=== PATIENT | female | born 1960 | race Caucasian/White ===

== ENCOUNTER 2019-09-27 15:48 | Inpatient (IN) | payer OTHER ==
[~2019-09-27] VITALS: Ht 167.6 cm; Wt 118.0 kg
[~2019-09-27 15:48] MED LIST: ALDACTAZIDE 251 EACH PO; DEMADEX20 MG PO; DEPAKOTE ER500 MG PO; KLOR-CON M2020 MEQ PO; NAPROSYN500 MG PO
--- OUTSIDE RECORDS SUMMARY | 2019-09-27 15:50 | XMS ---
PreManage Notification: REBECCA FERNÁNDEZ [place] Assessor Events No recent Security Events currently on file CRITERIA MET - [facility] [place] [facility] CARE PROVIDERS Russ De Jesus DO [facility] Current PHONE: Unknown DELON LAM Community Health Worker 07/09/2017-Current PHONE: [phone] Justin Erickson or Taker Away 07/11/2017-Current PHONE: [phone] RUSS DE JESUS Primary Care Current PHONE: Unknown [facility] Adult [facility] Health Provider [facility] PHONE: [phone] Guidelines Source: [employer] [place] Guidelines Date: 04/27/2018 Other Information: Currently placed at [facility] Adult [facility], contact Rain Tacho [phone].\T\nbsp; All prescription medications are being processed through [employer] [phone]. These are guidelines and the provider should exercise clinical judgment when providing care. Care History Medical/Surgical 08/28/2016 [facility] Care Coordination: Patient requires education on appropriate ED usage.\T\nbsp; Emphasize the importance of using outpatient medical services for the treatment of chronic conditions. Please contact Community Health WorkerDelon at [phone] if patient is seen in ED These are guidelines and the provider should exercise clinical judgment when providing care. E.D. VISIT COUNT (12 MO.) [address] [address] ROMAINE Barajas TOTAL 5 NOTE: Visits indicate total known visits. ED/UCC VISIT TRACKING (12 MO.) 09/27/2019 15:49 ROMAINE Lopez [place] TYPE: Emergency COMPLAINT: - FACIAL SWELLING, SORE THROAT 04/24/2019 08:24 [facility]: Emergency DIAGNOSES: - LOWER LEG SWELLING - Localized edema 01/04/2019 13:57 [facility] [place] TYPE: Emergency DIAGNOSES: - URI - Noninfective gastroenteritis and colitis, unspecified 12/13/2018 17:05 [facility]: Emergency DIAGNOSES: - Dizziness - Fall - Leg Pain - Altered Mental Status - Weakness - Dorsalgia, unspecified 12/13/2018 11:16 [facility] TYPE: Emergency DIAGNOSES: - WEAKNESS BILATERAL LEG PAIN - Oth symptoms and signs involving the musculoskeletal system - Anesthesia of skin - Unspecified nystagmus - Dizziness and giddiness INPATIENT VISIT TRACKING (12 MO.) 10/26/2018 12:01 [facility] DIAGNOSES: - Body mass index (BMI) 40.0-44.9, adult - Morbid (severe) obesity due to excess calories - Unspecified abnormalities of gait and mobility - Spinal stenosis, lumbar region with neurogenic claudication [email or web address]
--- NOTE | 2019-09-27 19:10 | NUR ---
59YR OLD WOMAN ADMITTED FROM ER VIA STRETCHER TO ROOM 120, PT IS ALERT, ORIENTED X4, C/O DIGGS ACROSS TOP OF HER HEAD, SPEECH IS CLEAR, ABLE TO SLIDE FROM STRETCHER ONTO BED WITH MIN ASSIST. ORIENTED TO ROOM AND CALL LIGHT. TINA-RN FROM ER ASKED IF I COULD GIVE ASPIRIN THAT WAS ORDERED TO BE GIVEN IN ER. ASPIRIN 325MG GIVEN. NO DIFFICULTY WITH SWALLOW.
--- NOTE | 2019-09-27 19:42 | NUR ---
PT TO ROOM FROM ED. REPORT RECEIVED FROM DAY SHIFT RN. PT LYING IN BED, ALERT AND ORIENTED. SIPS OR WATER GIVEN, NO SWALLOWING OR ASPIRATION ISSUES NOTED. PT STATES SHE ATE A CHEESEBURGER IN THE ED, LEFT SIDE OF HER TONGUE IS NUMB SO SHE WAS CHEWING ON THE RIGHT SIDE. SHE DENIES DIFFICULTY EATING OR DRINKING. ORIENTED TO CALL LIGHT AND TO CALL FOR ASSITANCE WITH AMBULATION. DENIES OTHER NEEDS AT THIS TIME.
--- NOTE | 2019-09-27 20:00 | EKG ---
[facility] [address] [place], [place] [address] Signed Normal sinus rhythm Inferior infarct , age undetermined Abnormal ECG No previous ECGs available Confirmed by DAVI RANDOLPH MD ([id number]) on 09/27/2019 8:00:00 PM Electronically Signed By: DAVI RANDOLPH MD 09/27/19 2000 PATIENT NAME: REBECCA FERNÁNDEZ Electrocardiogram DATE OF : 60 PHYSICIAN: DAVI RANDOLPH MD REPORT #: [id number] REPORT IS CONFIDENTIAL AND NOT TO BE RELEASED WITHOUT AUTHORIZATION
--- NOTE | 2019-09-27 20:30 | NUR ---
BEDSIDE SWALLOW EVALUATION COMPLETE. PT FRANCIE WELL WITH NO SIGNS OF SWALLOWING DIFFICULTY. MD AWARE, SOFT AND BITE SIZE TEXTURE 60 GR CARB DIET ORDERED FOR BREAKFAST. PT DOES CONTINUE TO C/O NUMBNESS AND TINGLING ON THE LEFT SIDE OF HER TONGUE. NEURO CHECK COMPLETE. SLIGHT LEFT SIDE FACIAL DROOP AND EDEMA NOTED. PRESSING MACHINE TENDER STRENGTH EQUAL BILAT. PT DENIES PAIN IN LEFT SIDE, STATES THE LAST TWO FINGERS ON HER LEFT HAND ARE NUMB AND TINGLING.
--- NOTE | 2019-09-27 23:56 | NUR ---
PT CALLED, NEEDED TO USE BATHROOM. INDEPENDENTLY GOT SELF OUT OF BED, SBA WITH FWW TO BATHROOM. USED CALL LIGHT TO RETURN TO BED, ABLE TO GET SELF INTO BED. STATES ALL LEGS, AND ARMS ARE "WORKING" LIKE THEY USUALLY DO. DID NOT NOTICE DRAGGING OF LEG(S), ABLE TO USE BOTH ARMS EQUALLY AND PULL PANTS DOWN. SPEECH IS CLEAR, ANSWERS QUESTIONS APPROPRIATELY. WILL RECOMMEND TO DAYSHIFT TO HAVE PT SHOWER, SHE HAS BODY ORDER.
--- NOTE | 2019-09-28 01:57 | NUR ---
CALL LIGHT ANSWERED. PT C/O BEING TOO HOT AND UNABLE TO SLEEP. FAN AND ICE PACK GIVEN. REPOSITIONED IN BED. VS WNL. NEURO CHECK COMPLETE AND UNCHANGED. CALL LIGHT IN REACH.
--- NOTE | 2019-09-28 04:25 | NUR ---
ASSESSMENT COMPLETE. NEURO ASSESSMENT UNCHANGED. PT STILL C/O LEFT SIDE TONGUE NUMBNESS AND TINGLING. PT ALSO EXPLAINED HOW SHE FEELS IF SHE HAS "PHLEGM" STUCK IN HER THROAT. PT ABLE TO COUGH BUT DID NOT PRODUCE ANYTHING. PT ALSO STATES SHE FEELS "WOOZY" AND JUST NOT "NORMAL". REASSURED PT. MRI SCREENING FORM COMPLETE. CALL LIGHT IN REACH.
--- NOTE | 2019-09-28 04:54 | NUR ---
PT SLEPT OK. ALERT AND ORIENTED, USES CALL LIGHT APPROPRIATELY. NEURO CHECKS Q4x24 HOURS. LEFT SIDE FACIAL DROOP, PT C/O NUMBESS AND TINGLING ON LEFT SIDE TONGUE. PT FRANCIE LIQUIDS AND PO MEDICATIONS. 6O GR CARB, SOFT AND BITE SIZE TEXTURED DIET. TELE #6, NSR. SBA WITH FWW. PT/OT/ST. PO TYLENOL FOR HEADACHE.
--- NOTE | 2019-09-28 05:48 | NUR ---
PT UP TO BR WITH MINIMAL SBA AND FWW. NO LEFT SIDE DEFICITS NOTED, GAIT STEADY. ABLE TO DO OWN SAMUEL-CARE. PT BACK TO BED, FRANCIE ACTIVITY WELL. STATES THERE IS A "LUMP IN MY STOMACH FROM WORRY", ATTEMPTED TO REASSURE PT. NO FURTHER REQUESTS AT THIS TIME. CALL LIGHT IN REACH.
--- NOTE | 2019-09-28 08:32 | NUR ---
PATIENT SITTING UP IN BED. SETS UP BATHROOM. PATIENT WILL TAKE A SHOWER AFTER BREAKFAST. CALL LIGHT WITHIN REACH. NO OTHER NEEDS AT THIS TIME
--- NOTE | 2019-09-28 10:05 | NUR ---
PATIENT RESTING IN BED. VITAL SIGNS AND I&O DONE. PATIENT'S BREAKFAST ORDERED. CALL LIGHT WITHIN REACH. NO OTHER NEEDS AT THIS TIME
--- NOTE | 2019-09-28 10:20 | NUR ---
ECHO WAS DONE, PT HAS BEEN ON PHONE WITH BROTHER SEVERAL TIMES, HAS BECOME UPSET BECAUSE BROTHER STATES HE CANNOT COME TODAY. REASSURED PT SHE IS SAFE AND EVERYTHING IS OK. PT AGREES SHE WILL TAKE A SHOWER.
--- NOTE | 2019-09-28 10:53 | NUR ---
Chart sent to [facility]: Face sheet, H&P, ER Note.
--- NOTE | 2019-09-28 11:00 | NUR ---
AGREED TO SHOWER, TOLERATED WELL, UP TO RECLINER FOR LUNCH, IN GOOD SPIRITS. L ARM/LEG WEAKNESS MOSTLY RESOLVED, C/O TINGLING ALONG L SIDE OF FACE, SLIGHT L MOUTH DROOP, NO SWALLOW DIFFICULTIES. USING CALL LIGHT APPROPRIATELY. TELE#6 SR.
--- NOTE | 2019-09-28 11:57 | NUR ---
PATIENT RESTING IN BED. RN IN ROOM. IV WRAPPED. PATIENT GOES TO USE THE BATHROOM. PATIENT USES WALKER. PATIENT TAKES A SHOWER. TWO PERSON ASSISTING. LINEN CHANGED. PATIENT USING A CLEAN GOWN AND ADULT PULL UP. PATIENT BACKS TO CHAIR. WARM BLANKETS PROVIDED. CALL LIGHT WITHIN REACH. NO OTHER NEEDS AT THIS TIME
--- NOTE | 2019-09-28 12:12 | NUR ---
Texted Ezequiel at [facility] and let her know we are definitly needing placement for this patient. I will call and update [facility] to pt's history of TBI.
[2019-09-28] MEDS ORDERED: LEXAPRO5 MG PO (12:29)
[2019-09-28] MEDS ORDERED: SEROQUEL100 MG PO (12:34)
[2019-09-28] MEDS ORDERED: ABILIFY20 MG PO (12:36)
[2019-09-28] MEDS ORDERED: VITAMIN D21250 MCG PO (12:36)
[2019-09-28] MEDS ORDERED: ALDACTONE50 MG PO (12:42)
[2019-09-28] MEDS ORDERED: OMEPRAZOLE20 MG PO (12:42)
[2019-09-28] MEDS ORDERED: BUMETANIDE1 MG PO (12:43)
[2019-09-28] MEDS ORDERED: LASIX20 MG PO (12:44)
[2019-09-28] MEDS ORDERED: NEURONTIN600 MG PO (12:44)
--- NOTE | 2019-09-28 12:44 | NUR ---
In and spoke with Soo. US was completed and she is scheduled for MRI this afternoon. States she was in a long-term in [place] and left on not good terms. Her hospital bed and some belongings have remained their since Aug 19 when she was asked to leave. Discussed discharge and she is very upset stating she cannot go back to a motel room. Discussed plan for her to go to a SNF for PT. She states she doesn't want to go, but understands she will need to do so. Pt also states she is very scared as she has had a stroke. States she would like to shower with assist as she has not showered in a week. She would like her home health care case manager called from [employer] as she is concerned about clothing. Called and attempted to speak with Lenka Tenorio, she is out sick. Spoke with [place] [phone]. He or someone will pack her bag and bring to the hospital.
[2019-09-28] MEDS ORDERED: SEROQUEL25 MG PO (12:45)
[2019-09-28] MEDS ORDERED: TRAZODONE HCL50 MG PO ×2 (12:46)
[2019-09-28] MEDS ORDERED: ACETAMINOPHEN500 MG PO ×2 (12:55→12:56)
[2019-09-28] MEDS ORDERED: LOPERAMIDE2 MG PO (13:00)
--- NOTE | 2019-09-28 13:00 | NUR ---
TO MRI VIA WC AT THIS TIME.
[2019-09-28] MEDS ORDERED: MILK OF MA400 MG/5 M PO (13:02)
[2019-09-28] MEDS ORDERED: MECLIZINE HCL25 MG PO (13:04)
--- NOTE | 2019-09-28 14:03 | NUR ---
PATIENT RESTING IN BED. VITAL SIGNS AND I&O DONE. HIGH DYASTOLIC BLOOD PRESSURE. RN NOTIFIED. CALL LIGHT WITHIN REACH. NO OTHER NEEDS AT THIS TIME
--- NOTE | 2019-09-28 14:13 | NUR ---
Update given to Ezequiel of pt's past history with Bipolar and TBI. She states pt will need a detention plan for the end of 20 days. Request I call [facility] for Eval for placement when pt has completed her PT there. This will help with them accepting her to [facility]. Called and spoke with Jillian from [facility] to [facility]. She and Les will evaluate pt tomoorrow. Reminded tomorrow is New Years Day and she states they are working. Will send chart to [facility] to [facility].
--- NOTE | 2019-09-28 15:12 | NUR ---
PT AMBULATING IN HALLWAY WITH PT USING FWW. NEEDED SOME PROMPTING BUT AGREED TO WORK WITH PT. COOPERATIVE AND PLEASANT. TOLERATED WELL. CONT. TO USE CALL LIGHT APPROP.
--- NOTE | 2019-09-28 15:16 | NUR ---
DINNER ORDERED, PT REPORTS HEADACHE IS MUCH IMPROVED AFTER TAKING TYLENOL. STATES SHE IS GOING TO TAKE A NAP BEFORE DINNER. CALL LIGHT IN EASY REACH.
--- NOTE | 2019-09-28 15:50 | NUR ---
MED REC COMPLETE
--- NOTE | 2019-09-28 16:38 | NUR ---
OT COMPLETING EVAL AT THIS TIME.
--- NOTE | 2019-09-28 17:46 | NUR ---
PATIENT IN BED RESTING. CALL LIGHT IN REACH. NO FURTHER NEEDS AT THIS TIME.
--- NOTE | 2019-09-28 17:47 | NUR ---
PT HAS BEEN UP AND SHOWERED THIS AM, ONE PERSON ASSIST TO TRANSFER AND WALK USINF FWW. L SIDE WEAKNESS MUCH IMPROVED, AMBULATED IN [place] WITH PT. COOPERATIVE WITH OT EVAL. CONT. TO C/O BLURRY VISION, AND L SIDE DROOP OF MOUTH, STATES TINGLING IS UNCHANGED L SIDE OF FACE. NO HEADACHE THIS AFTERNOON. ATE 90% OF DINNER INDEP.NOTED SOME INCREASE IN EDEMA IN LOWER LEGS AFTER BEING OUT OF BED. NO DIFFICULTY WITH SWALLOW. USING CALL LIGHT APPROP. CONTINENT OF BOWEL AND BLADDER.
--- NOTE | 2019-09-28 19:19 | NUR ---
REPORT RECEIVED FROM DAY SHIFT RN. PT LYING IN BED RESTING WITH EYES CLOSED, NAD. CALL LIGHT IN REACH.
--- NOTE | 2019-09-28 21:49 | NUR ---
EVENING ASSESSMENT COMPLETE. PM MEDS GIVEN, NO SWALLOWING ISSUES NOTED. INVESTOR RELATIONS SPECIALIST STRENGTH EQUAL. LEFT SIDE FACIAL DROOP STILL PRESENT. TELE #6 SINUS RHYTHM, HR IN THE 80'S. URINE OUTPUT NOTED TO BE LOW, PO INTAKE ENCOURAGED. NO FURTHER NEEDS AT THIS TIME. CALL LIGHT IN REACH.
--- NOTE | 2019-09-28 23:10 | NUR ---
CALL LIGHT ANSWERED. 1 PA TO THE BATHROOM USING PERSONAL WALKER. CHANGED PULL UPS. PATIENT VOIDED 400ML. PATIENT IS BACK IN BED. PATIENT DENIES FURHTER NEEDS. CALL LIGHT IN REACH.
--- NOTE | 2019-09-29 00:09 | NUR ---
PT RESTING IN BED WITH EYES CLOSED, NAD. CALL LIGHT IN REACH.
--- NOTE | 2019-09-29 02:41 | NUR ---
PT IN BED RESTING WITH EYES CLOSED ON RIGHT SIDE. TELE #6 SR, HR 50-60'S.
--- NOTE | 2019-09-29 05:10 | NUR ---
PT SLEPT WELL, ALERT AND ORIENTED. USES CALL LIGHT APPROPRIATELY. FRANCIE ADA SOFT AND BITE SIZE DIET. UP TO BR WITH SBA AND FWW. TELE #6, NSR. BLE EDEMA IMPROVED FROM LAST NOC. LEFT SIDE FACIAL DROOP REMAINS. GRAD INTERN STRENGTH EQUAL BILAT. NO C/O BLURRED VISION OR DIGGS THIS SHIFT. NO SWALLOWING DIFFICUTLY NOTED.
--- NOTE | 2019-09-29 06:23 | NUR ---
PT UP TO BR WITH FWW AND MINIMAL SBA. STAFF ASSIST WITH SAMUEL-CARE. BACK TO BED, FRANCIE ACTIVITY WELL. NO LEFT SIDED DEFICITS OR WEAKNESS NOTED WITH AMBULATION. GAIT STEADY. LEFT SIDE FACIAL DROOP UNCHANGED. NO C/O HEADACHE OR BLURRED VISION. VSS. PT DENIES OTHER NEEDS. CALL LIGHT IN REACH.
--- NOTE | 2019-09-29 09:01 | NUR ---
NEEDED LOTS OF ENCOURAGEMENT TO GET OOB FOR BREAKFAST, STATED SHE PREFERS TO JUST LAY IN BED "MY BROTHER ISN'T GONNA COME SEE ME." ENC. HER TO GET UP TO RECLINER TO EAT, ATE 20% OF BREAKFAST BUT IS TAKING FLUIDS BETTER. AGREED TO WALK WITH PT IN [place]. TOOK SCHEDULED MEDS. PT STATES VISION CONT. TO BE A LITTLE BLURRY AROUND EDGES BUT IS BETTER THIS AM, NO DIGGS THIS MORNING, CONT. TO HAVE L FACIAL DROOP. NO DIFFICULTY WITH SWALLOW.
--- NOTE | 2019-09-29 12:23 | NUR ---
ATE WELL FOR LUNCH AND TAKING FLUIDS BETTER TODAY, REMAINS COOPERATIVE AND PLEASANT WITH CARES, ASKED TO LAY DOWN FOR A NAP AFTER LUNCH. CONT. TO DENY DIGGS.
--- NOTE | 2019-09-29 14:12 | NUR ---
PT REPORTS HEADACHE MUCH IMPROVED AFTER HEADACHE. ATE 100% OF LUNCH.
--- NOTE | 2019-09-29 15:55 | NUR ---
SBA TO AMBULATE INTO BATHROOM TO VOID, URINE IS LIGHT YELLOW NOW, OUTPUT IS MUCH BETTER, SITTING UP IN RECLINER WATCHING FOOTBALL GAME. PRACTISED EYE TEST GIVEN BY OT INSTRUCTED. DENIES ANY DIGGS OR NEEDS AT THIS TIME. CALL LIGHT IN EASY REACH.
--- NOTE | 2019-09-29 16:12 | NUR ---
patient asked for information on [facility]
--- NOTE | 2019-09-29 17:37 | NUR ---
ATE 100% OF DINNER, IN BETTER SPIRITS THIS AFTERNOON, NO COMPLAINTS OF DISCOMFORT, ASSISTED ONTO BED TO REST. CALL LIGHT IN EASY REACH.
--- NOTE | 2019-09-29 19:00 | NUR ---
SHIFT REPORT RECEIVED FROM DAYSHIFT MAIKEL GEE AT BEDSIDE. PT RESTING IN BED WITH EYES CLOSED, RESPIRATIONS EVEN AND UNLABORED. NO DISTRESS NOTED, PT APPEARS COMFORTABLE, CALL LIGHT IN REACH.
--- NOTE | 2019-09-29 21:17 | NUR ---
HELPED PT TO THE BATHROOM AND BACK TO BED WITH HER FWW. VITALS AND I&OS DONE AND CHARTED. BEDSIDE TABLE AND CALL LIGHT IN REACH. PT NEEDS NOTHING MORE AT THIS TIME.
--- NOTE | 2019-09-29 21:40 | NUR ---
ASSESSMENT COMPLETE,SCHEDULED MEDS GIVEN (SEE EMAR). SLIGHT FACIAL DROOP, NO DIFFICULTY WITH SWALLOWING NOTED. PT A/O, REPORTS MINIMAL DISCOMFORT AT BACK OF HEAD, STATES "I DON'T NEED ANYTHING FOR IT". DOES NOT VERBALLY RATE PAIN. WILL MONITOR FOR CHANGES RELATED TO PAIN OR VISION CHANGES. NO FURTHER NEEDS VERBALIZED, CALL LIGHT IN EASY REACH OF PT.
--- NOTE | 2019-09-29 23:32 | NUR ---
PT RESTING IN BED WITH EYES CLOSED. RESPIRATIONS EVEN AND UNLABORED. NO DISTRESS NOTED, PT APPEARS COMFORTABLE. CALL LIGHT IN REACH.
--- NOTE | 2019-09-30 01:22 | NUR ---
PT RESTING IN BED WITH EYES CLOSED. RESPIRATIONS EVEN AND REGULAR, NO DISTRESS NOTED. CALL LIGHT IN REACH.
--- NOTE | 2019-09-30 04:07 | NUR ---
RR 16, REGULAR AND UNLABORED. EYES CLOSED, PT APPEARS COMFORTABLE AND IN NO DISTRESS. CALL LIGHT EASILY IN REACH.
--- NOTE | 2019-09-30 05:20 | NUR ---
ASSESSMENT COMPLETE, NO NEW CHANGES OR CONCERNS. PT A/O, VSS. PT ABLE TO COMPLETE LETTER SHEET, WITH ONLY ONE MISS. PT STATES, BLURRED VISION IS "BETTER THAN YESTERDAY". PT DENIES PAIN. PRINCIPAL SCIENTIST DECEMBER IN ROOM ASSITING PT TO BATHROOM TO VOID.
--- NOTE | 2019-09-30 05:23 | NUR ---
VITALS AND I&OS DONE AND CHARTED. HELPED PT TO THE BATHROOM AND BACK TO BED WITH HER FWW. FRESH ICE WATER GIVEN. BEDSIDE TABLE AND CALL LIGHT IN REACH.
--- NOTE | 2019-09-30 06:06 | NUR ---
PT SLEPT FOR MOST OF SHIFT, VSS. PT A/OX4, REPORTED PAIN IN HEAD, DENIED NEED FOR PAIN MEDICATION, RESOLVED SPONTANEOUSLY. REPORTS BLURRED VISION IS BETTER, USES CALL LIGHT APPROPERIATELY. SBA WITH FWW. VOIDING QS, NO BM. TENETATIVE DISCHARGE TO [facility].
--- NOTE | 2019-09-30 08:10 | NUR ---
PT IS ALERT, SBA USING FWW, SOME INCREASED ANXIETY DUE TO POSSIBLE DC, REASSURRED HER SHE IS SAFE AND WILL HAVE SUPPORT, REMAINS COOPERATIVE, UP TO RECLINER FOR BREAKFAST, REPORTS HEADACHE IS BARELY THERE, DENIES NEED FOR TYLENOL, REPORTS VISION IS BETTER AND PRACTICED EYE CHART GIVEN BY OT THIS AM. SLIGHT DROP CONT. ON R SIDE OF MOUTH, NO SWALLOW DIFFICULTIES, USING CALL LIGHT APPROP.
--- NOTE | 2019-09-30 09:00 | NUR ---
In and spoke with Soo. She is willing to go to the snf. [facility] did not evaluate yesterday as planned. Called and left message. [facility] continues to not want to accept until there is a discharge plan in place. Will cont. to contact [facility].
--- NOTE | 2019-09-30 10:35 | NUR ---
ATE 100% OF BREAKFAST, RESTING IN RECLINER WITH WARM BLANKET, DENIES ANY NEEDS, CALL LIGHT IN EASY REACH.
--- NOTE | 2019-09-30 11:00 | NUR ---
Attempted to contact Jillian by phone, spokewith Patrica who states she is cooking lunch and will return call afternoon.
--- NOTE | 2019-09-30 11:40 | NUR ---
WALKED LOOP AROUND NURSES STATION WITH PT USING FWW, IN GOOD SPIRITS, STATES SHE HAD ORDERED LUNCH, ROSANNA ANY NEEDS OR CONCERNS. CALL LIGHT IN EASY REACH.
--- NOTE | 2019-09-30 13:23 | NUR ---
ATE 100% OF LUNCH, IN GOOD SPIRITS, SBA ONLY WITH FWW UP TO BATHROOM TO VOID, ASKED TO LAY ON BED TO WATCH TV FOR AWHILE, TIRED OF SITTING IN CHAIR, ORDERED ANOTHER GLASS OF ICE TEA. CALL LIGHT IN EASY REACH.
--- NOTE | 2019-09-30 14:00 | NUR ---
Received return call from Lesley from [employer], after attempting to contact Lenka watch case polisher. Lesley states they could provide her with a motel room on discharge from the senior care. She states he concern as pt did not do well in the motel as she has difficulty caring for herself and cannot cook for herself. I later received a note from Tangela from pt education. Lenka did return the call and agreed to cover the cost of a hotel room for 1 month when pt discharges from SNF. Lesley [phone]. Lenka Cruz [employer] [phone]. Ezequiel updated, but states concern this is not a safe dc as pt did not do well in a motel room.
--- NOTE | 2019-09-30 14:38 | NUR ---
SBA INTO BATHROOM TO VOID, ASSESSMENT COMPLETE, SPEECH IS MUCH CLEARER NOW, DENIES ANY DIGGS, AMBULATION IS STRONGER, CONT. TO BE IN BETTER SPIRITS, SCHEDULED MEDS TAKEN WITHOUT DIFFICULTY. ASKED TO LAY DAOWN AGAIN BEFORE DINNER. CALL LIGHT IN EASY REACH.
--- NOTE | 2019-09-30 15:00 | NUR ---
Spoke with Jillian, they will evaluate today. States they cannot confirm they will take as DHS eval was completed last week and DHS has 30 + days to confirm.
--- NOTE | 2019-09-30 15:20 | NUR ---
Spoke with Ezequiel and update given. She states she spoke with Rosalba from [facility] and eval was completed by outside agency and they are unable to determine if pt will received benefits. Pt's major case detective is Judy from [facility] in [place]. I will contact her for further information.
--- NOTE | 2019-09-30 16:05 | NUR ---
UP TO RECLINER, DINNER ORDERED. IN GOOD SPIRITS, CALL LIGHT IN EASY REACH.
--- NOTE | 2019-09-30 16:30 | NUR ---
Attempted to contact Judy from [facility] in [place] she is out today. Was transferred to [facility]. Updated Soo had a stroke 2 days following the [facility] eval. She states eval was completed by Mental Health team from [place]. Requested Eval to be redone due to the change of condition. Let her know pt is now in Person, attempting to admit to a SNF for PT/OT, and then an assisted living when discharged. Asked if [facility] could reassess tomorrow. She states she will staff with coworkers tomorrow and let us know. Updated SNF and [facility] do not want to commit to taking pt as she does not have LTC benefits at this point. Cam or Judy [phone].
--- NOTE | 2019-09-30 18:09 | NUR ---
PT HAS HAD A GOOD DAY, AMBULATED CASTILLO WITH PT USING FWW, IN GOOD SPIRITS, LAUGHING AND JOKING WITH STAFF, GOOD APPETITE, SPEECH SEEMS CLEARER TODAY, NO DIGGS, CONT. TO HAVE MILD FACIAL DROP ON R SIDE OF MOUTH, NO SWALLOW DIFFICULTIES. USING CALL LIGHT APPROP.
--- NOTE | 2019-09-30 19:15 | NUR ---
SHIFT REPORT RECEIVED FROM DAYSHIFT MAIKEL GEE AT BEDSIDE. PT AWAKE AND RESTING IN BED. INTERACTIVE WITH NURSING STAFF AND DENIES NEEDS, CALL LIGHT IN REACH. BOARD UPDATED.
--- NOTE | 2019-09-30 21:31 | NUR ---
VITALS AND I&OS DONE AND CHARTED. FRESH WATER AND SUGAR FREE SODA GIVEN BEDSIDE TABLE AND CALL LIGHT IN REACH. ALSO HELPED PT TO THE BATHROOM AND BACK TO BED WITH HER FWW.
--- NOTE | 2019-09-30 22:15 | NUR ---
ASSESSMENT COMPLETE,SCHEDULED MEDS GIVEN (SEE EMAR). CRACKERS PROVIDED FOR ORAL POTASSIUM. NO SWALLOWING DIFFICULTIES NOTED, PT A/OX4. REPORTS GENERALIZED DISCOMFORT, BUT DOES NOT RATE PAIN AND DENIES NEED FOR PAIN MEDICATION. PT RESTING IN BED AND DENIES FURTHER NEEDS, CALL LIGHT IN REACH.
--- NOTE | 2019-10-01 00:05 | NUR ---
PT RESTING IN BED WITH EYES CLOSED, RESPIRATIONS EVEN AND UNLABORED. NO DISTRESS NOTED, CALL LIGH IN REACH.
--- NOTE | 2019-10-01 01:34 | NUR ---
PT RESTING IN BED, EYES ARE CLOSED. RESPIRATIONS EVEN AND UNLABORED. NO DISTRESS NOTED, CALL LIGHT IN REACH.
--- NOTE | 2019-10-01 03:43 | NUR ---
PT RESTING IN BED, RESPIRATIONS EVEN AND UNALBORED. PT APPEARS COMFORTABLE, NO DISTRESS NOTED, CALL LIGHT IN REACH.
--- NOTE | 2019-10-01 04:54 | NUR ---
PT HAD A GOOD NIGHT, SLEPT FOR MOST OF SHIFT. A/O, VSS. SBA WITH FWW, USES CALL LIGHT APPROPERIATELY. REPORTS BLURRED VISION IS IMPROVING. NO PAIN MEDICATION REQUIRED. PT DENIED NAUSEA, BOWEL TONES ACTIVE. TENATIVE DISCHARGE TODAY.
--- NOTE | 2019-10-01 05:31 | NUR ---
ASSESSMENT COMPLETE, NO NEW CHANGES OR CONCERNS. PT AWAKE AND VERBALIZING NEED TO VOID. CLEAN ATTENDS IN PLACE, PT BACK IN BED. DENIES PAIN, VSS. NO ADDITIONAL NEEDS AT THIS TIME, PT STATES, "THANK YOU FOR YOUR KIND CARE". CALL LIGHT IN REACH.
--- NOTE | 2019-10-01 07:29 | NUR ---
RECIEVED BEDSIDE REPORT FROM MAIKEL AQUINO. PT IS SLEEPING, APPERS COMFORTABLE.
--- NOTE | 2019-10-01 07:40 | NUR ---
patient resting in bed with eyes closed.
--- NOTE | 2019-10-01 08:36 | NUR ---
PT IS CONCERNED ABOUT DISCHARGING TO [facility]. STATES SHE HAS BELONGINGS AT A MOTEL IN [facility] THAT SHE NEEDS. ALSO HAS A PAIR OF [place] HEARING AIDES THAT MUST BE RETURNED TO THE [facility]ARING AIDE CENTER. THIS RN ASSURED HER THAT EITHER [facility] OR [facility] CAN HELP HER GET HER BELONGINGS FROM THE [facility]OTEL AND GET THE HEARING AIDS BACK TO THE [facility]. PT VISIBLY RELAXED WITH THAT INFORMATION. VERY PLEASANT AND COOPERATIVE WITH CARES.
--- NOTE | 2019-10-01 08:45 | NUR ---
patient would like to wait on a shower until after she knows the plan for her discharge. no other needs a this time.
--- NOTE | 2019-10-01 09:44 | NUR ---
CALLED [facility] SADLER TO SPEAK WITH DAYWORKER TO ASK FOR ASSESSMENT FOR MEDICAID BENEFITS. NO DAYWORKER AVAILABLE UNTIL AFTER 11AM TODAY, WAS PUT TO THE DESK OF HERMAN WHO IS SUPPOSED TO COVER AT 11AM AND LEFT MESSAGE FOR CALLBACK AND REQUEST OF ASSESSMENT.
--- NOTE | 2019-10-01 10:05 | NUR ---
Patient finished with PT and back to bed. fresh ice water given. call button in reach. no other needs at this time.
--- NOTE | 2019-10-01 10:33 | NUR ---
PT HAS BEEN UP WALKING WITH PHYSICAL THERAPY. TOLERATED WELL. MAINTAINING O2 SATS WITH AMBULATION. OCCUPATIONAL THERAPY IN ROOM AT THIS TIME.
--- NOTE | 2019-10-01 10:44 | NUR ---
RECEIVED A MESSAGE FROM [facility] SUPER[employer]OR [employer] [phone]. TRIED TO CALL HER BACK, HAD TO LEAVE A MESSAGE. REQUESTED HELP IN GETTING AN ASSESSMENT FOR MEDICAID COVERAGE.
--- NOTE | 2019-10-01 15:10 | NUR ---
PATIENT UP AMBULATING IN HALLWAY WITH ONE PERSON ASSIST, WALKER, AND GATE BELT THEN BACK TO BED. CALL BUTTON IN REACH. NO OTHER NEEDS AT THIS TIME.
--- NOTE | 2019-10-01 21:44 | NUR ---
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 PT RESTING IN BED WITH EYES CLOSED. DOES NOT WAKE WHILE PROCED TECH IN DOORWAY. CALL LIGHT IN REACH. WHITE BOARD UPDATED.
--- NOTE | 2019-10-01 21:51 | NUR ---
COOP WITH ASSESSMENT, NO C/O PAIN, NYSTATIN POWDER TO UNDER BREAST AREA, TOLERATING DIET, NO N.V. LEGS ELEVATED, HOB ELEVATED
--- NOTE | 2019-10-01 23:26 | NUR ---
up to br, voided, back to bed, 1pa/fww, tolerated welll, hob elevated. no c/o pain, legs elevated.
--- NOTE | 2019-10-02 03:01 | NUR ---
RESTING,NO C/O PAIN, NO DISTRESS, CALL LIGHT AT HANDS REACH
--- NOTE | 2019-10-02 05:29 | NUR ---
Pt awakesn easily, denies c/o chest pain. Goes back to sleep. Has slept most of this shift, no resp distress, on room air, Up to br, voiding QS. Up w 1PA and FWW, needs help with pericare.Nystatin powder to under breast area. Tolerating diet and fluids well. SL intact
--- NOTE | 2019-10-02 05:41 | NUR ---
Continues to be on transitional care/swing bed status, Has slept most of this shift, denies c/o CP, no resp distress, Up to br with 1pa/fww, no c/o gait problems. tolerating diet anf fluids. Call light at bedside
--- NOTE | 2019-10-02 07:26 | NUR ---
RECIEVED REPORT FROM MAIKEL BARRY. PT IS SLEEPING WELL, BREATHING EVEN AND UNLABORED. GENERAL BILAT LE EDEMA, CHRONIC. CALLS APROPRIATELY.
--- NOTE | 2019-10-02 07:54 | NUR ---
PATIENT SITTING IN CHAIR RESTING. CALL LIGHT IN REACH. NO FURTHER NEEDS AT THIS TIME.
--- NOTE | 2019-10-02 09:19 | NUR ---
PATIENT UP TO BATHROOM AND BACK TO BED, SBA FWW. ORAL CARE AND AM CARE DONE AT SINK. CALL LIGHT IN REACH. NO FURTHER NEEDS AT THIS TIME.
--- NOTE | 2019-10-02 10:24 | NUR ---
PER LELE BERUMEN TO LEAVE IV OUT. PT IS DUE FOR ROTATION.
--- NOTE | 2019-10-02 14:47 | NUR ---
PATIENT AMBULATED IN HALLWAY, 1 LAP AROUND NURSES STATION. PATIENT NOW BACK IN BED. PATIENT ASKED FOR PUDDING, SUGAR FREE PUDDING GIVEN. CALL LIGHT IN REACH. NO FURTHER NEEDS AT THIS TIME.
--- NOTE | 2019-10-02 19:45 | NUR ---
Up to br, voided, back to bed, tolerated well. 1PA/FWW. Coop with assessments on room air, denies c/o pain. L leg 2+ non pitting edema, 1+ generalized edema everywhere else, obese. Alert and orineted, apporpriate responses and following and repeating back instructions, no slurred speech noted. Call light at hands reach, tolerating fluids and diet well
--- NOTE | 2019-10-03 02:00 | NUR ---
Resting, eyes closed, resp even, unlabored, call light and fluids atbedside
--- NOTE | 2019-10-03 02:26 | NUR ---
PT UTILIZES CALL LIGHT TO USE THE BATHROOM PT UP TO BATHROOM AND BACK TO BED WITH SBA AND FWW. TOLERATED WELL. REPORTS SLIGHT SOB AND DIZZINESS WHEN BACK TO BED. REQUESTS 7UP TO DRINK, PROVIDED. PT DENIES FURTHER NEEDS AT THIS TIME. CALL LIGHT IN REACH. ROOM IN VIEW OF RN STATION.
--- NOTE | 2019-10-03 04:00 | NUR ---
Upto br, voided, backto bed, tolerated well, no slurred speech or c/o visual problems, 1pa/fww, call light at bedside
--- NOTE | 2019-10-03 05:21 | NUR ---
PT HAS SLEPT MOST OF THIS SHIFT. HAS VOIDED QS. UP W SBA/FWW. TOLERATED WELL. WAS MEDICATED WITH TYLENOL 500MG PO PER C/O 5/10 H/A AND NECK PAIN. HAS TOLERATING DIET AND FLUIDS WELL, NO N/V. LE EDEMA,LEGS ELEVATED. NO VISUAL OR C/O SLURRED SPEECH NOTED THIS SHIFT. CONTINUES TO BE WORRIED ABOUT PLACEMENT/DISCHARGE. SAFETY REASSURED, CALMER. CALL LIGHT AT BEDSIDE
--- NOTE | 2019-10-03 06:54 | NUR ---
up to br, voided QS, backto bed, L wided weakness present. edema of LE. No c/o cp or slurred speech.
--- NOTE | 2019-10-03 07:10 | NUR ---
0706: Report recieved from Susan KO.
--- NOTE | 2019-10-03 07:34 | NUR ---
PT RESTING IN HER BED AND SHE DENIES ANY PAIN OR NEW PROBLEMS. SPEECH REMAINS SLURRED WHICH THE PT STATES IS UNCHANGED. SHE HAS LEFT HAND AND LEG WEAKNESS OF WHICH SHE STATES IS IMPROVING. LOWER LEG EDEMA IS PRESENT WITH THE LEFT BEING WORSE WHICH SHE STATES IS BASELINE. LEGS ELEVATED. CALL CHEN WITHIN REACH.
--- NOTE | 2019-10-03 09:49 | NUR ---
Pt ambulated to the BR with a SBA and the use of her FFW. She voided and had a large formed BM. Pt was cleaned up and assisted to her chair. She is now sitting in the chair with her legs elevated and her call esparza within reach.
--- NOTE | 2019-10-03 11:10 | NUR ---
Pt ambulating in the halls with physical therapy at this time.
--- NOTE | 2019-10-03 13:07 | NUR ---
PT resting in her bed and she states she has a DIGGS rated at a 6/10. When asked if she is having any additional pain she states she does not, but states there is some "throbing" in her legs. She states this is not pain in her legs and it is baseline for "about 2 years". PT's swelling in her legs and pulses remain unchanged. Her vision issues also are "about the same".
--- NOTE | 2019-10-03 14:02 | NUR ---
Pt sleeping at this time, call esparza within reach.
--- NOTE | 2019-10-03 14:36 | NUR ---
Pt awoke from her nap and states her DIGGS is now gone.
--- NOTE | 2019-10-03 16:51 | NUR ---
PT AMBULATED A HALF A LAP IN THE HALLS WITH HER WALKER AND A SBA. PT NOW BACK IN HER CHAIR AND SHE IS WATCHING TV AND IS AWAITING HER DINNER.
--- NOTE | 2019-10-03 19:44 | NUR ---
REPORT RECEIVED FROM DAY SHIFT RN. PT LYING IN BED, ALERT AND ORIENTED. DENIES NEEDS AT THIS TIME. CALL LIGHT IN REACH.
--- NOTE | 2019-10-03 21:00 | NUR ---
EVENING ASSESSMENT COMPLETE. PM MEDS GIVEN WITHOUT DIFFICULTY. NO SWALLOWING ISSUES NOTED. PT DENIES PAIN AT THIS TIME. STATES HER CONCERN ABOUT DISCHARGE AND WHERE SHE WILL WIND UP. ATTEMPTED TO REASSURE PT. NO FURTHER NEEDS AT THIS TIME. CALL LIGHT IN REACH.
--- NOTE | 2019-10-03 23:39 | NUR ---
PATIENT USED THE CALL LIGHT. 1 PA TO THE BATHROOM USING PERSONAL WALKER. PATIENT IS BACK IN BED. CALL LIGHT IN REACH.
--- NOTE | 2019-10-04 01:00 | NUR ---
PT RESTING IN BED WITH EYES CLOSED, NAD.
--- NOTE | 2019-10-04 02:41 | NUR ---
PT LYING ON RIGHT SIDE IN BED, EYES CLOSED. RR EVEN AND UNLABORED.
--- NOTE | 2019-10-04 04:22 | NUR ---
PT CALLED NEEDED BATHROOM. VERY SLOW, BUT ABLE TO GET SELF OUT OF BED, WALKER SUPPORT GIVEN TO PT, SHE AMBULATED INTO BATHROOM, NEEDED HELP WITH HER CLOTHING, FEARFUL SHE WOULD FALL, SLEEPY AND UNSTEADY. VOIDED, REQUESTED ASSISTANCE IN GETTING UP, ASSISTED WITH CLOTHING, PT ABLE TO PUT LEGS INTO BED, HOWEVER, STRUGGLED SL, STATED THAT IT IS "HARD" TO DO THIS SOMETIMES. FRESH WATER GIVEN, SUPPLIES WITHIN REACH.
--- NOTE | 2019-10-04 05:53 | NUR ---
PT RESTED WELL THROUGHOUT THE NIGHT, ALERT AND ORIENTED. USES CALL LIGHT APPROPRIATELY. SBA WITH FWW. SLIGHT LEFT SIDE WEAKNESS. MEDICATED WITH PRN FOR C/O DIGGS. DISCHARGE PLANNING.
--- NOTE | 2019-10-04 07:20 | NUR ---
RECIEVED BEDSIDE REPORT FROM MAIKEL ABERNATHY. PT IS AWAKE AND ALERT, NEEDS TO USE THE BATHROOM. VOIDING WELL. C/O HEADACHE, TYLENOL IS EFFECTIVE. NO CHANGE IN SPEECH.
--- NOTE | 2019-10-04 09:00 | NUR ---
SPOKE WITH PT REGARDING DISCHARGE PLAN. PATIENT STATES SHE DOESN'T THINK SHE CAN GO BACK TO [place]. STATES SHE DOES NOT FEEL SAFE TO TAKE CARE OF HERSELF. SHE IS AGREEABLE TO STAY AT SNF AND SHE IS HOPING TO MOVE TO DESIRE FOR HEALING FOR LONG-TERM LIVING. SHE STATES HER FIRST CHOICE SNF WOULD BE [facility] [place]. SHE STATES SHE WOULD BE OK TO GO TO [facility] IN [place] IF SHE NEEDS TOO, STATES SHE HAS BEEN THERE BEFORE. PATIENT DISCUSSED INSURANCE COVERAGE, HER COUNSELORS AT [employer], HER FINANCIAL AFFAIRS OPENLY. SHE IS OK WITH MY TALKING WITH [employer]. SHE STATES SHE GETS A [place] SUM OF $52,000 IN DECEMBER FROM A ACCIDENT SETTLEMENT. SHE STATES SHE WOULD USE IT TO HELP PAY EXPENSES. SHE STATES OTHERWISE SHE GETS UNDER $1,000/MONTH SSI AND ANNUITY COMBINED. SHE STATES SHE LEFT A LONG-TERM FROM [facility] BECAUSE "I DIDN'T GET ALONG WITH THE LADY RUNNING IT". WE DISCUSSED THAT I HAVE CALLED AND LEFT MESSAGES AT [facility]. ENCOURAGED HER TO KEEP WORKING WITH THERAPY AND WE WILL FIGURE OUT WHERE SHE WILL GO AT DISCHARGE. PATIENT VERY COOPERATIVE AND PLEASANT.
--- NOTE | 2019-10-04 09:04 | NUR ---
PT IS UP IN CHAIR, STILL CONCERNED ABOUT WHAT WILL HAPPEN WITH HER DISCHARGE. THIS RN GAVE REASSURANCE THAT CASE MANAGEMENT IS WORKING ON IT AND WILL BE IN TO TALK TO HER. PT STATES THAT SHE THINKS SHE IS "DRIBBLING" FLUIDS OUT THE SIDE OF HER MOUTH. THIS RN DID NOT SEE ANY DRIBBLING. SMILE HAS REMAINED UNCHANGED. SPEECH APPERS TO BE CLEARING.
--- NOTE | 2019-10-04 09:50 | NUR ---
SPOKE WITH ANDRES FROM [facility]. SHE STATES THEY CANNOT DO AN ASSESSMENT FOR A FEW WEEKS DURING THE ACUTE PERIOD AFTER THE STROKE. DISCUSSED THAT SHE NEEDS TO GO TO A SNF AND HER INSURANCE. DISCUSSED THAT INSURANCE COULD POSSIBLY ONLY COVER A COUPLE WEEKS PATIENT IS PROGRESSING DAILY. SHE STATES THAT THE [facility] ROOM IS PAID UP FOR 30 DAYS. EXPLAINED THAT PATIENT WOULD NOT BE SAFE ALONE IN [place] SHE CANNOT COOK, OR GIVE SELF SHOWER. SHE WOULD BE AT RISK FOR FALLS, ETC. WE DISCUSSED THAT PATIENT WOULD NEED TO HAVE CAREGIVERS AVAILABLE AND THERAPY FOR NOW. SHE STATES FOR PATIENT TO GO TO SNF AND THEN THEY WILL REASSESS IN A FEW WEEKS. CALLED [facility]. SPOKE WITH STRATEGIC PLANNER WHO STATES THEY DO NOT FEEL THIS PATIENT HAS A SAFE DISCHAGE PLAN AND ARE NOT ABLE TO TAKE HER. CALLED [facility] [phone] AND SPOKE WITH BARRIE. SHE STATES THEY HAVE HAD PATIENT BEFORE AND THEY WOULD BE WILLING TO LOOK AT CLINICALS TO SEE IF THEY CAN TAKE HER AGAIN IN [place]. CLINICALS PULLED TOGETHER, BELA GRANT CLERK MEDICAL FLOOR WILL FAX TO [facility] FAX [phone].
--- NOTE | 2019-10-04 11:56 | NUR ---
ASSISTED PT TO BATHROOM. CHANGED HER TOILET HAT PER HER REQUEST. BACK IN CHAIR FOR LUNCH. PT IS MOVING WELL WITH WHEELED WALKER.
--- NOTE | 2019-10-04 12:04 | NUR ---
RECEIVED CALL FROM BRARIE AT [facility]. SHE STATES THEY RECEIVED CLINICALS AND WILL ACCEPT PATIENT. THEY ARE IN PROCESS OF GETTING INSURANCE AUTH. THEY WILL LET US KNOW WHEN THEY AHSAN ACCEPT. STAFF UPDATED.
--- NOTE | 2019-10-04 13:05 | NUR ---
SPOKE WITH PATIENT REGARDING [facility] ACCEPTING HER. PATIENT STATES SHE IS FINE WITH THIS. HER ONLY CONCERN WAS GETTING SOME OF HER CLOTHES FROM THE [facility] ROOM. I AGREED TO CALL [employer] AND ASK CASSIE TO HELP GET SOME OF HER THINGS. EXPLAINED TO HER THAT WE ARE WAITING FOR INSURANCE TO AUTHORIZE HER STAY, AND I'M NOT SURE IF SHE WILL GO TODAY OR TOMORROW. SHE STATES UNDERSTANDING.
--- NOTE | 2019-10-04 13:40 | NUR ---
MESSAGE LEFT FOR CASSIE AT [employer] [phone] ASKING HIM TO HELP PATIENT GET SOME CLOTHES/BELONGINGS FROM [facility].
--- NOTE | 2019-10-04 14:42 | NUR ---
PATIENT IN BED RESTING WITH EYES CLOSED. ASKED PATIEMNT ABOUT SHOWE, SHE SAID IN A LITTLE BIT, WILL CHECK BACK IN. FRESH WATER GIVEN. CALL LIGHT IN REACH. NO FURTHER NEEDS AT THIS TIME.
--- NOTE | 2019-10-04 16:11 | NUR ---
PT STATES SHE IS "REALLY TIRED" THIS AFTERNOON. HAS BEEN RESTING IN BED. WAKES EASILY TO VOICE. PLAN TO DC TOMORROW.
--- NOTE | 2019-10-04 18:20 | NUR ---
[facility] IN [place] HAS ACCEPTED PT, WAITING ON INSURANCE APPROVAL. C/O INCREASE IN FATIGUE, VISION CHANGES. MD AWARE, MIGRAINE RELATED.
--- NOTE | 2019-10-04 19:38 | NUR ---
REPORT RECEIVED FROM DAY SHIFT RN. PT LYING IN BED, ALERT AND ORIENTED. NO NEEDS AT THIS TIME. CALL LIGHT IN REACH.
--- NOTE | 2019-10-04 20:30 | NUR ---
EVENING ASSESSMENT COMPLETE. EVENING MEDS GIVEN WITHOUT ISSUE. PT UP TO BR WITH SBA. BACK TO BED, FRANCIE WELL. C/O VISION THAT BECOMES BLURRED IF LOOKING "15 OR MORE FEET IN FRONT" OF HER. DENIES PAIN AT THIS TIME. VSS. CALL LIGHT IN REACH.
--- NOTE | 2019-10-05 00:29 | NUR ---
CALL LIGHT ANSWERED. PT UP TO BR WITH FWW AND SBA. GAIT STEADY. BACK TO BED, FRANCIE WELL. CRACKERS AND JUICE GIVEN PER REQUEST. CALL LIGHT IN REACH.
--- NOTE | 2019-10-05 03:47 | NUR ---
PT LYING IN BED RESTING ON RIGHT SIDE WITH EYES CLOSED, NAD.
--- NOTE | 2019-10-05 04:44 | NUR ---
SBA TO THE BATHROOM. PATIENT IS BACK IN BED. PATIENT ASKED FOR CRACKERS AND PUDDING. PROVIDED. CALL LIGHT IN REACH.
--- NOTE | 2019-10-05 05:51 | NUR ---
PT SLEPT WELL. ALERT AND ORIENTED, USES CALL LIGHT. SBA WITH FWW. VOIDING QS. SLIGHT LEFT SIDE WEAKNESS. FACIAL DROOP AND SLURRED SPEECH UNCHANGED. PT C/O BLURRED VISION AT TIMES, AWARE. [facility] HAS AACCEPTED PT, AWAITING INSURANCE APPROVAL.
--- NOTE | 2019-10-05 07:17 | NUR ---
PT SITTING UP IN BED ALERT AND ORIENTED. REPORTS THROAT IS DRY, PT REQUEST TEA. NO OTHER REQUESTS OR CONCERNS. BEDSIDE REPORT FROM MICHELA KO
--- NOTE | 2019-10-05 07:48 | NUR ---
PATIENT RESTING IN BED. PATIENT GOES TO USE THE BATHROOM. PATIENT USES WALKER. PATIENT WASH HER HANDS AND FACE. ONE PERSON ASSISTING. PATIENT BACKS TO CHAIR. WARM BLANKET PROVIDED. CALL LIGHT WITHIN REACH. ICE WATER GIVEN. NO OTHER NEEDS AT THIS TIME
--- NOTE | 2019-10-05 08:20 | NUR ---
PT SITTING UP IN RECLINER EATING BREAKFAST. COOPERATIVE WITH CARE PROVIDED AND MEDICATION PASS AND ASSESSMENT.
--- NOTE | 2019-10-05 09:14 | NUR ---
PATIENT RESTING IN BED. VITAL SIGNS AND I&O DONE. CALL LIGHT WITHIN REACH. SETS UP BATHROOM FOR SHOWER. NO OTHER NEEDS AT THIS TIME
[2019-10-05] MEDS ORDERED: LIPITOR40 MG PO (10:25)
[2019-10-05] MEDS ORDERED: ASPIRIN EC81 MG PO (10:25)
[2019-10-05] MEDS ORDERED: QUETIAPINE FUMA25 MG PO (10:27)
[2019-10-05] MEDS ORDERED: PANTOPRAZOLE SO40 MG PO (10:28)
[2019-10-05] MEDS ORDERED: NYSTOP60 GM TOP (10:28)
--- NOTE | 2019-10-05 10:30 | NUR ---
Notified by Shahram from [facility] they will accept pt. She received the written orders, faxed by [employer]. They will pick Soo up at 1 pm and bring a wc to transport. In and updated Soo. She requests I call her CM from [employer], Lenka a request she bring more sweats from her hotel room. Called and spoke with [employer]. I was able to leave and message for Lenka CM requesting they bring more clothing rom her hotel room and let them know she will be dicharging to [facility] today at 1 pm.
--- NOTE | 2019-10-05 10:42 | NUR ---
FAXED ORDERS TO [facility], THEN FAXED ORDERS AGAIN AFTER THERE WAS A MEDICATION CHANGE, THEN FAXED THE PRESCRIPTION. ALL FAX CONFIRMATIONS ARE IN THE CHART.
--- NOTE | 2019-10-05 10:42 | NUR ---
TALKED WITH CASE MANAGEMENT RON IN RECARDS TO PT CONCERNS ABOUT HER BELONGINGS STILL IN THE [facility] HAD PROVIDED. RON SAID SHE HAS ATTEMPTED TO MAKE CONTACT WITH [employer] AND WILL TRY AGAIN TO SPEAK WITH HER SNOW MAKER WITH [employer] TO RETRIEVE BELONGINGS.
--- NOTE | 2019-10-05 10:51 | NUR ---
PATIENT SITTING UP IN CHAIR. PATIENT SAYS THAT SHE WILL TAKE A SHOWER AFTER LUNCH. CALL LIGHT WITHIN REACH. NO OTHER NEEDS AT THIS TIME
--- NOTE | 2019-10-05 13:15 | NUR ---
PT LEFT UNIT FOR DISCHARGE TRANSPORTED BY [facility] STAFF FROM [facility] [facility].
--- NOTE | 2019-10-05 13:27 | NUR ---
CALLED GAVE REPORT TO CHUCK KO AT [facility].
== END 2019-10-05 13:18 | DRG 66 ==
LOC: ED 15:48 → MS 18:40
PROVIDERS: ADMIT Internal Medicine
DX: I63.9 Cerebral infarction, unspecified (principal); H55.00 Unspecified nystagmus; R42 Dizziness and giddiness; R27.8 Other lack of coordination; R26.89 Other abnormalities of gait and mobility; R60.0 Localized edema; M62.81 Muscle weakness (generalized); S06.9X0S Unspecified intracranial injury without loss of consciousness, sequela; R29.706 NIHSS score 6; F31.9 Bipolar disorder, unspecified; E78.5 Hyperlipidemia, unspecified; Z59.0 Homelessness; Z79.899 Other long term (current) drug therapy; Z88.8 Allergy status to other drugs, medicaments and biological substances; Z88.5 Allergy status to narcotic agent
CPT/HCPCS: 36415; 70450; 70551; 71045; 80048; 80053; 80061; 80164; 83036; 83735; 83880; 84132; 84484; 85025; 85610; 85730; 93005; 93010; 93306; 93880; 97110; 97112; 97116; 97162; 97167; 97535; 99285-25; J1650; J1815

== ENCOUNTER → 2020-07-18 | Emergency (ER) | payer OTHER ==
[~2020-07-18] VITALS: Ht 167.6 cm; Wt 118.0 kg
[~2020-07-18] MED LIST changes: +ABILIFY20 MG PO; +ACETAMINOPHEN500 MG PO; +ALDACTONE50 MG PO; +ASPIRIN EC81 MG PO; +BUMETANIDE1 MG PO; +DIAZEPAM5 MG PO; +HYDROCODON-ACE1 EA10 PO; +KLOR-CON 1010 MEQ PO; -KLOR-CON M2020 MEQ PO; +LASIX40 MG PO; +LEXAPRO5 MG PO; +LIPITOR40 MG PO; +LIPITOR80 MG PO; +LOPERAMIDE2 MG PO; +MECLIZINE HCL25 MG PO; +MILK OF MA400 MG/5 M PO; +NEURONTIN600 MG PO; +NYSTATIN15 GM TOP; +NYSTOP60 GM TOP; +OMEPRAZOLE20 MG PO; +PANTOPRAZOLE SO40 MG PO; +PROTONIX40 MG PO; +QUETIAPINE FUMA25 MG PO; +SEROQUEL100 MG PO; +SEROQUEL25 MG PO; +SEROQUEL50 MG PO; +TRAZODONE HCL100 MG PO; +TRAZODONE HCL50 MG PO; +VITAMIN D21250 MCG PO
--- OUTSIDE RECORDS SUMMARY | ~2020-07-18 | XMS | Encounter Summary ---
Demographics + + + | Address | [address] | | | [place] [address] | + + + | Home Phone | | + + + | Preferred Language | Unknown | + + + | Marital Status | | + + + | Restoration Affiliation | 1028 | + + + | Race | White | + + + | Ethnic Group | Not or | + + + Author + + + | Author | [facility] | | | and [place] | + + + | Organization | [facility] | | | and [place] | + + + | Address | Unknown | + + + | Phone | Unavailable | + + + Support + + +---------+ + | Name | Relationship | Address | Phone | + + +---------+ + | Garcia Janak | ECON | Unknown | | + + +---------+ + | Mazin Shaffer | ECON | Unknown | | + + +---------+ + Care Team Providers + +------+ + | Care Office Admin Name | Role | Phone | + +------+ + PCP | Unavailable | + +------+ + Encounter Details +--------+ + + + + | Date | Type | Department | Care Team | Description | +--------+ + + + + | 02/05/ | Hospital | [facility] | Conversion | Pain | | 2017 | Encounter | CONVERSION [address] | Transaction, | | | | | [address] | Provider Unknown | | | | | [place] | [phone] | | | | | [id number] | | | | | | [phone] | | | +--------+ + + + [...] | + +--------+ + + + | [facility] | Routin | 12/31/2016 | | Results for this | | SCREENING BILATERAL | e | 4:14 AM | | procedure are in the | | | | PDT | | results section. | + +--------+ + + + documented in this encounter Results [facility] Digital Screening Bilateral (12/31/2016 4:14 AM PDT) + + | Specimen | + + | | + + + + + | Narrative | Performed At | + + + | This is a non-reportable procedure without a radiologist report and | | | is used for image storage only | | + + + + + | Procedure Note | + + | Hipolito Chatman - 05/12/2019 9:10 PM PDT This is a non-reportable procedure | | without a radiologist report and isused for image storage only | + + documented in this encounter Visit Diagnoses + + | Diagnosis | + + | Pain Generalized pain | + + documented in this encounter"
--- OUTSIDE RECORDS SUMMARY | ~2020-07-18 | XMS | Encounter Summary ---
Demographics + + + | Address | [address] | | | [place] [address] | + + + | Home Phone | | + + + | Preferred Language | Unknown | + + + | Marital Status | | + + + | Yazidism Affiliation | 1028 | + + + | Race | White | + + + | Ethnic Group | Not or | + + + Author + + + | Author | [facility] | | | and [place] | + + + | Organization | [facility] | | | and [place] | [...] Team Providers + +------+ + | Care Computer Programmer Analyst Name | Role | Phone | + +------+ + | Gage De Jesus DO | PCP | | + +------+ + Encounter Details +--------+ + + + + | Date | Type | Department | Care Team | Description | +--------+ + + + + | 10/14/ | Preadmit | [facility] | Syed Owens MD | Preoperative | | 2019 | Visit | [facility] | [address] | clearance (Primary | | | | CLINIC [address] | [place] [address] | Dx); | | | | [place], [place] | [phone] | Spondylolisthesis of | | | | [address] | | lumbar region; HNP | | | | | | (herniated nucleus | | | | | | pulposus), lumbar; | | | | | | Foraminal stenosis | | | | | | of lumbar region; | | | | | | Spinal stenosis of | | | | | | lumbar region with | | | | | | neurogenic | | | | | | claudication | +--------+ + + + + Social [...] Comments | + + +---------+ + | Yes | | | rare | + + [...] +--------+ + + + | XR CHEST PA AND | Routin | 10/14/2018 | Spondylolisthesis | Results for this | | LATERAL | e | 2:20 PM | of lumbar region | procedure are in the | | | | PST | HNP (herniated | results section. | | | | | nucleus pulposus), | | | | | | lumbar Foraminal | | | | | | stenosis of lumbar | | | | | | region Spinal | | | | | | stenosis of lumbar | | | | | | region with | | | | | | neurogenic | | | | | | claudication | | + +--------+ + + + | CULTURE, MRSA | Routin | 10/14/2018 | Preoperative | Results for this | | | e | 2:00 PM | clearance | procedure are in the | | | | PST | | results section. | + +--------+ + + + | CBC WITH | Routin | 10/14/2018 | Spondylolisthesis | Results for this | | DIFFERENTIAL | e | 2:00 PM | of lumbar region | procedure are in the | | | | PST | HNP (herniated | results section. | | | | | nucleus pulposus), | | | | | | lumbar Foraminal | | | | | | stenosis of lumbar | | | | | | region Spinal | | | | | | stenosis of lumbar | | | | | | region with | | | | | | neurogenic | | | | | | claudication | | + +--------+ + + + | BASIC METABOLIC | Routin | 10/14/2018 | Spondylolisthesis | Results for this | | PANEL | e | 2:00 PM | of lumbar region | procedure are in the | | | | PST | HNP (herniated | results section. | | | | | nucleus pulposus), | | | | | | lumbar Foraminal | | | | | | stenosis of lumbar | | | | | | region Spinal | | | | | | stenosis of lumbar | | | | | | region with | | | | | | neurogenic | | | | | | claudication | | + +--------+ + + + | ECG 12 LEAD | Routin | 10/14/2018 | Spondylolisthesis | Results for this | | | e | 1:56 PM | of lumbar region | procedure are in the | | | | PST | HNP (herniated | results section. | | | | | nucleus pulposus), | | | | | | lumbar Foraminal | | | | | | stenosis of lumbar | | | | | | region Spinal | | | | | | stenosis of lumbar | | | | | | region with | | | | | | neurogenic | | | | | | claudication | | + +--------+ + + + documented in this encounter Results XR Chest PA and Lateral (10/14/2018 2:20 PM PST) + + | Specimen | + + | | + + + + + | Narrative | Performed At | + + + | XR CHEST PA AND LATERAL 10/14/2018 2:20 PM HISTORY: PRE-OP. | [facility] | | COMPARISON: None. Findings: Heart size is within normal limits. | | | Aorta is normal. There is slight prominence of the right mediastinum | | | that could be due to projection. Central pulmonary vasculature is | | | normal. The bilateral lungs are clear with no evidence for pleural | | | effusion or pneumothorax. Moderate spondylosis is seen. IMPRESSION | | | - No acute findings. Slight prominence of the right mediastinum | | | that could be due to projection. If clinically indicated, a repeat | | | chest x-ray can be obtained in 1-2 months. Dictated and Signed by: | | | El Fleming MD Electronically signed: 10/14/2018 2:32 PM | | + + + + + | Procedure Note | + + | Compa, Rad Results In - 10/14/2018 2:35 PM PST XR CHEST PA AND LATERAL 10/14/2018 2:20 | | PMHISTORY: PRE-OP.COMPARISON: None.Findings:Heart size is within normal limits. Aorta is | | normal. There is slight prominenceof the right mediastinum that could be due to | | projection. Central pulmonaryvasculature is normal. The bilateral lungs are clear with | | no evidence forpleural effusion or pneumothorax. Moderate spondylosis is seen.IMPRESSION | | -No acute findings.Slight prominence of the right mediastinum that could be due to | | projection. Ifclinically indicated, a repeat chest x-ray can be obtained in 1-2 | | months.Dictated and Signed by: El Fleming MD Electronically signed: 10/14/2018 2:32 PM | |of the right mediastinum that could be due to projection. Central pulmonary | |vasculature is normal. The bilateral lungs are clear with no evidence for | |pleural effusion or pneumothorax. Moderate spondylosis is seen. | | | |IMPRESSION - | |No acute findings. | | | |Slight prominence of the right mediastinum that could be due to projection. If | |clinically indicated, a repeat chest x-ray can be obtained in 1-2 months. | | | |Dictated and Signed by: El Fleming MD | | Electronically signed: 10/14/2018 2:32 PM | + + + +---------+ + + | Performing | Address | City/State/Zipcode | Phone Number | | Organization | | | | + +---------+ + + | [facility] | | | | + +---------+ + + CBC with Differential (10/14/2018 2:00 PM PST) + + + + + + | Component | Value | Ref Range | Performed | Pathologist | | | | | At | Signature | + + + + + + | White Blood | 8.3 | 4.0 - 11.0 K/uL | [facility] | | | Cells | | | [facility] | | | | | | [facility] | | | | | | [facility] - | | | | | | LABORATORY | | + + + + + + | Red Blood | 5.07 | 3.70 - 5.20 | [facility] | | | Cells | | M/uL | [facility] | | | | | | MEDICAL | | | | | | C[facility] - | | | | | | LABORATORY | | + + + + + + | Hemoglobin | 15.0 | 11.5 - 16.0 | [facility] | | | | | g/dL | [facility] | | | | | | [facility]ICAL | | | | | | CENTER - | | | | | | LABORATORY | | + + + + + + | Hematocrit | 46.8 | 34.0 - 47.0 % | [facility] | | | | | | [facility] | | | | | | [facility] | | | | | | [facility] - | | | | | | LABORATORY | | + + + + + + | MCV | 92.3 | 83.0 - 101.0 fL | [facility] | | | | | | [facility] | | | | | | [facility] | | | | | | C[facility] - | | | | | | LABORATORY | | + + + + + + | MCH | 29.6 | 28.0 - 35.0 pg | [facility] | | | | | | [facility] | | | | | | [facility] | | | | | | [facility] - | | | | | | LABORATORY | | + + + + + + | MCHC | 32.1 | 32.0 - 36.0 | [facility] | | | | | g/dL | [facility] | | | | | | [facility] | | | | | | CENTER - | | | | | | LABORATORY | | + + + + + + | RDW-CV | 13.2 | <15.0 % | [facility] | | | | | | [facility] | | | | | | [facility] | | | | | | CENTER - | | | | | | LABORATORY | | + + + + + + | RDW-SD | 45.4 | 35.1 - 46.3 fL | [facility] | | | | | | [facility] | | | | | | [facility] | | | | | | [facility] - | | | | | | LABORATORY | | + + + + + + | Platelet | 253 | 140 - 440 K/uL | [facility] | | | Count | | | [facility] | | | | | | [facility] | | | | | | CENTER - | | | | | | LABORATORY | | + + + + + + | MPV | 10.6 | 6.5 - 12.4 fL | [facility] | | | | | | [facility] | | | | | | [facility] | | | | | | CENTER - | | | | | | LABORATORY | | + + + + + + | % | 66.0 | 45.0 - 82.0 % | [facility] | | | Neutrophils | | | [facility] | | | | | | MEDICAL | | | | | | CENTER - | | | | | | LABORATORY | | + + + + + + | % | 27.4 | 20.0 - 45.0 % | [facility] | | | Lymphocytes | | | [facility] | | | | | | MEDICAL | | | | | | CENTER - | | | | | | LABORATORY | | + + + + + + | % Monocytes | 5.0 | 4.0 - 12.0 % | [facility] | | | | | | [facility] | | | | | | [facility] | | | | | | CENTER - | | | | | | LABORATORY | | + + + + + + | % | 0.6 | 0.0 - 5.0 % | [facility] | | | Eosinophils | | | [facility] | | | | | | MEDICAL | | | | | | CENTER - | | | | | | LABORATORY | | + + + + + + | % Basophils | 0.5 | 0.0 - 1.0 % | [facility] | | | | | | [facility] | | | | | | MEDICAL | | | | | | CENTER - | | | | | | LABORATORY | | + + + + + + | % Immature | 0.5 (H)Comment: | 0.0 - 0.4 % | [facility] | | | Granulocyte | Preliminary studIes have | | [facility] | | | s | indicated the IG% | | MEDICAL | | | | and/or IG# show promise | | CENTER - | | | | as an early screen for | | LABORATORY | | | | infection. | | | | + + + + + + | Absolute | 5.47 | 1.80 - 8.50 | [facility] | | | Neutrophils | | K/uL | [facility] | | | | | | [facility] | | | | | | CENTER - | | | | | | LABORATORY | | + + + + + + | Absolute | 2.27 | 0.60 - 3.20 | [facility] | | | Lymphocytes | | K/uL | [facility] | | | | | | [facility] | | | | | | CENTER - | | | | | | LABORATORY | | + + + + + + | Absolute | 0.41 | 0.00 - 1.00 | [facility] | | | Monocytes | | K/uL | [facility] | | | | | | [facility] | | | | | | CENTER - | | | | | | LABORATORY | | + + + + + + | Absolute | 0.05 | 0.00 - 0.40 | [facility] | | | Eosinophils | | K/uL | [facility] | | | | | | [facility] | | | | | | CENTER - | | | | | | LABORATORY | | + + + + + + | Absolute | 0.04 | 0.00 - 0.10 | [facility] | | | Basophils | | K/uL | [facility] | | | | | | [facility] | | | | | | CENTER - | | | | | | LABORATORY | | + + + + + + | Absolute | 0.04 (H) | 0.00 - 0.03 | [facility] | | | Immature | | K/uL | [facility] | | | Granulocyte | | | MEDICAL | | | s | | | CENTER - | | | | | | LABORATORY | | + + + + + + | % nRBC | 0 | 0 - 2 per 100 | [facility] | | | | | WBC's | [facility] | | | | | | MEDICAL | | | | | | CENTER - | | | | | | LABORATORY | | + + + + + + | Absolute | 0.00 | 0.00 - 0.01 | [facility] | | | nRBC | | K/uL | [facility] | | | | | | [facility] [...] + | [facility] | [address] | [place] | [phone] | | [facility] | | [address] | | | - LABORATORY | | | | + + + + + Basic Metabolic Panel (10/14/2018 2:00 PM PST) + + + + + + | Component | Value | Ref Range | Performed | Pathologist | | | | | At | Signature | + + + + + + | Na | 138 | 136 - 149 | [facility] | | | | | mmol/L | [facility] | | | | | | MEDICAL | | | | | | CENTER - | | | | | | LABORATORY | | + + + + + + | K | 4.2 | 3.5 - 5.1 | [facility] | | | | | mmol/L | [facility] | | | | | | MEDICAL | | | | | | CENTER - | | | | | | LABORATORY | | + + + + + + | Cl | 97 (L) | 98 - 109 mmol/L | [facility] | | | | | | [facility] | | | | | | MEDICAL | | | | | | CENTER - | | | | | | LABORATORY | | + + + + + + | CO2 | 28 | 24 - 31 mmol/L | [facility] | | | | | | [facility] | | | | | | MEDICAL | | | | | | CENTER - | | | | | | LABORATORY | | + + + + + + | Anion Gap | 13 | 3 - 16 mmol/L | [facility] | | | | | | [facility] | | | | | | MEDICAL | | | | | | CENTER - | | | | | | LABORATORY | | + + + + + + | Glucose | 108 | 70 - 109 mg/dL | [facility] | | | | | | [facility] | | | | | | [facility] | | | | | | CENTER - | | | | | | LABORATORY | | + + + + + + | BUN | 19 (H) | 7 - 18 mg/dL | [facility] | | | | | | [facility] | | | | | | [facility] | | | | | | CENTER - | | | | | | LABORATORY | | + + + + + + | Creatinine | 1.45 (H) | 0.60 - 1.30 | [facility] | | | | | mg/dL | [facility] | | | | | | MEDICAL | | | | | | CENTER - | | | | | | LABORATORY | | + + + + + + | eGFR, | 37 (L)Comment: | >=60 | [facility] | | | non- | GLOMERULAR FILTRATION | mL/min/1.73m2 | [facility] | | | [place] | RATE,ESTIMATED | | MEDICAL | | | | mL/min/1.89g1Diny than | | CENTER - | | | | 60 Chronic kidney | | LABORATORY | | | | disease,if found over a | | | | | | 3-month period.Less than | | | | | | 15 Kidney failureFor | | | | | | | | | | | | Americans,multiply the | | | | | | calculated GFR by 1.21. | | | | | | | | | | + + + + + + | Calcium | 9.1 | 8.3 - 10.5 | [facility] | | | | | mg/dL | [facility] | | | | | | [facility] | | | | | | CENTER - | | | | | | LABORATORY | | + + + + + + | BUN/Creatin | 13.1 | | [facility] | | | ine Ratio | | | [facility] | | | | | | MEDICAL [...] [address] | [place] | [phone] | | [facility] | | [address] | | | - LABORATORY | | | | + + + + + Culture, MRSA (10/14/2018 2:00 PM PST) + + + + + + | Component | Value | Ref Range | Performed | Pathologist | | | | | At | Signature | + + + + + + | Culture | Negative for MRSA by | | [facility] | | | | chromogenic agar method | | [facility] | | | | | | MEDICAL | | | | | | CENTER - | | | | | | LABORATORY | | + + + + + + + + | Specimen | + + | Tissue - Both | | anterior nares (body | | structure) | + + + + + + + | Performing | Address | City/State/Zipcode | Phone Number | | Organization | | | | + + + + + | [facility] | [address] | [place] | [phone] | | [facility] | | [address] | | | - LABORATORY | | | | + + + + + ECG 12 lead (10/14/2018 1:56 PM PST) + + + + + + | Component | Value | Ref Range | Performed | Pathologist | | | | | At | Signature | + + + + + + | VENTRICULAR | 75 | BPM | [facility] | | | RATE EKG | | | | | + + + + + + | ATRIAL RATE | 75 | BPM | [facility] | | + + + + + + | P-R | 166 | ms | [facility] | | | INTERVAL | | | | | + + + + + + | QRS | 82 | ms | [facility] | | | DURATION | | | | | + + + + + + | Q-T | 380 | ms | [facility] | | | INTERVAL | | | | | + + + + + + | Q-T | 424 | ms | [facility] | | | INTERVAL | | | | | | (CORRECTED) | | | | | + + + + + + | P WAVE AXIS | 33 | degrees | [facility] | | + + + + + + | QRS AXIS | -19 | degrees | [facility] | | + + + + + + | T AXIS | 34 | degrees | [facility] | | + + + + + + | INTERPRETAT | Poor data quality, | | [facility] | | | ION TEXT | interpretation may be | | | | | | adversely affectedNormal | | | | | | sinus rhythmNumerous ST | | | | | | segments and T waves | | | | | | cannot be interpreted | | | | | | secondary to poor data | | | | | | quality: cannot exclude | | | | | | ischemia/infarctionNo | | | | | | previous ECGs | | | | | | availableConfirmed by | | | | | | JEAN TURNER MD ([id number]) | | | | | | on 10/15/2018 6:24:21 AM | | | | + + [...] + | Diagnosis | + + | Preoperative clearance - Primary Preoperative examination, unspecified | + + | Spondylolisthesis of lumbar region Acquired spondylolisthesis | + + | HNP (herniated nucleus pulposus), lumbar Displacement of lumbar intervertebral disc | | without myelopathy | + + | Foraminal stenosis of lumbar region Spinal stenosis, lumbar region, without | | neurogenic claudication | + + | Spinal stenosis of lumbar region with neurogenic claudication Spinal stenosis, lumbar | | region, with neurogenic claudication | + + documented in this encounter"
--- OUTSIDE RECORDS SUMMARY | ~2020-07-18 | XMS | Encounter Summary ---
Demographics + + + | Address | [address] | | | [place] [address] | + + + | Home Phone | | + + + | Preferred Language | Unknown | + + + | Marital Status | | + + + | Confucianism Affiliation | 1028 | + + + | Race | White | + + + | Ethnic Group | Not or | + + + Author + + + | Author | [facility] | | | and [place] | + + + | Organization | [facility] | | | and [place] [...] Team Providers + +------+ + | Care Snuff Blender Name | Role | Phone | + +------+ + | Gage De Jesus DO | PCP | | + +------+ + Reason for Visit Auth/Cert +--------+--------+ + + + + | Status | Reason | Specialty | Diagnoses / | Referred By | Referred To | | | | | Procedures | Contact | Contact | +--------+--------+ + + + + | | | | Diagnoses | | | | | | | | | | | | | | 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 | | | | | | | region | | | | | | | (M43.16), | | | | | | | HNP | | | | | | | (herniated | | | | | | | nucleus | | | | | | | pulposus), | | | | | | | lumbar | | | | | | | (M51.26), | | | | | | | 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 | | | | | | | region | | | | | | | (M99.83) | | | | | | | Procedures | | | | | | | TN LUMBAR | | | | | | | SPINE | | | | | | | FUSION,ANTER | | | | | | | APPRCH TN | | | | | | | INSJ BIOMCHN | | | | | | | DEV | | | | | | | INTERVERTEBR | | | | | | | AL DSC SPC | | | | | | | W/ARTHRD | | | | | | | POSTERIOR | | | | | | | NON-SEGMENTA | | | | | | | L | | | | | | | INSTRUMENTAT | | | | | | | ION TN | | | | | | | ARTHRODESIS | | | | | | | POSTERIOR/PO | | | | | | | STEROLATERAL | | | | | | | LUMBAR TN | | | | | | | ARTHRODESIS | | | | | | | POSTERIOR/PO | | | | | | | STEROLATERAL | | | | | | | LUMBAR | | | | | | | POSTERIOR | | | | | | | NON-SEGMENTA | | | | | | | L | | | | | | | INSTRUMENTAT | | | | | | | ION | | | | | | | LAMINEC/FACE | | | | | | | TECT/FORAMIN | | | | | | | ,LUMBAR 1 | | | | | | | SEG | | | | | | | LAMINEC/FACE | | | | | | | TECT/FORAMIN | | | | | | | ,LUMBAR 1 | | | | | | | SEG TN | | | | | | | LAMINEC/FACE | | | | | | | TECT/FORAMIN | | | | | | | ,EACH ADDNL | | | | | | | TN | | | | | | | STEREOTACTIC | | | | | | | COMP ASSIST | | | | | | | PROC,SPINAL | | | | | | | L4-5 LAIF | | | | | | | W/PSF & LAMI | | | +--------+--------+ + + + + Encounter Details +--------+ + + + + | Date | Type | Department | Care Team | Description | +--------+ + + + + | 10/26/ | Anesthesia | [facility] | [facility], | | | 2019 | Event | [facility] | Jael Mcdowell MD | | | | | [address] | [address] | | | | | [place] | [place] | | | | | [address] | [address] | | | | | [phone] | | | | | | | Cl Jose MD | | | | | | [address] | | | | | | [place] | | | | | | [address] | | | | | | | | +--------+ + + + + Anesthesia Record + + + + + | Procedure Name | Responsible | Anesthesia Start | Anesthesia Stop Time | | | Anesthesiologist | Time | | + + + + + | L4-5 DUSTIN W/PSF & | Jael Mcdowell | 10/26/18 1430 | 10/26/18 1724 | | EMILY (Left Back) | MD [facility] | | | + + + + + +----+---+ + + | Da | T | Event | Comment | | te | i | | | | | m | | | | | e | | | +----+---+ + + | 01 | 1 | | | | /2 | 4 | | | | 8/ | 2 | | | | 20 | 3 | | | | 19 | | | | +----+---+ + + | | 1 | An Checkout | Pre-use anesthesia machine/equipment checkout. | | | 4 | | | | | 2 | | | | | 8 | | | +----+---+ + + | | 1 | An Start | Reassessment prior to anesthesia induction/procedure. | | | 4 | | | | | 3 | | | | | 0 | | | +----+---+ + + | | 1 | Preoxygenat | | | | 4 | ed | | | | 3 | | | | | 4 | | | +----+---+ + + | | 1 | An | | | | 4 | Induction | | | | 3 | | | | | 8 | | | +----+---+ + + | | 1 | An | | | | 4 | Intubation | | | | 3 | | | | | 8 | | | +----+---+ + + | | 1 | AN Bite | | | | 4 | Block | | | | 4 | | | | | 0 | | | +----+---+ + + | | 1 | Antibiotic | | | | 4 | Given | | | | 4 | | | | | 4 | | | +----+---+ + + | | 1 | an cl now | Bp moved to up arm | | | 4 | | | | | 4 | | | | | 6 | | | +----+---+ + + | | 1 | Pre-Procedu | | | | 4 | ral Timeout | | | | 5 | Completed | | | | 0 | | | +----+---+ + + | | 1 | [place] | | | | 4 | 43-degrees | | | | 5 | | | | | 0 | | | +----+---+ + + | | 1 | First | | | | 4 | Inc/Proc St | | | | 5 | | | | | 0 | | | +----+---+ + + | | 1 | [place] off | | | | 7 | | | | | 1 | | | | | 7 | | | +----+---+ + + | | 1 | Breathing | | | | 7 | Spontaneous | | | | 1 | ly | | | | 7 | | | +----+---+ + + | | 1 | Oropharynx | | | | 7 | Suctioned | | | | 1 | | | | | 7 | | | +----+---+ + + | | 1 | Moving | | | | 7 | Purposefull | | | | 1 | y | | | | 7 | | | +----+---+ + + | | 1 | Extubated | | | | 7 | Awake | | | | 1 | | | | | 7 | | | +----+---+ + + | | 1 | An Stop | Patient handed off to recovery nurse. | | | 2 | | | | | 4 | | | +----+---+ + + +------+ | Meds | +------+ + + + | Name | Total | + + + | fentaNYL | 100 mcg | + + + | lidocaine 2% (PF) | 40 mg | + + + | propofol | 200 mg | + + + | succinylcholine | 100 mg | + + + | ePHEDrine | 10 mg | + + + | dexamethasone | 10 mg | + + + | ondansetron | 4 mg | + + + | dexmedetomidine (Bolus) | 15 mcg | + + + | HYDROmorphone | 1 mg | + + + | ceFAZolin (ANCEF, KEFZOL) 100 | 2 g | | mg/mL IV syringe 2 g | | + + + | tranexamic acid | 1,000 mg | + + + | lactated ringers (LR) infusion | 1,400 mL | + + + + + | Name | + + | N2O Flow Rate (L/Min) | + + | O2 Flow Rate (L/Min) | + + | Insp O2 | + + | Exp SEV | + + | Air Flow Rate (L/Min) | + + + + | No blood administrations on file. | + + +--------+ + + + | Type | Details | Placement | Removal | +--------+ + + + | Periph | 10/26/18; 1317; Left; Forearm; | 10/26/18 1317 by | 10/29/18 09 by | | eral | [id number] catheter system; | Kevin Downey RN | Henry Dejesus RN | | IV | 18 gauge; lumen/catheter not | | | | | patent, catheter/device intact; | | | | | 10/29/18; 0915 | | | +--------+ + + + | Airway | Placement Date: 10/26/18; | 10/26/181437 by | 10/26/181716 by | | | Placement Time: 1437 (created via | Jael Mcdowell | Jael Mcdowell | | | procedure documentation); Mask | MD [facility] | MD [facility] | | | Ventilation: EZ w/OA; Airway | | | | | Grade: 1; Successful Technique: | | | | | video scope; Laryngoscope Blade | | | | | Size: 3; Attempts: 1; Airway | | | | | Type: endotracheal; Size: 6.5; | | | | | Airway Tube Secured At: 21; | | | | | Trauma: none; Other Equipment: | | | | | stylette; Placement Check: | | | | | exhaled CO2 detection device, | | | | | bilateral chest rise; Removal | | | | | Date: 10/26/18; Removal Time: | | | | | 1717 | | | +--------+ + + + | Wound | 10/26/18; 1551; Incision; Left; | 10/26/18 1551 by | 10/31/18 1152 by | | | flank; Healing; 10/31/18; 1152 | Amy Angel RN | Melania Muñoz, | | | | | RN | +--------+ + + + | Wound | 10/26/18; 1551; Incision; | 10/26/18 1551 by | 10/31/18 1152 by | | | Bilateral; back; Healing; | Amy Angel RN | Melania Muñoz, | | | 10/31/18; 1152 | | RN | +--------+ + + + | Drain/ | 10/26/18; 1706; #1; lumbar spine; | 10/26/18 1707 by | 10/29/181647 by | | Device | collapsible closed device; 10f; | Amy Angel RN | Henry Dejesus RN | | Site | short term use; 10/29/18; 1647 | | | +--------+ + + + documented in this encounter Social History + +-------+ +--------+------+ | Tobacco [...] + + documented as of this encounter OR Notes Anesthesia Postprocedure Evaluation - Jael Riggins MD - 10/26/2018 6:33 PM PSTF ormatting of this note might be different from the original. ANESTHESIA POSTANESTHESIA EVALUATION Soo Briceno 58 y.o. female 1960 [id number] Procedure(s) L4-5 LAIF W/PSF & LAMI (Left Back) Cooperates? Yes Mental Status Performs simple tasks. Respiratory Satisfactory - Airway patent (self maintained). Cardiovascular Satisfactory - Blood pressure and heart rate acceptable Temperature Satisfactory Pain Satisfactory N/V Control Satisfactory Hydration Satisfactory - No signs of dehydration Complications None apparent Vitals: 10/26/18 1800 10/26/18 1805 10/26/18 1815 BP: 138/78 Pulse: 103 112 118 Temp: Resp: 17 12 SpO2: 95% 96% Electronically signed by Jael Riggins MD 10/26/2018 18:33 [facility] nesthesia Procedure Notes - Jael Riggins MD - 10/26/19 19 2:55 PM PSTAssociated Order(s): ANE AIRWAY NOTEAnesthesia Airway Placement 10/26/2018 14:38 Preprocedure check: patient identified, oxygen, airway assessed, suction, airway equipment checked and patient reassessment prior to induction Rapid Sequence Induction: no Mask ventilation: easy with oral airway Successful technique: videoscope Laryngoscope blade size: 3 Airway grade: 1 (Full view of glottis) Other equipment: stylette Attempts: 1 Airway type: endotracheal Size: 6.5 Cuffed: cuffed Route, reference point: right side of mouth Tube depth: 21 cm Tube secured with: adhesive tape Trauma: none Tube placement verification: bilateral chest rise and carbon dioxide detection Performing provider: JAEL RIGGINS Electronically Signed by: Jael Riggins MD ESig date/t nataliia: 10/26/2018 14:55 nesthesia Pre procedure Evaluation - Jael Riggins MD - 10/23/2018 7:38 PM PSTFormatting of thi s note might be different from the original. ANESTHESIA PREANESTHESIA EVALUATION Soo Briceno 58 y.o. female 1960 [id number] Procedure(s): L4-5 LAIF W/PSF & LAMI (Left Back) Medical history, anesthesia, medications, allergy, NPO status verified histories reviewed. Labs reviewed. Review of Systems / Med History Anesthesia History (+) PONV Cardiovascular (+) hypertension(-) angina (-) dysrhythmias , Exercise tolerance >4 METS Pulmonary Negative except where noted below. Neurology (+) seizures, headaches, back pain, chronic pain, fibromyalgia(-) TIA, CVA Psychology (+) anxiety, depression, bipolar disorder Gastrointestinal/Hepatic (+) hyperlipidemia, hiatal hernia Endocrine (-) Diabetes. Other (-) coagulopathy Physical Exam Airway MP II, TM >3 FB, Mouth opening >2 FB. Neck: full ROM, extends >30 degrees. Jaw protrus ion normal. CV Rhythm regular. (-) murmur. Pulm Clear to auscultation bilaterally. Anesthesia Plan ASA 3 (RA, bipolar, htn) Type: General. Induction: Intravenous. Potential problems: None anticipated. Monitors: Standard ASA monitors. Consent statement:Anesthetic plan, alternatives, risks and benefits discussed with patient. Risks discussed included (but were not limited to): sore throat, blindness, perioperative C V events, voice injury, heart problems, nausea, respiratory events, delirium, dental injury, pain, blood transfusion, . Consenting person understands and agrees to proceed. PARQ. Multimodal pain control to supplement opioids up to and including ketamine and dexmedetomid ine as hemodynamically tolerated. Discussed risks of prone position including facial swelling and vision/eye complications.. Electronically Signed by: Jael Riggins MD ESig date/time: 10/23/2018 19:38 documented in this encounter Plan of Treatment Not on filedocumented as of this encounter Procedures + +--------+ + + + | Procedure Name | Priori | Date/Time | Associated Diagnosis | Comments | | | ty | | | | + +--------+ + + + | ANE AIRWAY NOTE | Routin | 10/26/2018 | | Results for this | | | e | 2:55 PM | | procedure are in the | | | | PST | | results section. | + +--------+ + + + documented in this encounter Results Anesthesia Airway Note (10/26/2018 2:55 PM PST) + + + | Narrative | Performed At | + + + | Jael Riggins MD 10/26/2018 14:55 Anesthesia Airway | | | Placement 10/26/2018 14:38 Preprocedure check: patient identified, | | | oxygen, airway assessed, suction, airway equipment checked and | | | patient reassessment prior to induction Rapid Sequence Induction: no | | | Mask ventilation: easy with oral airway Successful technique: | | | videoscope Laryngoscope blade size: 3 Airway grade: 1 (Full view | | | of glottis) Other equipment: stylette Attempts: 1 Airway type: | | | endotracheal Size: 6.5 Cuffed: cuffed Route, reference point: right | | | side of mouth Tube depth: 21 cm Tube secured with: adhesive tape | | | Trauma: none Tube placement verification: bilateral chest rise and | | | carbon dioxide detection Performing provider: JAEL RIGGINS | | | L Electronically Signed by: Jael Riggins MD | | | ESig date/time: 10/26/2018 14:55 | | | | | + + + + + | Procedure Note | + + | Jael Riggins MD - 10/26/2018 2:55 PM PST Anesthesia Airway | | Placement10/26/2018 14:38Preprocedure check: patient identified, oxygen, airway assessed, | | suction, airway equipment checked and patient reassessment prior to inductionRapid | | Sequence Induction: noMask ventilation: easy with oral airwaySuccessful technique: | | videoscopeLaryngoscope blade size: 3 Airway grade: 1 (Full view of glottis)Other | | equipment: styletteAttempts: 1Airway type: endotrachealSize: 6.5Cuffed: cuffedRoute, | | reference point: right side of mouthTube depth: 21 cmTube secured with: adhesive | | tapeTrauma: noneTube placement verification: bilateral chest rise and carbon dioxide | | detectionPerforming provider: JAEL RIGGINS LElectronically Signed by: | | MD Heydi Woog date/time: 10/26/2018 14:55 | | | |Airway type: endotracheal | |Size: 6.5 | |Cuffed: cuffed | |Route, reference point: right side of mouth | |Tube depth: 21 cm | |Tube secured with: adhesive tape | |Trauma: none | |Tube placement verification: bilateral chest rise and carbon dioxide detection | |Performing provider: JAEL RIGGINS | | | | | |Electronically Signed by: MD Crystal Woo date/t nataliia: 10/26/2018 14:55 | | | + + documented in this encounter Visit Diagnoses Not on filedocumented in this encounter Administered Medications + +--------+ +------+------+------+ | Medication Order | MAR | Action | Dose | Rate | Site | | | Action | Date | | | | + +--------+ +------+------+------+ | ceFAZolin (ANCEF, KEFZOL) 100 | Given | 10/26/19 | 2 g | | | | mg/mL IV syringe 2 g 2 g, | | 19 2:44 | | | | | Intravenous, Administer over 30 | | PM PST | | | | | Minutes, Prior to Incision, | | | | | | | Starting 10/26/18 at 0140, For | | | | | | | 1 dose, Administer within 1 hour | | | | | | | of surgical incision., Pre-op, | | | | | | | Indications: Surgical Prophylaxis | | | | | | + +--------+ +------+------+------+ +---+---+ | | | +---+---+ + +-------+ +-------+---+---+ | dexamethasone (PF) 10 mg/mL | Given | 10/26/19 | 10 mg | | | | injection Intravenous, PRN, | | 19 2:48 | | | | | Starting 10/26/18 at 1448, | | PM PST | | | | | Anesthesia Intra-op | | | | | | + +-------+ +-------+---+---+ +---+---+ | | | +---+---+ + +-------+ +--------+---+---+ | dexmedetomidine (PRECEDEX) in | Given | 10/26/19 | 15 mcg | | | | sodium chloride bolus infusion | | 19 2:42 | | | | | Intravenous, PRN, Starting Mon | | PM PST | | | | | 10/26/18 at 1442, Anesthesia | | | | | | | Intra-op | | | | | | + +-------+ +--------+---+---+ +---+---+ | | | +---+---+ + +-------+ +-------+---+---+ | ePHEDrine (AKOVAZ) 50 mg/mL | Given | 10/26/19 | 10 mg | | | | injection PRN, Starting Mon | | 19 2:47 | | | | | 10/26/18 at 1447, Anesthesia | | PM PST | | | | | Intra-op | | | | | | + +-------+ +-------+---+---+ +---+---+ | | | +---+---+ + +-------+ +---------+---+---+ | fentaNYL (PF) injection | Given | 10/26/19 | 100 mcg | | | | Intravenous, PRN, Pain, Starting | | 19 2:38 | | | | | 10/26/18 at 1438, Anesthesia | | PM PST | | | | | Intra-op | | | | | | + +-------+ +---------+---+---+ +---+---+ | | | +---+---+ + +-------+ +--------+---+---+ | HYDROmorphone (DILAUDID) 2 | Given | 10/26/19 | 0.4 mg | | | | mg/mL injection PRN, Pain, | | 19 3:37 | | | | | Starting 10/26/18 at 1450, | | PM PST | | | | | Anesthesia Intra-op | | | | | | + +-------+ +--------+---+---+ +-------+ +--------+---+---+ | Given | 10/26/19 | 0.6 mg | | | | | 19 2:50 | | | | | | PM PST | | | | +-------+ +--------+---+---+ +---+---+ | | | +---+---+ + +---------+ +---+---+---+ | lactated ringers (LR) infusion | New Bag | 10/26/19 | | | | | at 100 mL/hr, Intravenous, | | 19 2:15 | | | | | CONTINUOUS, Starting 10/26/18 | | PM PST | | | | | at 1300, Pre-op | | | | | | + +---------+ +---+---+---+ +---+---+ | | | +---+---+ + +-------+ +-------+---+---+ | lidocaine (PF) 2% injection | Given | 10/26/19 | 40 mg | | | | PRN, Starting Fri10/26/18 at | | 19 2:38 | | | | | 1438, Anesthesia Intra-op | | PM PST | | | | + +-------+ +-------+---+---+ +---+---+ | | | +---+---+ + +-------+ +------+---+---+ | ondansetron (ZOFRAN) injection | Given | 10/26/19 | 4 mg | | | | PRN, Nausea, Vomiting, Starting | | 19 2:48 | | | | | 10/26/18 at 1448, Anesthesia | | PM PST | | | | | Intra-op | | | | | | + +-------+ +------+---+---+ +---+---+ | | | +---+---+ + +-------+ +--------+---+---+ | propofol (DIPRIVAN) injection | Given | 10/26/19 | 200 mg | | | | Intravenous, PRN, Starting Mon | | 19 2:38 | | | | | 10/26/18 at 1438, Anesthesia | | PM PST | | | | | Intra-op | | | | | | + +-------+ +--------+---+---+ +---+---+ | | | +---+---+ + +-------+ +--------+---+---+ | succinylcholine (ANECTINE) | Given | 10/26/19 | 100 mg | | | | injection Intravenous, PRN, | | 19 2:38 | | | | | Starting 10/26/18 at 1438, | | PM PST | | | | | Anesthesia Intra-op | | | | | | + +-------+ +--------+---+---+ +---+---+ | | | +---+---+ + +-------+ + +---+---+ | tranexamic acid (CYKLOKAPRON) | Given | 10/26/19 | 1,000 mg | | | | injection Intravenous, | | 19 3:36 | | | | | Administer over 15 Minutes, PRN, | | PM PST | | | | | Starting [facility] 10/26/18 at 1536, | | | | | | | Anesthesia Intra-op | | | | | | + +-------+ + +---+---+ +---+---+ | | | +---+---+ documented in this encounter"
--- OUTSIDE RECORDS SUMMARY | ~2020-07-18 | XMS | Encounter Summary ---
Demographics + + + | Address | [address] | | | [place] [address] | + + + | Home Phone | | + + + | Preferred Language | Unknown | + + + | Marital Status | | + + + | Anabaptism Affiliation | 1028 | + + + | Race | White | + + + | Ethnic Group | Not or | + + + Author + + + | Author | [facility] | | | and [place] | + + + | Organization | [facility] | | | and [place] [...] Team Providers + +------+ + | Care Clinical Trials Manager Name | Role | Phone | + +------+ + | Gage De Jesus DO | PCP | | + +------+ + Encounter Details +--------+ + + + + | Date | Type | Department | Care Team | Description | +--------+ + + + + | 12/14/ | Imaging | [facility] | Provider, | | | 2019 | Exam | [facility] | MD [address] | | | | | IMAGING [address] | [place] | | | | | [address] | [place] [address] | | | | | [place] [address] | | | | | | [phone] | | | +--------+ + + + [...] + + documented as of this encounter Functional Status + + + + | Functional Status | Response | Date of Assessment | + + + + | Are you deaf or do you have serious | No | 10/31/2018 | | difficulty hearing? | | | + + + + | Are you blind or do you have serious | No | 10/31/2018 | | difficulty seeing, even when wearing | | | | glasses? | | | + + + + | Do you have serious difficulty walking or | No | 10/31/2018 | | climbing stairs? (5 years old or older) | | | + + + + | Do you have difficulty dressing or bathing? | No | 10/31/2018 | | (5 years old or older) | | | + + + + | Because of a physical, mental, or emotional | No | 10/31/2018 | | condition, do you have difficulty [...] physical, mental, or emotional | Yes | 10/31/2018 | | condition, do you have serious [...] + +--------+ + + + | XR FEMUR LEFT 2+VW | Routin | 12/13/2018 | | Results for this | | | e | 4:40 PM | | procedure are in the | | | | PDT | | results section. | + +--------+ + + + documented in this encounter Results XR Femur Left 2+Vw (12/13/2018 4:40 PM PDT) + + | Specimen | + + | | + + + + + | Narrative | Performed At | + + + | External films for comparison only | [facility] | | | | | No results will be in the chart. | | + + + + +---------+ + + | Performing | Address | City/State/Zipcode | Phone Number | | Organization | | | | + +---------+ + + | [facility] | | | | + +---------+ + + documented in this encounter Visit Diagnoses Not on filedocumented in this encounter"
--- OUTSIDE RECORDS SUMMARY | ~2020-07-18 | XMS | Encounter Summary ---
Demographics + + + | Address | [address] | | | [place] [address] | + + + | Home Phone | | + + + | Preferred Language | Unknown | + + + | Marital Status | | + + + | Mandaen Affiliation | 1028 | + + + | Race | White | + + + | Ethnic Group | Not or | + + + Author + + + | Author | [facility] | | | and [place] | + + + | Organization | [facility] | | | and [...] Team Providers + +------+ + | Care Oil Tanker Captain Name | Role | Phone | + +------+ + | Gage De Jesus DO | PCP | | + +------+ + Encounter Details +--------+ + + + + | Date | Type | Department | Care Team | Description | +--------+ + + + + | 04/08/ | Orders Only | [facility] | Ike Young, | | | 2015 | | NEPHROLOGY [place] | DIESEL ENGINE FITTER [address] | | | | | [address] | [address] | | | | | [address] [place], [place] | [place] | | | | | [address] | [address] | | | | | [phone] | [phone] | | | | | | | [...] + | URINALYSIS, REFLEX | Routin | 04/08/2016 | | Results for this | | MICROSCOPIC AND/OR | e | 11:55 AM | | procedure are in the | | CULTURE | | PDT | | results section. | + +--------+ + + + | PROTEIN/CREATININE | Routin | 04/08/2016 | | Results for this | | RATIO, URINE | e | 11:55 AM | | procedure are in the | | | | PDT | | results section. | + +--------+ + + + documented in this encounter Results Urinalysis, Reflex Microscopic and/or Culture (04/08/2016 11:55 AM PDT) + + + + + + | Component | Value | Ref Range | Performed | Pathologist | | | | | At | Signature | + + + + + + | Color | Yellow | | EXTERNAL | | | | | | LAB | | + + + + + + | Clarity, | Clear | | EXTERNAL | | | Urine | | | LAB | | + + + + + + | Spec Grav, | 1.017 | 1.005 - 1.030 | EXTERNAL | | | Fluid | | | LAB | | + + + + + + | Leukocyte | Negative | | EXTERNAL | | | Esterase, | | | LAB | | | Urine | | | | | + + + + + + | Nitrite, | Negative | | EXTERNAL | | | Urine | | | LAB | | + + + + + + | Urobilinoge | Normal | | EXTERNAL | | | n, Urine | | | LAB | | + + + + + + | Total | Negative | | EXTERNAL | | | Protein | | | LAB | | + + + + + + | Blood, | Negative | | EXTERNAL | | | Urine | | | LAB | | + + + + + + | Ketones | Negative | | EXTERNAL | | | | | | LAB | | + + + + + + | Bilirubin, | Negative | | EXTERNAL | | | Urine | | | LAB | | + + + + + + | Glucose, | Negative | | EXTERNAL | | | Urine [...] + +---------+ + + Protein/Creatinine Ratio, Urine (04/08/2016 11:55 AM PDT) + +-------+ + + + | Component | Value | Ref Range | Performed | Pathologist | | | | | At | Signature | + +-------+ + + + | Protein/Cre | 47.9 | 0 - 150 | EXTERNAL | | | at Ratio | | | LAB | | + +-------+ + + + + + | Specimen | + + | Urine specimen | | (specimen) | + + + +---------+ + + | Performing | Address | City/State/Zipcode | Phone Number | | Organization | | | | + +---------+ + + | EXTERNAL LAB | | | | + +---------+ + + documented in this encounter Visit Diagnoses Not on filedocumented in this encounter"
--- OUTSIDE RECORDS SUMMARY | ~2020-07-18 | XMS | Encounter Summary ---
Demographics + + + | Address | [address] | | | [place] [address] | + + + | Home Phone | | + + + | Preferred Language | Unknown | + + + | Marital Status | | + + + | Jehovah'S Witness Affiliation | 1028 | + + + | Race | White | + + + | Ethnic Group | Not or | + + + Author + + + | Author | [facility] | | | and [place] | + + + | Organization | [facility] | | | and [place] | + + + | Address | Unknown | + + + | Phone | Unavailable | + + + Support + + +---------+ + | Name | Relationship | Address | Phone | + + +---------+ + | Garcia Briceno | ECON | Unknown | | + + +---------+ + | Mazin Shaffer | ECON | Unknown | | + + +---------+ + Care Team Providers + +------+ + | Care Psychiatric Nursing Assistant Name | Role | Phone | + +------+ + | Gage De Jesus DO | PCP | | + +------+ + Reason for Visit + +--------+ + | Reason | Onset | Comments | | | Date | | + +--------+ + | Neurosurgery | 05/24/ | | | Appointment | 2019 | | + +--------+ + Encounter Details +--------+ + + + + | Date | Type | Department | Care Team | Description | +--------+ + + + + | 05/24/ | Telephone | [facility] | Jasbir Reeder, | Neurosurgery | | 2019 | | NEUROSURGERY [address] | PA-C [address] | Appointment | | | | [address] | [address] [place] | | | | | [place], [place] | [place] [address] | | | | | [address] | [phone] | | | | | [phone] | | | +--------+ + + + [...] + + documented as of this encounter Miscellaneous Notes Telephone Encounter - Aure Castillo - 05/24/2019 11:25 AM PDTBrother called back. David [place] at an adult care facility. elephone Encounter - Aure Castillo - 05/24/2019 11:16 AM PDTNeither phone numbers listed for patient work (one disconnected and the other said wr hanna number). I left a message for her brother Garcia asking for an update phone number. Trying to confirm upcoming appt. documented in this encounter Plan of Treatment Not on filedocumented as of this encounter Visit Diagnoses Not on filedocumented in this encounter"
--- OUTSIDE RECORDS SUMMARY | ~2020-07-18 | XMS | Encounter Summary ---
Demographics + + + | Address | [address] | | | [place] [address] | + + + | Home Phone | | + + + | Preferred Language | Unknown | + + + | Marital Status | | + + + | Zoroastrian Affiliation | 1028 | + + + | Race | White | + + + | Ethnic Group | Not or | + + + Author + + + | Author | [facility] | | | and [place] | + + + | Organization | [facility] [...] Team Providers + +------+ + | Care Rehab Rn Name | Role | Phone | [...] | | | IMAGING [address] | [place] | | | | | [address] [place] | [place] [address] | | | | | [place] [address] | | | | | | [phone] | | | +--------+ + + + [...] + +--------+ + + + | CT PELVIS WO | Routin | 12/13/2018 | | Results for this | | CONTRAST | e | 1:00 PM | | procedure are in the | | | | PDT | | results section. | + +--------+ + + + documented in this encounter Results CT Pelvis wo Contrast (12/13/2018 1:00 PM PDT) + + | Specimen | [...]
--- OUTSIDE RECORDS SUMMARY | ~2020-07-18 | XMS | Encounter Summary ---
Demographics + + + | Address | [address] | | | [place] [address] | + + + | Home Phone | | + + + | Preferred Language | Unknown | + + + | Marital Status | | + + + | Yazdanism Affiliation | 1028 | + + + | Race | White | + + + | Ethnic Group | Not or | + + + Author + + + | Author | [facility] | | | and [place] | + + + | Organization | [facility] | | | and [...] Team Providers + +------+ + | Care Driller Hand Name | Role | Phone | + [...] | | | IMAGING [address] | [place] | | | | | [address] [place] | [place] [address] | | | | | [place] [address] | | | | | | [phone] | | | +--------+ + + + [...] + +--------+ + + + | XR TIBIA FIBULA | Routin | 12/13/2018 | | Results for this | | RIGHT 2 VW | e | 1:10 PM | | procedure are in the | | | | PDT | | results section. | + +--------+ + + + documented in this encounter Results XR Tibia Fibula Right 2 Vw (12/13/2018 1:10 PM PDT) + + | Specimen | [...]
--- OUTSIDE RECORDS SUMMARY | ~2020-07-18 | XMS | Encounter Summary ---
Demographics + + + | Address | [address] | | | [place] [address] | + + + | Home Phone | | + + + | Preferred Language | Unknown | + + + | Marital Status | | + + + | Nondenominational Affiliation | 1028 | + + + | Race | White | + + + | Ethnic Group | Not or | + + + Author + + + | Author | [facility] | | | and [place] | + + + | Organization | [facility] | | | and [place] [...] Team Providers + +------+ + | Care Manager Family Name | Role | Phone | + +------+ + PCP | Unavailable | + +------+ + Encounter Details +--------+ + + + + | Date | Type | Department | Care Team | Description | +--------+ + + + + | 02/05/ | Hospital | [facility] | Conversion | Pain | | 2017 | Encounter | CONVERSION [address] | Transaction, | | | | | [address] | Provider Unknown | | | | | [place] | [phone] | | | | | [address] | | | | | | [phone] | | | +--------+ + + + [...] + | LIYA DIGITAL | Routin | 01/16/2017 | | Results for this | | DIAGNOSTIC LEFT | e | 4:14 AM | | procedure are in the | | | | PDT | | results section. | + +--------+ + + + documented in this encounter Results LIYA Digital Diagnostic Left (01/16/2017 4:14 AM PDT) + + | Specimen [...]
--- OUTSIDE RECORDS SUMMARY | ~2020-07-18 | XMS | Encounter Summary ---
Demographics + + + | Address | [address] | | | [place] [address] | + + + | Home Phone | | + + + | Preferred Language | Unknown | + + + | Marital Status | | + + + | Denominational Affiliation | 1028 | + + + | Race | White | + + + | Ethnic Group | Not or | + + + Author + + + | Author | and Services Man | | | and [place] | + + + | Organization | and [facility] | | | [...] Team Providers + +------+ + | Care Application Penetration Tester Name | Role | Phone | + [...] + + | 06/08/ | Telephone | [facility] | Jasbir Reeder, | Extremity Weakness | | 2018 | | NEUROSURGERY [address] | PA-C [address] | (Refusing to get out | | | | [address] | [address] [place] | of bed) | | | | [place] | [place] [address] | | | | | [address] | [phone] | | | | | [phone] | | | +--------+ + + + [...] studies. Margareth will call Dr Louis'beti of [facility] to schedule and let neurosurgery know when [...] studies authorized but not completed [facility] [place] called in and states patient is refusing [...]
--- OUTSIDE RECORDS SUMMARY | ~2020-07-18 | XMS | Encounter Summary ---
Demographics + + + | Address | [address] | | | [place] [address] | + + + | Home Phone | | + + + | Preferred Language | Unknown | + + + | Marital Status | | + + + | Catholic Affiliation | 1028 | + + + | Race | White | + + + | Ethnic Group | Not or | + + + Author + + + | Author | [facility] | | | and [place] | + + + | Organization | [facility] | | | and [place] [...] Team Providers + +------+ + | Care Change Management Facilitator Name | Role | Phone | + +------+ + | Gage De Jesus DO | PCP | | + +------+ + Encounter Details +--------+ + + + + | Date | Type | Department | Care Team | Description | +--------+ + + + + | 09/12/ | Orders Only | [facility] | Gage De Jesus, | | | 2014 | | NEPHROLOGY JASON | DO [address] | | | | | [address] [place] | [address] [place], | | | | | [address] [place], [place] | [place] [address] | | | | | [address] | [phone] | | | | | [phone] | | | +--------+ + + + [...]
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
--- OUTSIDE RECORDS SUMMARY | ~2020-07-18 | XMS | Encounter Summary ---
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 Increased fluid/ fiber intake, avoid constipat ing foods; Add Ensure or similar nutritional shake to supplement if inadequate intake r/t de creased appetite or pain [x] As tolerated WHEAT AND OATS FLAKE MILLER may upgrade or downgrade diet as condition Indicates. [x] RN may downgrade diet as indicated. Type: [] Continue current diet of: Diet and Supplements None [] Other: Consistency/Precautions: [] Whole [] Thin Liquids [] Cut-up [] Coggon Thick [] Advanced Chopped [] Honey Thickened [] Chopped [] Advanced Ground [] 1:1 feedings [] Ground/Pureed [] Other: Tube Feedings: [] PEG [] GT [] JT [] NGT [] Formula type: (Boat Operator may change/substitute if indicated). [] Continuous Rate: ml/hr, infusing hrs/day [] Bolus feeds: ml every hours [] Additional water: ml every hours Respiratory: [] BiPAP at night & PRN SOB. Settings: O2 L bleed Dx: [] CPAP at night & PRN SOB. Settings: O2 L bleed Dx: [] Suction & Pulmonary toilet PRN secretion/sputum management. Dx: [x] Incentive Spirometer QID and PRN while awake. Duration: Dx: Post operative atelectasis prophylaxis [] Tracheostomy management per protocol [x] Oxygen: Lpm NC/Trach [] Continuous [] NOC [] Humidified [x] PRN SaO2 < 92 % [] prn SOB/dyspnea Dx: [] Other: Dx: Bladder: [] Follow nursing protocol for recent desai removal [] Desai catheter managment per nursing protocol - Indication: [] Permanent [] Temporary [] Remove desai catheter on and follow nursing protocol for recent desai remova l. [] Straight catheter every hour(s) and record amount drain Dx: [] Bladder scan every hour(s) and straight cath for > ml Dx: [] Suprapubic catheter management Dx: Other Lines, Tubes and Drains: (to be managed by nursing protocol) [] IV access and location: [] Permanent [] Temporary: Instructions/indications for removal of IV access: [] May use Alteplase per protocol PRN occluded central venous catheter [] Colostomy [] Ileostomy [] Urostomy [] Nephrostomy [] Dialysis Access - Type & Location: [] Drains - Type & Location: [] Other: Activity/Therapies: []WBAT [] Weight Bearing Restricted (specify limb(s)): [x] PT Evaluation & Management for: Frequent ambulation, position changes, transfers, B gr geovanna brace instructions/post op precautions Minimize pending and twisting. No lifting, pushing, or pulling objects more than 5 pounds. No sitting longer than 45 minutes at a time. No overhead work. Appointment one month after s urgery with XR; discuss modifications to precautions and advancing activities. Arms may be used to push up to stand. Logroll advised. Wear brace when out of bed and for most activities; may take brace off if sitting at rest in chair, eating, sleeping. For showers: Sit and remove brace, remain seated for showers. [x] OT Evaluation & Management for: Frequent ambulation, ADLs as needed [] WHEAT AND OATS FLAKE MILLER Evaluation &Management for: [x] Other: Frequent, gentle ambulation at least 1-2 minutes every 45 minutes, when not sle eping, and as much as tolerated. Continue IS, deep breathing and coughing (splinting with pillow encouraged) several times daily Wound/Skin Care: [] Follow current recommendations of the wound team for treatment. [] Follow standard nursing protocols for wound care. [] Wound Vac management per nursing protocol. Indication: Location: Settings: Change frequency: & prn [x] Other: Keep clean and dry for first 5 days post op. Check incisions daily. Schedule wound check with house physician or at neurosurgery clinic for any increased redness, swell ing, heat and/ or increased pain at incision site, increased or purulent drainage or if edge s of incisions are not well approximated. Remove outer dressings 5 days post op; at this analia e, incisions (with or without steri strips) may remain uncovered, even for showers (pat gent ly dry). Any remaining steri strips should be removed at 2 weeks post op. If patient has s taples or non-absorbable sutures, they will be scheduled for an appointment to have these re moved in the neurosurgery clinic at 2 weeks post op, unless other arrangements are made [facility]/ PCP and clinic. Labs/Imaging: [] PT/INR: Frequency: Dx: Goal INR: Duration of therapy: [] Fingerstick glucose checks: Dx: DM [] Other: Test/Study Needed/Frequency Diagnosis/Indication Follow up appointments and consultations: Jasbir Reeder PA-C in 1 month. Date/Time I have advised this patient that he/she not use tobacco products. TB screening: Upon admission the 1st and 2nd step TST will be done as per protocol if Resid ent has no history of TB or a past positive TST. Pharmacist may substitute equivalent Rx based on facility or insurance formulary as needed unless otherwise specified by physician. Please write "ANGEL" (Dispense as written) if a medi cation should not be substituted. Please make sure to write a diagnosis for ALL medications continued on transfer. Antibioti cs require a stop date. If medications do not contain a SIG, make sure doses/routes and kobe edule is included. Medication Orders New Medications Details Order Next Dose Due cyclobenzaprine 10 mg tablet Take 1 tablet by mouth every 8 hours as needed for Muscle spasms. aka: FLEXERIL By: Syed Owens MD Quant: 90 tablet enoxaparin 40 mg/0.4 mL injection Inject 0.4 mLs under the skin every 24 hours. aka: LOVENOX By: Syed Owens MD HYDROcodone-acetaminophen 10-325 mg per tablet Replaces: HYDROcodone-acetaminophen 5-325 mg per tablet Take 1-2 tablets by mouth every 4 hours as needed for Pain. Indication: Recent Major Surge ry aka: NORCO By: Syed Owens MD Quant: 90 tablet naloxone 4 mg/nasal spray 1 spray by Nasal route as needed for Decreased Responsiveness. Fill as needed to reverse o piates aka: NARCAN By: Syed Owens MD Quant: 1 each nystatin powder Apply to fungal areas on the abdomen and chest bid as needed aka: MYCOSTATIN By: Syed Owens MD Unchanged Medications Details Order Next Dose Due acetaminophen 500 mg tablet Take 1,000 mg by mouth every 8 hours as needed for Pain. aka: TYLENOL ARIPiprazole 20 MG tablet Take 20 mg by mouth Daily. aka: ABILIFY bumetanide 1 mg tablet Take 1 mg by mouth 2 times daily. aka: BUMEX divalproex [address] tablet Take 1,000 mg by mouth nightly. aka: DEPAKOTE divalproex [address] tablet Take 250 mg by mouth nightly. aka: DEPAKOTE escitalopram 5 MG tablet Take 5 mg by mouth Daily. aka: LEXAPRO furosemide 20 mg tablet Take 1 tablet by mouth Daily. aka: LASIX gabapentin 600 MG tablet Take 1 tablet by mouth 3 times daily. aka: NEURONTIN By: Syed Owens MD Quant: 90 tablet loperamide 2 mg capsule Take 2-4 mg by mouth 4 times daily as needed for Diarrhea. aka: IMODIUM LORazepam 0.5 mg tablet Take 0.5 tablets by mouth every 6 hours as needed for Other. aka: ATIVAN By: Syed Owens MD Quant: 60 tablet meclizine 25 mg tablet Take 25 mg by mouth 3 times daily as needed. aka: ANTIVERT MILK OF MAGNESIA 400 mg/5 mL suspension Generic drug: magnesium hydroxide Take by mouth Daily as needed for Constipation. omeprazole 20 mg capsule Take 20 mg by mouth 2 times daily. aka: priLOSEC ondansetron 4 mg tablet Take 4 mg by mouth every 4 hours as needed. aka: ZOFRAN potassium chloride 20 mEq ER tablet Take 20 mEq by mouth 3 times daily. aka: Klor-Con M20 QUEtiapine 100 mg tablet Take 100 mg by mouth nightly. aka: SEROquel spironolactone 50 mg tablet Take 50 mg by mouth 2 times daily. aka: ALDACTONE traZODone 50 mg tablet Take 100 mg by mouth Daily. aka: DESYREL Discontinued Medications HYDROcodone-acetaminophen 5-325 mg per tablet aka: NORCO Replaced by: HYDROcodone-acetaminophen 10-325 mg per tablet IJasbir PA-C, certify that post hospital snf care is medically ne cessary on a continuing basis for any of the conditions for which he/she received care durin g this hospitalization. Check one: [x] Skilled [] Intermediate Additional Orders/Instructions: Schedule RN pain assessment every 4 hours and offer PRN pain medication(s) and/ or muscle r elaxant as necessary to manage symptoms consistently to a tolerable level without causing ov er-sedation. Transport to ED with uncontrolled pain, difficulty breathing, if unable to swallow, new los s of feeling or strength in extremities, new loss of bowel/ bladder control; with any signs/ symptoms of PE (SOB, chest pain, sweating, anxiety, tachycardia, frothy or bloody sputum) Monitor bowel function and utilize facility protocol for opioid-related and post op constip ation (laxative, stool softener, increased fluid/ fiber intake, frequent ambulation) If no B M, but passing flatus, may add suppository and/ or magnesium citrate. If no BM and absence of flatus, and/ or positive for abdominal pain, distention, nausea/ vomiting, transport to E D for evaluation. Call MD for wound check with any signs of infection or incision not healing as expected wit h edges well-approximated Urgent MD, UC or ED evaluation of any lower extremity edema, pain, tenderness, tightness, f atigue, laterality discrepancies (size, color, temperature, cap refill, sensation) to rule o ut DVT If not cleared by PT to ambulate independently, please provide assistance as needed for stefani quent ambulation. Schedule patient to take meals in dining room, encourage participation in scheduled social events and activities, have patient go to therapy room and place on shower schedule. Encourage family/ other support people to visit frequently and assist with ambul ation if appropriate. Minimize bending and twisting. No lifting, pushing, or pulling objects more than 5 pounds. No sitting longer than 45 minutes at a time. No overhead work. Appointment one month after s urgery with XR; discuss modifications to precautions and advancing activities. Arms may be used to push up to stand. Logroll advised. Wear brace when out of bed and for m ost activities; May take brace off if sitting in chair at rest, eating, sleeping. For showers: Sit and remove brace, remain seated for showers. Call Neurosurgery clinic with any questions or concerns. ; fa x. Clinic hours are Friday- 08:00-16:30; Friday 08:00-13:00 Patients are generally scheduled for follow up appointments at 4 weeks and 12 weeks post op . Most require X rays at least 90 minutes prior to the appointment time (or a day or two pr ior) at the hospital and clinic check in is 30 minutes prior to appointment time. Physician's signature: Jasbir Reeder PA-C 11/02/2018 14:06 [facility] USE ONLY: [] Admitting orders verbally reviewed with Admitting Physician, modified where appropriate, and approved. Verbal Order from Date: Time: _ RN name: RN signature: [] Admitting orders reviewed, modified where appropriate, and approved. Physician's signature: Date: Time: El ectronically signed by Jasbir Reeder PA-C at 11/02/2018 2:13 PM PSTPlan of Care - Cristal tt, Melania Rebolledo RN - 10/31/2018 12:00 PM PSTProblem: Patient Care Overview (Adult) Goal: Care Team Goals & Evaluation PROBLEM-RELATED GOALS: 1. Pt will report tolerable level of pain, rating it <4/10 by 10/30/18 2. Pt will have CMS intact through 10/30/18 3. Pt will remain free of s/sx infection through 10/30/18 4. Pt will have a BM POD 3 by 10/30/18 5. Pt will remain free of falls/injury through 10/30/18 6. Pt will be supervision with ambulation in hallway by 11/12/18 STRATEGY TO ACHIEVE GOALS: - assess pain - medicate with pain regimen - assess CMS - assess MS - assess VS - assess dressings/KATRINA - medicate with bowel regimen - educate on LSO B precautions - initiate fall precautions -Pt will participate in PT activities RESTRAINT-RELATED GOALS: STRATEGIES TO ACHIEVE RESTRAINT GOALS: Outcome: Adequate for Discharge Date Met: 10/31/18 Goal Evaluation: Lisa did ok today. Pt. Is A&O however remains frustrated and anxious today possibly d/t t ransfer to [facility]. Pt. Has been verbally abusive to staff and has been yelling and screamin g when staff not in room. Charge nurse notified, security called, and supervisor hot dip tinning all have ta lked to patient in an act to calm patient and provide her with options and choices in her ca re. Call light answered approprietly and in timely fashion and pt. Was given control when ne eding to be repositioned. Patient at first denied pain medication this am with morning meds . Reports pain 5/10. When asked again around 1030 pt. Accepted pain medication offer and is now feeling better. Lisa remains free of fall or injury during shift and hospital stay. Den ies new numbness or tingling however reports BLE tingling as baseline per pt. Pulses good, < 3 sec cap refill. Bandaids are CDI. B-brace on and repositioned today. Voiding well. LBM 10/30. Will be transported to [facility] today. Will continue to monitor until discharged. lan of Care - Fidencio Egan, PT - 10/31/2018 10:00 AM PSTTherapy Plan of Care Missed Visit Note Patient Information Patient Name: Soo Briceno Date of : 1960 Age: 58 y.o. The patient was unable to be seen for today's scheduled visit due to RN reporting patient i s in a bad mood and refusing cares at this time. RN recommended hold AM PT tx and recommende d attempt again this afternoon as pt is agreeable. Plan: attempt later this PM if pt is agreeable. Electronically signed by: Fidencio Padron PT, 10/31/2018 12:51 lan of Care - Aaliyah MartinHUI barclay - 10/31/2018 9:25 AM PSTCase Management /Discharge Planning: Telephone call to Bruno admit coordinator at [facility] ). Discussed planned discharge to [facility] today. They have insurance authorization and are abl e to accept today. Faxed discharge summary and discharge orders for review. Met with Soo, discussed her planned discharge today. She expressed frustration that she i s not able to go directly back home. She acknowledged that she is not ready to be at home y et, stated, "and that really pisses me off". Explained discharge process, informed her of transportation arrangements. She is in agreem ent Called her brother, Garcia and informed him of plan. He spoke with Soo, appeared supportive . He is in agreement with plan for rehab at [facility]. Plan: To [facility] at 1 pm via [facility] transportation (wheelchair van) Electronically signed by: HUI Vega 10/31/2018 11:05 Addendum: Telephone call to [facility] ([phone]) spoke with terra cotta mason RN, informed her of p atient discharge to [facility] in [place] today. [facility] Transfer - Y am, Syed Mejia MD - 10/31/2018 8:26 AM PST RESIDENTIAL FACILITY TRANSFER ORDERS Patient Name: Soo Briceno Patient : 1960 Gender: female Date of Admission: 10/26/2018 Date of Discharge: 10/31/2018 Admitting Provider: Syed Owens MD Discharging Provider: Syed Owens MD Consultants: None PCP: [facility] transferring to: [facility] Provider after transfer: Dr. [facility] CODE STATUS: [x] Attempt CPR [] Do not resuscitate If patient is pulseless and not breathing, RN/MARBLE MACHINE OPERATOR may pronounce . Advanced Directives included: [] POLST [] MOLST/MOST [] [facility] ([place] [] Other: Code status discussed with: [x] Patient [] Spouse/Family [] DPOA [] Other: Name of person discussed with: Date discussed: Isolation/Infection Precautions: [x] None Height: Height: 172.7 cm (5' 8") Wt Readings from Last 3 Encounters: 10/26/18 123.7 kg (272 lb 11.3 oz) 10/14/18 111.1 kg (245 lb) 08/06/18 108.9 kg (240 lb) Admitting Diagnosis: Patient Active Problem List Diagnosis Depression Bipolar disorder CKD (chronic kidney disease), stage III Dyslipidemia GERD (gastroesophageal reflux disease) Hiatal hernia Hyperuricemia Iron deficiency Secondary hyperparathyroidism Seizure disorder Vitamin D deficiency Spondylolisthesis of lumbar region HNP (herniated nucleus pulposus), lumbar Foraminal stenosis of lumbar region Spinal stenosis of lumbar region with neurogenic claudication H/O [facility] Closed head injury Hypertension H/O PONV (postoperative nausea and vomiting) H/O Kidney stones Class 3 severe obesity in adult Allergies Allergen Reactions Oxycodone Other (See Comments) Hallucinations Tramadol Other (See Comments) Cold sweats and fever Simvastatin Other (See Comments) Confusion Sumatriptan Other (See Comments) Confused, agitated, and bowel incontinence There is no immunization history on file for this patient. Diet: [x] As tolerated WHEAT AND OATS FLAKE MILLER may upgrade or downgrade diet as condition Indicates. [x] RN may downgrade diet as indicated. Type: [] Continue current diet of: Diet and Supplements Diet Diet general; Effective Now Number of Occurrences: Until Specified Order Questions: Type Diet general [] Other: Consistency/Precautions: [] Whole [] Thin Liquids [] Cut-up [] Coggon Thick [] Advanced Chopped [] Honey Thickened [] Chopped [] Advanced Ground [] 1:1 feedings [] Ground/Pureed [] Other: Tube Feedings: [] PEG [] GT [] JT [] NGT [] Formula type: (Boat Operator may change/substitute if indicated). [] Continuous Rate: ml/hr, infusing hrs/day [] Bolus feeds: ml every hours [] Additional water: ml every hours Respiratory: [] BiPAP at night & PRN SOB. Settings: O2 L bleed Dx: [] CPAP at night & PRN SOB. Settings: O2 L bleed Dx: [] Suction & Pulmonary toilet PRN secretion/sputum management. Dx: [] Incentive Spirometer QID and PRN while awake. Duration: Dx: [] Tracheostomy management per protocol [x] Oxygen: Lpm NC/Trach [] Continuous [] NOC [] Humidified [x] prn SaO2 < __90___ % [x] prn SOB/dyspnea Dx: [] Other: Dx: Bladder: [] Follow nursing protocol for recent desai removal [] Desai catheter managment per nursing protocol - Indication: [] Permanent [] Temporary [] Remove desai catheter on and follow nursing protocol for recent desai remova l. [] Straight catheter every hour(s) and record amount drain Dx: [] Bladder scan every hour(s) and straight cath for > ml Dx: [] Suprapubic catheter management Dx: Other Lines, Tubes and Drains: (to be managed by nursing protocol) [] IV access and location: [] Permanent [] Temporary: Instructions/indications for removal of IV access: [] May use Alteplase per protocol PRN occluded central venous catheter [] Colostomy [] Ileostomy [] Urostomy [] Nephrostomy [] Dialysis Access - Type & Location: [] Drains - Type & Location: [] Other: Activity/Therapies: []WBAT [] Weight Bearing Restricted (specify limb(s)): [x] PT Evaluation & Management for: __s/p lumbar fusion, amb daily [x] OT Evaluation & Management for: __s/p lumbar fusion, eval and tx [] WHEAT AND OATS FLAKE MILLER Evaluation &Management for: [x] Other: Lumbar B bracing - Bracing when OOB, ok to remove for showers Wound/Skin Care: [] Follow current recommendations of the wound team for treatment. [x] Follow standard nursing protocols for wound care. [] Wound Vac management per nursing protocol. Indication: Location: Settings: Change frequency: & prn [] Other: Labs/Imaging: [] PT/INR: Frequency: Dx: Goal INR: Duration of therapy: [] Fingerstick glucose checks: Dx: DM [] Other: Test/Study Needed/Frequency Diagnosis/Indication Follow up appointments and consultations: Yam Date/Time: ____[address] Date/Time I have advised this patient that he/she not use tobacco products. TB screening: Upon admission the 1st and 2nd step TST will be done as per protocol if Resid ent has no history of TB or a past positive TST. Pharmacist may substitute equivalent Rx based on facility or insurance formulary as needed unless otherwise specified by physician. Please write "ANGEL" (Dispense as written) if a medi cation should not be substituted. Please make sure to write a diagnosis for ALL medications continued on transfer. Antibioti cs require a stop date. If medications do not contain a SIG, make sure doses/routes and kobe edule is included. Medication Orders New Medications Details Order Next Dose Due cyclobenzaprine 10 mg tablet Take 1 tablet by mouth every 8 hours as needed for Muscle spasms. aka: FLEXERIL By: Syed Owens MD Quant: 90 tablet enoxaparin 40 mg/0.4 mL injection Inject 0.4 mLs under the skin every 24 hours. aka: LOVENOX By: Syed Owens MD HYDROcodone-acetaminophen 10-325 mg per tablet Replaces: HYDROcodone-acetaminophen 5-325 mg per tablet Take 1-2 tablets by mouth every 4 hours as needed for Pain. Indication: Recent Major Surge ry aka: NORCO By: Syed Owens MD Quant: 90 tablet nystatin powder Apply to fungal areas on the abdomen and chest bid as needed aka: MYCOSTATIN By: Syed Owens MD Unchanged Medications Details Order Next Dose Due acetaminophen 500 mg tablet Take 1,000 mg by mouth every 8 hours as needed for Pain. aka: TYLENOL ARIPiprazole 20 MG tablet Take 20 mg by mouth Daily. aka: ABILIFY bumetanide 1 mg tablet Take 1 mg by mouth 2 times daily. aka: BUMEX divalproex [address] tablet Take 1,000 mg by mouth nightly. aka: DEPAKOTE divalproex [address] tablet Take 250 mg by mouth nightly. aka: DEPAKOTE escitalopram 5 MG tablet Take 5 mg by mouth Daily. aka: LEXAPRO furosemide 20 mg tablet Take 1 tablet by mouth Daily. aka: LASIX gabapentin 600 MG tablet Take 1 tablet by mouth 3 times daily. aka: NEURONTIN By: Syed Owens MD Quant: 90 tablet loperamide 2 mg capsule Take 2-4 mg by mouth 4 times daily as needed for Diarrhea. aka: IMODIUM LORazepam 0.5 mg tablet Take 0.5 tablets by mouth every 6 hours as needed for Other. aka: ATIVAN By: Syed Owens MD Quant: 60 tablet meclizine 25 mg tablet Take 25 mg by mouth 3 times daily as needed. aka: ANTIVERT MILK OF MAGNESIA 400 mg/5 mL suspension Generic drug: magnesium hydroxide Take by mouth Daily as needed for Constipation. omeprazole 20 mg capsule Take 20 mg by mouth 2 times daily. aka: priLOSEC ondansetron 4 mg tablet Take 4 mg by mouth every 4 hours as needed. aka: ZOFRAN potassium chloride 20 mEq ER tablet Take 20 mEq by mouth 3 times daily. aka: Klor-Con M20 QUEtiapine 100 mg tablet Take 100 mg by mouth nightly. aka: SEROquel spironolactone 50 mg tablet Take 50 mg by mouth 2 times daily. aka: ALDACTONE traZODone 50 mg tablet Take 100 mg by mouth Daily. aka: EDIN Discontinued Medications HYDROcodone-acetaminophen 5-325 mg per tablet aka: NORCO Replaced by: HYDROcodone-acetaminophen 10-325 mg per tablet I, Syed Owens MD, certify that post hospital snf care is medically necessary on a continuing basis for any of the conditions for which he/she received care during this hospitalization. Check one: [x] Skilled [] Intermediate Additional Orders/Instructions: Physician's signature:___Syed Owens (esigned) 10/31/2018 8 :26 [facility] USE ONLY: [] Admitting orders verbally reviewed with Admitting Physician, modified where appropriate, and approved. Verbal Order from Date: Time: _ RN name: RN signature: [] Admitting orders reviewed, modified where appropriate, and approved. Physician's signature: Date: Time: lan of Care - Melania Muñoz RN - 10/30/2018 6:54 PM PSTProblem: Patient Care Overview (Adult) Goal: Care Team Goals & Evaluation PROBLEM-RELATED GOALS: 1. Pt will report tolerable level of pain, rating it <4/10 by 10/30/18 2. Pt will have CMS intact through 10/30/18 3. Pt will remain free of s/sx infection through 10/30/18 4. Pt will have a BM POD 3 by 10/30/18 5. Pt will remain free of falls/injury through 10/30/18 6. Pt will be supervision with ambulation in hallway by 11/12/18 STRATEGY TO ACHIEVE GOALS: - assess pain - medicate with pain regimen - assess CMS - assess MS - assess VS - assess dressings/KATRINA - medicate with bowel regimen - educate on LSO B precautions - initiate fall precautions -Pt will participate in PT activities RESTRAINT-RELATED GOALS: STRATEGIES TO ACHIEVE RESTRAINT GOALS: Outcome: Improving Goal Evaluation: Lisa did ok today. Pt. Is oriented to place and alert, but anxious and uncooperative. Maria Eugenia erated therapy well today however and has remained free of falls or injury. Rated pain 5/10 and been giving norco 1 tab at a time. No s/sx of infection. Dressing on back on CDI and pt is wearing b-brace. LBM 10/30/2018. CMS intact. Chronic numbness to right hand. Pulses good. D orsi and plantar 4/5. Hand mail carriers supervisor 5/5. Will continue to monitor. lan of Care - Bruce Hartman Chaplain - 10/30/2018 4:50 PM PST Spiritual Care Soo Briceno is a 58 y.o. 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 Spiritual Evaluation: Patient is a Hindu. Patient was anxious about going home to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 dose on Mon | | AM PST | | | | | 10/26/18 at 2100, First line agent | | | | | | | for constipation, Post-op/Phase | | | | | | | II | | | | | | + +-------+ +--------+---+---+ +-------+ +--------+---+---+ | Given | 10/30/19 | 100 mg | | | | | 19 10:19 | | | | | | PM PST | | | | +-------+ +--------+---+---+ | Given | 10/30/19 | 100 mg | | | | | 19 9:23 | | | | | | AM PST | | | | +-------+ +--------+---+---+ +---+---+ | | | +---+---+ + +-------+ +-------+---+ + | enoxaparin (LOVENOX) 40 mg/0.4 | Given | 10/31/19 | 40 mg | | Abdomen- | | mL injection 40 mg 40 mg, | | 19 9:03 | | | LLQ | | Subcutaneous, EVERY 24 HOURS | | AM PST | | | | | (Daily), First dose on 10/31/18 | | | | | | | at 0900 | | | | | | + +-------+ +-------+---+ + +---+---+ | | | +---+---+ + +-------+ +-------+---+---+ | famotidine (PEPCID) tablet 20 | Given | 10/31/19 | 20 mg | | | | mg 20 mg, Oral, 2 TIMES DAILY, | | 19 8:56 | | | | | First dose on 10/26/18 at | | AM PST | | | | | 2100, Post-op/Phase II | | | | | | + +-------+ +-------+---+---+ +-------+ +-------+---+---+ | Given | 10/30/19 | 20 mg | | | | | 19 10:19 | | | | | | PM PST | | | | +-------+ +-------+---+---+ | Given | 10/30/19 | 20 mg | | | | | 19 9:23 | | | | | | AM PST | | | | +-------+ +-------+---+---+ +---+---+ | | | +---+---+ + +-------+ +--------+---+---+ | fluconazole (DIFLUCAN) tablet | Given | 10/31/19 | 200 mg | | | | 200 mg 200 mg, Oral, DAILY, | | 19 8:56 | | | | | First dose on Fri10/26/18 at | | AM PST | | | | | 1915, Post-op/Phase II, | | | | | | | Indications: (NON-ALBICANS) | | | | | | | CANDIDIASIS | | | | | | + +-------+ +--------+---+---+ +-------+ +--------+---+---+ | Given | 10/30/19 | 200 mg | | | | | 19 9:22 | | | | | | AM PST | | | | +-------+ +--------+---+---+ | Given | 10/29/19 | 200 mg | | | | | 19 9:16 | | | | | | AM PST | | | | +-------+ +--------+---+---+ +---+---+ | | | +---+---+ + +-------+ + +---+---+ | HYDROcodone-acetaminophen | Given | 10/31/19 | 1 tablet | | | | (NORCO) 10-325 mg per tablet 1-2 | | 19 10:33 | | | | | tablet 1-2 tablet, Oral, EVERY 4 | | AM PST | | | | | HOURS PRN, Pain, Starting Mon | | | | | | | 10/26/18 at 1847, Post-op/Phase II | | | | | | + +-------+ + +---+---+ +-------+ + +---+---+ | Given | 10/30/19 | 1 tablet | | | | | 19 11:54 | | | | | | PM PST | | | | +-------+ + +---+---+ | Given | 10/30/19 | 1 tablet | | | | | 19 10:18 | | | | | | PM PST | | | | +-------+ + +---+---+ +---+---+ | | | +---+---+ + +-------+ +---------+---+---+ | menthol (HALLS COUGH DROP) | Given | 10/28/19 | 1 | | | | lozenge 1 lozenge 1 lozenge, | | 19 12:44 | lozenge | | | | Buccal, EVERY 2 HOURS PRN, Sore | | AM PST | | | | | Throat, Starting 10/26/18 at | | | | | | | 1847, Post-op/Phase II | | | | | | + +-------+ +---------+---+---+ +---+---+ | | | +---+---+ + +-------+ + +---+---+ | methocarbamol (ROBAXIN) tablet | Given | 10/28/19 | 1,500 mg | | | | 1,500 mg 1,500 mg, Oral, EVERY 6 | | 19 3:39 | | | | | HOURS PRN, Muscle spasms, | | PM PST | | | | | Starting 10/26/18 at 1847, | | | | | | | First line agent, Post-op/Phase | | | | | | | II | | | | | | + +-------+ + +---+---+ +---+---+ | | | +---+---+ + +-------+ +---+---+---+ | nystatin (MYCOSTATIN) powder | Given | 10/29/19 | | | | | Topical, 2 TIMES DAILY, First | | 19 8:08 | | | | | dose on 10/26/18 at 2100, | | PM PST | | | | | Apply to affected skin folds | | | | | | | Sprinkle powder on affected | | | | | | | area., Post-op/Phase II | | | | | | + +-------+ +---+---+---+ +-------+ +---+---+---+ | Given | 10/29/19 | | | | | | 19 9:21 | | | | | | AM PST | | | | +-------+ +---+---+---+ | Given | 10/28/19 | | | | | | 19 9:28 | | | | | | PM PST | | | | +-------+ +---+---+---+ +---+---+ | | | +---+---+ + +-------+ +------+---+---+ | ondansetron (ZOFRAN ODT) | Given | 10/30/19 | 4 mg | | | | disintegrating tablet 4 mg 4 mg, | | 19 9:13 | | | | | Oral, EVERY 6 HOURS PRN, Nausea, | | AM PST | | | | | Vomiting, Starting 10/26/18 | | | | | | | at 1847, First line agent, | | | | | | | Post-op/Phase II | | | | | | + +-------+ +------+---+---+ +---+---+ | | | +---+---+ + +-------+ +------+---+---+ | ondansetron (ZOFRAN) injection | Given | 10/28/19 | 4 mg | | | | 4 mg 4 mg, Intravenous, EVERY 6 | | 19 10:42 | | | | | HOURS PRN, Nausea, Vomiting, | | PM PST | | | | | Starting 10/26/18 at 1847, | | | | | | | First line agent Use PO option | | | | | | | unless NPO status or unable to | | | | | | | tolerate., Post-op/Phase II | | | | | | + +-------+ +------+---+---+ +---+---+ | | | +---+---+ + +-------+ +------+---+---+ | polyethylene glycol (MIRALAX) | Given | 10/29/19 | 17 g | | | | powder 17 g 17 g, Oral, DAILY, | | 19 9:17 | | | | | First dose on Fri10/26/18 at | | AM PST | | | | | 1915, If docusate and senna | | | | | | | ineffective or not ordered, | | | | | | | Post-op/Phase II | | | | | | + +-------+ +------+---+---+ +-------+ +------+---+---+ | Given | 10/28/19 | 17 g | | | | | 19 9:39 | | | | | | AM PST | | | | +-------+ +------+---+---+ | Given | 10/26/19 | 17 g | | | | | 19 8:21 | | | | | | PM PST | | | | +-------+ +------+---+---+ +---+---+ | | | +---+---+ + + + +---+ +---+ | sodium chloride 0.9% (NS) | Rate/Dos | 10/26/19 | | 50 mL/hr | | | infusion at 100 mL/hr, | e Change | 19 10:15 | | | | | Intravenous, CONTINUOUS, Starting | | PM PST | | | | | 10/26/18 at 1915, | | | | | | | Post-op/Phase II | | | | | | + + + +---+ +---+ +---------+ +---+-------+---+ | New Bag | 10/26/19 | | 100 | | | | 19 7:04 | | mL/hr | | | | PM PST | | | | +---------+ +---+-------+---+ +---+---+ | | | +---+---+ documented in this encounter
--- OUTSIDE RECORDS SUMMARY | ~2020-07-18 | XMS | Encounter Summary ---
Demographics + + + | Address | [address] | | | [place] [address] | + + + | Home Phone | | + + + | Preferred Language | Unknown | + + + | Marital Status | | + + + | Denominational Affiliation | 1028 | + + + | Race | White | + + + | Ethnic Group | Not or | + + + Author + + + | Author | [facility] | | | and [place] | + + + | Organization | [facility] | | | and [place] [...] Team Providers + +------+ + | Care Photographic Editor Name | Role | Phone | + +------+ + | Gage De Jesus DO | PCP | | + +------+ + Encounter Details +--------+ + + + + | Date | Type | Department | Care Team | Description | +--------+ + + + + | 05/24/ | Orders Only | [facility] | [facility] | Bilateral leg | | 2018 | | NEUROSURGERY [address] | [address] | weakness (Primary | | | | [address] [place] | Dx); History of | | | | [place] | [id number] | lumbar fusion; | | | | [id number] | | Bilateral leg pain | | | | [phone] | | | +--------+ + + + [...] XR Lumbar Spine 2 or 3 Vw (05/28/2019 10:25 AM PDT) + + | Specimen | + + | | + + + + + | Narrative | Performed At | + + + | XR LUMBAR SPINE 2 OR 3 VW 05/28/2019 10:25 AM HISTORY: Bilateral | [facility] | | leg pain and weakness. COMPARISON: Multiple priors. FINDINGS: | | | Mild left curvature of the lumbar spine is present. There is stable | | | hardware for posterior fusion from L4 through L5 with spacer hardware | | | at L4-5. The hardware are intact. Moderate spondylosis is present. | | | Minimal retrolistheses are noted of L1 over L2 and L2 over L3. There | | | is minimal anterolisthesis of L5 over S1. Bone mineralization is | | | decreased. Vertebral body height are preserved with no evidence for | | | compression fractures. Disc height are maintained. Facet joints are | | | intact. Visualized ribs and pelvic osseous structures show no acute | | | findings. There are cholecystectomy clips. Mild degenerative changes | | | are noted of the hips. IMPRESSION - Stable hardware for | | | posterior fusion from L4 through L5. Dictated and Signed by: El | | | MD Lonnie Electronically signed: 05/28/2019 11:55 AM | | + + + + + | Procedure Note | + + | Compa, Rad Results In - 05/28/2019 11:58 AM PDT XR LUMBAR SPINE 2 OR 3 VW 05/28/2019 | | 10:25 AMHISTORY: Bilateral leg pain and weakness.COMPARISON: Multiple | | priors.FINDINGS:Mild left curvature of the lumbar spine is present. There is stable | | hardware forposterior fusion from L4 through L5 with spacer hardware at L4-5. The | | hardwareare intact. Moderate spondylosis is present. Minimal retrolistheses are noted | | ofL1 over L2 and L2 over L3. There is minimal anterolisthesis of L5 over S1. | | Bonemineralization is decreased. Vertebral body height are preserved with noevidence for | | compression fractures. Disc height are maintained. Facet joints areintact. Visualized | | ribs and pelvic osseous structures show no acute findings.There are cholecystectomy | | clips. Mild degenerative changes are noted of thehips.IMPRESSION -Stable hardware for | | posterior fusion from L4 through L5.Dictated and Signed by: El Fleming MD | | Electronically signed: 05/28/2019 11:55 AM | |evidence for compression fractures. Disc height are maintained. Facet joints are | |intact. Visualized ribs and pelvic osseous structures show no acute findings. | |There are cholecystectomy clips. Mild degenerative changes are noted of the | |hips. | | | |IMPRESSION - | |Stable hardware for posterior fusion from L4 through L5. | | | |Dictated and Signed by: El Fleming MD | | Electronically signed: 05/28/2019 11:55 AM | + + + +---------+ + + | Performing | Address | City/State/Zipcode | Phone Number | | Organization | | | | + +---------+ + + | [facility] | | | | + +---------+ + + documented in this encounter Visit Diagnoses + + | Diagnosis | + + | Bilateral leg weakness - Primary Other musculoskeletal symptoms referable to limbs | + + | History of lumbar fusion | + + | Bilateral leg pain Pain in limb | + + documented in this encounter"
--- OUTSIDE RECORDS SUMMARY | ~2020-07-18 | XMS | Encounter Summary ---
Demographics + + + | Address | [address] | | | [place] [address] | + + + | Home Phone | | + + + | Preferred Language | Unknown | + + + | Marital Status | | + + + | Orthodox Affiliation | 1028 | + + + | Race | White | + + + | Ethnic Group | Not or | + + + Author + + + | Author | [facility] | | | and [place] | + + + | Organization | [facility] | [...] Team Providers + +------+ + | Care Telesales Specialist Name | Role | Phone | + +------+ + | Gage De Jesus DO | PCP | | + +------+ + Encounter Details +--------+ + + + + | Date | Type | Department | Care Team | Description | +--------+ + + + + | 08/07/ | Episode | [facility] | Merly Sauceda, | | | 2017 | Changes | NEUROSURGERY [address] | Outpatient Coordinator | | | | | [address] | | | | | | [place] | | | | | | [address] | | | | | | [phone] | | | +--------+ + + + [...]
--- OUTSIDE RECORDS SUMMARY | ~2020-07-18 | XMS | Encounter Summary ---
Demographics + + + | Address | [address] | | | [place] [address] | + + + | Home Phone | | + + + | Preferred Language | Unknown | + + + | Marital Status | | + + + | Orthodoxy Affiliation | 1028 | + + + | Race | White | + + + | Ethnic Group | Not or | + + + Author + + + | Author | [facility] | | | and [place] | + + + | Organization | [facility] | | | and [place] [...] Team Providers + +------+ + | Care Government Documents Librarian Name | Role | Phone | + +------+ + | Gage De Jesus DO | PCP | | + +------+ + Reason for Visit + +--------+ + | Reason | Onset | Comments | | | Date | | + +--------+ + | Coordination Of Care | 11/02/ | [facility] | | | 2019 | | + +--------+ + Encounter Details +--------+ + + + + | Date | Type | Department | Care Team | Description | +--------+ + + + + | 11/02/ | Telephone | [facility] | Syed Owens MD | Coordination Of Care | | 2018 | | NEUROSUR[address]ERY [address] | [address] | ([facility]) | | | | [facility] [address] | [place] [address] | | | | | [place] | [phone] | | | | | [address] | | | | | | [phone] | | | +--------+ + + + [...] this encounter Miscellaneous Notes Telephone Encounter - Wanda Jose RN - 11/02/2018 2:28 PM [facility] Transfer orders upd ated with patient's B-grade lumbar precautions [facility] [place] Called [facility] and spoke with nurse Chen to let her know that the new orders a re being faxed and to let us know if she has any questions or concerns documented in this encounter Plan of Treatment Not on filedocumented as of this encounter Visit Diagnoses Not on filedocumented in this encounter"
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
--- OUTSIDE RECORDS SUMMARY | ~2020-07-18 | XMS | Encounter Summary ---
Demographics + + + | Address | [address] | | | [place] [address] | + + + | Home Phone | | + + + | Preferred Language | Unknown | + + + | Marital Status | | + + + | Druze Affiliation | 1028 | + + + | Race | White | + + + | Ethnic Group | Not or | + + + Author + + + | Author | [facility] | | | and [place] | + + + | Organization | [facility] | | | and [place] | + + + | Address | Unknown | + + + | Phone | Unavailable | + + + Support + + +---------+ + | Name | Relationship | Address | Phone | + + +---------+ + | Garcia Rodakrtik | ECON | Unknown | | + + +---------+ + | Mazin Shaffer | ECON | Unknown | | + + +---------+ + Care Team Providers + +------+ + | Care Button Sewer Name | Role | Phone | + [...] | | | IMAGING [address] | [place] | | | | | [address] [place] | [place] [address] | | | | | [place] [address] | | | | | | [phone] | | | +--------+ + + + [...]
--- OUTSIDE RECORDS SUMMARY | ~2020-07-18 | XMS | Encounter Summary ---
Demographics + + + | Address | [address] | | | [place] [address] | + + + | Home Phone | | + + + | Preferred Language | Unknown | + + + | Marital Status | | + + + | Taoist Affiliation | 1028 | + + + | Race | White | + + + | Ethnic Group | Not or | + + + Author + + + | Author | [facility] | | | and [place] | + + + | Organization | [facility] | | | and [...] Team Providers + +------+ + | Care Rotary Driller Name | Role | Phone | + +------+ + | Gage De Jesus DO | PCP | | + +------+ + Encounter Details +--------+ + + + + | Date | Type | Department | Care Team | Description | +--------+ + + + + | 12/15/ | Orders Only | [facility] [place] | Arpit Bolden, | Back pain, | | 2017 | | NEUROSURGERY [address] | DO [address] | unspecified back | | | | [address] | [address] [place], [place] | location, | | | | [place], [place] | [address] | unspecified back | | | | [address] | | pain laterality, | | | | [phone] | | unspecified | | | | | | chronicity (Primary | | | | | | Dx) | +--------+ + + + + Social [...] of this encounter Results XR Lumbar Spine 4 [...] back pain laterality, unspecified | | chronicity - Primary | + + documented in this encounter"
--- OUTSIDE RECORDS SUMMARY | ~2020-07-18 | XMS | Encounter Summary ---
Demographics + + + | Address | [address] | | | [place] [address] | + + + | Home Phone | | + + + | Preferred Language | Unknown | + + + | Marital Status | | + + + | Holiness Affiliation | 1028 | + + + | Race | White | + + + | Ethnic Group | Not or | + + + Author + + + | Author | [facility] | | | and [place] | + + + | Organization | [facility] | | | and [...] Team Providers + +------+ + | Care Hospital Coordinator Name | Role | Phone | + [...] pain | [address] | [address] | | | | | Procedures | [address] | [place], | | | | | 07/13>PEND | [place], | [place] | | | | | PCP AUTH | [place] [address] | [address] | | | | | | Phone: | Phone: | | | | | | [phone] | [phone] | | | | | | Fax: | Fax: | | | | | | [phone] | [phone] | + + + + + + + Reason for Visit + + + | Reason | Comments | + + + | Chest Pain | | + + + Encounter Details +--------+ + + + + | Date | Type | Department | Care Team | Description | +--------+ + + + + | 07/06/ | Emergency | [facility] | Sawyer Yanez MD | Atypical chest pain | | 2020 | | [facility] EM[facility] | [address] | (Primary Dx) | | | | CENTER [address] | [place] | | | | | [place] | [id number] | | | | | [address] | | | | | | [phone] | | | +--------+ + + + [...] that she does not use drugs. Medications: INTERVENTIONAL RADIOLOGIST Home Medications Medication Sig acetaminophen (TYLENOL) 500 [...] J?MRN: | | | | | | [id number] | | | [id number] | | | riteri | | | [...] | | | ter, | | | [place] | | | | | | ([phone] [...] | | | h | | | [place] | | | 888-43 | | | [...] | | | lags | | | [place] | | | ED | | | Dispar | | | ity | | | Measur | | | e - | | | [place] | | | has | | | [...] | | | s. | | | [place] | | | | | | Health [...] | | | By: | | | [place] | | | | | | Health [...] | | | St. | | | [place] | | | y | | | [...] | | | St. | | | [place] | | | y H. | | [...] | | | St. | | | [place] | | | y H. | | [...] Procedure Note | + + | Compa, [id number] - 07/06/2020 3:09 PM PDT EXAM: XR [...] + | [address] | [address] | [place], [place] | [phone] | | [facility] | | [address] | | | - LABORATORY | | [...] [address] | [place] | [phone] | | [facility] | | [address] | | | - LABORATORY | | [...] [address] | [place] | [phone] | | [facility] | | [address] | | | - LABORATORY | | [...] use as of November 25 | | [facility] | | | | 2018. Check [...] ST. | [address] | [place] | [phone] | | [facility] | | [address] | | | - LABORATORY | | [...] | | | | | | [employer] | | | | | [...] [address] | [place] | [phone] | | [facility] | | [address] | | | - LABORATORY | | [...] (H) | 9 - 23 mg/dL | [facility] | | | | | | [facility] | | | | | | MEDICAL | | | | | | CENTER - | | | | | | LABORATORY | | + + + + + + | Creatinine | 1.30 (H) | 0.55 - 1.02 | [facility] | | | | | mg/dL | NAT | | | | | | MEDICAL | | | | | | CENTER - | | | | | | LABORATORY | | + + + + + + | eGFR, | 42 (L)Comment: | >=60 | [facility] | | | non- | GLOMERULAR FILTRATION | mL/min/1.73m2 | [facility] | | | [place] | RATE,ESTIMATED | | MEDICAL | | | | mL/min/1.82a1Ytdy than | | CENTER - | | [...] mL/min/1.73m2 | [facility] | | | [place] | RATE,ESTIMATED | | MEDICAL | | | | mL/min/1.12e7Ggdj than | | CENTER - | | | | 60 Chronic kidney | | LABORATORY | | | | disease,if found over a | | | | | | 3-month period.Less than | | | | | | 15 Kidney failure | | | | + + + + + + | Calcium | 9.5 | 8.7 - 10.4 | [facility] | | | | | mg/dL | [...] [address] | [place] | [phone] | | [facility] | | [address] | | | - LABORATORY | | [...] | | Cells | | | [facility] | | | | | | MEDICAL [...] | | | | g/dL | [facility] | | | | | | MEDICAL [...] [facility] | | | | | | [facility] | | | | | | [...] + | [facility] | [address] | [place] | [phone] | | [facility] | | [address] | | | - LABORATORY | | [...] | | | | | | JEAN ([id number]) on | | | | | | [...] | | | 324 mg, Oral, ONCE, [facility] 07/06/20 | | 20 2:28 | | [...]
--- OUTSIDE RECORDS SUMMARY | ~2020-07-18 | XMS | Encounter Summary ---
Demographics + + + | Address | [address] | | | [place] [address] | + + + | Home Phone | | + + + | Preferred Language | Unknown | + + + | Marital Status | | + + + | Presybeterian Affiliation | 1028 | + + + | Race | White | + + + | Ethnic Group | Not or | + + + Author + + + | Author | [facility] | | | and [place] | + + + | Organization | [facility] | | | and [...] Team Providers + +------+ + | Care Flakeboard Line Tender Name | Role | Phone | + +------+ + | Gage De Jesus DO | PCP | | + +------+ + Encounter Details +--------+ + + + + | Date | Type | Department | Care Team | Description | +--------+ + + + + | 08/13/ | Episode | [facility] [place] | Merly Sauceda, | | | 2017 | Changes | NEUROSURGERY [address] | Metal Model [employer] | | | | | [address] | | | | | | [place] | | | | | | [address] | | | | | | [phone] | | | +--------+ + + + [...]
--- OUTSIDE RECORDS SUMMARY | ~2020-07-18 | XMS | Encounter Summary ---
Demographics + + + | Address | [address] | | | [place] [address] | + + + | Home Phone | | + + + | Preferred Language | Unknown | + + + | Marital Status | | + + + | Advent Affiliation | 1028 | + + + | Race | White | + + + | Ethnic Group | Not or | + + + Author + + + | Author | [facility] | | | and [place] | + + + | Organization | [facility] | | | and [...] Team Providers + +------+ + | Care Substitute Crossing Guard Name | Role | Phone | + +------+ + | Gage De Jesus DO | PCP | | + +------+ + Encounter Details +--------+ + + + + | Date | Type | Department | Care Team | Description | +--------+ + + + + | 01/16/ | Abstract | [facility] [place] | Provider, | | | 2018 | | NEUROSURGERY [address] | [address] | | | | | [address] | [place] | | | | | [place] | [place] [address] | | | | | [address] | | | | | | [phone] | | | +--------+ + + + + Social History + +-------+ +--------+------+ | Tobacco Use | Types | Packs/Day | Years | Date | | | | | Used | | + +-------+ +--------+------+ | Never Smoker | | | | | + +-------+ +--------+------+ + + +---------+ + | Alcohol Use [...]
--- OUTSIDE RECORDS SUMMARY | ~2020-07-18 | XMS | Encounter Summary ---
Demographics + + + | Address | [address] | | | [place] [address] | + + + | Home Phone [...] + + + | Organization | [facility] | | | and [...] Team Providers + +------+ + | Care Popcorn Attendant Name | Role | Phone | [...] + + | 10/14/ | Office | [facility] | Lisa Arguelles | Spondylolisthesis of | | 2019 | Visit | NEUROSURGERY [address] | SHANTHI Goldman [address] | lumbar region | | | | [facility] [address] | [facility] [address] | (Primary Dx); Lumbar | | | | [place], [place] | [address] [place] | radiculopathy; | | | | [address] | [address] | Foraminal stenosis | | | | [phone] | | of lumbar region; | | [...] encounter Patient Instructions Patient Instructions Ti Charlton, Ham Boner - 10/14/2018 10:30 AM PSTIt was a ple asure to see you today. Here is what we discussed. If you do need a refill on pain medications or muscle relaxers after you get home please ma ke sure to give us plenty of notice so that we have time to mail the prescription to you. O ur phone number is [phone]. You can also contact your primary care [...] from the original. Pj Arguelles PA-C [address] [facility], [address] [place] [address] FAX: [phone] NEUROSURGERY HISTORY AND PHYSICAL EXAMINATION CHIEF COMPLAINT: [...] Surgical History: Procedure Laterality Date CHOLECYSTECTOMY 1995 [facility] HYSTERECTOMY 1999 [facility] [place] TONSILLECTOMY 1989 [facility] CURRENT MEDICATIONS: Current Outpatient Prescriptions [...] mas s index is 37.25 kg/m. GENERAL: oSo Briceno is in no acute distress with [...] has no apparent deficits with short or shelter memory. CRANIAL NERVES: II: Acuity is intact. [...] Intrinsics 5 5 Ulnar Intrinsics 5 5 Plastic Printer Strength 5 5 Hip Flexion 5 5 [...] vomiting) Poor circulation Rheumatoid arthritis (HCC) Seizure ([facility]) PLAN: Soo Briceno presented today, and it [...] signs. The patient's MEDD, pain assessments, and [place] and [place] OPERATIONS LIAISON's were reviewed under the Documentation encounter created [...]
--- OUTSIDE RECORDS SUMMARY | ~2020-07-18 | XMS | Encounter Summary ---
Demographics + + + | Address | [address] | | | [place] [address] | + + + | Home Phone [...] + | Organization | [facility] | | | and [...] Team Providers + +------+ + | Care Nut Feeder Name | Role | Phone | + +------+ + | Gage De Jesus DO | PCP | | + +------+ + Reason for Visit + +--------+ + | Reason | Onset | Comments | | | Date | | + +--------+ + | Neurosurgery | 01/21/ | | | Appointment | 2019 | | + +--------+ + Encounter Details +--------+ + + + + | Date | Type | Department | Care Team | Description | +--------+ + + + + | 01/21/ | Telephone | [facility] | Syed Owens MD | Neurosurgery | | 2019 | | NEUROSURGERY [address] | [address] | Appointment | | | | [address] [facility] [address] | [place] [address] | | | | | [place] | [phone] | | | | | [address] | | | | | | [phone] | | | +--------+ + + + [...] Notes Telephone Encounter - Aure Castillo - 01/21/2019 4:03 PM PDTTried to call patient t o move patient as Dr Owens will be out of the office on January 28. Has not seen Roman since surgery and last appointment was moved by us as he wasn't in office that day. Future date will be o [facility] 90 billing period if she wants to see Dr Owens. I tired calling [phone] and it was non working. I tried [phone] and they said she longer lives there. I tried the number they gave me [phone] (updated in demographics) and there was no answer and no voice kelsea moran Need to try calling her again. Electronically signed by Aure Castillo at 9 4:19 PM PDTdocumented in this encounter Plan of Treatment Not on filedocumented as of this encounter Visit Diagnoses Not on filedocumented in this encounter"
--- OUTSIDE RECORDS SUMMARY | ~2020-07-18 | XMS | Encounter Summary ---
Demographics + + + | Address | [address] | | | [place] [address] | + + + | Home Phone | | + + + | Preferred Language | Unknown | + + + | Marital Status | | + + + | Cheondoism Affiliation | 1028 | + + + | Race | White | + + + | Ethnic Group | Not or | + + + Author + + + | Author | [facility] | | | and [place] | + + + | Organization | [facility] | | [...] Team Providers + +------+ + | Care Electrical Contacts Adjuster Name | Role | Phone | + [...] | | | IMAGING [address] | [place] | | | | | [address] [place] | [place] [address] | | | | | [place] [address] | | | | | | [phone] | | | +--------+ + + + [...] + +--------+ + + + | CT HEAD WO CONTRAST | Routin | 12/13/2018 | | Results for this | | | e | 1:40 PM | | procedure are in the | | | | PDT | | results section. | + +--------+ + + + documented in this encounter Results CT Head wo Contrast (12/13/2018 1:40 PM PDT) + + | Specimen | [...]
--- OUTSIDE RECORDS SUMMARY | ~2020-07-18 | XMS | Encounter Summary ---
Demographics + + + | Address | [address] | | | [place] [address] | + + + | Home Phone | | + + + | Preferred Language | Unknown | + + + | Marital Status | | + + + | Christian Affiliation | 1028 | + + + | Race | White | + + + | Ethnic Group | Not or | + + + Author + + + | Author | [facility] | | | and [place] | + + + | Organization | [facility] | | | and [...] Team Providers + +------+ + | Care Beam Builder Name | Role | Phone | + [...] | | | | | | | NC LUMBAR | | | | | | | SPINE | | | | | | | FUSION,ANTER | | | | | | | APPRCH NC | | | | | | | [...] | | | | | | ION NC | | | | | | | ARTHRODESIS | | | | | | | POSTERIOR/PO | | | | | | | STEROLATERAL | | | | | | | LUMBAR NC | | | | | | | [...] | | | | | | SEG NC | | | | | | | LAMINEC/FACE | | | | | | | TECT/FORAMIN | | | | | | | ,EACH ADDNL | | | | | | | NC | | | | | | | [...] + + + + | 10/26/ | [facility] | [facility] | Syed Owens MD | | | 2019 | Encounter | MED CTR XRAY [address] | [address] | | | | | [place] | [place] [address] | | | | | [place] [address] | [phone] | | | | | [phone] | | | +--------+ + + + [...] | 0 | 05/20/20 | | | xdkitmqy-ctwlrkqnn-f | | | | 18 | 0 | | ydrocortisone | | | | | | | (CORTISPORIN) | | | | | | | 3.5-41025-9 otic | | | | | | [...] | | | 0 | 05/07/20 | 09/16/202 | | sulfamethoxazole-tri | | | | [...] | + +--------+ + + + | [address] STATS NO | Routin | 10/26/2018 | | Results for this | | CHARGE | e | 5:10 PM | | procedure are in the | | | | PST | | results section. | + +--------+ + + + documented in this encounter Results MADHURI Noe No Charge (10/26/2018 5:10 PM PST) + [...]
--- OUTSIDE RECORDS SUMMARY | ~2020-07-18 | XMS | Encounter Summary ---
Demographics + + + | Address | [address] | | | [place] [address] | + + + | Home Phone | | + + + | Preferred Language | Unknown | + + + | Marital Status | | + + + | Yazidi Affiliation | 1028 | + + + | Race | White | + + + | Ethnic Group | Not or | + + + Author + + + | Author | [facility] | | | and [place] | + + + | Organization | [facility] | | | and [place] [...] Team Providers + +------+ + | Care Tester Rocket Engine Name | Role | Phone | + [...] | 10/14/ | Telephone | [facility] [place] | Syed Owens MD | Patient Education | | 2018 | | NEUROSURGERY [address] | (Spine Class); Case | | | | [address] | [place] [address] | Management | | | | [place] | [phone] | | | | | [address] | | | | | | [phone] | | | +--------+ + + + [...] try and pass it on to DC material planner on date of surgery in preparation for her DC. elephone Encounter - Wanda Jose RN - 10/14/2018 4:16 PM PSTRouting to Outpat ient Surveyor Oil Well Directional to pre-plan options for discharge. Patient is a resident of [facility], an adult [facility], in [place], [place] It is uncertain the level of [...] be able to fax pres criptions to [facility] as is done with fpc facilities? Please advise what options may be considered if patient requires fpc rehab upon discharge. Scheduled 10/26/18 for L4-5 LAIF W/PSF & LAMINECTOMY elephone Encounter - Wanda Jose RN - 10/14/2018 2:27 PM PSTPatient attended Spine Class today. Her case briefer, Jennifer assisted her in w/c and a [...]
--- OUTSIDE RECORDS SUMMARY | ~2020-07-18 | XMS | Encounter Summary ---
Demographics + + + | Address | [address] | | | [place] [address] | + + + | Home Phone [...] + | Organization | [facility] | | | and [place] [...] Team Providers + +------+ + | Care Qc Scientist Name | Role | Phone | + +------+ + | Gage De Jesus DO | PCP | | + +------+ + Encounter Details +--------+ + + + + | Date | Type | Department | Care Team | Description | +--------+ + + + + | 10/14/ | Hospital | [facility] | Syed Owens MD | | | 2019 | Encounter | MED CTR XRAY [address] | [address] | | | | | [place] | [place] [address] | | | | | [place] [address] | [phone] | | | | | [phone] | | | | | | | Kali Rios MD | | | | | | [address] | | | | | | [place] | | | | | | [address] | | | | | | | [...] | 0 | 05/20/20 | | | rqjcocfp-npxyrkxma-y | | | | 18 | 0 | | ydrocortisone | | | | | | | (CORTISPORIN) | | | | | | | 3.5-93536-8 otic | | | | | | [...]
--- OUTSIDE RECORDS SUMMARY | ~2020-07-18 | XMS | Encounter Summary ---
Demographics + + + | Address | [address] | | | [place] [address] | + + + | Home Phone | | + + + | Preferred Language | Unknown | + + + | Marital Status | | + + + | Religion Affiliation | 1028 | + + + | Race | White | + + + | Ethnic Group | Not or | + + + Author + + + | Author | [facility] | | | and [place] | + + + | Organization | [facility] | | | [...] Team Providers + +------+ + | Care Shingle Grader Name | Role | Phone | + [...] | | | | right-sided | [place] [address] | [place], | | | | | sciatica | Phone: | [place] [address] | | | | | | [phone] | Phone: | | | | | | Fax: | [phone] | | | | | | [phone] | Fax: | | | | | | | [phone] | + + + + + + + Reason for Visit + + + | Reason | Comments | + + + | Hip Pain | | | (Non-traumatic) | | + + + Encounter Details +--------+ + + + + | Date | Type | Department | Care Team | Description | +--------+ + + + + | 04/30/ | [facility] | [facility] | Syed Cantu, | Acute right-sided | | 2019 - | | MED CTR EMERGENCY | MD [address] | low back pain with | | | | CENTER [address] | [place] | right-sided sciatica | | 05/01/ | | [place] | [address] | (Primary Dx) | | 2019 | | [address] | | | | | | [phone] | | | +--------+ + + + [...] | 0 | 05/20/20 | | | huojevbd-ggahlloer-t | | | | 18 | 0 | | ydrocortisone | | | | | | | (CORTISPORIN) | | | | | | | 3.5-02970-6 otic | | | | | | [...] of Anxiety, Arthritis, Back pain, Bipolar disorder ([facility]), Chronic pain, CKD (chron ic kidney disease), stage III ([facility]) (08/30/2011), Closed head injury (05/15/1988), Depression , Fibromyalgia, GERD (gastroesophageal reflux disease) (08/30/2011), H/O [facility] Cosed head injur y (05/15/1988), Headache, Heart beat abnormality, Hiatal hernia, High cholesterol, Hypertensi on (10/25/2018), Kidney stone, Left lumbar radiculopathy, Lumbar radiculopathy, Migraine head ache, Neuropathy, PONV (postoperative nausea and vomiting), Poor circulation, Rheumatoid art hritis ([facility]), and Seizure ([facility]). The patient has a past surgical history [...] does not use drugs. Medications and Allergies WATERPROOFER Home Medications Medication Sig acetaminophen (TYLENOL) 500 [...] nsiveness. Fill as needed to reverse opiates errmfzyu-qlwblgsie-kcqocoprswhzal (CORTISPORIN) 3.5-94343-3 otic suspension nystatin (MYCOSTATIN) powder Apply to [...] time. Medical Decision Making EMS notes and retirement records if applicable/available. Pertinent labs and imaging stud ies were reviewed (see above). Medication and allergy lists reviewed in [facility]. Nursing notes and old records were reviewed if available within [facility]. ER course: 11:44 PM PDT - [...] MD. Specialty: Neurosurgery Contact information: [address] [id number] Patient's Medications New Prescriptions DIAZEPAM (VALIUM) 5 [...] Indication: Recent Major Surgery Discharge References/Attachments Sciatica (Bahamian) Administrations This Visit diazePAM (VALIUM) injection 5 [...] J?MRN: | | | | | | [id number] | | | [id number] | | | riteri | | | [...] | | | ter, | | | [place] | | | | | | ([phone] [...] | | | h | | | [place] | | | [phone] | | | [...] | | | lags | | | [place] | | | ED | | | Dispar | | | ity | | | Measur | | | e - | | | [place] | | | has | | | [...] | | | s. | | | [place] | | | | | | Health [...] | | | By: | | | [place] | | | | | | Health [...] | | | St. | | | [place] | | | y | | | [...] | | | St. | | | [place] | | | y H. | | [...] | | | St. | | | [place] | | | y H. | | [...] | | | , | | | RUIFNA | | | O, CHW | | [...] | | | [id number] | | | [id number] | | | | | | PLEASE [...] Procedure Note | + + | Compa, [id number] - 05/01/2020 10:29 AM PDT XR LUMBAR [...]
--- OUTSIDE RECORDS SUMMARY | ~2020-07-18 | XMS | Encounter Summary ---
Demographics + + + | Address | [address] | | | [place] [address] | + + + | Home Phone | | + + + | Preferred Language | Unknown | + + + | Marital Status | | + + + | Confucianist Affiliation | 1028 | + + + | Race | White | + + + | Ethnic Group | Not or | + + + Author + + + | Author | [facility] | | | and [place] | + + + | Organization | [facility] | | [...] Team Providers + +------+ + | Care Bicycle Messenger Name | Role | Phone | + [...] | | | | hesis of | [place], | [address] | | | | | lumbar | [place] [address] | NW | | | | | region S/P | Phone: | [place], [place] | | | | | lumbar | [phone] | [address] | | | | | fusion | Fax: | Phone: | | | | | Spinal | [phone] | [phone] | | | | | stenosis of | | Fax: | | | | | lumbar | | [phone] | | | | | region with [...] | | [address] | [place] [address] | (Primary Dx); S/P | | | | [place], [place] | [phone] | lumbar fusion; | | | | [address] | | Spinal stenosis of | | | | [phone] | | lumbar region with | | [...]
--- OUTSIDE RECORDS SUMMARY | ~2020-07-18 | XMS | Encounter Summary ---
Demographics + + + | Address | [address] | | | [place] [address] | + + + | Home Phone [...] Organization | [facility] | | | and [...] Team Providers + +------+ + | Care Heater Helper Name | Role | Phone | + +------+ + PCP | Unavailable | + +------+ + Encounter Details +--------+ + + + + | Date | Type | Department | Care Team | Description | +--------+ + + + + | 03/18/ | Hospital | [facility] | Conversion | Abnormal findings on | | 2017 | Encounter | IMAGING SERVICES | Transaction, | diagnostic imaging | | | | [address] | Provider Unknown | of breast | | | | [address] [place], [place] | | | | | | [address] | (Fax) | | | | | [phone] | | | +--------+ + + + [...]
--- OUTSIDE RECORDS SUMMARY | ~2020-07-18 | XMS | Encounter Summary ---
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 lan of Care - [facility], Heidi Romo RN - 10/28/2018 6:50 PM PSTPt has had a good day today. Pt has been pleasan t and cooperative with care. She has been saying that she is not in pain but then she will t urn right around and tell you that she is in pain. So I have given her Verona twice today and robaxin once. She has [...] and treat as prescribed. lan of [facility] [place] - [facility] gerald, Mo Higuera, OT - 10/28/2018 [...] Therapy Discharge Recommendations are: Recommended discharge disposition: usp facility Post discharge occupational therapy recommendation: will benefit from structured setting, pt is motivated participant Equipment Recommendations: personal computer network analyst, sock aide (flexible sock aid) Planned Interventions:ADL retraining, bed mobility training, functional endurance training, orthotic fitting/training, patient/family education, transfer training Recommended Frequency: 5 times/wk Patient Status/Goals: Reflects last filed data and may be from multiple contributors. ADLs pt c/o fatigue and pain, states had a sponge bath and completed grooming with QUALITY SYSTEM MANAGER, and that she did not sleep well. [...] habitus. Pt may benefit from LSO strap property field adjuster to give her more purchase in order to don it independently. UB Dressing, Level of Hardtner: moderate assist (50% patient effort) Assistive Device: [...] only marginallly so. Roll Left, Level of Hardtner: verbal cues required, stand by assist Roll Right, Level of Hardtner: stand by assist, verbal cues required Sidelying to Sit, Level of Hardtner: minimal assist (75% patient effort), verbal cues [...] with SBA and FWW. Sit-Stand, Level of Hardtner: verbal cues required, stand by assist Stand-Sit, Level of Hardtner: verbal cues required, stand by assist Tqn-Umbtt-Gvp, Assistive Device: 2 wheeled walker (FWW), bariatric [...] STG Status new at 10/27/2018 1455 STG Hardtner Level modified independent at 10/27/2018 1455 STG Position standing at 10/27/2018 1455 STG Adaptive Equipment none at 10/27/2018 1455 UB Dressing Goal Most Recent Value STG Status progressing at 10/28/2018 1210 STG Hardtner Level modified independent at 10/27/2018 1455 STG Comments including LSO don/doff at 10/27/2018 1455 LB Dressing Goal Most Recent Value STG Status new at 10/27/2018 1455 STG Hardtner Level modified independent at 10/27/2018 1455 STG Adaptive Equipment personal computer network analyst, sock-aid at 10/27/2018 1455 Toilet Transfer Goal Most Recent Value STG Status new at 10/27/2018 1455 STG Hardtner Level modified independent at 10/27/2018 1455 STG Assistive Device bariatric, 2 wheeled walker (FWW), seat riser, grab bars at 9 1455 Electronically signed by: Mo Mares OT, 10/28/2018 17:05 lan of Care - Rory toriejuan c Dolly Maria Dolores, FOREIGN EXCHANGE SERVICES MANAGER - 10/28/2018 10:20 AM PSTFormatting of [...] a resident in an adult long-term in [facility]. Has a supportive brother that lives nearby.. [...] complete ambulation and directional changes. Level of Hardtner: minimal assist (75% patient effort) Assistive Device: 2 wheeled walker (FWW), bariatric Distance (feet): 40 ft x 2 Gait Pattern Analysis: (Shuffling gait) Gait Deviations: nora decreased, double stance time increased, limb motion velocity decr eased, step length decreased, stride length decreased, stride width increased, npdcr-ed-kxcq ce ratio decreased, fzr-et-xosvr clearance decreased, weight-shifting ability decreased Safety Issues: [...] from bed. denied dizziness. Sit-Stand, Level of Hardtner: verbal cues required, contact guard assist Stand-Sit, Level of Hardtner: verbal cues required, contact guard assist Dpe-Mglec-Bhb, Assistive Device: 2 wheeled walker (FWW), bariatric [...] elevated, bed rails Roll Left, Level of Hardtner: verbal cues required, stand by assist Roll Right, Level of Hardtner: stand by assist, verbal cues required Sidelying to Sit, Level of Hardtner: minimal assist (75% patient effort), verbal cues r equired Sit to Sidelying, Level of Hardtner: verbal cues required, minimal assist (75% patient [...] STG Review Date 11/03/18 at 10/27/2018 1024 Ivsewb-Hvj-Jbjpuc Goal Most Recent Value STG Status progressing at 10/28/2018 1020 STG Hardtner Level supervised at 10/27/2018 1024 STG Assistive Device bed rails, leg special services coordinator at 10/27/2018 1024 Ceg-Ubswo-Yod Goal Most Recent Value STG Status new at 10/27/2018 1024 STG Hardtner Level supervised at 10/27/2018 1024 STG Assistive Device 2 wheeled walker (FWW), bariatric at 10/27/2018 1024 Gait Goal Most Recent Value STG Status progressing at 10/28/2018 1020 STG Hardtner Level supervised at 10/27/2018 1024 STG Assistive Device 2 wheeled walker (FWW), bariatric at 10/27/2018 1024 STG Distance (feet) 50 feet at 10/27/2018 1024 Stair Goal Most Recent Value STG Status new at 10/27/2018 1024 STG Hardtner Level supervised at 10/27/2018 1024 STG Assistive [...] with the inpatient admissions, Ruth Tello) at [facility]. This CM left a messa ge with Ruth at [facility] asking for a call back. This CM faxed a referral to [facility] Inpatient Rehab. PH: [phone] FX: [phone] not a fax number This CM let Jasbir MAKI know that our inpatient rehab is full and let him know about the ref erral that was faxed to Inpatient rehab at [facility]. Waiting for a call back from Ruth. Electronically signed by: Ashly Obando 10/28/2018 9:58 Fax did not go through. This CM re-faxed the referral x2 to fax number: [phone] Electronically signed by: Ashly Obando 10/28/2018 11:16 This CM left a message with [facility] inpatient rehab asking for a call back. This CM received the fax communication result report; result ok. Electronically signed by: Ashly Obando 10/28/2018 12:11 This CM called [facility] Inpatient rehab once again. The person that answered the phone let th is CM know that Ruth Tello has left for the day. This CM let another message on the voice mail asking Ruth to call this CM know in the morning also let her know that Lisa has a managed insurance. This CM will call ruth at [facility] Inpatient rehab tomorrow tatyana alvarez in [...] pt denies the presence of numbness/tingling, manager media strong, BUE strengths 5/5, RLE strengths 5/5 [...] to her bilateral lower back; medicated w/1 Verona (10's) PRN. lan of Care - Dameon [...] will continue to monitor lan of [facility] - Shara Manzanares RN - 10/27/2018 5:23 [...] mobilize at level safe for home discharge, [facility] indicating significant impairme nt with daily [...] in an adult long-term, was in a [facility] 1 988 with long rehab. [...] Therapy Discharge Recommendations are: Recommended discharge disposition: usp facility Post discharge occupational therapy recommendation: will benefit from structured setting, pt is motivated participant Equipment Recommendations: personal computer network analyst, sock aide (flexible sock aid) Planned Interventions:ADL [...] re a flexible one such as a Algerian sock aid. LB Dressing, Level of Hardtner: maximal assist (25% patient effort) Assistive Device: none LB Dressing Assess/Train, Position: sitting LB Dressing Impairments: decreased flexibility, ROM decreased, pain issued toilet tongs as up initially unable to perform toileting hygiene without AE. Trained pt on use of AE and she returned demo with CGA and VCs Toileting, Level of Hardtner: maximal assist (25% patient effort) Assistive Device: none Toileting Impairments: decreased flexibility, strength decreased, pain Functional Endurance impaired Cognitive pt attentive, asks appropriate questions and demosntrates good followthrough. Occasionaly m isunderstands/mishears statements and requires corrections. Very pleasant and motivated. Mood/Behavior: calm, cooperative Orientation: oriented x 4 Bed Mobility Roll Left, Level of Hardtner: verbal cues required, stand by assist Roll Right, Level of Hardtner: stand by assist, verbal cues required Sidelying to Sit, Level of Hardtner: minimal assist (75% patient effort), verbal cues r equired Sit to Sidelying, Level of Hardtner: moderate assist (50% patient effort), verbal cues required Safety Issues: decreased use of arms for pushing/pulling, decreased use of legs for bridgin g/pushing, impaired trunk control for bed mobility Impairments: decreased flexibility, ROM decreased, strength decreased, coordination impaire d, motor control impaired, postural control impaired, pain Transfers Sit-Stand, Level of Hardtner: verbal cues required, contact guard assist Stand-Sit, Level of Hardtner: verbal cues required, contact guard assist Gts-Casjg-Rqw, Assistive Device: 2 wheeled walker (FWW), bariatric Toilet, Level of Hardtner: contact guard assist, verbal cues required, tactile [...] STG Status new at 10/27/2018 1455 STG Hardtner Level modified independent at 10/27/2018 1455 STG Position standing at 10/27/2018 1455 STG Adaptive Equipment none at 10/27/2018 1455 UB Dressing Goal Most Recent Value STG Status new at 10/27/2018 1455 STG Hardtner Level modified independent at 10/27/2018 1455 STG Comments including LSO don/doff at 10/27/2018 1455 LB Dressing Goal Most Recent Value STG Status new at 10/27/2018 1455 STG Hardtner Level modified independent at 10/27/2018 1455 STG Adaptive Equipment personal computer network analyst, sock-aid at 10/27/2018 1455 Toilet Transfer Goal Most Recent Value STG Status new at 10/27/2018 1455 STG Hardtner Level modified independent at 10/27/2018 1455 STG Assistive Device bariatric, 2 wheeled walker (FWW), seat riser, grab bars at 9 1455 Electronically signed by: Mo Mares OT, 10/27/2018 18:33 lan of Care - Jero Solis BUS DRIVER - 10/27/2018 2:08 PM PSTProblem: Patient Care [...] a resident in an adult long-term in [place]. Has a supportive bro ther that lives [...] for specific det ails regarding functional levels. [facility] BASIC MOBILITY [facility] BASIC MOBILITY Turning over in bed: [...] steps with a railing: dependent/unable TOTAL - [facility] BASIC MOBILITY : 15 Completed the [facility] Activity Measure for Post Acute Care (AM-PAC) "6 Clicks" [facility] Mobility Inpatient Short Form. This version of the AM-PAC is an assessment tool used to measure a person's level of disability in performing basic mobility tasks. This patient's score indicates a performance of 57.70% impairment in the functioning of basic mobility. Raw Score - Functional Limitation % (for [facility]) - "Severity Modifier" CN 6 - 100.00 [...] in an adult long-term, was in a [facility] 1 8 with long rehab. She reports [...] prefers to minimize backing up. Level of Hardtner: minimal assist (75% patient effort) Assistive Device: 2 wheeled walker (FWW), bariatric Distance (feet): 15 feet x 2 Gait Pattern Analysis: (Shuffling gait) Gait Deviations: nora decreased, double stance time increased, limb motion velocity decr eased, step length decreased, stride length decreased, stride width increased, fxzts-ic-vsjz ce ratio decreased, zmw-sa-faimh clearance decreased, weight-shifting ability decreased Safety Issues: [...] sitting until it resolved. Sit-Stand, Level of Hardtner: minimal assist (75% patient effort), verbal cues required , tactile cues required, 1 person + 1 person to manage equipment Stand-Sit, Level of Hardtner: minimal assist (75% patient effort), verbal cues required , tactile cues required, 1 person + 1 person to manage equipment Yyh-Znwzh-Cfr, Assistive Device: 2 wheeled walker (FWW), bariatric [...] rails, HOB elevated Roll Left, Level of Hardtner: minimal assist (75% patient effort), tactile cues require d, verbal cues required Roll Right, Level of Hardtner: stand by assist, verbal cues required Sidelying to Sit, Level of Hardtner: minimal assist (75% patient effort), tactile cues required, verbal cues required Sit to Sidelying, Level of Hardtner: moderate assist (50% patient effort), verbal cues [...] STG Review Date 11/03/18 at 10/27/2018 1024 Gtnuxm-Vwv-Pshxep Goal Most Recent Value STG Status new at 10/27/2018 1024 STG Hardtner Level supervised at 10/27/2018 1024 STG Assistive Device bed rails, leg special services coordinator at 10/27/2018 1024 Dfj-Utrqw-Dlh Goal Most Recent Value STG Status new at 10/27/2018 1024 STG Hardtner Level supervised at 10/27/2018 1024 STG Assistive Device 2 wheeled walker (FWW), bariatric at 10/27/2018 1024 Gait Goal Most Recent Value STG Status new at 10/27/2018 1024 STG Hardtner Level supervised at 10/27/2018 1024 STG Assistive Device 2 wheeled walker (FWW), bariatric at 10/27/2018 1024 STG Distance (feet) 50 feet at 10/27/2018 1024 Stair Goal Most Recent Value STG Status new at 10/27/2018 1024 STG Hardtner Level supervised at 10/27/2018 1024 STG Assistive [...] Lisa was in bed seemed alert and [place]. Lisa let this CM know that she is in an adult foster home in [place] called [facility]. PH: [phone] to the adult foster home. PH:[phone] brother Garcia Gonzalez let this CM know [...] a referral to [facility] in [place] for a back up plan. Lisa will have her brother or Rain transport her home once she is discharged from the hosp ital. Referral faxed to [facility] in [place]. Sticky note placed on the chart for [...] pt denies the presence of numbness/tingling, manager media strong, BUE strengths 5/5, RLE strengths 5/5 [...] to her bilateral lower back; medicated w/1 Verona (10's) PRN. p Note - Karri Owens MD - 10/26/2018 5:27 PM PSTFormatting of this note might be different from the origina l. Operative Note Soo Briceno 58 y.o. female 1960 [id number] Proc. Date 10/26/2018 Preop Dx Spondylolisthesis of [...] in log * Drains Drain/Device Site 10/26/18 7248 #1 lumbar spine (Active) Operative details: After [...] bone autograft obtained from the laminectomy and Placer with bone marrow asp irate were packed [...] signed by: Syed Owens MD 10/26/2018 17:23 [facility] rief Op Note - Romulo Owens MD - 10/26/2018 5:23 PM PSTFormatting of this note might be different from the origin al. Brief Operative Note Soo Leonard Aaskartik 58 y.o. female 1960 [id number] Proc. Date 10/26/2018 Preop Dx Spondylolisthesis of [...] signed by: Syed Owens MD 10/26/2018 17:23 [facility] signed by Syed Owens MD at 019 [...] present | | | | | | ([facility]) | | + + +--------+ + + [...] | | Jackso | | | n [place] | | | | | | vice president of instruction | | | ep: | | | [...] ST. | [address] | [place], [place] | [phone] | | [facility] | | [address] | | | - LABORATORY | | [...]
--- OUTSIDE RECORDS SUMMARY | ~2020-07-18 | XMS | Encounter Summary ---
Demographics + + + | Address | [address] | | | [place] [address] | + + + | Home Phone | | + + + | Preferred Language | Unknown | + + + | Marital Status | | + + + | Church Affiliation | 1028 | + + + | Race | White | + + + | Ethnic Group | Not or | + + + Author + + + | Author | [facility] | | | and [place] | + + + | Organization | [facility] | | | [...] Team Providers + +------+ + | Care Music Minister Name | Role | Phone | + +------+ + PCP | Unavailable | + +------+ + Encounter Details +--------+ + + + + | Date | Type | Department | Care Team | Description | +--------+ + + + + | 03/18/ | Hospital | [facility] | Conversion | Abnormal findings on | | 2017 | Encounter | IMAGING SERVICES | Transaction, | diagnostic imaging | | | | [address] | Provider Unknown | of breast | | | | [address] [place], [place] | | | | | | [address] | (Fax) | | | | | [phone] | | | +--------+ + + + [...] | | malignancy. As part of the Plastic Tile Layer Program, this case | | | was reviewed by another member of [facility]. (BES) | | | AMB:rrc:C2NR GROSS [...] | | | preparation was performed by [employer], [facility] | | | [address] [address] (Aerodynamics Engineer: | | | Jack Mckeon M.D.; IA#: [id number]). Diagnostician: Rand Rebolledo | | | Franko [...]
--- OUTSIDE RECORDS SUMMARY | ~2020-07-18 | XMS | Encounter Summary ---
Demographics + + + | Address | [address] | | | [place] [address] | + + + | Home Phone | | + + + | Preferred Language | Unknown | + + + | Marital Status | | + + + | Anglican Affiliation | 1028 | + + + | Race | White | + + + | Ethnic Group | Not or | + + + Author + + + | Author | [facility] | | | and [place] | + + + | Organization | [facility] [...] Team Providers + +------+ + | Care Fuel Dock Attendant Name | Role | Phone | + +------+ + | Gage De Jesus DO | PCP | | + +------+ + Encounter Details +--------+ + + + + | Date | Type | Department | Care Team | Description | +--------+ + + + + | 08/06/ | Orders Only | [facility] | Syed Owens MD | Spondylolisthesis of | | 2018 | | NEUROSURGERY [address] | [address] | lumbar region | | | | [address] | [place] [address] | (Primary Dx); HNP | | | | [place], [place] | [phone] | (herniated nucleus | | | | [address] | | pulposus), lumbar; | | | | [phone] | | Foraminal stenosis | | | | | | of lumbar region | +--------+ + + + + Social [...] Primary Acquired spondylolisthesis | + + | HNP (herniated nucleus pulposus), lumbar Displacement of lumbar intervertebral disc | | without myelopathy | + + | Foraminal stenosis of lumbar region Spinal stenosis, lumbar region, without | | neurogenic claudication | + + documented in this encounter"
--- OUTSIDE RECORDS SUMMARY | ~2020-07-18 | XMS | Encounter Summary ---
Demographics + + + | Address | [address] | | | [place] [address] | + + + | Home Phone [...] Organization | [facility] | | | and [place] [...] Providers + +------+ + | Care Clinical Research Technician Name | Role | Phone | + +------+ + PCP | Unavailable | + +------+ + Encounter Details +--------+ + + + + | Date | Type | Department | Care Team | Description | +--------+ + + + + | 02/05/ | Hospital | [facility] | Conversion | Mammogram abnormal | | 2017 | Encounter | IMAGING SERVICES | Transaction, | | | | | [address] | Provider Unknown | | | | | [address] [place], [place] | [phone] | | | | | [address] | | | | | | [phone] | | | +--------+ + + + [...] + | Diagnosis | + + | Mammogram abnormal Abnormal mammogram, unspecified | + + documented in this encounter"
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
--- OUTSIDE RECORDS SUMMARY | ~2020-07-18 | XMS | Encounter Summary ---
Demographics + + + | Address | [address] | | | [place] [address] | + + + | Home Phone | | + + + | Preferred Language | Unknown | + + + | Marital Status | | + + + | Caodaism Affiliation | 1028 | + + + | Race | White | + + + | Ethnic Group | Not or | + + + Author + + + | Author | [facility] | | | and [place] | + + + | Organization | [facility] | | | and [...] Team Providers + +------+ + | Care Financial Market Dealer Name | Role | Phone | + [...] | 04/06/ | Telephone | [facility] [place] | Nav Ruval[facility] | Pain | | 2019 | | NEUROSURGERY [address] | [address] | | | | | [facility] | [address] [place], [place] | | | | | [place] | [id number] | | | | | [address] | | | | | | [phone] | | | +--------+ + + + [...]
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
--- OUTSIDE RECORDS SUMMARY | ~2020-07-18 | XMS | Encounter Summary ---
Demographics + + + | Address | [address] | | | [place] [address] | + + + | Home Phone [...] | Organization | [facility] | [...] Team Providers + +------+ + | Care Transplant Registered Nurse Name | Role | Phone | + +------+ + PCP | Unavailable | + +------+ + Encounter Details +--------+ + + + + | Date | Type | Department | Care Team | Description | +--------+ + + + + | 02/05/ | Hospital | [facility] | Conversion | Pain | | 2017 | Encounter | CONVERSION [address] | Transaction, | | | | | [address] | Provider Unknown | | | | | [place] | [phone] | | | | | [id number] | | | | | | [phone] | | | +--------+ + + + [...] + | LIYA DIGITAL | Routin | 06/22/2014 | | Results for this | | SCREENING BILATERAL | e | 4:13 AM | | procedure are in the | | | | PDT | | results section. | + +--------+ + + + documented in this encounter Results LIYA Digital Screening Bilateral (06/22/2014 4:13 AM PDT) + + | Specimen | [...]
--- OUTSIDE RECORDS SUMMARY | ~2020-07-18 | XMS | Encounter Summary ---
Demographics + + + | Address | [address] | | | [place] [address] | + + + | Home Phone [...] | Organization | [facility] | | [...] Team Providers + +------+ + | Care Sap Architect Name | Role | Phone | [...] | | [address] | [place] [address] | (Primary Dx); Status | | | | [place], [place] | [phone] | post lumbar spinal | | | | [address] | | fusion | | | | [phone] | | | +--------+ + + + [...]
--- OUTSIDE RECORDS SUMMARY | ~2020-07-18 | XMS | Encounter Summary ---
Demographics + + + | Address | [address] | | | [place] [address] | + + + | Home Phone [...] | Organization | [facility] | | | and [...] Team Providers + +------+ + | Care Merchandising Consultant Name | Role | Phone | + +------+ + | Gage De Jesus DO | PCP | | + +------+ + Encounter Details +--------+ + + + + | Date | Type | Department | Care Team | Description | +--------+ + + + + | 01/19/ | Hospital | [facility] | Arpit Bolden, | Back pain, | | 2018 | Encounter | MED [address] XRAY [address] | DO [address] | unspecified back | | | | [place] | [address] [place], [place] | location, | | | | [place] [address] | [id number] | unspecified back | | | | [phone] | | pain laterality, | | | [...]
--- OUTSIDE RECORDS SUMMARY | ~2020-07-18 | XMS | Encounter Summary ---
Demographics + + + | Address | [address] | | | [place] [address] | + + + | Home Phone | | + + + | Preferred Language | Unknown | + + + | Marital Status | | + + + | Mosque Affiliation | 1028 | + + + | Race | White | + + + | Ethnic Group | Not or | + + + Author + + + | Author | [facility] | | | and [place] | + + + | Organization | [facility] | | | and [place] [...] Team Providers + +------+ + | Care Pie Topper Name | Role | Phone | + [...] | | | | | | | [address] | | +--------+--------+ + + + + [...] | [address] [place] | [place] [address] | | | | | [place] [address] | | | | | | [phone] | | | +--------+ + + + [...]
--- OUTSIDE RECORDS SUMMARY | ~2020-07-18 | XMS | Encounter Summary ---
Demographics + + + | Address | [address] | | | [place] [address] | + + + | Home Phone [...] | Organization | [facility] | | [...] Team Providers + +------+ + | Care Electrician Wiring Name | Role | Phone | + +------+ + | Russ De Jesus DO | PCP | | [...] Specialty | Home Health | Diagnoses | [place], | | | | Services | Services | Physical | MD Earl | | | | Required | | deconditioni | [address] | | | | | | ng | [place] | | | | | | | [place] | | | | | | | [address] | | | | | | | Phone: | | | | | | | [phone] | | | | | | | Fax: | | | | | | | [phone] | | +--------+ + + + + + Reason for Visit + + + | Reason | Comments | + + + | Fall | | + + + | Leg Pain | | + + + | Altered Mental | | | Status | | + + + | Dizziness | | + + + Auth/Cert +--------+--------+ + + + + | Status | Reason | Specialty | Diagnoses / | Referred By | Referred To | | | | | Procedures | Contact | Contact | +--------+--------+ + + + + | | | | Diagnoses | | | | | | | Weakness | | | | | | | Back pain, | | | | | | | unspecified | | | | | | | back | | | | | | | location, | | | | | | | unspecified | | | | | | | back pain | | | | | | | laterality, | | | | | | | unspecified | | | | | | | chronicity | | | | | | | | | | +--------+--------+ + + + + Encounter Details +--------+ + + + + | Date | Type | Department | Care Team | Description | +--------+ + + + + | 12/13/ | Emergency | [facility] | Abdoul Tatum MD | Weakness (Primary | | 2019 - | | [facility] | [address] | Dx); Back pain, | | | | [address] | [place], [place] | unspecified back | | 12/16/ | | [place] [address] | [id number] | location, | | 2018 | | [phone] | | unspecified back | | | | | Abel Montoya MD | pain laterality, | | | | | [address] | unspecified | | | | | [place], [place] | chronicity; | | | | | [id number] | Foraminal stenosis | | | | | | of lumbar region; | | | | | | Spinal stenosis of | | | | | | lumbar region with | | | | | | neurogenic | | | | | | claudication; | | | | | | Physical | | | | | | deconditioning | +--------+ + + + + Social [...] + + + | Blood Pressure | 120/47 | 12/16/2018 7:33 AM | | | | | PDT | | + + + + + | Pulse | 54 | 12/16/2018 7:33 AM | | | | | PDT | | + + + + + | Temperature | 35.8 C (96.4 F) | 12/16/2018 7:33 AM | | | | | PDT | | + + + + + | Respiratory Rate | 18 | 12/16/2018 7:33 AM | | | | | PDT | | + + + + + | Oxygen Saturation | 93% | 12/16/2018 7:33 AM | | | | | PDT | | + + + + + | Inhaled Oxygen | - | - | | | Concentration | | | | + + + + + | Weight | 121.1 kg (266 lb | 12/13/2018 11:49 PM | | | | 15.6 oz) | PDT | | + + + + + | Height | 172.7 cm (5' 8") | 12/13/2018 5:09 PM | | | | | PDT | | + + + + + | Body Mass Index | 40.59 | 12/13/2018 5:09 PM | | | | | PDT [...] documented as of this encounter Discharge Summaries Earl Diaz MD - 12/16/2018 10:52 AM PDTFormatting of this note might be different fr om the original. [place] HOSPITALIST DISCHARGE SUMMARY Pt. Name/Age/: Rebecca Briceno 58 y.o. 1960 Date of Admission: 12/13/2018 Date of Discharge: 12/16/2018 Admitting Physician: Abel Montoya MD Primary Care Provider: Russ De Jesus DO Discharging Physician: Earl Diaz MD DISCHARGE DIAGNOSES: Active Hospital Problems Diagnosis Back pain Resolved Hospital Problems Diagnosis No resolved problems to display. DISCHARGE MEDICATIONS: Discharge Medications New Medications Details gabapentin 300 mg capsule Replaces: gabapentin 600 MG tablet Take 2 capsules by mouth 2 times daily. aka: NEURONTIN Changed Medications Details ARIPiprazole 10 mg tablet Take 1 tablet by mouth Daily. What changed: medication strength how much to take aka: ABILIFY Start: 12/17/2018 potassium chloride 10 MEQ ER tablet Take 1 tablet by mouth Daily. What changed: medication strength how much to take when to take this aka: KLOR-CON Unchanged Medications Details acetaminophen 500 mg tablet Take 1,000 mg by mouth every 8 hours as needed for Pain. aka: TYLENOL cyclobenzaprine 10 mg tablet Take 1 tablet by mouth every 8 hours as needed for Muscle spasms. aka: FLEXERIL divalproex [address] tablet Take 1,000 mg by mouth nightly. aka: DEPAKOTE divalproex [address] tablet Take 250 mg by mouth nightly. aka: DEPAKOTE escitalopram 5 MG tablet Take 5 mg by mouth Daily. aka: LEXAPRO furosemide 20 mg tablet Take 1 tablet by mouth Daily. aka: LASIX HYDROcodone-acetaminophen 10-325 mg per tablet Take 1-2 tablets by mouth every 4 hours as needed for Pain. Indication: Recent Major Surge ry aka: NORCO loperamide 2 mg capsule Take 2-4 mg [...] by mouth Daily as needed for Constipation. naloxone 4 mg/nasal spray 1 spray by Nasal route as needed for Decreased Responsiveness. Fill as needed to reverse o piates aka: NARCAN nystatin 023857 UNIT/GM powder Apply to fungal areas on the abdomen and chest bid as needed aka: MYCOSTATIN omeprazole 20 mg capsule Take 20 mg by mouth 2 times daily. aka: priLOSEC ondansetron 4 mg tablet Take 4 mg by mouth every 4 hours as needed. aka: ZOFRAN QUEtiapine 100 mg tablet Take 100 mg by mouth nightly. aka: SEROquel spironolactone 50 mg tablet Take 50 mg by mouth 2 times daily. aka: ALDACTONE traZODone 50 mg tablet Take 100 mg by mouth Daily. aka: DESYREL Discontinued Medications bumetanide 1 mg tablet aka: BUMEX enoxaparin 40 mg/0.4 mL injection aka: LOVENOX gabapentin 600 MG tablet aka: NEURONTIN Replaced by: gabapentin 300 mg capsule HOSPITAL COURSE: Please refer to the H&P for full details and the most recent rounding rounding (progress) n ote. Weakness and falls since L4,5 surgery on 10/18/2018 This patient was a resident in assisted living center was taken to [facility] ED and un derwent multiple imaging studies and then transferred here because of her recent surgery. MRI was obtained in addition to a head CT and lumbar and pelvis CT.No findings were found to require any medical therapy she was not a safe discharge from the ER and was admitted und er observation status.She was assessed by neurosurgical TASHI najera would be thought to benefit from either inpatient admission to rehab medicine or return to a outpatient setting where therapies can be offered either through home health service [facility] She is on multiple sedating medications including: Abilify, gabapentin, seroquel, ativan, norco, valproic acid. She did not qualify for inpatient rehab. She was discharged w ith a wheelchair back to her ch[facility]. An appointment was made with PCP. Additionally, mp lify and gabapentin were decreased to possibly help with symptoms. Lastly, other adjustments were made, a BMP was ordered to eval for potassium levels given adjustments to medications. Bipolar disorder Continue outpatient medications. Chronic kidney disease stage III -At baseline Hypertension essential -On spironolactone Gen: AAOx3 Pulm: CTA throughout Card; S1, S2 present Abd: Soft, NT, back with C/D/I incision sites Extremities: No LE edema Neuro: No focal deficit Psych: Labile at times Most recent weight: Input and output for last 24hrs: Wt Readings from Last 1 Encounters: 12/13/18 121.1 kg (266 lb 15.6 oz) I/O last 24 Hours: In: 1000 [P.O.:1000] Out: 500 [Urine:500] Vitals Ranges: Temp: [35.8 C (96.4 F)-36.2 C (97.2 F)] 35.8 C (96.4 F) Pulse: [54-66] 54 Resp: [18-20] 18 BP: (120-137)/(47-79) 120/47 Vitals: Temp: 35.8 C (96.4 F) BP: 120/47 Pulse: 54 Resp: 18 SpO2: 93 % SpO2 93 % on room air at flow rate L/min PHYSICAL EXAM: Patient seen and examined by me on discharge day PROCEDURES AND CONSULTS: Procedures None Consults IPF PENDING RESULTS: DISPOSITION AND DISCHARGE INSTRUCTIONS: Follow-up Information Russ De Jesus DO On 12/21/2018. Specialty: Family Medicine Why: 1pm Contact information: [address] [place] [id number] Condition: Patient being discharged with condition improved Diet: Card Less than 30 minutes were spent on discharge and coordination of post-hospital care. Electronically signed by: Earl Diaz MD, 12/16/2018 10:52 [facility] Portions of this chart may have been created with [employer] voice recognition software. Occasi onal wrong-word or sound-alike substitutions may have occurred due to the inherent lee itations of voice recognition software. Please read the chart carefully and recognize, using context, where these substitutions have occurred documented in this encounter Discharge Instructions Instructions Earl Diaz MD - 12/16/2018Ms. Aasrud, You presented with weakness and falls. You were assessed and this could be related to recen t surgery with deconditioning and multiple sedating medications. Your abilify and gabapentin g have been decrease to hopefully help with this. Additionally, your potassium supplement booker s been decreased. Please check this level on 12/21/18 to ensure that this supplement is still needed. After initially evaluation, you did not qualify for inpatient rehabilitation. At this time its recommended that you use a wheelchair and have close follow up with your primary care do ctor. This appointment has been made. documented in this encounter Medications at Time [...] | 0 | 05/20/20 | | | [id number]-[id number]-q | | | | 18 | 0 | | ydrocortisone | | | | | | | (CORTISPORIN) | | | | | | | 3.5-60016-0 otic | | | | | | [...] documented as of this encounter Progress Notes Alonso Aguero MD - 12/16/2018 11:06 AM PDT [id number] Daily Progress Note Date: 12/16/2018 ID Rebecca Briceno is a 58 y.o. female who was admitted 12/13/2018 Reason for encounter : CC : Physician follow-up to address the Medical and Rehabilitation needs, issues, and prob lems . These include serving as the patient's attending physician while on our inpatient acute r ehabilitation service . I am responsible for managing and treating her active medical diagnoses as documented in t Rehabilitation History and Physical Impressions and Progress Notes . Also I am responsible for leading and directing our Interdisciplinary Rehabilitation treatm ent Team members' efforts including management of problems with function including safety wi th self-care/activities of daily living as well as safely negotiating the environment/functi onal mobility. Interval History: Tolerated the decrease in the Abilify , down to 10 mg this morning . , She appears more energized, and less sedated. Chief problem : Weakness and difficulty with self-care/ADLs and functional mobility She reports frustration tired and sedated at times from her medications. We reviewed the h istory and she is receptive to tapering them down. Problem List Active Problems: Back pain ROS- Review of systems stated in the Interval History as applicable Current Meds: Current Facility-Administered Medications: acetaminophen (TYLENOL) tablet 650 mg, 650 mg, Oral, Q4H PRN, Abel Montoya MD ARIPiprazole (ABILIFY) tablet 10 mg, 10 mg, Oral, Daily, Alonso Aguero MD, 10 mg at 12/16/18 1005 divalproex (DEPAKOTE) DR tablet 1,000 mg, 1,000 mg, Oral, Nightly, Abel Montoya MD, 1,000 mg at 12/15/182048 divalproex (DEPAKOTE) DR tablet 250 mg, 250 mg, Oral, Nightly, Abel Montoya MD, 250 mg at 12/15/182048 enoxaparin (LOVENOX) 40 mg/0.4 mL injection 40 mg, 40 mg, Subcutaneous, Daily, Abel Montoya MD, 40 mg at 12/16/18 1002 escitalopram (LEXAPRO) tablet 5 mg, 5 mg, Oral, Daily, Abel Montoya MD, 5 mg at 11/28 1004 furosemide (LASIX) tablet 20 mg, 20 mg, Oral, Daily, Abel Montoya MD, 20 mg at 12/16 1004 gabapentin (NEURONTIN) capsule 600 mg, 600 mg, Oral, BID, Earl Diaz MD HYDROcodone-acetaminophen (NORCO) 10-325 mg per tablet 1-2 tablet, 1-2 tablet, Oral, Q 4H PRN, Abel Montoya MD, 1 tablet at 12/16/18 06 LORazepam (ATIVAN) tablet 0.5 mg, 0.5 mg, Oral, Q6H PRN, Abel Montoya MD, 0.5 mg at 12/15/18 172 nystatin (MYCOSTATIN) powder, , Topical, BID, Abel Montoya MD ondansetron (ZOFRAN) injection 4 mg, 4 mg, Intravenous, Q6H PRN, Abel Montoya MD pantoprazole (PROTONIX) DR tablet 40 mg, 40 mg, Oral, BID AC, Abel Montoya MD, 40 mg at 12/16/18 06 QUEtiapine (SEROquel) tablet 100 mg, 100 mg, Oral, Nightly, Abel Montoya MD, 100 mg at 12/15/182047 spironolactone (ALDACTONE) tablet 50 mg, 50 mg, Oral, BID, Abel Montoya MD, 50 mg at 12/16/18 1003 Allergies: Allergies No active allergies Intolerance Allergen Reactions Oxycodone Other (See Comments) Hallucinations Tramadol Other (See Comments) Cold sweats and fever Simvastatin Other (See Comments) Confusion Sumatriptan Other (See Comments) Confused, agitated, and bowel incontinence PFSH has been reviewed for today as applicable. The complete PFSH is documented in the ini tial history and physical on admission to our Inpatient Rehab services Physical Exam: BP 120/47 | Pulse 54 | Temp 35.8 C (96.4 F) (Oral) | Resp 18 | Ht 1.727 m (5' 8") | Wt 121.1 kg (266 lb 15.6 oz) | SpO2 93% | BMI 40.59 kg/m Gen: Alert, sitting in bed, NAD Gen Jenn - alert, cooperative and no distress Head - Normocephalic Eyes - PERRL, conjunctiva/corneas clear ENT - mucous membranes moist Neck - supple Lungs - CTA throughout Heart - normal rate, rhythm w/o m/r/g Abdomen - Normoactive bowel sounds, non-tender non-distended Extremities - no peripheral edema, no clubbing or cyanosis Skin - No rashes Neurologic - Alert and oriented x 3 Labs: Recent Results (from the past 48 hour(s)) Basic Metabolic Panel Result Value Ref Range Na 138 136 - 145 mmol/L K 3.8 3.4 - 5.1 mmol/L Cl 100 98 - 107 mmol/L CO2 30 20 - 31 mmol/L Anion Gap 8 3 - 16 mmol/L Glucose 104 60 - 106 mg/dL BUN 22 9 - 23 mg/dL Creatinine 1.36 (H) 0.55 - 1.02 mg/dL eGFR if not 40 (L) >=60 mL/min/1.73m2 Ca 9.5 8.7 - 10.4 mg/dL BUN/Creatinine Ratio 16.2 CBC with Differential Result Value Ref Range WBC 6.3 4.0 - 11.0 K/uL RBC 4.20 3.70 - 5.20 M/uL Hemoglobin 12.2 11.5 - 16.0 g/dL Hematocrit 38.7 34.0 - 47.0 % MCV 92.1 83.0 - 101.0 fL MCH 29.0 28.0 - 35.0 pg MCHC 31.5 (L) 32.0 - 36.0 g/dL RDW-CV 13.3 <15.0 % RDW-SD 45.3 35.1 - 46.3 fL Platelet Count 273 140 - 440 K/uL MPV 11.3 6.5 - 12.4 fL % Neutrophils 53.6 45.0 - 82.0 % % Lymphocytes 33.0 20.0 - 45.0 % % Monocytes 8.5 4.0 - 12.0 % % Eosinophils 3.6 0.0 - 5.0 % % Basophils 0.5 0.0 - 1.0 % % Immature Granulocytes 0.8 (H) 0.0 - 0.4 % Absolute Neutrophils 3.40 1.80 - 8.50 K/uL Absolute Lymphocytes 2.09 0.60 - 3.20 K/uL Absolute Monocytes 0.54 0.00 - 1.00 K/uL Absolute Eosinophils 0.23 0.00 - 0.40 K/uL Absolute Basophils 0.03 0.00 - 0.10 K/uL Absolute Immature Granulocytes 0.05 (H) 0.00 - 0.03 K/uL % nRBC 0 0 - 2 per 100 WBC's Absolute nRBC 0.00 0.00 - 0.01 K/uL Magnesium Result Value Ref Range Magnesium 1.9 1.6 - 2.6 mg/dL Assessment and Rehab Plan: . The patient is benefiting from inpatient rehabilitation please: Physiatric and nursing i ntervention; physical therapy, occupational therapy, case management, and social service assistant #Rehab - -Continue PT for gait, mobility -Continue OT for ADL's, toileting, adaptive equipment -Continue SW for discharge planning IMPRESSION : 1. Recent ground-level fall, without significant injury acutely , with 2. Chronic low back pain with associated lower extremity radicular pain. Patient reports this is improved since her surgery October 26 of this year. 3. Morbid obesity 4. History of chronic bipolar disorder and depression. Patient is on multiple psychotrop ic meds as discussed. 5. Acute debility secondary to the above 6. The other diagnoses as per PMH. #Diet - Active Orders Diet Diet fat and cholesterol modified; Effective Now PLAN : Patient is being discharged back to her [facility] today. I have met with PT and we are making recommendations on wheelchair. Discussed her medication with her. As above she wants to continue tapering. I recommend next step to be to discontinue the Abilify and about 2 days. Then work on tapering the Seroquel. The Depakote can be adjusted with low dose in the morning to complement the evening dose. Signed: Alonso Aguero MD Earl Will MD - 12/15/2018 1:18 PM PDT [facility] [place] [facility] PROGRESS NOTE Patient: Rebecca Leonard Aasruflip : 1960: Age: 58 y.o. MedRec: [id number] Admission date: 12/13/2018 Hospital day # : 0 Physician author: Earl Diaz MD Today: 12/15/2018 Assessment and Hospital Course Active Hospital Problems Diagnosis Back pain Resolved Hospital Problems Diagnosis No resolved problems to display. Plan Weakness and falls since L4, 5 surgery on 10/18/2018 This patient was a resident in assisted living center was taken to [facility] ED yester day and underwent multiple imaging studies and then transferred here because of her recent s urgery. MRI was obtained in addition to a head CT and lumbar and pelvis CT. no findings wer e found to require any medical therapy she was not a safe discharge from the ER and was admi tted under observation status apparently today being converted to boarder status. She was a ssessed by neurosurgical PA Maria Dolores point would be thought to benefit from either inpatient admi ssion to rehab medicine or return to a outpatient setting where therapies can be offered eit her through home health service or transport to outpatient rehab. He currently denies short ness of breath, nausea, or significant discomfort. -PT/OT inpatient rehab vs SNF -On multiple sedating medications including: Abilify, gabapentin, seroquel, ativan, norco, valproic acid Bipolar disorder Continue outpatient medications. Chronic kidney disease stage III -Cr 1.36, will trend Hypertension essential -On spironolactone FEN: Card PPX: SCDs Disp: ?Unclear placement at this time, PT will re-eval Current Facility-Administered Medications: acetaminophen 650 mg Oral Q4H PRN ARIPiprazole 20 mg Oral Daily divalproex 1,000 mg Oral Nightly divalproex 250 mg Oral Nightly enoxaparin 40 mg Subcutaneous Daily escitalopram 5 mg Oral Daily furosemide 20 mg Oral Daily gabapentin 600 mg Oral TID HYDROcodone-acetaminophen 1-2 tablet Oral Q4H PRN LORazepam 0.5 mg Oral Q6H PRN nystatin Topical BID ondansetron 4 mg Intravenous Q6H PRN pantoprazole 40 mg Oral BID AC QUEtiapine 100 mg Oral Nightly spironolactone 50 mg Oral BID Allergies: Allergies Allergen Reactions Oxycodone Other (See Comments) Hallucinations Tramadol Other (See Comments) Cold sweats and fever Simvastatin Other (See Comments) Confusion Sumatriptan Other (See Comments) Confused, agitated, and bowel incontinence Current Medications: Current Facility-Administered Medications Medication Dose Route Frequency Provider Last Rate Last Dose acetaminophen (TYLENOL) tablet 650 mg 650 mg Oral Q4H PRN Abel Montoya MD ARIPiprazole (ABILIFY) tablet 20 mg 20 mg Oral Daily Abel Montoya MD 20 mg at 11/27 divalproex (DEPAKOTE) DR tablet 1,000 mg 1,000 mg Oral Nightly Abel Montoya MD 1,0 00 mg at 12/14/182042 divalproex (DEPAKOTE) DR tablet 250 mg 250 mg Oral Nightly Abel Montoya MD 250 mg at 12/14/182043 enoxaparin (LOVENOX) 40 mg/0.4 mL injection 40 mg 40 mg Subcutaneous Daily Abel holt MD 40 mg at 12/15/18829 escitalopram (LEXAPRO) tablet 5 mg 5 mg Oral Daily Abel Montoya MD 5 mg at 830 furosemide (LASIX) tablet 20 mg 20 mg Oral Daily Abel Montoya MD 20 mg at 12/15/18832 gabapentin (NEURONTIN) capsule 600 mg 600 mg Oral TID Abel Montoya MD 600 mg at 0832 HYDROcodone-acetaminophen (NORCO) 10-325 mg per tablet 1-2 tablet 1-2 tablet Oral Q4H PRN Abel Montoya MD 1 tablet at 12/15/18 1037 LORazepam (ATIVAN) tablet 0.5 mg 0.5 mg Oral Q6H PRN Abel Montoya MD nystatin (MYCOSTATIN) powder Topical BID Abel Montoya MD ondansetron (ZOFRAN) injection 4 mg 4 mg Intravenous Q6H PRN Abel Montoya MD pantoprazole (PROTONIX) DR tablet 40 mg 40 mg Oral BID AC Abel Montoya MD 40 mg at 12/15/18 06 QUEtiapine (SEROquel) tablet 100 mg 100 mg Oral Nightly Abel Montoya MD 100 mg at 12/14/182040 spironolactone (ALDACTONE) tablet 50 mg 50 mg Oral BID Abel oMntoya MD 50 mg at 0832 Current Infusions: Objective Data Point of care glucose No results for input(s): POCGLU in the last 168 hours. Labs last 24 hours No results found for this or any previous visit (from the past 24 hour(s)). Micro results Microbiology Results (72 hrs) Procedure Component Value Units Date/Time Culture, MRSA [[id number]] (Normal) Collected: 12/13/18 4037 Order Status: Completed Lab Status: Final result Updated: 12/15/18 0768 Specimen: Tissue from Nares Culture Negative for MRSA by chromogenic agar method Radiology results Ct Head Wo Contrast Result Date: 12/14/2018 External films for comparison only No results will be in the chart. Mri Lumbar Spine Wo Contrast Result Date: 12/14/2018 MRI LUMBAR SPINE WITHOUT CONTRAST CLINICAL INFORMATION: FALL. LEG PAIN. ALTERED MENTAL STAT US. DIZZINESS COMPARISON: XR LUMBAR SPINE 2 OR 3 VW (11/23/2018); MRI LUMBAR SPINE WO CONTRAS T (10/18/2017); PROCEDURE: Sagittal T2, axial T2, sagittal T1, axial T1, sagittal STIR sequen tanna. Coronal T1. FINDINGS: Alignment: There is a mild convex left thoracolumbar curvature. There is minimal grade 1 anterolisthesis at L4-5. Vertebrae and vertebral marrow signal: The re has been an interbody fusion with bilateral pedicle screw/nupur fixation and laminectomies at L4-5. There is severe discogenic degenerative changes at L5-S1. Conus and imaged portion s of the caudal cord: Normal. Lumbar disc levels: At T11-12 there is a small posterior bulge without spinal cord contact/deformity or spinal stenosis. No neural foraminal stenosis. At T12-L1 disc level no significant abnormalities are found. At L1-2 there is a small posterio r disc protrusion slightly eccentric towards the right, indenting the ventral thecal sac wit hout evidence of nerve compression or spinal stenosis-unchanged. There is mild to moderate right and mild left neural foraminal narrowing due to a right neural foraminal bulge-unchang ed. At L2-3 there is mild retrolisthesis. There is a minimal bulge of the posterior disc an nulus without nerve compression or spinal stenosis. There is mild facet spondylosis. There are bilateral neural foraminal bulges causing moderate right and ivwv-yc-heluditu left neura l foraminal narrowing unchanged. At L3-4 there is a small posterior bulge indenting the vent ral thecal sac. There is moderate facet spondylosis with ligamentum flavum thickening and d orsal epidural fat which combine to cause moderate narrowing of the spinal canal slightly in creased since the previous study. There are bilateral neural foraminal bulges causing moder ate neural foraminal narrowing. At L4-5 there has been interbody fusion with bilateral pedic le screw/nupur fixation and interval laminectomies with relief of the spinal stenosis seen on the previous study and resection of the disc extrusion seen on the previous study. There is no significant spinal canal stenosis. The neural foramen are not well seen. At least mode rate neural foraminal stenosis is suspected. There is severe facet spondylosis. At L5-S1 th ere is severe discogenic spondylosis and grade 1 anterolisthesis. There is severe facet spo ndylosis. There is no significant spinal canal stenosis. Moderate to severe left neural fo raminal stenosis is again noted. Paraspinal musculature and paravertebral soft tissues: Ther e edema in the left iliopsoas muscle extending L3 to S2. IMPRESSION- 1. No acute lumbar spin e fracture or evidence of traumatic malalignment. 2. Multilevel degenerative disc disease an d facet spondylosis as detailed above causing multilevel areas of significant neuroforaminal narrowing. 3.Edema involving the disc space and adjacent vertebral bodies at L4-L5 is thoug ht to be related to history of recent postsurgical changes. No fluid collection or other com pelling evidence to convincingly suggest postoperative complication such as infection at thi s time. A preliminary report was sent without significant discrepancy. Dictated and Signed b y: Donis Ocampo MD Electronically signed: 12/14/2018 8:21 AM Vas Lower Extremity Venous Bilateral Result Date: 12/14/2018 BILATERAL LOWER EXTREMITY DUPLEX VENOUS ULTRASOUND 12/14/2018 1:06 PM CLINICAL HISTORY: sign ificant tenderness posterior bilateral LE and 6 weeks post L4-5 fusion COMPARISON: None FIN DINGS: Grayscale, color Doppler and duplex Doppler interrogation of the bilateral lower extr emity deep venous systems was performed. The bilateral common femoral, superficial femoral and popliteal veins are patent, with normal phasicity, compressibility and augmentation. Th e central greater saphenous and profunda femoral veins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 ([facility]) Past Surgical History: Procedure Laterality Date CHOLECYSTECTOMY 1995 [facility] HYSTERECTOMY 1999 [facility] OR LUMBAR SPINE SURGERY Left 10/26/2018 Procedure: L4-5 LAIF W/PSF & LAMI; Surgeon: Syed Owens MD; Location: [facility] MAIN OR TOE SURGERY Left TONSILLECTOMY 1989 [facility] CURRENT MEDICATIONS Current Discharge Medication List CONTINUE these medications which have NOT CHANGED Details acetaminophen (TYLENOL) 500 mg tablet Take 1,000 mg by mouth every 8 hours as needed for Pa in. ARIPiprazole (ABILIFY) 20 MG tablet Take 20 mg by mouth Daily. bumetanide (BUMEX) 1 mg tablet Take 1 mg by mouth 2 times daily. cyclobenzaprine (FLEXERIL) 10 mg tablet Take 1 tablet by mouth every 8 hours as needed for Muscle spasms. Qty: 90 tablet !! divalproex (DEPAKOTE) [address] tablet Take 250 mg by mouth nightly. !! divalproex (DEPAKOTE) [address] tablet Take 1,000 mg by mouth nightly. enoxaparin (LOVENOX) 40 mg/0.4 mL injection Inject 0.4 mLs under the skin every 24 hours. Refills: 0 escitalopram (LEXAPRO) 5 MG tablet Take 5 mg by mouth Daily. furosemide (LASIX) 20 mg tablet Take 1 tablet by mouth Daily. gabapentin (NEURONTIN) 600 MG tablet Take 1 tablet by mouth 3 times daily. Qty: 90 tablet, Refills: 0 HYDROcodone-acetaminophen (NORCO) 10-325 mg per tablet Take 1-2 tablets by mouth every 4 ho urs as needed for Pain. Indication: Recent Major Surgery Qty: 90 tablet, Refills: 0 loperamide (IMODIUM) 2 mg capsule Take 2-4 mg by mouth 4 times daily as needed for Diarrhea . LORazepam (ATIVAN) 0.5 mg tablet Take 0.5 tablets by mouth every 6 hours as needed for Othe r. Qty: 60 tablet, Refills: 0 magnesium hydroxide (MILK OF MAGNESIA) 400 mg/5 mL suspension Take by mouth Daily as neede d for Constipation. meclizine (ANTIVERT) 25 mg tablet Take 25 mg by mouth 3 times daily as needed. naloxone (NARCAN) 4 mg/nasal spray 1 spray by Nasal route as needed for Decreased Responsiv eness. Fill as needed to reverse opiates Qty: 1 each, Refills: 0 nystatin (MYCOSTATIN) powder Apply to fungal areas on the abdomen and chest bid as needed omeprazole (PRILOSEC) 20 mg capsule Take 20 [...] tablet Take 100 mg by mouth Daily. !! - Potential duplicate medications found. Please discuss with provider. ALLERGIES Allergies Allergen Reactions Oxycodone Other (See Comments) Hallucinations Tramadol Other (See Comments) Cold sweats and fever Simvastatin Other (See Comments) Confusion Sumatriptan Other (See Comments) Confused, agitated, and bowel incontinence FAMILY AND SOCIAL HISTORY Family History Problem Relation Age of Onset Cancer Mother Bone Clotting disorder Father Dementia Father Other (see comment) Brother Ruptured Hernia Heart disease Maternal Grandmother Other (see comment) Maternal Grandfather Lung problems Heart disease Paternal Grandmother Breast cancer Paternal Grandmother Emphysema Paternal Grandfather Social History Social History Marital status: Spouse name: N/A Number of children: 0 Years of education: 14 Occupational History DISABLED Social History Main Topics Smoking status: Never Smoker Smokeless tobacco: Never Used Alcohol use Yes Comment: rare Drug use: No Sexual activity: No Other Topics Concern None Social History Narrative None REVIEW OF SYSTEMS As in history of present illness. A 10 system review was otherwise negative. PHYSICAL EXAM VITAL SIGNS: (first vital signs):Temp: 36.8 C (98.3 F) Pulse: 63 (Simultaneous filing. User may not have seen previous data.) Resp: 16 SpO2: 94 % (Simultaneous filing. User may no t have seen previous data.) BP: 113/70 (Simultaneous filing. User may not have seen previous data.) Body mass index is 40.59 kg/m. Constitutional: female patient, no acute distress HEENT: Atraumatic, PERRL, Oropharynx benign. Neck: Supple with full range of motion. Respiratory: Good air movement bilaterally. Cardiovascular: Normal S1 S2 Abdomen: Soft, nontender, nondistended Back: Within normal limits, No CVA tenderness and No midline thoracic or lumbar spinal tend erness Extremities: Nontender. No lower extremity edema, no calf asymmetry. No signs of right lo wer extremity strength throughout 3/5, sensation below the knee and lateral aspect of her ri ght thigh decreased diffuse paresthesias Skin: Warm, Dry, No rashes Neurologic: Alert & oriented. No focal deficits., Speech normal, gait not tested Psychiatric: Normal mood, affect and judgement. EKG 12-lead EKG shows LABS Results for orders placed or performed during the hospital encounter of 12/13/18 CBC with Differential Result Value Ref Range WBC 8.5 4.0 - 11.0 K/uL RBC 4.63 3.70 - 5.20 M/uL Hemoglobin 13.3 11.5 - 16.0 g/dL Hematocrit 42.5 34.0 - 47.0 % MCV 91.8 83.0 - 101.0 fL MCH 28.7 28.0 - 35.0 pg MCHC 31.3 (L) 32.0 - 36.0 g/dL RDW-CV 13.4 <15.0 % RDW-SD 45.4 35.1 - 46.3 fL Platelet Count 282 140 - 440 K/uL MPV 10.9 6.5 - 12.4 fL % Neutrophils 62.3 45.0 - 82.0 % % Lymphocytes 28.1 20.0 - 45.0 % % Monocytes 7.3 4.0 - 12.0 % % Eosinophils 1.3 0.0 - 5.0 % % Basophils 0.4 0.0 - 1.0 % % Immature Granulocytes 0.6 (H) 0.0 - 0.4 % Absolute Neutrophils 5.32 1.80 - 8.50 K/uL Absolute Lymphocytes 2.40 0.60 - 3.20 K/uL Absolute Monocytes 0.62 0.00 - 1.00 K/uL Absolute Eosinophils 0.11 0.00 - 0.40 K/uL Absolute Basophils 0.03 0.00 - 0.10 K/uL Absolute Immature Granulocytes 0.05 (H) 0.00 - 0.03 K/uL % nRBC 0 0 - 2 per 100 WBC's Absolute nRBC 0.00 0.00 - 0.01 K/uL Comprehensive Metabolic Panel Result Value Ref Range Na 138 136 - 145 mmol/L K 4.3 3.4 - 5.1 mmol/L Cl 103 98 - 107 mmol/L CO2 27 20 - 31 mmol/L Anion Gap 8 3 - 16 mmol/L Glucose 79 60 - 106 mg/dL BUN 23 9 - 23 mg/dL Creatinine 1.35 (H) 0.55 - 1.02 mg/dL eGFR if not 40 (L) >=60 mL/min/1.73m2 Ca 9.2 8.7 - 10.4 mg/dL Albumin 4.1 3.2 - 4.8 g/dL Bilirubin Total 0.2 (L) 0.3 - 1.2 mg/dL Total Protein 6.5 5.7 - 8.2 g/dL AST 20 0 - 34 U/L ALT <7 (L) 10 - 49 U/L Alkaline Phosphatase 118 (H) 46 - 116 U/L Globulin 2.4 2.1 - 3.8 g/dL Albumin/Globulin Ratio 1.7 0.8 - 1.9 BUN/Creatinine Ratio 17.0 Extra Blue Top Tube Result Value Ref Range Extra Blue Top Tube Done IMAGING STUDIES (X-Rays interpreted by ED Physician) IMPRESSION: 1. L3-4: Moderate narrowing of the spinal canal scratch that slightly progressive moderate narrowing of the spinal canal due to a small posterior bulge combined with moderate facet spondylosis with ligamentum flavum thickening, minimal retrolisthesis and dorsal epidural fat. Moderate bilateral neural foraminal stenosis due to neural foraminal bulges and osteophytes. 2. L4-5: Status post interbody fusion with bilateral pedicle screw/nupur fixation and bilateral laminectomies. Magnetic susceptibility artifacts related to fusion hardware. Interval resection of the large extruded disc herniation seen on the previous MRI. At least moderate bilateral neural foraminal stenosis due to bulges and osteophytes although the neural foramen are not well seen. 3. L5-S1: Severe discogenic spondylosis and severe facet spondylosis with mild grade 1 anterolisthesis. No significant spinal canal stenosis. Moderate to severe left neural foraminal stenosis-unchanged. 4. L2-3: Moderate to severe right moderate left neural foraminal narrowing due to neural foraminal bulges. Minimal retrolisthesis and a small posterior bulge without spinal stenosis. 5. L1-2: Small posterior disc protrusion slightly eccentric towards the right without nerve compression or spinal stenosis-unchanged. 6. Mild scoliosis. 7. Edema in the left psoas muscle. Signed by: MD Los, Dr. Mckenna Sign Date/Time: 12/13/2018 7:49 PM Report sent:12/13/2018 7:49:55 PM ED COURSE & MEDICAL DECISION MAKING Pertinent Labs & Imaging studies were reviewed along with EMS notes and [facility] record s if applicable. (See chart for details) Medications and Allergy list reviewed. Nurses note and old records were reviewed The patient was seen and examined, Patient is a 50-year-old female who was accepted by neurosurgery. She had imaging of her r ight lower extremity and pelvic and lumbar spine. Imaging outside facility was negative. S he was sent here essentially for an MRI. I discussed the case with Dr. Dowd of [facility] who l ooked at the images and did not think that she required any acute neurosurgical intervention . He recommended admission to the hospitalist service for [facility] in a [place] [facility] [place] [facility]. Patient was alert and oriented here. Urine at outside facility was negative. Mayra ent will be admitted to the hospitalist service. Neurosurgery was going to consult tomorrow morning. call center manager neurosurgeon was going to notify Dr. Owens and/or TASHI to evaluate the patien t tomorrow. Last Set of Vital Signs: Temp: 36.2 C (97.2 F) Pulse: 71 Resp: 18 SpO2: 97 % BP: 120/56 FINAL IMPRESSION ICD-10-CM ICD-9-CM 1. WeaknessAcute R53.1 780.79 2. Back pain, unspecified back location, unspecified back pain laterality, unspecified lunchroom attendant nicity M54.9 724.5 Current Discharge Medication List Abdoul Tatum MD 12/14/18 0107 Sabrina Jarvis RN - 0 12/13/2018 5:07 PM PDTPt presents to the ED by EMS transfer with complaints of post back baldev gical complications 10/2018. She is having increased pain to bilateral legs, dizziness, confu yisel and weakness. She tells me that she has fallen twice yesterday They sent her here for MRI documented in this encounter Miscellaneous Notes Plan of Care - Sepideh Hernandez RN - 12/16/2018 3:48 PM PDTProblem: Patient Care Overvie w (Adult) Goal: Care Team Goals & Evaluation PROBLEM-RELATED GOALS: 1. Rebecca will be SBA with mobility in room and in hallways by 12/21/18. 2. Pt will be supervision for standing grooming upon discharge. STRATEGY TO ACHIEVE GOALS: 1. Pt will participate in OT treatment/sessions - Rebecca will participate in PT per POC and mobilize with nursing as appropriate. RESTRAINT-RELATED GOALS: STRATEGIES TO ACHIEVE RESTRAINT GOALS: Outcome: Adequate for Discharge Date Met: 12/16/18 Goal Evaluation: Patient AOX4, VSS, patient up with PT and OT today, patient denies complaints, patient marianna wered, patient AVS printed and explained to patient and family member caretaker with verbal understanding , patient IV dc'd with no signs and symptoms of infection no complaints of pain or discomfor t, patient discharged via wheelchair with family member caretaker to family adult facility rehab. lan of Care - Cheryl Espinoza RN - 12/16/2018 1:00 PM [facility] referral faxed to [facility], fax confirmation read OK. Received call from Vandana at [facility] with confirmation of referral. She was updated with Lisa's new [facility] address and Margareth's contact information. WC order faxed to [facility], they confirmed they received order and stated they will deliver WC to facility because the insurance will need to authorize first, this was shared with Margareth. Electronically signed by: Cheryl Lazcano RN 12/16/2018 18:36 lan of Care - Kalen Barnett RN - 12/16/2018 12:21 PM PDTProblem: Discharge Planning Goal: Patient will be discharged in a safe manner Outcome: Goal Achieved Date Met: 12/16/18 This CM visited with patient this AM per request of TIFF Luna. Patient had concerns about returning to the [facility] that she had only been to for 3 days pr ior to coming into the hospital after her fall. She had anxiety to go back there since she f elt they were going to keep her in the w/c. Let patient know that this CM had called and spoken to Margareth, the residential care manag er, at the [facility], and Margareth confirmed that their home had room for her w/c and that she jus t was needing the w/c for her safety to use as needed only, that she wants the patient to wa lk as much as she can. This CM explained this to the patient, letting her know that if the w/c was needed they wou ld let her use it. Offered RN PT OT at discharge so that she could get therapies at home to get stronger an d she was in agreement with this since she does NOT wish to be in a w/c for the rest of her life. Orders were placed. This CM also requested that Margareth bring clean clothes for patient to wear home, which sudarshan will. Patient was told this information and she is in agreement to go back to the [facility] with suppor tive HH and therapies. The above information was also reported to TIFF Lnua, on medical floor. Dispo plan: Will be transported back to her [facility] in [place], [place], by the residential care manger. HH orders have been placed for her support after discharge. Electronically signed by: Rain Barnett RN 12/16/2018 12:20 lan of Care - Margareth Augustine, PT - 12/16/2018 11:30 AM PDTFormatting of this note might be different from the o riginal. Problem: Patient Care Overview (Adult) Goal: Care Team Goals & Evaluation PROBLEM-RELATED GOALS: 1. Rebecca will be SBA with mobility in room and in hallways by 12/21/18. 2. Pt will be supervision for standing grooming upon discharge. STRATEGY TO ACHIEVE GOALS: 1. Pt will participate in OT treatment/sessions - Rebecca will participate in PT per POC and mobilize with nursing as appropriate. RESTRAINT-RELATED GOALS: STRATEGIES TO ACHIEVE RESTRAINT GOALS: Outcome: Improving Physical Therapy Plan of Care Treatment Note Summary: Rebecca has been participating in physical therapy for treatment of impaired activ ity tolerance, funcitonal transfers, and gait following admit for fall with leg pain. She h as a history of lumbar fusion for back and bilateral leg pain on 10/26/2018. Emphasis of ses yisel included gait training into hallway. Patient demonstrates progress towards functional goals as evidenced by increased gait distance and willingness to participate in ambulation t raining. Remaining barriers to discharge and functional limitations include decreased insight into s afety and deficits, decreased functional activity tolerance, decreased bed mobility, decreas ed functional transfers, decreased functional gait distance, decreased gait velocity, demons trating need for 24/7 supervision, not yet able to mobilize at level safe for home discharge , [facility] indicating significant impairment with basic functional mobility and medical status. Will continue to monitor Rebecca for evolving participation and condition for optimal dischar ge disposition as she will likely require placement for ongoing therapy services prior to [facility]. Rebecca may benefit from stay in IRF in order to attain level closer to baseline prior to return home. Rebecca will benefit from continued therapeutic intervention to address ongoing impairments an d increase safety and independence with activities necessary for safe discharge. Refer marleny packer for specific details regarding functional levels. Physical Therapy Discharge Recommendations are: Recommended discharge disposition: inpatient rehabilitation facility, [place] [facility] [place] Post discharge physical therapy recommendation: will benefit from structured setting, mini mum 5 days of therapy/week, pt is motivated participant Equipment Recommendations: bariatric, 2 wheeled walker (FWW) Planned Interventions: balance training, bed mobility training, gait training, home exerci se program, patient/family education, ROM (Range of Motion), stair training, strengthening, transfer training Recommended Frequency: (5-7 times/wk) Patient Status/Goals: Reflects last filed data and may be from multiple contributors. Gait VCs for encouragement for continued participation; she required multiple seated rest breaks during session, prolonged rest of 1-3 minutes between each bout of gait; second person for w/c follow Level of [place]: contact guard assist, 1 person + 1 person to manage equipment Assistive Device: bariatric, 2 wheeled walker (FWW) Distance (feet): 15, 10, 10, 25, 25, 20, 30 Impairments: strength decreased, postural control impaired (impaired activity tolerance) Transfers improved sequencing and strengthening with arm chair, carryover to when standing from EOB. c/o dizziness with initial stand Sit-Stand, Level of [place]: contact guard assist, verbal cues required Stand-Sit, Level of [place]: contact guard assist, verbal cues required [id number], Assistive Device: 2 wheeled walker (FWW) Safety Issues: balance decreased during turns, sequencing ability decreased, stands too far from assistive device Impairments: strength decreased, postural control impaired Bed Mobility Assistive Device: bed rails, HOB elevated Scoot/Bridge, Level of [place]: moderate assist (50% patient effort) (bed positioning) Supine to Sit, Level of [place]: minimal assist (75% patient effort), verbal cues requ ired Sit to Supine, Level of [place]: minimal assist (75% patient effort), verbal cues requ ired Safety Issues: cognitive deficits limit understanding, decreased use of arms for pushing/pu lling, decreased use of legs for bridging/pushing Impairments: decreased flexibility, ROM decreased, strength decreased, impaired balance, pa in Functional Endurance improving gradually. needed frequent seated rest breaks d/t pain and fatigue Gait Velocity: Rebecca scored 0.08 meters/seconds on the Gait Velocity Test (with Front-wheeled walker), michelle cating she is a fall risk and a limited household ambulator. Interpretation: - Need for fall risk intervention > 1.0 m/s less likely to have adverse event < 1.0 m/s needs intervention to reduce fall risk - Ambulation Categories Household < 0.4 m/s Limited community ambulator 0.4 m/s to 0.8 m/s Community ambulator 0.8 m/s to 1.2 m/s Speed needed to cross street with normal walking speed > 1.2 or 1.4 m/s For more information, please visit: [email or web address] Justification for Rental Wheelchair: Rebecca Briceno has a mobility limitation that significantly impairs her ability to pa rticipate in ambulation (MRADLS). A mobility limitation is one that prevents Rebecca from comp leting an MRADL within a reasonable time frame. Rebecca's mobility limitation that cannot be s ufficiently resolved by the use of a fitted cane or walker. Her home provides adequate acce ss between rooms, maneuvering space, and surface for use of the manual wheelchair that is pr ovided. The use of a manual wheelchair will significantly benefit Rebecca's ability to to part icipate in their MRADLs. She will use it on a regular basis at home and has not expressed a n unwillingness to use to wheelchair at home. Rebecca has a caregiver who is available, eduardo pandey, and able to provide the assistance needed for mobility using this wheelchair. Patient Measurements: (all in inches) Weight: 121.1 kg (266 lb 15.6 oz) Height: 172.7 cm (5' 8") Hip width: 18" (Recommend seat width of 18 to allow for clothing and keep hips from rubbing on armrest sup ports) TRIAL OF A STANDARD WHEELCHAIR, PATIENT ABLE TO FIT COMFORTABLY, NO COMPLAINTS. Buttock to back of knee (upper leg): 20" (subract 2 inches for a recommended seat depth of 18") FIM: FIM Transfers Bed/Chair/Wheelchair: 4 Bed/Chair/WC Score Evidence: 4 Steadying FIM Locomotion Walk: 1 Distance Walked (feet): 30 feet Walk Score Evidence: 1 Two Helpers, 1 Walks <50 ft FIM Modifier DC Locomotion: both FIM Modifier Walk Distance: 0 did not occur Wheelchair: 0 Wheelchair Score Evidence: 0 Did Not Occur FIM Modifier WC Distance: 0 did not occur Stairs: 0 Stairs Score Evidence: 0 Unsafe PT Goal Review Date Most Recent Value STG Review Date 12/21/18 at 12/14/2018 1520 [id number] Goal Most Recent Value STG Status progressing at 12/16/2018 1130 STG [place] Level supervised at 12/14/2018 1520 [id number] Goal Most Recent Value STG Status progressing at 12/16/2018 1130 STG [place] Level supervised at 12/14/2018 1520 STG Assistive Device bariatric, 2 wheeled walker (FWW) at 12/14/2018 1520 Gait Goal Most Recent Value STG Status progressing at 12/16/2018 1130 STG [place] Level supervised at 12/14/2018 1520 STG Assistive Device bariatric, 2 wheeled walker (FWW) at 12/14/2018 1520 STG Distance (feet) 50 x2 at 12/14/2018 1520 Stair Goal Most Recent Value STG Status new at 12/14/2018 1520 STG [place] Level stand by assist at 12/14/2018 1520 STG Assistive Device 1 rail at 12/14/2018 1520 STG Number of Stairs 12 at 12/14/2018 1520 Electronically signed by: Margareth Augustine, PT, 12/16/2018 11:37 lan of Care - Marcelina Jorgensen, OT - 12/16/2018 10:00 AM PDT Problem: Patient Care Overview (Adult) Goal: Care Team Goals & Evaluation PROBLEM-RELATED GOALS: 1. Rebecca will be SBA with mobility in room and in hallways by 12/21/18. 2. Pt will be supervision for standing grooming upon discharge. STRATEGY TO ACHIEVE GOALS: 1. Pt will participate in OT treatment/sessions - Rebecca will participate in PT per POC and mobilize with nursing as appropriate. RESTRAINT-RELATED GOALS: STRATEGIES TO ACHIEVE RESTRAINT GOALS: Outcome: Adequate for Discharge Date Met: 12/16/18 Occupational Therapy Plan of Care Treatment Note Summary: Rebecca has been participating in occupational therapy for treatment of decreased capacity for ADLs, functional mobility/transfers . Emphasis of session included functional mobility/transfers, seated grooming, and bed mobility. Patient demonstrates progress toward s functional goals as evidenced by ability to ambulate bedside chair>seated rest break on be dside commode in doorway of bathroom>EOB and SBA with v/cs, extra time for bed mobility this day. Remaining barriers to discharge and functional limitations include decreased insight into s afety and deficits, decreased functional activity tolerance, decreased bed mobility, decreas ed functional transfers, decreased ability to perform ADLs, decreased ability to perform IAD Ls, decreased ability to perform medication management, not yet able to mobilize at level sa fe for home discharge and spinal precautions. Rebecca will benefit from continued therapeutic intervention to address ongoing impairments an d increase safety and independence with activities necessary for safe discharge. Refer marleny packer for specific details regarding functional levels. Occupational Therapy Discharge Recommendations are: Recommended discharge disposition: inpatient rehabilitation facility, [place] [facility] [place] [facility] Post discharge occupational therapy recommendation: ongoing high intensity therapy, pt is motivated participant, will benefit from structured setting Equipment Recommendations: sock aide, track production engineer, 2 wheeled walker (FWW) Planned Interventions:ADL retraining, balance training, functional endurance training, ROM (Range of Motion), strengthening, transfer training Recommended Frequency: (5-7xs Note increased frequency ) Patient Status/Goals: Reflects last filed data and may be from multiple contributors. ADLs Seated grooming Pt initially agreeable to attempting standing grooming at sink, though OT/pt deciding to booker ve pt ambulate to sink but sitting on bedside toilet commode in doorway of bathroom instead. Washing face, mouthwash, brush teeth. Grooming, Level of [place]: supervised, set up required Assistive Device: none Grooming Assess/Train, Position: sitting Grooming Impairments: impaired functional endurance/activity tolerance, impaired balance Functional Endurance Pt with improved activity tolerance today, able to ambulate with CGA FWW farther today beds bin chair>bedside commode in bathroom doorway>EOB with seated rest break on bedside commode. Cognitive Pt alert, participatory, and communicating throughout. Mood/Behavior: cooperative, behavior appropriate to situation, calm Orientation: person, place, situation (Pt says it is Thurs, no concerns for orientation oth erwise) Speech: clear, spontaneous, logical Bed Mobility Extra time throughout Assistive Device: HOB elevated Scoot/Bridge, Level of [place]: stand by assist, verbal cues required Sit to Supine, Level of [place]: stand by assist, verbal cues required Safety Issues: decreased use of arms for pushing/pulling, decreased use of legs for bridgin g/pushing Impairments: decreased flexibility, ROM decreased, strength decreased Transfers CGA FWW bedside chair>over the toilet commode in doorway of bathroom>EOB. Dry run toilet tr ansfer performed, no toileting occuring. Sit-Stand, Level of [place]: contact guard assist, set up required, verbal cues requi red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 good activity tolerance for session Cognitive Pt alert, participatory, and communicating appropriately throughout Mood/Behavior: calm, cooperative, behavior appropriate to situation Orientation: person, place, situation (Pt says it is the 19th, no concerns for orientation otherwise) Speech: clear, spontaneous, logical Bed Mobility NT, pt seated in bedside chair beginning/ending of session Transfers Sit<>stand transfer from bedside chair with FWW. SBA with extra time and v/c for upright po sture. Sit-Stand, Level of [place]: stand by assist, verbal cues required Stand-Sit, Level of [place]: stand by assist, verbal cues required Apt-Gxqnq-Vnm, Assistive Device: 2 wheeled walker (FWW) Impairments: strength decreased, postural control impaired ROM BUE ROM WFL Strength BUE Strength WFL. Pt with good head tennis coach strength for BUE when gripping OT's fingers. R UE Strength: Pt reporting decreased head tennis coach strength for RUE due to carpal tunnel. Coordination: Coordination Comments: Pt able to perform finger individuation (each finger to thumb) for b oth hands, no concerns for coordination otherwise. OT Goal Review Date Most Recent Value STG Review Date 12/21/18 at 12/14/2018 1633 Grooming Goal Most Recent Value STG Status new at 12/14/2018 1633 STG [place] Level supervised at 12/14/2018 1633 STG Position standing at 12/14/2018 1633 LB Dressing Goal Most Recent Value STG Status new at 12/14/2018 1633 STG [place] Level supervised at 12/14/2018 1633 STG Adaptive Equipment track production engineer, sock-aid at 12/14/2018 1633 Toileting Goal Most Recent Value STG Status new at 12/14/2018 1633 STG [place] Level supervised at 12/14/2018 1633 Toilet Transfer Goal Most Recent Value STG Status new at 12/14/2018 1633 STG [place] Level supervised at 12/14/2018 1633 STG Assistive Device 2 wheeled walker (FWW) at 12/14/2018 1633 Tub/Shower Transfer Goal Most Recent Value Tub/Shower Type -- [TBD dependent upon tub/shower type where she will be d/cing. ] at 11/27 1633 STG Status new at 12/14/2018 1633 STG [place] Level supervised at 12/14/2018 1633 STG Assistive Device 2 wheeled walker (FWW) at 12/14/2018 1633 Medicare Functional Limitation Reporting: OT Time Calculation OT Individual Start Time: 1558 OT Individual Stop Time: 1633 OT Individual Total Time: 35 OT Total Treatment Time: 35 Timed TX Code Minutes: 20 Electronically signed by: Marcelina Paris OT, 12/14/2018 18:02 ICD-10-CM ICD-9-CM 1. WeaknessAcute R53.1 780.79 2. Back pain, unspecified back location, unspecified back pain laterality, unspecified lunchroom attendant nicity M54.9 724.5 lan of Care - Margareth Augustine, PT - 12/14/2018 3:20 PM PDT Problem: Patient Care Overview (Adult) Goal: Care Team Goals & Evaluation PROBLEM-RELATED GOALS: 1. Rebecca will be SBA with mobility in room and in hallways by 12/21/18. STRATEGY TO ACHIEVE GOALS: - Rebecca will participate in PT per POC and mobilize with nursing as appropriate. RESTRAINT-RELATED GOALS: STRATEGIES TO ACHIEVE RESTRAINT GOALS: [facility] Physical Therapy OPIB Plan of Care Initial Evaluation Note Patient Name: Rebecca Briceno Date of Onset of Illness/Injury or Date of Surgery: 12/14/18 Start of Care/Start of Certification Date: 12/14/18 End of Certification Date: 12/21/18 Summary: Rebecca presents to physical therapy with impaired activity tolerance, funcitonal transfers, and gait following admit for fall with leg pain. She has a history of lumbar fus ion for back and bilateral leg pain on 10/26/2018. Objective exam reveals impairments with a erobic capacity/endurance, arousal, attention, and cognition, and pain. Lisa was very catarino vated to participate with therapy. She reported that her legs felt swollen and that her mary k pain is improving and she now is just experiencing heaviness in her leg. BLE strength sym metrical on MMT, but noted fear avoidance/functinoal weakness with marching as pre-gait acti vity. She initially did not believe she would be able to lift RLE from floor, but with enco uragement was able to march in place and perform stepping to get to bedside chair. RN cleared Rebecca for participation in therapy and she was agreeable to PT. Rebecca participate d in PT without adverse reaction. RN debriefed on PT session and patient status. The mayrae nt is safe to transfer to bedside chair with bariatric FWW and with minimal assistance from nursing staff. Patient is encouraged to use commode and discontinue use of bedpan and be up in chair for all meals. Barriers to discharge and functional limitations include decreased functional activity tole khanh, decreased bed mobility, decreased functional transfers, decreased functional gait dis tance, stairs at home, not able to navigate stairs, demonstrating need for 24/7 supervision, not yet able to mobilize at level safe for home discharge, [facility] indicating significant imp airment with basic functional mobility and medical status. Will continue to monitor Rebecca fo r evolving participation and condition for optimal discharge disposition as she will likely require placement for ongoing therapy services prior to home. Rebecca may benefit from stay in IRF then 24/7 fci or SNF then 24/7 fci. Rebecca was instructed on in-patient reha b expectations: 3 hours of therapy each day split between PAPER RULER, OT, and PT; dining group -Friday; Lisa reported being driven and that she will participate regardless of pain or f atigue in order to get better faster. Rebecca will benefit from therapeutic intervention to address impairments and increase safety and independence with activities necessary for safe discharge. Refer below for specific det ails regarding functional levels. Precautions/Limitations: falls Precaution Comment: weaning off "B" Grade precautions: per MA note: "You may now slowly inc rease your lifting up to 15 pounds as tolerated. You may now reach overhead but it should o nly be 1-2 pounds. Please refrain from twisting for the next 8 weeks. In the meantime, you can also begin to wean out of your brace as instructed" and "WEEK 3: Stop using the brace f or medium distance walking. You can bend and twist your back but still proceed slowly with these activities." Left Upper Extremity Weight-Bearing: (15# restriction; 1-2# overhead restriction) Right Upper Extremity Weight-Bearing: (15# restriction; 1-2# overhead restriction) Previous Level of Function: Transferring: independent Ambulation: independent Toileting: independent Bathing: independent Dressing: assistive person Eating: independent Communication: understands/communicates without difficulty Swallowin-->swallows foods/liquids without difficulty Equipment Currently Used at Home: 4 wheeled walker (4WW) Prior Functional Level Comment: Pt is poor historian, reports that she uses a 4WW for short distances and needs assistance with ADLS. She lives in an adult [facility], was in a [facility] 1 988 with long rehab. She's has had multiple falls and weakness recently Potential available assistance at discharge: Significant Relationships: brother Living Environment/Accessibility: Lives With: facility resident Living Arrangements: [facility] Patient/Family s Goals: Be able to go to IRF then to a 24/7 care facility Rehabilitation potential: good, to achieve stated therapy goals Identified Problems Needing Skilled Intervention: impaired activity tolerance, funcitonal t ransfers, and gait following admit for fall with leg pain. She has a history of lumbar fusi on for back and bilateral leg pain on 10/26/2018, aerobic capacity/endurance, arousal, attent ion, and cognition Physical Therapy Discharge Recommendations are: Recommended discharge disposition: inpatient rehabilitation facility, [place] [facility] Post discharge physical therapy recommendation: will benefit from structured setting, mini mum 5 days of therapy/week, pt is motivated participant Equipment Recommendations: bariatric, 2 wheeled walker (FWW) Planned Interventions: balance training, bed mobility training, gait training, home exerci se program, patient/family education, ROM (Range of Motion), stair training, strengthening, transfer training Recommended Frequency: (5-7 times/wk) Patient Status/Goals: Reflects last filed data and may be from multiple contributors. Bed Mobility significant increase time for completing bed mobility; CGA for safety and repositioning on side of bed Assistive Device: none Supine to Sit, Level of [place]: contact guard assist Impairments: decreased flexibility, ROM decreased, strength decreased, impaired balance, mo tor control impaired, pain Transfers 2nd person present for assistance d/t r/o pain and weakness; able to transfer without physi rose assist between bed and chair with need for assist to get to standing. She was able to a ppropriately verbalize sequencing Bed-Chair, Level of [place]: contact guard assist, set up required, 1 person + 1 perso n to manage equipment Chair-Bed, Level of [place]: contact guard assist, set up required, 1 person + 1 perso n to manage equipment Tvl-Neyrn-Ort, Assistive Device: bariatric, 2 wheeled walker (FWW) Sit-Stand, Level of [place]: minimal assist (75% patient effort), set up required, 1 p erson + 1 person to manage equipment Stand-Sit, Level of [place]: contact guard assist, set up required, 1 person + 1 perso n to manage equipment Xue-Ilaci-Uvh, Assistive Device: bariatric, 2 wheeled walker (FWW) Impairments: decreased flexibility, ROM decreased, strength decreased, impaired balance, mo tor control impaired, pain Gait Level of [place]: not appropriate to assess Stairs Level of [place]: not appropriate to assess Balance Sitting Balance: Static: good balance Sitting Balance: Dynamic: fair balance Standing Balance: Static: fair balance Standing Balance: Dynamic: poor balance Functional Endurance fair ROM L LE ROM: knee extension lacking 15 degrees; gross limitation in ankle R LE ROM: gross limitation in ankle Strength L LE Strength: grossly 4/5 R LE Strength: grossly 4/5; functional weakness with transfer Sensation: LLE Light Touch: WNL RLE Light Touch: mild impairment (hypersensitive) FIM: FIM Transfers Bed/Chair/Wheelchair: 1 Bed/Chair/WC Score Evidence: 1 Two Helpers FIM Locomotion Walk: 0 Walk Score Evidence: 0 Unsafe FIM Modifier DC Locomotion: both FIM Modifier Walk Distance: 0 did not occur Wheelchair: 0 Wheelchair Score Evidence: 0 Did Not Occur FIM Modifier WC Distance: 0 did not occur Stairs: 0 Stairs Score Evidence: 0 Unsafe AMPAC BASIC MOBILITY Turning from your back to your side while in a flat bed without using bedrails?: min assist , CGA, SBA, Supervision/a little help Moving from lying on your back to sitting on the side of a flat bed without using bedrails? : min assist, CGA, SBA, Supervision/a little help Standing up from a chair using your arms (e.g. wheelchair, or bedside chair)?: mod or max a ssist/a lof of help Moving to and from a bed to a chair (including a wheelchair)?: mod or max assist/a lot of h elp To walk in a hospital room?: dependent/unable Climbing 3-5 steps with a railing?: dependent/unable Total Basic Mobility Six Click AM-PAC: 12 Completed the [facility] Activity Measure for Post Acute Care (AM-PAC) "6 Clicks" Ba sic Mobility Inpatient Short Form. This version of the AM-PAC is an assessment tool used to measure a person's level of disability in performing basic mobility tasks. This patient's score indicates a performance of 68.66% impairment in the functioning of basic mobility. Raw Score - Functional Limitation % (for CMS) - "Severity Modifier" CN 6 - 100.00 [...] 14 IRF = 13.6 LTAC = 11.5 PT Goal Review Date Most Recent Value STG Review Date 12/21/18 at 12/14/2018 1520 Wollav-Reb-Nebwce Goal Most Recent Value STG Status new at 12/14/2018 1520 STG [place] Level supervised at 12/14/2018 1520 Ume-Nxhhf-Jyo Goal Most Recent Value STG Status new at 12/14/2018 1520 STG [place] Level supervised at 12/14/2018 1520 STG Assistive Device bariatric, 2 wheeled walker (FWW) at 12/14/2018 1520 Gait Goal Most Recent Value STG Status new at 12/14/2018 1520 STG [place] Level supervised at 12/14/2018 1520 STG Assistive Device bariatric, 2 wheeled walker (FWW) at 12/14/2018 1520 STG Distance (feet) 50 x2 at 12/14/2018 1520 Stair Goal Most Recent Value STG Status new at 12/14/2018 1520 STG [place] Level stand by assist at 12/14/2018 1520 STG Assistive Device 1 rail at 12/14/2018 1520 STG Number of Stairs 12 at 12/14/2018 1520 Medicare Functional Limitation Reporting: PT Time Calculation Individual Start Time: 1454 Individual Stop Time: 1518 Individual Total Time: 24 Missed Treatment Time: 0 PT Total Treatment Time: 24 Timed TX Code Minutes: 10 Electronically signed by: Margareth Augustine, PT, 12/14/2018 16:02 ICD-10-CM ICD-9-CM 1. WeaknessAcute R53.1 780.79 2. Back pain, unspecified back location, unspecified back pain laterality, unspecified lunchroom attendant nicity M54.9 724.5 lan of Berna - Rain Barnett RN - 12/14/2018 2:48 PM PDTProblem: Discharge Planning Goal: Patient will be discharged in a safe manner Outcome: Unchanged This CM met with patient at her bedside to discuss her d/c plan. Patient had been living at the [facility] in [place] for about 2 years and then went to [facility] after her back surgery for her rehab then returned to the [facility] after her 1 month re hab. She states that she failed the evacuation drill 3 times so could not stay in this particula r home. She was moved to another [facility] in [place], [place], at [address], [facility], but could not wal k there and her leg was very weak so was transferred here from an outside hospital ED for ne uro f/u. She is not sure whether she will need to go back to [facility] or not. She also mentioned [facility] in [place] that has a 24/7 care facility. Called [phone] at [place] and left a message with Michel, requesting a return call to dischraleigh peñae a possible discharge plan. EPIC SNF referral sent to [facility] since patient just did her rehab there. Bruno, admit coordinator, at , called this CM after seeing the SNF referral. She reported that the [facility] is an AL and rehab only. Bruno stated that they had already extended her rehab days after the 20 days since this was all that was approved with her insurance. They worked thru [facility]) to get the extra 10 days since sh sudarshan was improving daily. After the month they had to send her back to the [facility]. Patient confirms that she has Russ De Jesus DO, as her PCP and was getting her meds thru [facility]. Per patient, Garcia, her brother, who lives in [place], has a pickup, but a bad back, but t tray will need to figure out how to get her belongings out of the new [facility] since most likely s he will need to go to a nursing home placement for her 24/7 care needs at discharge. PT OT cecilio is pending for today. Per Miya AKINS, recommendation is for IPR consideration. Order placed for IPR, called and spoke with Dr. Aguero to let him know about this patient's n eeds and story. CM also called PT who was seeing patient at the time also letting her know of the IPR recom mendation. Dispo plan: TBD IPR vs back to her [facility] in [place]. Patient will need a w/c if she returns to the [facility]. CM to follow. Electronically signed by: Rain Barnett RN 12/14/2018 14:48 15:48 pm This CM called, Margareth, residential support worker of the [facility], p# [phone], and she sta lay that patient had only been there for 3 days and was refusing to walk and then fell, thus requiring them to call EMS. Margareth stated that when EMS got there she got up and walked to their stretcher and sat do wn. She will take her back but only if she has a w/c which at this time she does not have one, only a 4WW. She states she will not be able to lift client off the ground if she falls again . This This CM notified attending MD letting him know of the above info, &requesting order for W/C if this patient is not approved for IPR. CM to follow. Electronically signed by: Rain Barnett RN 12/14/2018 15:55 1730 This CM left message with Caryn, financial counselor, requesting she see patient tomor row AM to possibly get her onto [facility] since she does not meet to be here under observation . This CM also spoke with Robert, PT, letting him know that the [facility] will accept her back but on ly if she has a w/c. He suggested that if she does not qualify for IPR, then when the w/c order is placed it marianna uld only be for 3 months rental only and she should be having PT OT during this time at t he [facility]. CM to follow. Electronically signed by: Rain Barnett RN 12/15/2018 10:36 documented in this encou nter Plan of Treatment + +------+--------+ + + | Name | Type | Priori | Associated Diagnoses | Date/Time | | | | ty | | | + +------+--------+ + + | ED INFORMATION | JUAN | Routin | | 12/13/2018 5:08 PM | | EXCHANGE | | e | | PDT | + +------+--------+ + + + +------+--------+ + + | Name | Type | Priori | Associated Diagnoses | Order Schedule | | | | ty | | | + +------+--------+ + + | DME: Wheelchair | DME | Routin | Foraminal stenosis | DME 1 Time for 1 | | | | e | of lumbar region | Occurrences starting | | | | | Spinal stenosis of | 12/15/2018 until | | | | | lumbar region with | 12/15/2018 | | | | | neurogenic | | | | | | claudication | | + +------+--------+ + + + + +--------+ + + | Name | Type | Priori | Associated Diagnoses | Order Schedule | | | | ty | | | + + +--------+ + + | Referral to Home | Outpatient | Routin | Physical | Ordered: 12/16/2018 | | Health - OUTPATIENT | Referral | e | deconditioning | | + + +--------+ + + documented as of this encounter Procedures + +--------+ + + + | Procedure Name | Priori | Date/Time | Associated Diagnosis | Comments | | | ty | | | | + +--------+ + + + | CBC WITH | Routin | 12/16/2018 | | Results for this | | DIFFERENTIAL | e | 5:34 AM | | procedure are in the | | | | PDT | | results section. | + +--------+ + + + | MAGNESIUM | Routin | 12/16/2018 | | Results for this | | | e | 5:34 AM | | procedure are in the | | | | PDT | | results section. | + +--------+ + + + | BASIC METABOLIC | Routin | 12/16/2018 | | Results for this | | PANEL | e | 5:34 AM | | procedure are in the | | | | PDT | | results section. | + +--------+ + + + | VAS LOWER EXTREMITY | MARY JANE | 12/14/2018 | | Results for this | | VENOUS BILATERAL | | 2:00 PM | | procedure are in the | | | | PDT | | results section. | + +--------+ + + + | CBC NO DIFFERENTIAL | Routin | 12/14/2018 | | Results for this | | | e | 4:55 AM | | procedure are in the | | | | PDT | | results section. | + +--------+ + + + | BASIC METABOLIC | Routin | 12/14/2018 | | Results for this | | PANEL | e | 4:55 AM | | procedure are in the | | | | PDT | | results section. | + +--------+ + + + | CULTURE, MRSA | Routin | 12/13/2018 | | Results for this | | | e | 11:47 PM | | procedure are in the | | | | PDT | | results section. | + +--------+ + + + | MRI LUMBAR SPINE WO | STAT | 12/13/2018 | | Results for this | | CONTRAST | | 7:05 PM | | procedure are in the | | | | PDT | | results section. | + +--------+ + + + | EXTRA BLUE TOP TUBE | Routin | 12/13/2018 | | Results for this | | | e | 5:52 PM | | procedure are in the | | | | PDT | | results section. | + +--------+ + + + | CBC WITH | STAT | 12/13/2018 | | Results for this | | DIFFERENTIAL | | 5:52 PM | | procedure are in the | | | | PDT | | results section. | + +--------+ + + + | COMPREHENSIVE | STAT | 12/13/2018 | | Results for this | | METABOLIC PANEL | | 5:52 PM | | procedure are in the | | | | PDT | | results section. | + +--------+ + + + | ED INFORMATION | Routin | 12/13/2018 | | | | EXCHANGE | e | 5:08 PM | | | | | | PDT | | | + +--------+ + + + +---+--------+ | | | | | Proced | | | ure | | | Note - | | | Amrita, | | | Lab In | | | | | | Hlseve | | | n - | | | | | | 2018 | | | 5:09 | | | PM PDT | | [...] | | | FICATI | | | ON?03/ | | | | | | 9 | | | 17:05? | | | AASRUD | | | , REBECCA | | | | | | J?MRN: | | | | | | [id number] | | | [id number] | | | riteri | | | [...] | | | d: | | | | | | 8 | | | 12:07 | | | PM | | | Other | | | Inform | | | ation: | | | Curren | | | tly | | | placed | | | at | | | [facility] | | | House | | | | | | Mental | | | | | | Health | | | Adult | | | | | | Foster | | | Home, | | | | | | contac | | | t Rain | | | | | | [place] | | | | | | [phone] | | | [phone] | | | .? All | | | | | | prescr | | | iption | | | | | | medica | | | tions | | | are | | | being | | | proces | | | sed | | | throug | | | h | | | [place] | | | [phone] | | | [...] | | | yMedic | | | al/Baldev | | | gical1 | | | 1/30/1 | | | 6 | | | 12:00 | | | AM | | | Good | | | [facility] | | | rd | | | Health | | | Care | | | Coordi | | | nation | | | :This | | | patien | | | t has | | | been | | | identi | | | fied | | | as | | | having | | | at | | | least? | | | 5 | | | Emerge | | | ncy | | | Depart | | | ments | | | visits | | | in | | | the 12 | | | | | | months | | | | | | immedi | | | ately | | | preced | | | ing | | | the | | | date | | | these | | | guidel | | | isa | | | were | | | entere | | | d.? | | | Patien | | | t | | | requir | | | [...] | | | Worker | | | ,?Justin | | | at | | | [phone] | | | [phone] | | | ?if | | | patien | | | [...] | | | ing | | | care.P | | | rescri | | | ption | | | Drug | | | [...] | | | [facility] | | | Good | | | She[facility] | | | rd | | | Health | | | 6 0 | | | Provid | | | ence | | | St. | | | Nat | | | Medica | | | l | | | Center | | | 1 0 | | | Total | | | 7 0 | | | Note: | | [...] | | | int | | | Mar | | | 17, | | | 2019 | | | Provid | | | ence | | | [facility] | | | [facility] | | [facility] | | | [place] | | | [place] | | | Emerge | | | ncy | | | Mar | | | 17, | | | 2019 | | | Good | | | Shephe | | | rd | | | Health | | | | | | [place] | | | [place] | | | Emerge | | | ncy | | | | | | [place] | | | SS | | | BILATE | | | RAL | | | LEG | | | PAIN | | | | | | Other | | | sympto | | | ms and | | | signs | | | | | | involv | | | ing | | | the | | | muscul | | | oskele | | | israel | | | system | | | | | | Anesth | | | esia | | | of | | | skin | | | | | | Unspec | | | ified | | | nystag | | | mus | | | | | | Dizzin | | | ess | | | and | | | giddin | | | ess | | | Oct | | | 20, | | | 2018 | | | Good | | | [facility] | | | rd | | | Health | | | | | | [place] | | | [place] | | | Emerge | | | ncy | | | Chief | | | Compla | | | int: | | | EDEMA | | | LEFT | | | LEG | | | THROBB | | | ING | | | PAIN | | | Oct | | | 13, | | | 2018 | | | Good | | | [facility] | | | rd | | | Health | | | | | | [place] | | | [place] | | | Emerge | | | ncy | | | Low | | | back | | | pain | | | Oct | | | 10, | | | 2018 | | | Good | | | [facility] | | | rd | | | Health | | | | | | [place] | | | [place] | | | Emerge | | | ncy | | | Pure | | | hyperc | | | holest | | | erolem | | | ia, | | | unspec | | | ified | | | | | | Gastro | | | -esoph | | | ageal | | | reflux | | | | | | diseas | | | e | | | withou | | | t | | | esopha | | | gitis | | | | | | Hypert | | | ensive | | | | | | chroni | | | c | | | kidney | | | | | | diseas | | | e with | | | stage | | | 1 | | | throug | | | h | | | stage | | | 4 | | | chroni | | | c | | | kidney | | | | | | diseas | | | e, or | | | unspec | | | ified | | | chroni | | | c | | | kidney | | | | | | diseas | | | e | | | Locali | | | zed | | | edema | | | | | | Presen | | | ce of | | | left | | | artifi | | | cial | | | knee | | | joint | | | | | | Other | | | specif | | | ied | | | anxiet | | | y | | | disord | | | ers | | | | | | Chroni | | | c | | | kidney | | | | | | diseas | | | e, | | | stage | | | 2 | | | (mild) | | | Aug | | | 3, | | | 2018 | | | Good | | | [facility] | | | rd | | | Health | | | | | | [place] | | | [place] | | | Emerge | | | ncy | | | | | | Disord | | | er of | | | kidney | | | and | | | ureter | | | , | | | unspec | | | ified | | | | | | Pure | | | hyperc | | | holest | | | erolem | | | ia, | | | unspec | | | ified | | | | | | Cellul | | | itis | | | of | | | right | | | lower | | | limb | | | Soft | | | | | | tissue | | | | | | disord | | | er, | | | unspec | | | ified | | | | | | Locali | | | zed | | | edema | | | | | | Cellul | | | itis | | | of | | | left | | | lower | | | limb | | | Apr | | | 22, | | | 2018 | | | Good | | | [facility] | | | rd | | | Health | | | | | | [place] | | | [place] | | | Emerge | | | ncy | | | | | | Cellul | | | itis | | | of | | | left | | | lower | | | limb | | | | | | Anxiet | | | y | | | disord | | | er, | | | unspec | | | ified | | | | | | Chroni | | | c | | | kidney | | | | | | diseas | | | e, | | | stage | | | 2 | | | (mild) | | | | | | Pure | | | hyperc | | | holest | | | erolem | | | ia, | | | unspec | | | ified | | | | | | Pain | | | in | | | left | | | lower | | | leg | | | | | | Hypert | | | ensive | | | | | | chroni | | | c | | | kidney | | | | | | diseas | | | e with | | | stage | | | 1 | | | throug | | | h | | | stage | | | 4 | | | chroni | | | c | | | kidney | | | | | | diseas | | | e, or | | | unspec | | | ified | | | chroni | | | c | | | kidney | | | | | | diseas | | | e | | | Recent | | | [...] | | | int | | | Noe | | | 28, | | | 2019 | | | [facility] | | | ence | | | [facility] [place] | | [place] | | | S[facility] | | | al | | | Servic | | | es | | | Unspec | | | ified | | | abnorm | | | alitie | | | s of | | | gait | | | and | | | mobili | | | ty | | | Body | | | mass | | | index | | | (BMI) | | | 40.0-4 | | | 4.9, | | | adult | | | | | | Morbid | | | | | | (sever | | | e) | | | obesit | | | y due | | | to | | | excess | | | | | | calori | | | es | | | Spinal | | | | | | stenos | | | is, | | | lumbar | | | | | | region | | | with | | | neurog | | | enic | | | claudi | | | cation | | | | | | Additi | | | onal | | | Care | | | Provid | | | ersPro | | | vider | | | PRC | | | Type | | | Phone | | | Fax | | | Servic | | | e | | | Dates | | | OLTMAN | | | , | | | RUSS | | | H, | | | D.O. | | | Family | | | | | | Medici | | | ne | | | Curren | | | t | | | Jones | | | , Alison, | | | CHW | | | Commun | | | ity | | | Health | | | | | | Worker | | | [phone]) | | | | | | [phone] | | | [phone] | | | Oct | | | 11, | | | 2017 - | | | | | | Curren | | | t | | | RUSS | | | OLTMAN | | | | | | Primar | | | y Care | | | | | | Curren | | | t | | | Titus | | | House | | | Adult | | | | | | Foster | | | Home | | | Mental | | | | | | Health | | | | | | Provid | | | er | | | ([phone]) | | | [phone] | | | 16 | | | Curren | | | [...] | | | https: | | | //secu | | | [email or web address] | | | ecarep | | | [email or web address] | | | [email or web address] | | | [email or web address] | | | [id number] | | | [id number] | | | [phone] | | | [phone] | | | [id number] | | | [phone] | | | The | | | above | | | inform | | | ation | | | is | | | provid | | | ed for | | | the | | | sole | | | purpos | | | e of | | | patien | | | t | | | treatm | | | ent. | | | Use of | | | this | | | inform | | | ation | | | beyond | | | the | | | terms | | | of | | | Data | | | Sharin | | | g | | | Memora | | | ndum | | | of | | | Unders | | | tandin | | | g and | | | Licens | | | e | | | Agreem | | | ent is | | | | | | prohib | | | ited. | | | In | | | certai | | | n | | | cases | | | not | | | all | | | visits | | | may | | | be | | | repres | | | ented. | | | | | | Consul | | | t the | | | aforem | | | ention | | | ed | | | facili | | | ties | | | for | | | additi | | | onal | | | inform | | | ation. | | | ? | | | 2019 | | | [employer]le[employer] | | | tive | | | [employer] | | | l | | | [employer] | | | logies | | | , [employer] | | | - | | | [place] | | | [place] | | | [place], | | | [place] - | | | [email or web address] | | | ollect | | | ivemed | | | icalte | | | [email or web address] | | | | +---+--------+ + +--------+ +---+ + | XR FEMUR LEFT 2+VW | Routin | 12/13/2018 | | Results for this | | | e | 4:40 PM | | procedure are in the | | | | PDT | | results section. | + +--------+ +---+ + | CT HEAD WO CONTRAST | Routin | 12/13/2018 | | Results for this | | | e | 1:40 PM | | procedure are in the | | | | PDT | | results section. | + +--------+ +---+ + | XR TIBIA FIBULA LEFT | Routin | 12/13/2018 | | Results for this | | 2 VW | e | 1:15 PM | | procedure are in the | | | | PDT | | results section. | + +--------+ +---+ + | XR TIBIA FIBULA | Routin | 12/13/2018 | | Results for this | | RIGHT 2 VW | e | 1:10 PM | | procedure are in the | | | | PDT | | results section. | + +--------+ +---+ + | XR FEMUR RIGHT 2+VW | Routin | 12/13/2018 | | Results for this | | | e | 1:05 PM | | procedure are in the | | | | PDT | | results section. | + +--------+ +---+ + | CT PELVIS WO | Routin | 12/13/2018 | | Results for this | | CONTRAST | e | 1:00 PM | | procedure are in the | | | | PDT | | results section. | + +--------+ +---+ + | CT LUMBAR SPINE WO | Routin | 12/13/2018 | | Results for this | | CONTRAST | e | 12:55 PM | | procedure are in the | | | | PDT | | results section. | + +--------+ +---+ + | ECG - EXTERNAL SCAN | | 12/13/2018 | | Results for this | | | | 12:00 AM | | procedure are in the | | | | PDT | | results section. | + +--------+ +---+ + documented in this encounter Results Magnesium (12/16/2018 5:34 AM PDT) + +-------+ + + + | Component | Value | Ref Range | Performed | Pathologist | | | | | At | Signature | + +-------+ + + + | Magnesium | 1.9 | 1.6 - 2.6 mg/dL | [facility] | | | | | [...] | + + + + + | [facility] | [address] | [place] | [phone] | | [facility] | | [address] | | | - LABORATORY | | | | + + + + + CBC with Differential (12/16/2018 5:34 AM PDT) + + + + + + | Component | Value | Ref Range | Performed | Pathologist | | | | | At | Signature | + + + + + + | White Blood | 6.3 | 4.0 - 11.0 K/uL | [facility] | | | Cells | | | [facility] | | | [facility] - | | | | | | LABORATORY | | + + + + + + | Red Blood | 4.20 | 3.70 - 5.20 | [facility] | | | Cells | | M/uL | [facility] | | | | [facility] | [facility] | | | | | | [facility] - | | | | | | LABORATORY | | + + + + + + | Hemoglobin | 12.2 | 11.5 - 16.0 | [facility] | | | | | g/dL | [facility] | | | | | | [facility] | | | | | | C[facility] - | | | | | | LABORATORY | | + + + + + + | Hematocrit | 38.7 | 34.0 - 47.0 % | [facility] | | | | | | [facility] | | | | | | [facility] | | | | | | [facility] - | | | | | | LABORATORY | | + + + + + + | MCV | 92.1 | 83.0 - 101.0 fL | [facility] | | | | | | [facility] | | | | | [facility] | | | | | | [facility] - | | | | | | LABORATORY | | + + + + + + | MCH | 29.0 | 28.0 - 35.0 pg | [facility] | | | | | | [facility] | [facility] | [facility] | | | | | | [facility] - | | | | | | LABORATORY | | + + + + + + | MCHC | 31.5 (L) | 32.0 - 36.0 | [facility] | | | | | g/dL | [facility] | | | | [facility] | [facility] | | | | | | C[facility] - | | | | | | LABORATORY | | + + + + + + | RDW-CV | 13.3 | <15.0 % | [facility] | | | | | [facility] | [facility] | | | | | | [facility] - | | | | | | LABORATORY | | + + + + + + | RDW-SD | 45.3 | 35.1 - 46.3 fL | [facility] | | | | | [facility] | [facility] | | | | | | [facility] - | | | | | | LABORATORY | | + + + + + + | Platelet | 273 | 140 - 440 K/uL | [facility] | | | Count | | | [facility] | | | | [facility] | [facility] | | | | | | C[facility] - | | | | | | LABORATORY | | + + + + + + | MPV | 11.3 | 6.5 - 12.4 fL | [facility] | | | | | | [facility] | | | [facility] | [facility] | | | | | | C[facility] - | | | | | | LABORATORY | | + + + + + + | % | 53.6 | 45.0 - 82.0 % | [facility] | | | Neutrophils | | | [facility] | | | [facility] | [facility] | | | | | | CENTER - | | | | | | LABORATORY | | + + + + + + | % | 33.0 | 20.0 - 45.0 % | [facility] | | | Lymphocytes | | | [facility] | | | [facility] | [facility] | | | | | | CENTER - | | | | | | LABORATORY | | + + + + + + | % Monocytes | 8.5 | 4.0 - 12.0 % | [facility] | | | | | | [facility] | | [facility] | [facility] | | | | | | CENTER - | | | | | | LABORATORY | | + + + + + + | % | 3.6 | 0.0 - 5.0 % | [facility] [...] + + + | % Immature | 0.8 (H)Comment: | 0.0 - 0.4 % | [...] + + + + | Absolute | 3.40 | 1.80 - 8.50 | [facility] | | | Neutrophils | | K/uL | [facility] | | | | | | [facility] | | | | | | CENTER - | | | | | | LABORATORY | | + + + + + + | Absolute | 2.09 | 0.60 - 3.20 | [facility] | | | Lymphocytes | | K/uL | [facility] | | | | | | [facility] | | | | | | CENTER - | | | | | | LABORATORY | | + + + + + + | Absolute | 0.54 | 0.00 - 1.00 | [facility] | | | Monocytes | | K/uL | [facility] | | | | | | [facility] | | | | | | CENTER - | | | | | | LABORATORY | | + + + + + + | Absolute | 0.23 | 0.00 - 0.40 | [facility] | [...] + + + | Absolute | 0.05 (H) | 0.00 - 0.03 | [facility] [...] | nRBC | | K/uL | . [facility] | | | | [...] + | [facility] | [address] | [place] | [phone] | | [facility] | | [address] | | | - LABORATORY | | | | + + + + + Basic Metabolic Panel (12/16/2018 5:34 AM PDT) + + + + + + | Component | Value | Ref Range | Performed | Pathologist | | | | | At | Signature | + + + + + + | Na | 138 | 136 - 145 | [facility] | | | | | mmol/L | [facility] | | [facility] | [facility] | | | | | | CENTER - | | | | | | LABORATORY | | + + + + + + | K | 3.8 | 3.4 - 5.1 | [facility] | | | | | mmol/L | [facility] | | | | | | [facility] | | | | | | CENTER - | | | | | | LABORATORY | | + + + + + + | Cl | 100 | 98 - 107 mmol/L | [facility] | | | | | | [facility] | | [facility] | [facility] | | | | | | CENTER - | | | | | | LABORATORY | | + + + + + + | CO2 | 30 | 20 - 31 mmol/L | [facility] | | | | | | [facility] | | [facility] | [facility] | | | | | | CENTER - | | | | | | LABORATORY | | + + + + + + | Anion Gap | 8 | 3 - 16 mmol/L | [facility] | | | | | | [facility] | [facility] | [facility] | | | | | | CENTER - | | | | | | LABORATORY | | + + + + + + | Glucose | 104 | 60 - 106 mg/dL | [facility] | | | | | | [facility] | | | | | | [facility] | | | | | | CENTER - | | | | | | LABORATORY | | + + + + + + | BUN | 22 | 9 - 23 mg/dL | [facility] | | | | | | [facility] | | | [facility] | | [facility] | | | | | | CENTER - | | | | | | LABORATORY | | + + + + + + | Creatinine | 1.36 (H) | 0.55 - 1.02 | [facility] | | | | | mg/dL | [facility] | | | | | | [facility] | | | | | | CENTER - | | | | | | LABORATORY | | + + + + + + | eGFR, | 40 (L) | >=60 | [facility] | | | non- | | mL/min/1.73m2 | [facility] | | | [place] [facility] | | [facility] | | | | | | C[facility] - | | | | | | LABORATORY | | + + + + + + | Calcium | 9.5 | 8.7 - 10.4 | [facility] | | | | | mg/dL | [facility] | | | [facility] | | [facility] | | | | | | CENTER - | | | | | | LABORATORY | | + + + + + + | BUN/Creatin | 16.2 | | [facility] | | | ine [...] [address] | [place] | [phone] | | [facility] | | [address] | | | - LABORATORY | | | | + + + + + VAS Lower Extremity Venous Bilateral (12/14/2018 2:00 PM PDT) + + | Specimen | + + | | + + + + + | Narrative | Performed At | + + + | BILATERAL LOWER EXTREMITY DUPLEX VENOUS ULTRASOUND 12/14/2018 1:06 PM | [facility] | | CLINICAL HISTORY: significant tenderness posterior bilateral LE | | | and 6 weeks post L4-5 fusion COMPARISON: None FINDINGS: | | | Grayscale, color Doppler and duplex Doppler interrogation of the | | | bilateral lower extremity deep venous systems was performed. The | | | bilateral common femoral, superficial femoral and popliteal veins are | | | patent, with normal phasicity, compressibility and augmentation. | | | The central greater saphenous and profunda femoral veins likewise | | | are patent and unremarkable, along with the posterior tibial veins | | | and right peroneal vein. The left peroneal vein was not identified. | | | IMPRESSION - 1. NO EVIDENCE OF DVT IN THE LOWER | | | EXTREMITIES. Dictated and Signed by: Karsten Mathis MD | | | Electronically signed: 12/14/2018 4:39 PM | | + + + + + | Procedure Note | + + | Amrita, Rad Results In - 12/14/2018 4:42 PM PDT BILATERAL LOWER EXTREMITY DUPLEX VENOUS | | ULTRASOUND 12/14/2018 1:06 PMCLINICAL HISTORY: significant tenderness posterior | | bilateral LE and 6 weekspost L4-5 fusionCOMPARISON: NoneFINDINGS: Grayscale, color | | Doppler and duplex Doppler interrogation of thebilateral lower extremity deep venous | | systems was performed. The bilateralcommon femoral, superficial femoral and popliteal | | veins are patent, with normalphasicity, compressibility and augmentation. The central | | greater saphenous andprofunda femoral veins likewise are patent and unremarkable, along | | with theposterior tibial veins and right peroneal vein. The left peroneal vein was | | notidentified. IMPRESSION -1. NO EVIDENCE OF DVT IN THE LOWER EXTREMITIES.Dictated | | and Signed by: Karsten Mathis MD Electronically signed: 12/14/2018 4:39 PM | |phasicity, compressibility and augmentation. The central greater saphenous and | |profunda femoral veins likewise are patent and unremarkable, along with the | |posterior tibial veins and right peroneal vein. The left peroneal vein was not | |identified. | | | |IMPRESSION - | | | |1. NO EVIDENCE OF DVT IN THE LOWER EXTREMITIES. | | | |Dictated and Signed by: Karsten Mathis MD | | Electronically signed: 12/14/2018 4:39 PM | + + + +---------+ + + | Performing | Address | City/State/Zipcode | Phone Number | | Organization | | | | + +---------+ + + | [facility] | | | | + +---------+ + + CBC no Differential (12/14/2018 4:55 AM PDT) + + + + + + | Component | Value | Ref Range | Performed | Pathologist | | | | | At | Signature | + + + + + + | White Blood | 7.7 | 4.0 - 11.0 K/uL | [facility] | | | Cells | | | [facility] | | | | | | [facility] | | | | | | C[facility] - | | | | | | LABORATORY | | + + + + + + | Red Blood | 4.34 | 3.70 - 5.20 | [facility] | | | Cells | | M/uL | [facility] | | | | | | MEDICAL | | | | | | CENTER - | | | | | | LABORATORY | | + + + + + + | Hemoglobin | 12.5 | 11.5 - 16.0 | [facility] | | | | | g/dL | [facility] | | | | | | [facility] | | | | | | CENTER - | | | | | | LABORATORY | | + + + + + + | Hematocrit | 39.8 | 34.0 - 47.0 % | [facility] | | | | | | [facility] | | | | | | [facility] | | | | | | CENTER - | | | | | | LABORATORY | | + + + + + + | MCV | 91.7 | 83.0 - 101.0 fL | [facility] | | | | | | [facility] | | | | | | [facility] | | | | | | C[facility] - | | | | | | LABORATORY | | + + + + + + | MCH | 28.8 | 28.0 - 35.0 pg | [facility] | | | | | | [facility] | | | [facility] | [facility] | | | | | | CENTER - | | | | | | LABORATORY | | + + + + + + | MCHC | 31.4 (L) | 32.0 - 36.0 | [facility] | | | | | g/dL | [facility] | | | | | | [facility] | | | | | | CENTER - | | | | | | LABORATORY | | + + + + + + | RDW-CV | 13.4 | <15.0 % | [facility] | | | | | | [facility] | | | | [facility] | [facility] | | | | | | CENTER - | | | | | | LABORATORY | | + + + + + + | RDW-SD | 45.3 | 35.1 - 46.3 fL | [facility] | | | | | | [facility] | | | [facility] | [facility] | | | | | | CENTER - | | | | | | LABORATORY | | + + + + + + | Platelet | 275 | 140 - 440 K/uL | [facility] | | | Count | | | [facility] | | | | | | [facility] | | | | | | CENTER - | | | | | | LABORATORY | | + + + + + + | MPV | 11.2 | 6.5 - 12.4 fL | [facility] [...] | | | | WBC's | [facility] | | | | [...] + | [facility] | [address] | [place] | [phone] | | [facility] | | [address] | | | - LABORATORY | | | | + + + + + Basic Metabolic Panel (12/14/2018 4:55 AM PDT) + + + + + + | Component | Value | Ref Range | Performed | Pathologist | | | | | At | Signature | + + + + + + | Na | 137 | 136 - 145 | [facility] | | | | | mmol/L | [facility] | | | | | | [facility] | | | | | | CENTER - | | | | | | LABORATORY | | + + + + + + | K | 4.1 | 3.4 - 5.1 | [facility] | [...] + + | CO2 | 28 | 20 - 31 mmol/L | [facility] | | | | | | [facility] | [facility] | [facility] | | | | | | CENTER - | | | | | | LABORATORY | | + + + + + + | Anion Gap | 8 | 3 - 16 mmol/L | [facility] | | | | | | [facility] | | | [facility] | [facility] | | | | | | CENTER - | | | | | | LABORATORY | | + + + + + + | Glucose | 118 (H) | 60 - 106 mg/dL | [facility] | | | | | | [facility] | | | | | | [facility] | | | | | | CENTER - | | | | | | LABORATORY | | + + + + + + | BUN | 26 (H) | 9 - 23 mg/dL | [facility] | | | | | | [facility] | | | | | | [facility] | | | | | | CENTER - | | | | | | LABORATORY | | + + + + + + | Creatinine | 1.36 (H) | 0.55 - 1.02 | [facility] | | | | | mg/dL | [facility] | | | | | | [facility] | | | | | | CENTER - | | | | | | LABORATORY | | + + + + + + | eGFR, | 40 (L) | >=60 | [facility] | | | non- | | mL/min/1.73m2 | [facility] | | | [place] | | | MEDICAL | | | | | | CENTER - | | | | | | LABORATORY | | + + + + + + | Calcium | 9.3 | 8.7 - 10.4 | [facility] | | | | | mg/dL | [facility] | | | | | | [facility] | | | | | | CENTER - | | | | | | LABORATORY | | + + + + + + | BUN/Creatin | 19.1 | | [facility] | | | ine [...] + + | [facility] | [address] | [place] | [phone] | | [facility] | | [address] | | | - LABORATORY | | | | + + + + + Culture, MRSA (12/13/2018 11:47 PM PDT) + + + + + + | Component | Value | Ref Range | Performed | Pathologist | | | | | At | Signature | + + + + + + | Culture | Negative for MRSA by | | [facility] | | | | chromogenic agar method | | [facility] | | | | | | MEDICAL [...] ST[facility] | [address] | [place] | [phone] | | [facility] | | [address] | | | - LABORATORY | | | | + + + + + MRI Lumbar Spine wo Contrast (12/13/2018 7:05 PM PDT) + + | Specimen | + + | | + + + + + | Narrative | Performed At | + + + | MRI LUMBAR SPINE WITHOUT CONTRAST CLINICAL INFORMATION: | [facility] | | FALL. LEG PAIN. ALTERED MENTAL STATUS. DIZZINESS COMPARISON: XR | | | LUMBAR SPINE 2 OR 3 VW (11/23/2018); MRI LUMBAR SPINE WO CONTRAST | | | (10/18/2017); PROCEDURE: Sagittal T2, axial T2, sagittal T1, axial | | | T1, sagittal STIR sequences. Coronal T1. FINDINGS: Alignment: | | | There is a mild convex left thoracolumbar curvature. There is | | | minimal grade 1 anterolisthesis at L4-5. Vertebrae and vertebral | | | marrow signal: There has been an interbody fusion with bilateral | | | pedicle screw/nupur fixation and laminectomies at L4-5. There is | | | severe discogenic degenerative changes at L5-S1. Conus and imaged | | | portions of the caudal cord: Normal. Lumbar disc levels: At T11-12 | | | there is a small posterior bulge without spinal cord | | | contact/deformity or spinal stenosis. No neural foraminal stenosis. | | | At T12-L1 disc level no significant abnormalities are found. | | | At L1-2 there is a small posterior disc protrusion slightly eccentric | | | towards the right, indenting the ventral thecal sac without evidence | | | of nerve compression or spinal stenosis-unchanged. There is mild to | | | moderate right and mild left neural foraminal narrowing due to a | | | right neural foraminal bulge-unchanged. At L2-3 there is mild | | | retrolisthesis. There is a minimal bulge of the posterior disc | | | annulus without nerve compression or spinal stenosis. There is mild | | | facet spondylosis. There are bilateral neural foraminal bulges | | | causing moderate right and gbqp-[id number]-rdluksyx left neural foraminal | | | narrowing unchanged. At L3-4 there is a small posterior bulge | | | indenting the ventral thecal sac. There is moderate facet | | | spondylosis with ligamentum flavum thickening and dorsal epidural fat | | | which combine to cause moderate narrowing of the spinal canal | | | slightly increased since the previous study. There are bilateral | | | neural foraminal bulges causing moderate neural foraminal narrowing. | | | At L4-5 there has been interbody fusion with bilateral pedicle | | | screw/nupur fixation and interval laminectomies with relief of the | | | spinal stenosis seen on the previous study and resection of the disc | | | extrusion seen on the previous study. There is no significant | | | spinal canal stenosis. The neural foramen are not well seen. At | | | least moderate neural foraminal stenosis is suspected. There is | | | severe facet spondylosis. At L5-S1 there is severe discogenic | | | spondylosis and grade 1 anterolisthesis. There is severe facet | | | spondylosis. There is no significant spinal canal stenosis. | | | Moderate to severe left neural foraminal stenosis is again noted. | | | Paraspinal musculature and paravertebral soft tissues: There edema | | | in the left iliopsoas muscle extending L3 to S2. IMPRESSION- 1. | | | No acute lumbar spine fracture or evidence of traumatic malalignment. | | | 2. Multilevel degenerative disc disease and facet spondylosis as | | | detailed above causing multilevel areas of significant neuroforaminal | | | narrowing. 3.Edema involving the disc space and adjacent vertebral | | | bodies at L4-L5 is thought to be related to history of recent | | | postsurgical changes. No fluid collection or other compelling | | | evidence to convincingly suggest postoperative complication such as | | | infection at this time. A preliminary report was sent without | | | significant discrepancy. Dictated and Signed by: Donis Ocampo | | | Electronically signed: 12/14/2018 8:21 AM | | + + + + + | Procedure Note | + + | Amrita, Rad Results In - 12/14/2018 8:24 AM PDT | | MRI LUMBAR SPINE WITHOUT CONTRAST | | | | CLINICAL INFORMATION: | | FALL. LEG PAIN. ALTERED MENTAL STATUS. DIZZINESS | | | | COMPARISON: | | XR LUMBAR SPINE 2 OR 3 VW (11/23/2018); MRI LUMBAR SPINE WO CONTRAST | | (10/18/2017); | | | | PROCEDURE: | | Sagittal T2, axial T2, sagittal T1, axial T1, sagittal STIR sequences. | | Coronal T1. | | | | FINDINGS: | | Alignment: There is a mild convex left thoracolumbar curvature. There | | is minimal grade 1 anterolisthesis at L4-5. | | | | Vertebrae and vertebral marrow signal: There has been an interbody | | fusion with bilateral pedicle screw/nupur fixation and laminectomies at | | L4-5. There is severe discogenic degenerative changes at L5-S1. | | | | Conus and imaged portions of the caudal cord: Normal. | | | | Lumbar disc levels: At T11-12 there is a small posterior bulge without | | spinal cord contact/deformity or spinal stenosis. No neural foraminal | | stenosis. | | | | At T12-L1 disc level no significant abnormalities are found. | | | | At L1-2 there is a small posterior disc protrusion slightly eccentric | | towards the right, indenting the ventral thecal sac without evidence of | | nerve compression or spinal stenosis-unchanged. There is mild to | | moderate right and mild left neural foraminal narrowing due to a right | | neural foraminal bulge-unchanged. | | | | At L2-3 there is mild retrolisthesis. There is a minimal bulge of the | | posterior disc annulus without nerve compression or spinal stenosis. | | There is mild facet spondylosis. There are bilateral neural foraminal | | bulges causing moderate right and [id number] left neural | | foraminal narrowing unchanged. | | | | At L3-4 there is a small posterior bulge indenting the ventral thecal | | sac. There is moderate facet spondylosis with ligamentum flavum | | thickening and dorsal epidural fat which combine to cause moderate | | narrowing of the spinal canal slightly increased since the previous | | study. There are bilateral neural foraminal bulges causing moderate | | neural foraminal narrowing. | | | | At L4-5 there has been interbody fusion with bilateral pedicle | | screw/nupur fixation and interval laminectomies with relief of the spinal | | stenosis seen on the previous study and resection of the disc extrusion | | seen on the previous study. There is no significant spinal canal | | stenosis. The neural foramen are not well seen. At least moderate | | neural foraminal stenosis is suspected. There is severe facet | | spondylosis. | | | | At L5-S1 there is severe discogenic spondylosis and grade 1 | | anterolisthesis. There is severe facet spondylosis. There is no | | significant spinal canal stenosis. Moderate to severe left neural | | foraminal stenosis is again noted. | | | | Paraspinal musculature and paravertebral soft tissues: There edema in | | the left iliopsoas muscle extending L3 to S2. | | | | IMPRESSION- | | 1. No acute lumbar spine fracture or evidence of traumatic malalignment. | | 2. Multilevel degenerative disc disease and facet spondylosis as detailed above | | causing multilevel areas of significant neuroforaminal narrowing. | | 3.Edema involving the disc space and adjacent vertebral bodies at L4-L5 is | | thought to be related to history of recent postsurgical changes. No fluid | | collection or other compelling evidence to convincingly suggest postoperative | | complication such as infection at this time. | | | | | | A preliminary report was sent without significant discrepancy. | | | | Dictated and Signed by: Donis Ocampo MD | | Electronically signed: 12/14/2018 8:21 AM | + + + +---------+ + + | Performing | Address | City/State/Zipcode | Phone Number | | Organization | | | | + +---------+ + + | [facility] | | | | + +---------+ + + Extra Blue Top Tube (12/13/2018 5:52 PM PDT) + +-------+ + + + [...] ST. | [address] | [place], [place] | [phone] | | [facility] | | [address] | | | - LABORATORY | | | | + + + + + Comprehensive Metabolic Panel (12/13/2018 5:52 PM PDT) + + + + + + | Component | Value | Ref Range | Performed | Pathologist | | | | | At | Signature | + + + + + + | Na | 138 | 136 - 145 | [facility] | | | | | mmol/L | [facility] | | [facility] | | | | | [facility] C[facility] - | | | | | | LABORATORY | | + + + + + + | K | 4.3 | 3.4 - 5.1 | [facility] | | | | | mmol/L | [facility] | | [facility] | [facility] | | | | | | CENTER - | | | | | | LABORATORY | | + + + + + + | Cl | 103 | 98 - 107 mmol/L | [facility] | | | | | | [facility] | [facility] | [facility] | | | | | | CENTER - | | | | | | LABORATORY | | + + + + + + | CO2 | 27 | 20 - 31 mmol/L | [facility] | | | | | | [facility] | [facility] | [facility] | | | | | | CENTER - | | | | | | LABORATORY | | + + + + + + | Anion Gap | 8 | 3 - 16 mmol/L | [facility] | | | | | | [facility] | | | [facility] | | [facility] | | | | | | CENTER - | | | | | | LABORATORY | | + + + + + + | Glucose | 79 | 60 - 106 mg/dL | [facility] | | | | | | [facility] | | | | | | MEDICAL | | | | | | CENTER - | | | | | | LABORATORY | | + + + + + + | BUN | 23 | 9 - 23 mg/dL | [facility] | | | | | | [facility] | | | | | | MEDICAL | | | | | | CENTER - | | | | | | LABORATORY | | + + + + + + | Creatinine | 1.35 (H) | 0.55 - 1.02 | [facility] | | | | | mg/dL | [facility] | | | | | | MEDICAL | | | | | | CENTER - | | | | | | LABORATORY | | + + + + + + | eGFR, | 40 (L) | >=60 | [facility] | | | non- | | mL/min/1.73m2 | [facility] | | | [place] | | | MEDICAL | | | | | | CENTER - | | | | | | LABORATORY | | + + + + + + | Calcium | 9.2 | 8.7 - 10.4 | [facility] | | | | | mg/dL | [facility] | | | | | | [facility] | | | | | | CENTER - | | | | | | LABORATORY | | + + + + + + | Albumin | 4.1 | 3.2 - 4.8 g/dL | [facility] | | | | | | [facility] | | | | | [facility] | | | | | | CENTER - | | | | | | LABORATORY | | + + + + + + | Bilirubin | 0.2 (L) | 0.3 - 1.2 mg/dL | [facility] [...] + + + + | AST | 20 | 0 - 34 U/L | [facility] [...] + + + + | Alkaline | 118 (H) | 46 - 116 U/L | [facility] | | | Phosphatase | | | [facility] | [facility] | [facility] | | | | | | CENTER - | | | | | | LABORATORY | | + + + + + + | Globulin | 2.4 | 2.1 - 3.8 g/dL | [facility] | | | | | | [facility] | | | | | | [facility]ICAL | | | | | | CENTER - | | | | | | LABORATORY | | + + + + + + | Albumin/Lori | 1.7 | 0.8 - 1.9 | [facility] | | | bulin Ratio | | | [facility] | | | | | | MEDICAL | | | | | | CENTER - | | | | | | LABORATORY | | + + + + + + | BUN/Creatin | 17.0 | | [facility] | | | ine [...] ST. | [address] | [place] | [phone] | | [facility] | | [address] | | | - LABORATORY | | | | + + + + + CBC with Differential (12/13/2018 5:52 PM PDT) + + + + + + | Component | Value | Ref Range | Performed | Pathologist | | | | | At | Signature | + + + + + + | White Blood | 8.5 | 4.0 - 11.0 K/uL | [facility] | | | Cells | | | [facility] | | | | | | MEDICAL | | | | | | CENTER - | | | | | | LABORATORY | | + + + + + + | Red Blood | 4.63 | 3.70 - 5.20 | [facility] | | | Cells | | M/uL | [facility] | | | | | | MEDICAL | | | | | | CENTER - | | | | | | LABORATORY | | + + + + + + | Hemoglobin | 13.3 | 11.5 - 16.0 | [facility] | | | | | g/dL | [facility] | | [facility] | | | MEDICAL | | | | | | CENTER - | | | | | | LABORATORY | | + + + + + + | Hematocrit | 42.5 | 34.0 - 47.0 % | [facility] | | | | | | [facility] | | | [facility] | [facility]ICAL | | | | | | CENTER - | | | | | | LABORATORY | | + + + + + + | MCV | 91.8 | 83.0 - 101.0 fL | [facility] | | | | | | [facility] | [facility] | [facility] | | | | | | CENTER - | | | | | | LABORATORY | | + + + + + + | MCH | 28.7 | 28.0 - 35.0 pg | [facility] | | | | | | [facility] | | | | | | MEDICAL | | | | | | CENTER - | | | | | | LABORATORY | | + + + + + + | MCHC | 31.3 (L) | 32.0 - 36.0 | [facility] | | | | | g/dL | [facility] | | | | | | MEDICAL | | | | | | CENTER - | | | | | | LABORATORY | | + + + + + + | RDW-CV | 13.4 | <15.0 % | [facility] | | [...] + + + + | Platelet | 282 | 140 - 440 K/uL | [facility] | | | Count | | | [facility] | | | | | | MEDICAL | | | | | | CENTER - | | | | | | LABORATORY | | + + + + + + | MPV | 10.9 | 6.5 - 12.4 fL | [facility] | | | | | | [facility] | | | [facility] | [facility] | | | | | | CENTER - | | | | | | LABORATORY | | + + + + + + | % | 62.3 | 45.0 - 82.0 % | [facility] | | | Neutrophils | | | [facility] | | | | | | MEDICAL | | | | | | CENTER - | | | | | | LABORATORY | | + + + + + + | % | 28.1 | 20.0 - 45.0 % | [facility] | | | Lymphocytes | | | [facility] | | | | | | MEDICAL | | | | | | CENTER - | | | | | | LABORATORY | | + + + + + + | % Monocytes | 7.3 | 4.0 - 12.0 % | [facility] | | | | | | [facility] | | | | | | [facility]ICAL | | | | | | CENTER - | | | | | | LABORATORY | | + + + + + + | % | 1.3 | 0.0 - 5.0 % | [facility] | | | Eosinophils | | | [facility] | | | | | | MEDICAL | | | | | | CENTER - | | | | | | LABORATORY | | + + + + + + | % Basophils | 0.4 | 0.0 - 1.0 % | [facility] | | | | | | [facility] | | | | | | MEDICAL | | | | | | CENTER - | | | | | | LABORATORY | | + + + + + + | % Immature | 0.6 (H)Comment: | 0.0 - 0.4 % | [facility] | | | Granulocyte | Preliminary studIes have | | [facility] | | | s | indicated the IG% | | MEDICAL | | | | and/or IG# show promise | | CENTER - | | | | as an early screen for | | LABORATORY | | | | infection. | | | | + + + + + + | Absolute | 5.32 | 1.80 - 8.50 | [facility] | | | Neutrophils | | K/uL | [facility] | | | | | | MEDICAL | | | | | | CENTER - | | | | | | LABORATORY | | + + + + + + | Absolute | 2.40 | 0.60 - 3.20 | [facility] | | | Lymphocytes | | K/uL | [facility] | | | | | | MEDICAL | | | | | | CENTER - | | | | | | LABORATORY | | + + + + + + | Absolute | 0.62 | 0.00 - 1.00 | [facility] | | | Monocytes | | K/uL | [facility] | | | | | | MEDICAL | | | | | | CENTER - | | | | | | LABORATORY | | + + + + + + | Absolute | 0.11 | 0.00 - 0.40 | [facility] | | | Eosinophils | | K/uL | [facility] | [...] + + + | Absolute | 0.05 (H) | 0.00 - 0.03 | [facility] [...] | | | | WBC's | [facility] | | | | | | MEDICAL | | | | | | CENTER - | | | | | | LABORATORY | | + + + + + + | Absolute | 0.00 | 0.00 - 0.01 | [facility] | | | nRBC | | K/uL | NAT | | | | | [...] [address] | [place] | [phone] | | [facility] | | [address] | | | - LABORATORY | | | | + + + + + XR Femur Left 2+Vw (12/13/2018 4:40 PM [...] | | | + +---------+ + + CT Head wo Contrast (12/13/2018 1:40 PM [...] | | + +---------+ + + XR Tibia Fibula Left 2 Vw (12/13/2018 1:15 PM PDT) + + | Specimen | [...] | | + +---------+ + + XR Tibia Paul Right 2 Vw (12/13/2018 1:10 PM PDT) [...] | | + +---------+ + + XR Femur Right 2+Vw (12/13/2018 1:05 PM [...] | | | + +---------+ + + CT Pelvis wo Contrast (12/13/2018 1:00 PM [...] | | | + +---------+ + + CT Lumbar Spine wo Contrast (12/13/2018 12:55 [...] | | | + +---------+ + + ECG - EXTERNAL SCAN (12/13/2018 12:00 AM PDT) + + + | Narrative | Performed At | + + + | Ordered by an | | | unspecified provider. | | + + + documented in this encounter Visit Diagnoses + + | Diagnosis | + + | Weakness - Primary Other malaise and fatigue | + + | Back pain, unspecified back location, unspecified back pain laterality, unspecified | | chronicity | + + | Foraminal stenosis of lumbar region Spinal stenosis, lumbar region, without | | neurogenic claudication | + + | Spinal stenosis of lumbar region with neurogenic claudication Spinal stenosis, lumbar | | region, with neurogenic claudication | + + | Physical deconditioning Debility, unspecified | + + documented in this encounter Administered Medications + +--------+ +-------+------+------+ | Medication Order | MAR | Action | Dose | Rate | Site | | | Action | Date | | | | + +--------+ +-------+------+------+ | ARIPiprazole (ABILIFY) tablet | Given | 12/17/19 | 10 mg | | | | 10 mg 10 mg, Oral, DAILY, First | | 19 10:05 | | | | | dose (after last modification) on | | AM PDT | | | | | 12/16/18 at 0900 | | | | | | + +--------+ +-------+------+------+ +---+---+ | | | +---+---+ + +-------+ +-------+---+---+ | ARIPiprazole (ABILIFY) tablet | Given | 12/16/19 | 20 mg | | | | 20 mg 20 mg, Oral, DAILY, First | | 19 8:31 | | | | | dose on 12/14/18 at 0900 | | AM PDT | | | | + +-------+ +-------+---+---+ +-------+ +-------+---+---+ | Given | 12/15/19 | 20 mg | | | | | 19 8:26 | | | | | | AM PDT | | | | +-------+ +-------+---+---+ +---+---+ | | | +---+---+ + +-------+ +------+---+---+ | bumetanide (BUMEX) tablet 1 mg | Given | 12/15/19 | 1 mg | | | | 1 mg, Oral, 2 TIMES DAILY, First | | 19 12:14 | | | | | dose on 12/14/18 at 0015 | | AM PDT | | | | + +-------+ +------+---+---+ +---+---+ | | | +---+---+ + +-------+ + +---+---+ | divalproex (DEPAKOTE) DR tablet | Given | 12/16/19 | 1,000 mg | | | | 1,000 mg 1,000 mg, Oral, | | 19 8:49 | | | | | NIGHTLY, First dose on Mon | | PM PDT | | | | | 12/14/18 at 0015, Hazardous: Use | | | | | | | appropriate handling precautions. | | | | | | | Do not cut or crush., | | | | | | + +-------+ + +---+---+ +-------+ + +---+---+ | Given | 12/15/19 | 1,000 mg | | | | | 19 8:43 | | | | | | PM PDT | | | | +-------+ + +---+---+ | Given | 12/15/19 | 1,000 mg | | | | | 19 12:15 | | | | | | AM PDT | | | | +-------+ + +---+---+ +---+---+ | | | +---+---+ + +-------+ +--------+---+---+ | divalproex (DEPAKOTE) DR tablet | Given | 12/16/19 | 250 mg | | | | 250 mg 250 mg, Oral, NIGHTLY, | | 19 8:49 | | | | | First dose on 12/14/18 at | | PM PDT | | | | | 0015, Hazardous: Use appropriate | | | | | | | handling precautions. Do not cut | | | | | | | or crush., | | | | | | + +-------+ +--------+---+---+ +-------+ +--------+---+---+ | Given | 12/15/19 | 250 mg | | | | | 19 8:44 | | | | | | PM PDT | | | | +-------+ +--------+---+---+ | Given | 12/15/19 | 250 mg | | | | | 19 12:14 | | | | | | AM PDT | | | | +-------+ +--------+---+---+ +---+---+ | | | +---+---+ + +-------+ +-------+---+ + | enoxaparin (LOVENOX) 40 mg/0.4 | Given | 12/17/19 | 40 mg | | Abdomen- | | mL injection 40 mg 40 mg, | | 19 10:02 | | | RLQ | | Subcutaneous, EVERY 24 HOURS | | AM PDT | | | | | (Daily), First dose on Mon | | | | | | | 12/14/18 at 0900 | | | | | | + +-------+ +-------+---+ + +-------+ +-------+---+ + | Given | 12/16/19 | 40 mg | | Abdomen- | | | 19 8:30 | | | LLQ | | | AM PDT | | | | +-------+ +-------+---+ + | Given | 12/15/19 | 40 mg | | Abdomen- | | | 19 8:31 | | | LLQ | | | AM PDT | | | | +-------+ +-------+---+ + +---+---+ | | | +---+---+ + +-------+ +------+---+---+ | escitalopram (LEXAPRO) tablet 5 | Given | 12/17/19 | 5 mg | | | | mg 5 mg, Oral, DAILY, First | | 19 10:04 | | | | | dose on 12/14/18 at 0900 | | AM PDT | | | | + +-------+ +------+---+---+ +-------+ +------+---+---+ | Given | 12/16/19 | 5 mg | | | | | 19 8:31 | | | | | | AM PDT | | | | +-------+ +------+---+---+ | Given | 12/15/19 | 5 mg | | | | | 19 8:26 | | | | | | AM PDT | | | | +-------+ +------+---+---+ +---+---+ | | | +---+---+ + +-------+ +-------+---+---+ | furosemide (LASIX) tablet 20 mg | Given | 12/17/19 | 20 mg | | | | 20 mg, Oral, DAILY, First dose | | 19 10:04 | | | | | on 12/14/18 at 0900 | | AM PDT | | | | + +-------+ +-------+---+---+ +-------+ +-------+---+---+ | Given | 12/16/19 | 20 mg | | | | | 19 8:33 | | | | | | AM PDT | | | | +-------+ +-------+---+---+ | Given | 12/15/19 | 20 mg | | | | | 19 8:26 | | | | | | AM PDT | | | | +-------+ +-------+---+---+ +---+---+ | | | +---+---+ + +-------+ +--------+---+---+ | gabapentin (NEURONTIN) capsule | Given | 12/17/19 | 600 mg | | | | 600 mg 600 mg, Oral, 3 TIMES | | 19 10:03 | | | | | DAILY, First dose on 12/14/18 | | AM PDT | | | | | at 0900 | | | | | | + +-------+ +--------+---+---+ +-------+ +--------+---+---+ | Given | 12/16/19 | 600 mg | | | | | 19 5:17 | | | | | | PM PDT | | | | +-------+ +--------+---+---+ | Given | 12/16/19 | 600 mg | | | | | 19 8:32 | | | | | | AM PDT | | | | +-------+ +--------+---+---+ + +---+ | | | + +---+ | gabapentin (NEURONTIN) capsule | | | 600 mg 600 mg, Oral, 2 TIMES | | | DAILY, First dose (after last | | | modification) on Fri12/16/18 at | | | 2100 | | + +---+ | | | + +---+ + +-------+ + +---+---+ | HYDROcodone-acetaminophen | Given | 12/17/19 | 1 tablet | | | | (NORCO) 10-325 mg per tablet 1-2 | | 19 6:02 | | | | | tablet 1-2 tablet, Oral, EVERY 4 | | AM PDT | | | | | HOURS PRN, Pain, Starting Sun | | | | | | | 12/13/18 at 2346 | | | | | | + +-------+ + +---+---+ +-------+ + +---+---+ | Given | 12/16/19 | 1 tablet | | | | | 19 5:22 | | | | | | PM PDT | | | | +-------+ + +---+---+ | Given | 12/16/19 | 1 tablet | | | | | 19 10:37 | | | | | | AM PDT | | | | +-------+ + +---+---+ +---+---+ | | | +---+---+ + +-------+ +--------+---+---+ | LORazepam (ATIVAN) tablet 0.5 | Given | 12/16/19 | 0.5 mg | | | | mg 0.5 mg, Oral, EVERY 6 HOURS | | 19 5:22 | | | | | PRN, Anxiety, Starting Sun | | PM PDT | | | | | 12/13/18 at 2346 | | | | | | + +-------+ +--------+---+---+ +---+---+ | | | +---+---+ + +-------+ +---+---+---+ | nystatin (MYCOSTATIN) powder | Given | 12/17/19 | | | | | Topical, 2 TIMES DAILY, First | | 19 10:08 | | | | | dose on 12/14/18 at 0900, | | AM PDT | | | | | Sprinkle powder on affected | | | | | | | area., | | | | | | + +-------+ +---+---+---+ +-------+ +---+---+---+ | Given | 12/16/19 | | | | | | 19 8:54 | | | | | | PM PDT | | | | +-------+ +---+---+---+ | Given | 12/16/19 | | | | | | 19 9:29 | | | | | | AM PDT | | | | +-------+ +---+---+---+ +---+---+ | | | +---+---+ + +-------+ +-------+---+---+ | pantoprazole (PROTONIX) DR | Given | 12/17/19 | 40 mg | | | | tablet 40 mg 40 mg, Oral, 2 | | 19 6:00 | | | | | TIMES DAILY BEFORE MEALS, First | | AM PDT | | | | | dose on 12/14/18 at 0730, | | | | | | | Indication: GERD | | | | | | + +-------+ +-------+---+---+ +-------+ +-------+---+---+ | Given | 12/16/19 | 40 mg | | | | | 19 5:17 | | | | | | PM PDT | | | | +-------+ +-------+---+---+ | Given | 12/16/19 | 40 mg | | | | | 19 6:25 | | | | | | AM PDT | | | | +-------+ +-------+---+---+ +---+---+ | | | +---+---+ + +-------+ +--------+---+---+ | QUEtiapine (SEROquel) tablet | Given | 12/16/19 | 100 mg | | | | 100 mg 100 mg, Oral, NIGHTLY, | | 19 8:48 | | | | | First dose on Fri12/14/18 at 0015 | | PM PDT | | | | + +-------+ +--------+---+---+ +-------+ +--------+---+---+ | Given | 12/15/19 | 100 mg | | | | | 19 8:41 | | | | | | PM PDT | | | | +-------+ +--------+---+---+ | Given | 12/15/19 | 100 mg | | | | | 19 12:14 | | | | | | AM PDT | | | | +-------+ +--------+---+---+ +---+---+ | | | +---+---+ + +-------+ +-------+---+---+ | spironolactone (ALDACTONE) | Given | 12/17/19 | 50 mg | | | | tablet 50 mg 50 mg, Oral, 2 | | 19 10:03 | | | | | TIMES DAILY, First dose on Mon | | AM PDT | | | | | 12/14/18 at 0900, Hazardous: Use | | | | | | | appropriate handling | | | | | | | precautions., | | | | | | + +-------+ +-------+---+---+ +-------+ +-------+---+---+ | Given | 12/16/19 | 50 mg | | | | | 19 8:48 | | | | | | PM PDT | | | | +-------+ +-------+---+---+ | Given | 12/16/19 | 50 mg | | | | | 19 8:32 | | | | | | AM PDT | | | | +-------+ +-------+---+---+ +---+---+ | | | +---+---+ documented in this encounter
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
--- OUTSIDE RECORDS SUMMARY | ~2020-07-18 | XMS | Encounter Summary ---
Demographics + + + | Address | [address] | | | [place] [address] | + + + | Home Phone [...] | Organization | [facility] | | | and [place] [...] Team Providers + +------+ + | Care Tool Repair Technician Name | Role | Phone | [...] + + | 02/18/ | Telephone | [facility] | Arpit Bolden, | Neurosurgery | | 2017 | | NEUROSURGERY [address] | DO [address] | Appointment ([place]uan | | | | [address] | [address] [place], [place] | Cancel from 02/24); | | | | [place] | [phone] | Neurosurgery | | | | [address] | | Appointment | | | | [phone] | | | +--------+ + + + [...] Notes: L4-L5 OLIF/PSF Referral routed to: Neurosurgery front desk clerk staff elephone Encounter - Alix Crowley - [...]
--- OUTSIDE RECORDS SUMMARY | ~2020-07-18 | XMS | Encounter Summary ---
Demographics + + + | Address | [address] | | | [place] [address] | + + + | Home Phone [...] + + + | Author | [facility] | | | and [place] | + + + | Organization | [facility] | | | and [place] | [...] Team Providers + +------+ + | Care Laundry Helper Name | Role | Phone | [...] | | | [address] | [place] [address] | | | | | [place], [place] | | | | | | [address] | | | | | | [phone] | | | +--------+ + + + [...]
--- OUTSIDE RECORDS SUMMARY | ~2020-07-18 | XMS | Encounter Summary ---
Demographics + + + | Address | [address] | | | [place] [address] | + + + | Home Phone [...] + + + | Author | [facility] | | | and [place] | + + + | Organization | [facility] | | | and [place] | [...] Team Providers + +------+ + | Care Search Advertising Strategist Name | Role | Phone | + +------+ + | Gage De Jesus DO | PCP | | + +------+ + Encounter Details +--------+ + + + + | Date | Type | Department | Care Team | Description | +--------+ + + + + | 04/08/ | Orders Only | [facility] | Conversion | | | 2016 | | NEPRHOLOGY [facility] | Transaction, | | | | | [address] | Provider Unknown | | | | | [address] [place], [place] | [phone] | | | | | [address] | | | | | | [phone] | | | +--------+ + + + [...] | | | LAB | | | Bangladeshi | | | | | + + [...]
--- OUTSIDE RECORDS SUMMARY | ~2020-07-18 | XMS | Encounter Summary ---
Demographics + + + | Address | [address] | | | [place] [address] | + + + | Home Phone [...] | Organization | [facility] | | | and [place] [...] Team Providers + +------+ + | Care Ophthalmologist Retina Specialist Name | Role | Phone | [...] | | | IMAGING [address] [place] | | | | | [address] | [place] [address] | | | | | [facility] [place] [address] | | | | | | [phone] | | | +--------+ + + + [...]
--- OUTSIDE RECORDS SUMMARY | ~2020-07-18 | XMS | Encounter Summary ---
Demographics + + + | Address | [address] | | | [place] [address] | + + + | Home Phone [...] + | Author | [facility] | | | and [place] | + + + | Organization | [facility] | [...] Team Providers + +------+ + | Care Tractor Trailer Technician Name | Role | Phone | [...] | | | [address] | [place] [address] | | | | | [place] [address] | | | | | | [phone] | | | +--------+ + + + [...] for comparison only - no result from [place]. | [facility] | + + + + +---------+ + + | Performing | Address | City/State/Zipcode | Phone Number | | Organization | | | | + +---------+ + + | [facility] | | | | + +---------+ + + documented in this encounter Visit Diagnoses Not on filedocumented in this encounter"
--- OUTSIDE RECORDS SUMMARY | ~2020-07-18 | XMS | Encounter Summary ---
Demographics + + + | Address | [address] | | | [place] [address] | + + + | Home Phone | | + + + | Preferred Language | Unknown | + + + | Marital Status | | + + + | Jewish Affiliation | 1028 | + + + | Race | White | + + + | Ethnic Group | Not or | + + + Author + + + | Author | [facility] | | | and [place] | + + + | Organization | [facility] | | | and [place] [...] Team Providers + +------+ + | Care Adult Secondary Education Instructor Name | Role | Phone | + +------+ + | Gage De Jesus DO | PCP | | + +------+ + Encounter Details +--------+ + + + + | Date | Type | Department | Care Team | Description | +--------+ + + + + | 05/28/ | Hospital | [facility] | Jasbir Reeder Marcos, | History of lumbar | | 2019 | Encounter | MED CTR XRAY [address] | PA-C [address] | fusion; Bilateral | | | | [place] | [address] [place] | leg weakness; | | | | [place] [address] | [place] [address] | Bilateral leg pain | | | | [phone] | [phone] | | | | | | | [...] | 0 | 05/20/20 | | | ohfhawck-jdyeuuehx-q | | | | 18 | 0 | | ydrocortisone | | | | | | | (CORTISPORIN) | | | | | | | 3.5-97988-1 otic | | | | | | [...]
--- OUTSIDE RECORDS SUMMARY | ~2020-07-18 | XMS | Encounter Summary ---
Demographics + + + | Address | [address] | | | [place] [address] | + + + | Home Phone [...] + | Organization | [facility] | | | and [place] [...] Team Providers + +------+ + | Care Hvac Installation Technician Name | Role | Phone | [...] | | | IMAGING [address] | [place] | | | | | [address] [place] | [place] [address] | | | | | [facility] [place] [address] | | | | | | [phone] | | | +--------+ + + + [...]
--- OUTSIDE RECORDS SUMMARY | ~2020-07-18 | XMS | Encounter Summary ---
Demographics + + + | Address | [address] | | | [place] [address] | + + + | Home Phone | | + + + | Preferred Language | Unknown | + + + | Marital Status | | + + + | Jainism Affiliation | 1028 | + + + | Race | White | + + + | Ethnic Group | Not or | + + + Author + + + | Author | [facility] | | | and [place] | + + + | Organization | [facility] [...] Team Providers + +------+ + | Care Elementary Ell Teacher Name | Role | Phone | [...] | | [address] | [place] [address] | | | | | [place] | [phone] | | | | | [address] | | | | | | [phone] | | | +--------+ + + + [...]
--- OUTSIDE RECORDS SUMMARY | ~2020-07-18 | XMS | Encounter Summary ---
Demographics + + + | Address | [address] | | | [place] [address] | + + + | Home Phone [...] + | Organization | [facility] Man [...] Team Providers + +------+ + | Care Systems Program Manager Name | Role | Phone | + +------+ + | Gage De Jesus DO | PCP | | + +------+ + Reason for Visit + + + | Reason | Comments | + + + | Pain Management | | + + + Encounter Details +--------+ + + + + | Date | Type | Department | Care Team | Description | +--------+ + + + + | 10/14/ | Documentati | [facility] | Syed Owens MD | Pain Management | | 2019 | on | NEUROSURGERY [address] | [address] | | | | | [address] | [place] [address] | | | | | [place] | [phone] | | | | | [address] | | | | | | [phone] | | | +--------+ + + + [...] documented as of this encounter Progress Notes Wanda Jose RN - 10/14/2018 10:58 AM PSTWA & [place] CRATE REPAIRER checked r/t 10/26/18 L4-5 LAIF W/P SF & LAMI Preop MEDD= 10 mg [place] PDMP: [place] CRATE REPAIRER: (no data available) Ti De Leon Medic al Skein Washer - 10/14/2018 10:58 AM PSTFormatting of this note might be different from the or iginal. Outpatient Morphine Equivalent Daily Dose (MEDD) 10/14/18 and after 20 mg MEDD Order Name Dose Route Frequency Maximum MEDD HYDROcodone-acetaminophen (NORCO) 5-325 mg per tablet 1 tablet Oral EVERY 6 HOURS PRN 20 mg MEDD Total Potential Daily Morphine Equivalence 20 mg MEDD Calculation Information HYDROcodone-acetaminophen (NORCO) 5-325 mg per tablet HYDROcodone-acetaminophen 5-325 mg Tabs: single dose of 5 mg of opioid * 4 doses per day * morphine equivalence factor of 1 = 20 mg MEDD Opioid Risk Tool (ORT): Total Score 3 (10/14/18 1100) (0 to 3 = Low risk: 6% chance of developing problematic behaviors, 4 to 7 = Moderate risk: 28% chance of developing problematic behaviors, 8 or more = High risk: 90% chance of develop ing problematic behaviors.) PEG Pain screening tool (Pain, enjoyment, general activity) Total score: 6.33 ( 9 1100) PHQ9 Depression scale: Date of Last Screening Total Score 14 (10/14/18 1059) (1-4 = Minimal depression, 5-9 = Mild depression, 10-14 = Moderate depression, 15-19 = Mode rately severe depression, 20-27 = Severe depression) General Anxiety Disorder (RYLEY-7): Total Score 12 (10/14/18 1059) (8-9 = consistent with Generalized anxiety disorder, >15 = severe) The following information was obtained from https://Cimetrix.Fancredaware.net/login on 10/14/18. The following information was obtained from https://secureaccess.[place].gov/myAccess/saw/select .do on 10/14/18. [place] CRATE REPAIRER was checked on 10/14/18 and no medications have been dispensed. document ed in this encounter Plan of Treatment Not on filedocumented as of this encounter Visit Diagnoses Not on filedocumented in this encounter"
--- OUTSIDE RECORDS SUMMARY | ~2020-07-18 | XMS | Encounter Summary ---
Demographics + + + | Address | [address] | | | [place] [address] | + + + | Home Phone | | + + + | Preferred Language | Unknown | + + + | Marital Status | | + + + | Judaism Affiliation | 1028 | + + + | Race | White | + + + | Ethnic Group | Not or | + + + Author + + + | Author | [facility] | | | and [place] | + + + | Organization | [facility] | | [...] Team Providers + +------+ + | Care Weapons Electrical Engineering Officer Name | Role | Phone | + +------+ + | Gage De Jesus DO | PCP | | + +------+ + Encounter Details +--------+ + + + + | Date | Type | Department | Care Team | Description | +--------+ + + + + | 11/23/ | Hospital | [facility] | Syed Owens MD | Status post lumbar | | 2019 | Encounter | MED CTR XRAY [address] | [address] | spinal fusion; | | | | [place] | [place] [address] | Spondylolisthesis of | | | | [place] [address] | [phone] | lumbar region | | | | [phone] | | | +--------+ + + + [...] | 0 | 05/20/20 | | | ngtxplbf-eheqgwtxv-k | | | | 18 | 0 | | ydrocortisone | | | | | | | (CORTISPORIN) | | | | | | | 3.5-38949-0 otic | | | | | | [...]
--- OUTSIDE RECORDS SUMMARY | ~2020-07-18 | XMS | Encounter Summary ---
Demographics + + + | Address | [address] | | | [place] [address] | + + + | Home Phone | | + + + | Preferred Language | Unknown | + + + | Marital Status | | + + + | Adventism Affiliation | 1028 | + + + | Race | White | + + + | Ethnic Group | Not or | + + + Author + + + | Author | [facility] | | | and [place] | + + + | Organization | [facility] | | | and [...] Team Providers + +------+ + | Care Terminal Computer Operator Name | Role | Phone | [...] 2014 | | [address] | SNOWSPORT INSTRUCTOR [address] | | | | | [place], [place] | [place] | | | | | [address] | [place], [place] | | | | | [phone] | [address] | | | | | | [phone] | | | | | | | [...] | | | | | Blvd;[place] [address] | | | | + + + [...] | | at Ratio | performed at [facility] | | LAB | | | | [address] | | | | | | Tiffanie;[place] [address] | | | | + + + [...] | | | Urine | performed at [facility];[address] | | LAB | | | | [place] | | | | | | [address];[place] [address] | | | | + + + [...] | | | Urine | performed at [facility];[address] | | LAB | | | | [place] | | | | | | Blvd;[place] [address] | | | | + + + [...] | | | | | | at [facility];[address] [facility] | | | | | | [facility];[place], [place] | | | | | | [address] | | | | + + + [...] LAB | | | | [address];[place] [address] | | | | + + + [...] EXTERNAL | | | | performed at [facility];[address] | | LAB | | | | [address] | | | | | | Blvd;[place] [address] | | | | + + + [...] EXTERNAL | | | | performed at [facility];[address] | | LAB | | | | [place] | | | | | | Blvd;[place] [address] | | | | + + + [...] | | | | | | at [facility];[address] [facility] | | | | | | vd;[place], [place] | | | | | | [address] | | | | + + + [...] - 1.030 | EXTERNAL | | | [place], | | | LAB | | | [...] | | | | | performed at [facility];[address] | | | | | | [place] | | | | | | Blvd;[place] [address] | | | | | | | [...] COLIAbnormal | | | Testing performed at [facility];[address] [facility];[place], [place] | | | [address] Suscepibility for - ESCHERICHIA COLI Ampicillin | [...]
--- OUTSIDE RECORDS SUMMARY | ~2020-07-18 | XMS | Encounter Summary ---
Demographics + + + | Address | [address] | | | [place] [address] | + + + | Home Phone [...] + | Organization | [facility] | | | and [place] | + + + | Address | Unknown | + + + | Phone | Unavailable | + + + Support + + +---------+ + | Name | Relationship | Address | Phone | + + +---------+ + | Garcia Rodkartik | ECON | Unknown | | + + +---------+ + | Mazin Shafefr | ECON | Unknown | | + + +---------+ + Care Team Providers + +------+ + | Care Stick Roller Name | Role | Phone | + +------+ + | Gage De Jesus DO | PCP | | + +------+ + Encounter Details +--------+ + + + + | Date | Type | Department | Care Team | Description | +--------+ + + + + | 02/11/ | Hospital | [facility] | Jasbir Reeder Marcos, | Status post lumbar | | 2019 | Encounter | MED CTR XRAY [address] | PA-C [address] | spinal fusion; Back | | | | [place] | [address] [place] | pain, unspecified | | | | [place] [address] | [place] [address] | back location, | | | | [phone] | [phone] | unspecified back | | | | [...] | 0 | 05/20/20 | | | qybqygra-utuoizuhx-x | | | | 18 | 0 | | ydrocortisone | | | | | | | (CORTISPORIN) | | | | | | | 3.5-23967-1 otic | | | | | | [...]
--- OUTSIDE RECORDS SUMMARY | ~2020-07-18 | XMS | Encounter Summary ---
Demographics + + + | Address | [address] | | | [place] [address] | + + + | Home Phone | | + + + | Preferred Language | Unknown | + + + | Marital Status | | + + + | Baptist Affiliation | 1028 | + + + | Race | White | + + + | Ethnic Group | Not or | + + + Author + + + | Author | [facility] | | | and [place] | + + + | Organization | [facility] | | | and [place] [...] Team Providers + +------+ + | Care Dividing Machine Operator Name | Role | Phone [...] y Lumbar | [address] | [place], [place] | | | | | herniated | [place], [place] | [address] | | | | | disc | [address] | Phone: | | | | | discuss | Phone: | [phone] | | | | | surgery | [phone] | Fax: | | | | | (prev Yuan | Fax: | [phone] | | | | | Patient) | [phone] | | | | | | Procedures | | | | | | | [place] OFFICE | | | | | | [...] + + | 08/06/ | Office | [facility] | Syed Owens MD | Spondylolisthesis of | | 2018 | Visit | NEUROSURGERY [address] | [address] | lumbar region; HNP | | | | [address] | [place] [address] | (herniated nucleus | | | | [place] | [phone] | pulposus), lumbar; | | | | [address] | | Foraminal stenosis | | | | [phone] | Nav Ruvalcaba | of lumbar region; | | | | | [address] | Spinal stenosis of | | | | | [address] [place] | lumbar region with | | | | | [address] | neurogenic | | | | | [...] encounter Patient Instructions Patient Instructions Rain Johnson, Nut Tightener - 08/06/2018 2:15 PM PSTIt was a [...] Ruvalcaba PA-C and Syed Owens MD [address] [facility], [address] [place] [address] FAX: [phone] NEUROSURGERY HISTORY AND PHYSICAL EXAMINATION CHIEF COMPLAINT: [...] Surgical History: Procedure Laterality Date CHOLECYSTECTOMY 1995 [facility] HYSTERECTOMY 1999 [facility] [place] TONSILLECTOMY 1989 [facility] CURRENT MEDICATIONS: Current Outpatient Prescriptions [...] has no apparent deficits with short or senior care memory. CRANIAL NERVES: II: Acuity is intact. [...] Intrinsics 5 5 Ulnar Intrinsics 5 5 Vacuum Metalizer Operator Strength 5 5 Hip Flexion 5 [...]
--- OUTSIDE RECORDS SUMMARY | ~2020-07-18 | XMS | Encounter Summary ---
Demographics + + + | Address | [address] | | | [place] [address] | + + + | Home Phone [...] | Organization | [facility] [...] Team Providers + +------+ + | Care Windshield Installer Name | Role | Phone | + +------+ + | Gage De Jesus DO | PCP | | + +------+ + Encounter Details +--------+ + + + + | Date | Type | Department | Care Team | Description | +--------+ + + + + | 10/31/ | Hospital | [facility] | Fidencio Padron | Physical | | 2019 | Encounter | MED CTR ACUTE | P, PT [address] | deconditioning | | | | PHYSICAL THERAPY | [address] [place] [address] | (Primary Dx) | | | | [address] [place] | [address] | | | | | [place] [address] | [phone] | | | | | [phone] | | | +--------+ + + + [...] | 0 | 05/20/20 | | | oezxnsvc-caeowvdta-z | | | | 18 | 0 | | ydrocortisone | | | | | | | (CORTISPORIN) | | | | | | | 3.5-82316-6 otic | | | | | | [...]
--- OUTSIDE RECORDS SUMMARY | ~2020-07-18 | XMS | Encounter Summary ---
Demographics + + + | Address | [address] | | | [place] [address] | + + + | Home Phone [...] | [facility] | | | and [...] Team Providers + +------+ + | Care Employee Relations Administrator Name | Role | Phone | [...] [address] [place] | | | | | [place], [place] | [place] [address] | | | | | [address] | [phone] | | | | | [phone] | | | +--------+ + + + [...]
--- OUTSIDE RECORDS SUMMARY | ~2020-07-18 | XMS | Encounter Summary ---
Demographics + + + | Address | [address] | | | [place] [address] | + + + | Home Phone [...] | [facility] | | | [...] Team Providers + +------+ + | Care Cigarette Stamper Name | Role | Phone | + [...] low | Jasbir E, | [address] | | | | | back pain, | PA-C [address] | [place], | | | | | unspecified | [address] | [place] | | | | | back pain | [address] | [address] | | | | | laterality, | [place], | Phone: | | | | | unspecified | [place] [address] | [phone] | | | | | whether | Phone: | Fax: | | | | | sciatica | [phone] | [phone] | | | | | present | Fax: | | | | | | Procedures | [phone] | | | | | | MRI [...] low | Jasbir E, | [address] | | | | | back pain, | PA-C [address] | [place], | | | | | unspecified | [address] | [place] | | | | | back pain | [address] | [address] | | | | | laterality, | [place], | Phone: | | | | | unspecified | [place] [address] | [phone] | | | | | whether | Phone: | Fax: | | | | | sciatica | [phone] | [phone] | | | | | present | Fax: | | | | | | Procedures | [phone] | | | | | | MRI Lumbar | | | | | | | Spine wo | | | | | | | Contrast | | | +--------+--------+ + + + + Encounter Details +--------+ + + + + | Date | Type | Department | Care Team | Description | +--------+ + + + + | 06/27/ | Hospital | [facility] | LonniecesarJasbir storey, | Chronic low back | | 2020 | Encounter | MED CTR MRI [address] | PA-C [address] | pain, unspecified | | | | [place], | [address] [place] | back pain | | | | [place] [address] | [place] [address] | laterality, | | | | [phone] | [phone] | unspecified whether | | | | [...] | | | canal. Severe right and oror-rk-qqozkjny left neural foraminal | | | narrowing. [...] Procedure Note | + + | Compa, [id number] - 06/27/2020 8:04 PM PDT EXAM: MRI [...] | Modic type II endplate changes anteriorly [id number], T12-L1, and L1-2. Slight | | retrolisthesis [...] of the central spinal canal. Severe right rtotygf-la-xvcdsctu left neural | | foraminal narrowing. This [...]
--- OUTSIDE RECORDS SUMMARY | ~2020-07-18 | XMS | Encounter Summary ---
Demographics + + + | Address | [address] | | | [place] [address] | + + + | Home Phone [...] + + | Author | [facility] | | | and [place] | + + + | Organization | [facility] [...] Team Providers + +------+ + | Care Finisher Polisher Name | Role | Phone | [...] + + | 05/02/ | Telephone | [facility] | Jasbir Reeder, | Referral (Follow up) | | 2020 | | NEUROSURGERY [address] | PA-C [address] | | | | | [address] | [address] [facility] | | | | | [place], [place] | [place] [address] | | | | | [address] | [phone] | | | | | [phone] | | | +--------+ + + + [...] PDTReceived a report from Dr Louis from [facility] 2018 stating she had profound edema from knees to foot and he was unable to complete electodiagnostic study. She was suppose to follow up with Jasbir Reeder at that time. Place d in Jasbir's inbox for review. Copy sent to HIM. elephone Encounter - Nat Murray RN - 05/09/2020 12:52 PM PDTCal [facility] [...] Reeder PA-C 05/09/2020 9:44 AM PDT [facility] Garcia Jose Internal Combustion Engine Assembler - 05/02/2020 10:50 AM PDTDerek, Patient is [...] on 09/2018. New XR Lumbar 05/01/20 @ [facility]. Please advise documented in this encoun ter Plan of Treatment Not on filedocumented as of this encounter Visit Diagnoses Not on filedocumented in this encounter"
--- OUTSIDE RECORDS SUMMARY | ~2020-07-18 | XMS | Encounter Summary ---
Demographics + + + | Address | [address] | | | [place] [address] | + + + | Home Phone | | + + + | Preferred Language | Unknown | + + + | Marital Status | | + + + | Mu-Ism Affiliation | 1028 | + + + | Race | White | + + + | Ethnic Group | Not or | + + + Author + + + | Author | [facility] | | | and [place] | + + + | Organization | [facility] | | | and [place] | [...] Team Providers + +------+ + | Care Sdv Pilot/Navigator/Dds Operator Name | Role | Phone | [...] | | [address] | [place] [address] | (Primary Dx); HNP | | | | [place], [place] | [phone] | (herniated nucleus | | | | [address] | | pulposus), lumbar; | | | | [phone] | | Foraminal stenosis | | | [...] [address] | [place] | [phone] | | [facility] | | [address] | | | - LABORATORY | | [...] mL/min/1.73m2 | [facility] | | | [place] | RATE,ESTIMATED | | MEDICAL | | | | mL/min/1.94t1Dxaf than | | CENTER - | | [...] [address] | [place] | [phone] | | [facility] | | [address] | | | - LABORATORY | | [...] | | | | JEAN TURNER MD ([id number]) | | | | | | on [...]
--- OUTSIDE RECORDS SUMMARY | ~2020-07-18 | XMS | Encounter Summary ---
Demographics + + + | Address | [address] | | | [place] [address] | + + + | Home Phone [...] Organization | [facility] | | | and [place] [...] Team Providers + +------+ + | Care Work Order Clerk Name | Role | Phone | [...] | | | region | [place], | [place], [place] | | | | | | [place] | [address] Phone: | | | | | | [address] | [phone] | | | | | | Phone: | Fax: | | | | | | [phone] | [phone] | | | | | | Fax: | | | | | | | [phone] | | +--------+--------+ + + + + Encounter Details +--------+---------+ + + + | Date | Type | Department | Care Team | Description | +--------+---------+ + + + | 01/19/ | Office | [facility] | Jasbir Reeder, | Lumbar radiculopathy | | 2017 | Visit | NEUROSURGERY [address] | PA-C [address] | (Primary Dx); | | | | [address] | [address] [place] | Lumbar herniated | | | | [place], [place] | [place] [address] | disc; Spinal | | | | [address] | [phone] | stenosis of lumbar | | | | [phone] | | region with | | | [...] encounter Patient Instructions Patient Instructions Ti Charlton, Java Web Application Developer - 01/19/2018 2:30 PM PDTWe will sche [...] f rom the original. TASHI Balbuena [address] [facility], [address] [place], [place] [address] FAX: [phone] NEUROSURGERY HISTORY AND PHYSICAL EXAMINATION CHIEF COMPLAINT: [...] 1995 [facility] HYSTERECTOMY 1999 [facility] [place] TONSILLECTOMY 1989 [facility] CURRENT MEDICATIONS: Current Outpatient Prescriptions Medication Sig [...] has no apparent deficits with short or terminal computer operator memory. CRANIAL NERVES: II: Acuity is intact. [...] Intrinsics 5 5 Ulnar Intrinsics 5 5 Aquatics Coordinator Strength 5 5 Hip Flexion 5 5 [...] vomiting) Poor circulation Rheumatoid arthritis (HCC) Seizure ([facility]) PLAN: Soo Aisha Velascovincentflip presented today, and [...]
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
--- OUTSIDE RECORDS SUMMARY | ~2020-07-18 | XMS | Encounter Summary ---
Demographics + + + | Address | [address] | | | [place] [address] | + + + | Home Phone | | + + + | Preferred Language | Unknown | + + + | Marital Status | | + + + | Jew Affiliation | 1028 | + + + | Race | White | + + + | Ethnic Group | Not or | + + + Author + + + | Author | [facility] | | | and [place] | + + + | Organization | [facility] | | [...] Team Providers + +------+ + | Care Modeling Manager Name | Role | Phone | [...] | | [address] | [place] [address] | | | | | [place] | [phone] | | | | | [address] | | | | | | [phone] | | | +--------+ + + + [...] do not wear jewelry, contact lenses, nail slovak (on fingers or toes), or make-up to [...]
--- OUTSIDE RECORDS SUMMARY | 2020-07-18 14:18 | XMS ---
PreManage Notification: REBECCA FERNÁNDEZ Security Geospatial Analyst Events No recent Security Events currently on file CRITERIA MET - [facility] - Has Care Guidelines - PDMP - [facility] - 2 Visits in 30 Days CARE PROVIDERS Gage DeJ esus DO [facility] Current PHONE: [phone] DELON LAM Community Health Worker 07/09/2017-Current PHONE: [phone] Guidelines Source: [employer] [facility] Guidelines Date: 12/02/2019 Other Information: Currently engaged in mental health services with the [employer] ACT Team.\T\nbsp; Currently resides at [facility] in [place], [place] ([phone]).\T\ nbsp; Please call [employer] for all mental health concerns.\T\nbsp; [phone].\ T\nbsp; \T\nbsp;All prescription medications are being processed through [facility] [phone]. These are guidelines and the provider should exercise clinical judgment when providing care. Care History Medical/Surgical 08/28/2016 [facility] Coordination: Patient requires education on appropriate ED usage.\T\nbsp; Emphasize the importance of using outpatient medical services for the treatment of chronic conditions. Please contact Community Health WorkerDelon at [phone] if patient is seen in ED These are guidelines and the provider should exercise clinical judgment when providing care. E.D. VISIT COUNT (12 MO.) 2 [facility] 2 [facility] TOTAL 4 NOTE: Visits indicate total known visits. ED/UCC VISIT TRACKING (12 MO.) 07/18/2020 14:16 [facility] [place] TYPE: Emergency COMPLAINT: - FALL, DIFFICULTY BREATHING, KNEE PAIN [facility] DIAGNOSES: - Other chest pain - Chest Pain [facility] DIAGNOSES: - Lumbago with sciatica, right side - Hip Pain (Non-traumatic) 09[facility]27/2019 15:49 [facility] Emergency COMPLAINT: - FACIAL SWELLING, SORE THROAT INPATIENT VISIT TRACKING (12 MO.) 09/27/2019 18:[address] [facility] TYPE: Medical Surgical COMPLAINT: - STROKE DIAGNOSES: - Homelessness - Localized edema - Homelessness - Muscle weakness (generalized) - Other lack of coordination - Allergy status to narcotic agent status - Cerebral infarction, unspecified - Cerebral infarction, unspecified - Unspecified intracranial injury without loss of consciousness - NIHSS score 6 - NIHSS score 6 - Allergy status to narcotic agent status - Other lack of coordination - Bipolar disorder, unspecified - Muscle weakness (generalized) - Bipolar disorder, unspecified - Other intermediate (current) drug therapy - Allergy status to other drugs, medicaments and biological sub - Localized edema - Allergy status to other drugs, medicaments and biological sub - Dizziness and giddiness - Other exterminator helper termite (current) drug therapy - Hyperlipidemia, unspecified - Other abnormalities of gait and mobility - Unspecified nystagmus - Unspecified nystagmus - Unspecified intracranial injury without loss of consciousness - Hyperlipidemia, unspecified - Other abnormalities of gait and mobility [email or web address]
--- NOTE | 2020-07-20 09:13 | EKG ---
[facility] [address] [place] [address] Signed Poor data quality, interpretation may be adversely affected Normal sinus rhythm Normal ECG When compared with ECG of 27-SEP-2019 16:25, Criteria for Inferior infarct are no longer present Confirmed by DAVI RANDOLPH MD ([id number]) on 07/20/2020 9:13:31 AM Electronically Signed By: DAVI RANDOLPH MD 07/20/20 0913 PATIENT NAME: REBECCA FERNÁNDEZ Electrocardiogram DATE OF : 60 PHYSICIAN: DAVI RANDOLPH MD REPORT #: [id number] REPORT IS CONFIDENTIAL AND NOT TO BE RELEASED WITHOUT AUTHORIZATION
== END ==
LOC: ED 14:15
DX: S80.01XA Contusion of right knee, initial encounter (principal); L30.8 Other specified dermatitis; E66.01 Morbid (severe) obesity due to excess calories; E87.6 Hypokalemia; E11.22 Type 2 diabetes mellitus with diabetic chronic kidney disease; N18.2 Chronic kidney disease, stage 2 (mild); W06.XXXA Fall from bed, initial encounter; Z88.8 Allergy status to other drugs, medicaments and biological substances; Z88.5 Allergy status to narcotic agent; Z79.82 Long term (current) use of aspirin; Z79.899 Other long term (current) drug therapy
CPT/HCPCS: 73560; 80053; 81001; 85025; 93005; 93010; 99284-25; J7040

== ENCOUNTER 2020-07-20 09:40 | Inpatient (IN) | payer OTHER ==
[~2020-07-20] VITALS: Ht 172.7 cm; Wt 126.0 kg
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
--- OUTSIDE RECORDS SUMMARY | ~2020-07-20 | XMS | Encounter Summary ---
Demographics + + + | Address | [address] | | | [place] [address] | + + + | Home Phone | | + + + | Preferred Language | Unknown | + + + | Marital Status | | + + + | Anglican Affiliation | 1028 | + + + | Race | White | + + + | Ethnic Group | Not or | + + + Author + + + | Author | [facility] | | | and [place] | + + + | Organization | [facility] | | | and [place] | [...] Team Providers + +------+ + | Care Fire Boat Engineer Name | Role | Phone | + +------+ + | Melissa Moulton NP | PCP | | + +------+ + Reason for Referral Evaluate & Treat (Routine) + + + + + + + | Status | Reason | Specialty | Diagnoses / | Referred By | Referred To | | | | | Procedures | Contact | Contact | + + + + + + + | Pending | Specialty | Cardiology | Diagnoses | Beau | [place] | | Review | Services | | Atypical | Sawyer Alatorre MD | Cardiology | | | Required | | chest pain | [address] | | | | | Procedures | [address] | [place], | | | | | 07/13>PEND | [place], | JHOAN | | | | | PCP AUTH | [place] [address] | [id number] | | | | | | Phone: | Phone: | | | | | | [phone] | [phone] | | | | | | Fax: | Fax: | | | | | | [phone] | [phone] | + + + + + + + Reason for Visit + + + | Reason | Comments | + + + | Chest Pain | | + + + Encounter Details +--------+ + + + + | Date | Type | Department | Care Team | Description | +--------+ + + + + | 07/06/ | Emergency | [facility] | Sawyer Yanez MD | Atypical chest pain | | 2020 | | [facility] | [address] | (Primary Dx) | | | | CENTER [address] | [place] | | | | | [place] | [address] | | | | | [address] | | | | | | [phone] | | | +--------+ + + + + Social History + +-------+ [...] + + + | Blood Pressure | 115/70 | 07/06/2020 2:46 PM | | | | | PDT | | + + + + + | Pulse | 72 | 07/06/2020 2:46 PM | | | | | PDT | | + + + + + | Temperature | 35.5 C (95.9 F) | 07/06/2020 2:03 PM | | | | | PDT | | + + + + + | Respiratory Rate | 23 | 07/06/2020 2:46 PM | | | | | PDT | | + + + + + | Oxygen Saturation | 97% | 07/06/2020 2:46 PM | | | | | PDT | | + + + + + | Inhaled Oxygen | - | - | | | Concentration | | | | + + + + + | Weight | 120.2 kg (265 lb) | 07/06/2020 2:03 PM | | | | | PDT | | + + + + + | Height | 172.7 cm (5' 8") | 07/06/2020 2:03 PM | | | | | PDT | | + + + + + | Body Mass Index | 40.29 | 07/06/2020 2:03 PM | | | | | PDT [...] + + documented as of this encounter Discharge Instructions Instructions Sawyer Yanez MD - 07/06/2020Continue medications as previous Rest and fluids Follow-up with cardiology Return for worsening symptoms, other new complaints documented in this encounter Medications at Time of Discharge + + + +---------+ + + | Medication | Sig | Dispensed | Refills | Start | End Date | | | | | | Date | | + + + +---------+ + + | acetaminophen | Take 1,000 mg by | | 0 | | | | (TYLENOL) 500 mg | mouth every 8 hours | | | | | | tablet | as needed for Pain. | | | | | + + + +---------+ + + | ARIPiprazole | Take 1 tablet by | 30 | 0 | 12/18/19 | | | (ABILIFY) 10 mg | mouth Daily. | tablet | | 19 | | | tablet | | | | | | + + + +---------+ + + | cephalexin | | | 0 | 07/23/20 | | | (KEFLEX) 500 mg | | | | 18 | | | capsule | | | | | | + + + +---------+ + + | diazePAM (VALIUM) | TAKE ONE TABLET BY | | 0 | 05/10/20 | | | 5 mg tablet | MOUTH EVERY SIX | | | 20 | | | | HOURS NEEDED FOR | | | | | | | BACK PAIN AND MUSCLE | | | | | | | SPASMS | | | | | + + + +---------+ + + | divalproex | Take 1,000 mg by | | 0 | | | | (DEPAKOTE) [address] | mouth nightly. | | | | | | tablet | | | | | | + + + +---------+ + + | escitalopram | Take 5 mg by mouth | | 0 | | | | (LEXAPRO) 5 MG | Daily. | | | | | | tablet | | | | | | + + + +---------+ + + | furosemide (LASIX) | Take 2 tablets by | | 0 | 09/28/20 | | | 20 mg tablet | mouth Daily. | | | 18 | | + + + +---------+ + + | gabapentin | Take 2 capsules by | 120 | 0 | 12/17/19 | | | (NEURONTIN) 300 mg | mouth 2 times daily. | capsule | | 19 | | | capsule | | | | | | + + + +---------+ + + | | Take 1 tablet by | 12 | 0 | 05/01/20 | | | HYDROcodone-acetamin | mouth every 6 hours | tablet | | 20 | | | ophen (NORCO) 5-325 | as needed for Pain | | | | | | mg per tablet | for up to 12 doses. | | | | | + + + +---------+ + + | loperamide | Take 2-4 mg by mouth | | 0 | | | | (IMODIUM) 2 mg | 4 times daily as | | | | | | capsule | needed for Diarrhea. | | | | | + + + +---------+ + + | magnesium | Take by mouth Daily | | 0 | | | | hydroxide (MILK OF | as needed for | | | | | | MAGNESIA) 400 mg/5 | Constipation. | | | | | | mL suspension | | | | | | + + + +---------+ + + | meclizine | Take 25 mg by mouth | | 0 | | | | (ANTIVERT) 25 mg | 3 times daily as | | | | | | tablet | needed. | | | | | + + + +---------+ + + | methylPREDNISolone | Follow package | 21 | 0 | 08/12/16 | | | (MEDROL DOSEPAK) 4 | directions.. | tablet | | 20 | | | mg tablet | | | | | | + + + +---------+ + + | potassium chloride | | | 0 | 06/12/20 | | | (KLOR-CON) 10 mEq | | | | 20 | | | CR tablet | | | | | | + + + +---------+ + + | potassium chloride | Take 1 tablet by | 30 | 0 | 12/17/19 | | | (KLOR-CON) 10 MEQ | mouth Daily. | tablet | | 19 | | | ER tablet | | | | | | + + + +---------+ + + | QUEtiapine | Take 100 mg by mouth | | 0 | | | | (SEROQUEL) 100 mg | nightly. | | | | | | tablet | | | | | | + + + +---------+ + + | spironolactone | Take 50 mg by mouth | | 0 | | | | (ALDACTONE) 50 mg | 2 times daily. | | | | | | tablet | | | | | | + + + +---------+ + + | traZODone | Take 100 mg by mouth | | 0 | | | | (DESYREL) 50 mg | Daily. | | | | | | tablet | | | | | | + + + +---------+ + + documented as of this encounter ED Notes Sawyer Yanez MD - 07/06/2020 2:08 PM PDT Chief Complaint: Chest pain HPI: Rebecca Briceno is a 60 y.o. female who presents to the Emergency Department with 2 or 3 days of sternal chest pain. Somewhat worse when she moves. Not exertional. Mild pleuri tic come on it on deep inspiration. No dyspnea. He's not had nausea. No diaphoresis. Shawna n got worse today around 11 AM and so medics were called. She's not had fever. No cough. No syncope. Past Medical and Surgical History: The patient has a past medical history of Anxiety, Arthritis, Back pain, Bipolar disorder ( HCC), Chronic pain, CKD (chronic kidney disease), stage III (08/30/2011), Closed head injury (05/15/1988), Depression, Fibromyalgia, GERD (gastroesophageal reflux disease) (08/30/2011), H/O [facility] Cosed head injury (05/15/1988), Headache, Heart beat abnormality, Hiatal hernia, High cholesterol, Hypertension (10/25/2018), Kidney stone, Left lumbar radiculopathy, Lumbar radi culopathy, Migraine headache, Neuropathy, PONV (postoperative nausea and vomiting), Poor cir culation, Rheumatoid arthritis (HCC), and Seizure (HCC). The patient has a past surgical his tory that includes Tonsillectomy (1989); Cholecystectomy (1995); Hysterectomy (1999); Toe Coughlin rgery (Left); and Lumbar spine surgery (Left, 10/26/2018). Family and Social History: The patient's family history includes Breast cancer in her paternal grandmother; Cancer in her mother; Clotting disorder in her father; Dementia in her father; Emphysema in her patern al grandfather; Heart disease in her maternal grandmother and paternal grandmother; Other (s ee comment) in her brother and maternal grandfather. The patient reports that she has never smoked. She has never used smokeless tobacco. She reports previous alcohol use. She reports that she does not use drugs. 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 ARIPiprazole (ABILIFY) 10 mg tablet Take 1 tablet by mouth Daily. cephalexin (KEFLEX) 500 mg capsule diazePAM (VALIUM) 5 mg tablet TAKE ONE TABLET BY MOUTH EVERY SIX HOURS NEEDED FOR BA CK PAIN AND MUSCLE SPASMS divalproex (DEPAKOTE) [address] tablet Take 1,000 mg by mouth nightly. escitalopram (LEXAPRO) 5 MG tablet Take 5 mg by mouth Daily. furosemide (LASIX) 20 mg tablet Take 2 tablets by mouth Daily. gabapentin (NEURONTIN) 300 mg capsule Take 2 capsules by mouth 2 times daily. HYDROcodone-acetaminophen (NORCO) 5-325 mg per tablet Take 1 tablet by mouth every 6 ho urs as needed for Pain for up to 12 doses. loperamide (IMODIUM) 2 mg capsule Take 2-4 mg by mouth 4 times daily as needed for Diar clari. magnesium hydroxide (MILK OF MAGNESIA) 400 mg/5 mL suspension Take by mouth Daily as n eeded for Constipation. meclizine (ANTIVERT) 25 mg tablet Take 25 mg by mouth 3 times daily as needed. methylPREDNISolone (MEDROL DOSEPAK) 4 mg tablet Follow package directions.. potassium chloride (KLOR-CON) 10 mEq CR tablet potassium chloride (KLOR-CON) 10 MEQ ER tablet Take 1 tablet by mouth Daily. QUEtiapine (SEROQUEL) 100 mg tablet Take 100 mg by mouth nightly. spironolactone (ALDACTONE) 50 mg tablet Take 50 mg by mouth 2 times daily. traZODone (DESYREL) 50 mg tablet Take 100 mg by mouth Daily. Allergies: Allergies Allergen Reactions Oxycodone Other (See Comments) Hallucinations Tramadol Other (See Comments) Cold sweats and fever Methicillin Nausea And Vomiting Simvastatin Other (See Comments) Confusion Sumatriptan Other (See Comments) Confused, agitated, and bowel incontinence Review of Systems: Positive findings in the HPI, all other systems were reviewed and are negative Physical Examination: VITAL SIGNS: (first vital signs):Temp: 35.5 C (95.9 F) Pulse: 72 Resp: 14 SpO2: 99 % BP : 113/79 General: Alert, appears well, non toxic Eyes::EOMI, no Ptosis ENMT: Normocephalic, atraumatic, OP covered in a mass Neck: Supple, full range of motion, no tracheal deviation Cardiovascular: Normal rate and rhythm, normal 2 + radial pulse Respiratory: No tachypnea, no respiratory distress, no stridor GI: Abdomen soft, non tender, no rebound or guarding Musculoskeletal: normal ROM, no edema, no cyanosis Neurologic: Alert, no cranial nerve deficits, no focal deficits Skin: warm and dry, no ulcerations ECG: (Interperted by me) Sinus rhythm, 60 bpm, no other acute Labs: CBC: unremarkable CMP: Mild renal insufficiency unchanged from previous Lipase: negative Troponin: negative Imaging: (Xrays interpreted by me) X-ray chest some pulmonary congestion ED Course & Medical Decision Making: Patient here with atypical chest pain. Unclear etiology at this time. EKG troponin are ne gative. She's been having the pain a couple of days. It's nonexertional. No pleuritic shawna n to suggest PE. May be musculoskeletal. Difficult to tell. Given her age and risk factor s will refer her to cardiology but nothing she needs acute admission at this time. We'll pl an discharge with symptomatic treatment. Disposition: Discharge Final Impression: Atypical chest pain Sawyer Yanez MD 07/06/20 1512 chultz, Lisa Mejia RN - 07/06/2020 2:00 PM PDTPatient c/o deep, throbbing midsternal chest pain x 3 days that got significantly worse about 1100 this morning. Patient states that sometimes during the day s he has a minor SOB. Denies N/V. documented in this encounter Plan of Treatment + +------+--------+ + + | Name | Type | Priori | Associated Diagnoses | Date/Time | | | | ty | | | + +------+--------+ + + | ED INFORMATION | JUAN | Routin | | 07/06/2020 1:56 PM | | EXCHANGE | | e | | PDT | + +------+--------+ + + + + +--------+ + + | Name | Type | Priori | Associated Diagnoses | Order Schedule | | | | ty | | | + + +--------+ + + | Cardiology [facility] | Outpatient | Routin | Atypical chest | Ordered: 07/06/2020 | | | Referral | e | pain | | + + +--------+ + + documented as of this encounter Procedures + +--------+ + + + | Procedure Name | Priori | Date/Time | Associated Diagnosis | Comments | | | ty | | | | + +--------+ + + + | XR CHEST AP PORTABLE | STAT | 07/06/2020 | | Results for this | | | | 2:41 PM | | procedure are in the | | | | PDT | | results section. | + +--------+ + + + | EXTRA LAVENDER TOP | STAT | 07/06/2020 | | Results for this | | TUBE | | 2:16 PM | | procedure are in the | | | | PDT | | results section. | + +--------+ + + + | EXTRA GOLD TOP TUBE | STAT | 07/06/2020 | | Results for this | | | | 2:16 PM | | procedure are in the | | | | PDT | | results section. | + +--------+ + + + | EXTRA BLUE TOP TUBE | STAT | 07/06/2020 | | Results for this | | | | 2:16 PM | | procedure are in the | | | | PDT | | results section. | + +--------+ + + + | CBC W/AUTO | STAT | 07/06/2020 | | Results for this | | DIFFERENTIAL | | 2:15 PM | | procedure are in the | | | | PDT | | results section. | + +--------+ + + + | TROPONIN I | STAT | 07/06/2020 | | Results for this | | | | 2:15 PM | | procedure are in the | | | | PDT | | results section. | + +--------+ + + + | LIPASE | STAT | 07/06/2020 | | Results for this | | | | 2:15 PM | | procedure are in the | | | | PDT | | results section. | + +--------+ + + + | COMPREHENSIVE | STAT | 07/06/2020 | | Results for this | | METABOLIC PANEL | | 2:15 PM | | procedure are in the | | | | PDT | | results section. | + +--------+ + + + | ECG 12 LEAD | STAT | 07/06/2020 | | Results for this | | | | 2:12 PM | | procedure are in the | | | | PDT | | results section. | + +--------+ + + + | ED INFORMATION | Routin | 07/06/2020 | | | | EXCHANGE | e | 1:56 PM | | | | | | PDT | | | + +--------+ + + + +---+--------+ | | | | | Proced | | | ure | | | Note - | | | Compa, | | | Lab In | | | | | | Hlseve | | | n - | | | | | | 2019 | | | 1:57 | | | PM PDT | | | | | | Format | | | ting | | | of | | | this | | | note | | | might | | | be | | | differ | | | ent | | | from | | | the | | | origin | | | al.COL | | | LECTIV | | | E?NOTI | | | FICATI | | | ON?/ | | | | | | 0 | | | 13:55? | | | AASRUD | | | , REBECCA | | | | | | J?MRN: | | | | | | [id number] | | | [id number] | | | riteri | | | a Met | | | Care | | | Guidel | | | isa | | | PRCSec | | | urity | | | and | | | Safety | | | No | | | recent | | | | | | Securi | | | ty | | | Events | | | | | | curren | | | tly on | | | | | | fileED | | | Care | | | Guidel | | | isa | | | from | | | [place] | | | ys - | | | [place] | | | laLast | | | | | | Update | | | d: | | | 3//20 | | | 11:23 | | | AM | | | Other | | | Inform | | | ation: | | | Curren | | | tly | | | engage | | | d in | | | mental | | | | | | health | | | | | | servic | | | es | | | with | | | the | | | [facility] | | | ys ACT | | | | | | Team.? | | | | | | Curren | | | tly | | | reside | | | s at | | | [facility] | | | Home | | | in | | | [address] | | | | | [place] | | | ter, | | | [place] | | | | | | [phone] | | | 0).? | | | Please | | | call | | | [facility] | | | ys for | | | all | | | mental | | | | | | health | | | | | | concer | | | ns.? | | | [phone] | | [phone] | | | .? | | | ?All | | | prescr | | | iption | | | | | | medica | | | tions | | | are | | | being | | | proces | | | sed | | | throug | | | h | | | [place] | | | [phone] | | | [phone] | | | .These | | | are | | | guidel | | | isa | | | and | | | the | | | provid | | | er | | | should | | | | | | exerci | | | se | | | clinic | | | al | | | judgme | | | nt | | | when | | | provid | | | ing | | | care.T | | | hese | | | are | | | guidel | | | isa | | | and | | | the | | | provid | | | er | | | should | | | | | | exerci | | | se | | | clinic | | | al | | | judgme | | | nt | | | when | | | provid | | | ing | | | care.C | | | are | | | Histor | | | yMedic | | | al/Salty | | | [email or web address] | | | 10/28/ | | | 6 | | | 12:00 | | | AM | | | Good | | | Shephe | | | rd | | | Health | | | Care | | | Coordi | | | nation | | | :Patie | | | nt | | | requir | | | es | | | educat | | | ion on | | | | | | approp | | | riate | | | ED | | | usage. | | | ? | | | Emphas | | | ize | | | the | | | import | | | ance | | | of | | | using | | | outpat | | | ient | | | medica | | | l | | | servic | | | es for | | | the | | | treatm | | | ent of | | | | | | chroni | | | c | | | condit | | | ions.P | | | lease | | | contac | | | t | | | Commun | | | ity | | | Health | | | | | | Worker | | | , | | | Rufina | | | o at | | | [phone] | | | [phone] | | | if | | | patien | | | t is | | | seen | | | in | | | EDThes | | | e are | | | guidel | | | isa | | | and | | | the | | | provid | | | er | | | should | | | | | | exerci | | | se | | | clinic | | | al | | | judgme | | | nt | | | when | | | provid | | | ing | | | care.F | | | lags | | | [place] | | | ED | | | Dispar | | | ity | | | Measur | | | e - | | | [place] | | | has | | | develo | | | ped a | | | flag | | | ([place] | | | n ED | | | Dispar | | | ity | | | Measur | | | e) to | | | help | | | suppor | | | t | | | Medica | | | id | | | member | | | s with | | | | | | mental | | | | | | illnes | | | s. | | | [place] | | | | | | Health | | | | | | Author | | | ity | | | uses | | | claims | | | data | | | with a | | | | | | 36-mon | | | th | | | jeremiah | | | g look | | | back | | | period | | | to | | | identi | | | fy | | | member | | | s who | | | have | | | had | | | two or | | | more | | | diagno | | | ses of | | | | | | mental | | | | | | illnes | | | s | | | (does | | | not | | | need | | | to be | | | primar | | | y) in | | | any | | | settin | | | g | | | (e.g. | | | ED, | | | Inpati | | | ent, | | | primar | | | y | | | care). | | | | | | Flagge | | | d | | | member | | | s are | | | includ | | | ed in | | | the ED | | | | | | Dispar | | | ity | | | [place] | | | e | | | denomi | | | nator | | | popula | | | tion. | | | Flags | | | are | | | update | | | d | | | weekly | | | . / | | | Attrib | | | uted | | | By: | | | [place] | | | | | | Health | | | | | | Author | | | ity | | | (OHA) | | | / | | | Attrib | | | uted | | | On: | | | 01/14/ | | | 2020 | | | Prescr | | | iption | | | Drug | | | Report | | | (12 | | | Mo.)PD | | | MP | | | query | | | found | | | no | | | report | | | .E.D. | | | Visit | | | Count | | | (12 | | | mo.)Fa | | | cility | | | | | | Visits | | | Low | | | Acuity | | | | | | Provid | | | ence | | | St. | | | Nat | | | Medica | | | l | | | Center | | | 2 0 | | | [facility] | | y | | | Hospit | | | al 1 0 | | | Total | | | 3 0 | | | Note: | | | Visits | | | | | | indica | | | te | | | total | | | known | | | visits | | | . | | | Medica | | | id Low | | | | | | Acuity | | | Dx | | | are | | | the | | | number | | | of | | | primar | | | y | | | diagno | | | ses on | | | the | | | Medica | | | id's | | | Low | | | Acuity | | | dx | | | list. | | | | | | Recent | | | | | | Emerge | | | ncy | | | Depart | | | ment | | | Visit | | | [place] | | | yDate | | | Facili | | | ty | | | City | | | State | | | Type | | | Diagno | | | ses or | | | Chief | | | | | | Compla | | | int | | | Oct 8, | | | 2020 | | | Provid | | | ence | | | [facility] | | | [facility] | | [place] | | | [place] | | | Emerge | | | ncy | | | Aug 2, | | | 2020 | | | Provid | | | ence | | | St[facility] | | | Nat | | | [facility] | | | [place] | | | [place] | | | Emerge | | | ncy | | | Hip | | | Pain | | | (Non-t | | | raumat | | | ic) | | | | | | Lumbag | | | o with | | | | | | sciati | | | ca, | | | right | | | side | | | Dec | | | 30, | | | 2019 | | | [facility] | | | [facility] | | | [place] | | | [place] | | | Emerge | | | ncy | | | Chief | | | Compla | | | int: | | | FACIAL | | | | | | SWELLI | | | NG, | | | SORE | | | THROAT | | | | | | Recent | | | | | | Inpati | | | ent | | | Visit | | | [place] | | | yDate | | | Facili | | | ty | | | City | | | State | | | Type | | | Diagno | | | ses or | | | Chief | | | | | | Compla | | | int | | | Dec | | | 30, | | | 2019 | | | [facility] | | | [facility] | | | [place] | | | [place] | | | Medica | | | l | | | Surgic | | | al | | | Dizzin | | | ess | | | and | | | giddin | | | ess | | | Other | | | | | | abnorm | | | alitie | | | s of | | | gait | | | and | | | mobili | | | ty | | | Hyperl | | | ipidem | | | ia, | | | unspec | | | ified | | | | | | Unspec | | | ified | | | nystag | | | mus | | | Other | | | long | | | term | | | (curre | | | nt) | | | drug | | | therap | | | y | | | Locali | | | zed | | | edema | | | | | | Allerg | | | y | | | status | | | to | | | other | | | drugs, | | | | | | medica | | | ments | | | and | | | biolog | | | ical | | | sub | | | | | | Muscle | | | | | | weakne | | | ss | | | (gener | | | alized | | | ) | | | [place] | | | r | | | disord | | | er, | | | unspec | | | ified | | | | | | Other | | | lack | | | of | | | coordi | | | nation | | | | | | Additi | | | onal | | | Care | | | TeamPr | | | ovider | | | | | | Specia | | | lty | | | Phone | | | Fax | | | Servic | | | e | | | Dates | | | [place] | | | , | | | Gage | | | H DO, | | | D.O. | | | Family | | | | | | Medici | | | ne | | | ([phone]) | | | [phone] | | | [phone] | | | Curren | | | t | | | LAM | | | , | | | RU[facility] | | | O, [facility] | | | | | | Commun | | | ity | | | Health | | | | | | Worker | | | ([phone]) | | | | | | [phone] | | | 04 | | | Oct | | | 11, | | | 2017 - | | | | | | Curren | | | t | | | Collec | | | tive | | | Portal | | | This | | | patien | | | t has | | | regist | | | ered | | | at the | | | | | | Provid | | | ence | | | St. | | | Nat | | | Medica | | | l | | | Center | | | | | | Emerge | | | ncy | | | Depart | | | ment | | | For | | | more | | | inform | | | ation | | | visit: | | | | | | https: | | | //prov | | | .colle | | | ctivem | | | edical | | | .com/n | | | otify/ | | | [id number] | | | [phone] | | | [phone] | | | [phone] | | | [id number] | | | [id number] | | | | | | PLEASE | | | NOTE: | | | 1. | | | Any | | | care | | | recomm | | | endati | | | ons | | | and | | | other | | | clinic | | | al | | | inform | | | ation | | | are | | | provid | | | ed as | | | guidel | | | isa | | | or for | | | | | | histor | | | ical | | | purpos | | | es | | | only, | | | and | | | provid | | | ers | | | should | | | | | | exerci | | | se | | | their | | | own | | | clinic | | | al | | | judgme | | | nt | | | when | | | provid | | | ing | | | care. | | | 2. | | | You | | | may | | | only | | | use | | | this | | | inform | | | ation | | | for | | | purpos | | | es of | | | treatm | | | ent, | | | paymen | | | t or | | | health | | | care | | | operat | | | ions | | | activi | | | ties, | | | and | | | subjec | | | t to | | | the | | | limita | | | tions | | | of | | | applic | | | able | | | Collec | | | tive | | | Polici | | | es. | | | 3. | | | You | | | should | | | | | | consul | | | t | | | direct | | | ly | | | with | | | the | | | organi | | | zation | | | that | | | provid | | | ed a | | | care | | | guidel | | | ine or | | | other | | | | | | clinic | | | al | | | histor | | | y with | | | any | | | questi | | | ons | | | about | | | additi | | | onal | | | inform | | | ation | | | or | | | accura | | | cy or | | | comple | | | teness | | | of | | | inform | | | ation | | | provid | | | ed.? | | | 2020 | | | [employer] | | | tive | | | [employer] | | | l | | | [employer] | | | logies | | | [employer] | | | - | | | [email or web address] | | | llecti | | | vemedi | | | [email or web address] | | | m | +---+--------+ documented in this encounter Results XR Chest AP Portable (07/06/2020 2:41 PM PDT) + + | Specimen | + + | | + + + + + | Impressions | Performed At | + + + | Cardiomegaly and pulmonary venous congestion. Electronically | [facility] | | signed by Jhoan Plunkett MD 07/06/2020 3:06 PM | | + + + + + + | Narrative | Performed At | + + + | EXAM: XR CHEST AP PORTABLE dated 07/06/2020 2:41 PM HISTORY: | [facility] | | CHEST PAIN Comparison: 10/14/2018 TECHNIQUE: A single portable | | | view of the chest. FINDINGS: The patient is rotated. There is | | | cardiomegaly. There are chronic deformities in multiple right ribs. | | | There is no acute airspace disease. There is mild prominence of the | | | pulmonary vasculature. No large effusions or pneumothorax. | | + + + + + | Procedure Note | + + | Compa, [id number] - 07/06/2020 3:09 PM PDT EXAM: XR CHEST AP PORTABLE dated 07/06/2020 2:41 | | PMHISTORY: CHEST PAINComparison: 10/14/2018TECHNIQUE: A single portable view of the | | chest.FINDINGS:The patient is rotated. There is cardiomegaly. There are | | chronicdeformities in multiple right ribs. There is no acute airspacedisease. There is | | mild prominence of the pulmonary vasculature. Nolarge effusions or pneumothorax. | | IMPRESSION: Cardiomegaly and pulmonary venous congestion.Electronically signed by Jhoan | Nick Plunkett MD 07/06/2020 3:06 PM | | | |FINDINGS: | | | |The patient is rotated. There is cardiomegaly. There are chronic | |deformities in multiple right ribs. There is no acute airspace | |disease. There is mild prominence of the pulmonary vasculature. No | |large effusions or pneumothorax. | | | |IMPRESSION: | | | |Cardiomegaly and pulmonary venous congestion. | | | |Electronically signed by Jhoan Plunkett MD 07/06/2020 3:06 PM | + + + +---------+ + + | Performing | Address | City/State/Zipcode | Phone Number | | Organization | | | | + +---------+ + + | [facility] | | | | + +---------+ + + Extra Blue Top Tube (07/06/2020 2:16 PM PDT) + +-------+ + + + | Component | Value | Ref Range | Performed | Pathologist | | | | | At | Signature | + +-------+ + + + | Extra Blue | Done | | [facility] | | | Top Tube | | | [facility] | | | | | | [facility] | | | | | | CENTER - | | | | | | LABORATORY | | + +-------+ + + + + + | Specimen | + + | Blood | + + + + + + + | Performing | Address | City/State/Zipcode | Phone Number | | Organization | | | | + + + + + | [facility] | [address] | [place], [place] | [phone] | | [facility] | | [address] | | | - LABORATORY | | | | + + + + + Extra Gold Top Tube (07/06/2020 2:16 PM PDT) + +-------+ + + + | Component | Value | Ref Range | Performed | Pathologist | | | | | At | Signature | + +-------+ + + + | Extra Gold | Done | | [facility] | | | Top Tube | | | [facility] | | | | | | MEDICAL | | | | | | CENTER - | | | | | | LABORATORY | | + +-------+ + + + + + | Specimen | + + | Blood | + + + + + + + | Performing | Address | City/State/Zipcode | Phone Number | | Organization | | | | + + + + + | [facility] | [address] | [place] | [phone] | | [facility] | | [address] | | | - LABORATORY | | | | + + + + + Extra Lavender Top Tube (07/06/2020 2:16 PM PDT) + +-------+ + + + | Component | Value | Ref Range | Performed | Pathologist | | | | | At | Signature | + +-------+ + + + | Extra | Done | | [facility] | | | Lavender | | | [facility] | | | Top T[facility] | | | MEDICAL | | | | | | CENTER - | | | | | | LABORATORY | | + +-------+ + + + + + | Specimen | + + | Blood | + + + + + + + | Performing | Address | City/State/Zipcode | Phone Number | | Organization | | | | + + + + + | [facility] | [address] | [place] | [phone] | | [facility] | | [address] | | | - LABORATORY | | | | + + + + + Lipase (07/06/2020 2:15 PM PDT) + + + + + + | Component | Value | Ref Range | Performed | Pathologist | | | | | At | Signature | + + + + + + | Lipase | 35Comment: New method in | 12 - 53 U/L | [facility] | | | | use as of November 25 | | [facility] | | | | 2018. Check reference | | MEDICAL | | | | range for changes.Some | | CENTER - | | | | analytes show | | LABORATORY | | | | significant variation | | | | | | from the previous | | | | | | method.It may be | | | | | | necessary to set a new | | | | | | baseline for this | | | | | | analyte. | | | | + + + + + + + + | Specimen | + + | Blood | + + + + + + + | Performing | Address | City/State/Zipcode | Phone Number | | Organization | | | | + + + + + | [facility] | [address] | [place] | [phone] | | [facility] | | [address] | | | - LABORATORY | | | | + + + + + Troponin I (07/06/2020 2:15 PM PDT) + + + + + + | Component | Value | Ref Range | Performed | Pathologist | | | | | At | Signature | + + + + + + | Troponin I | <0.01Comment: | <0.06 ng/mL | [facility] | | | | Comment:Reference | | [facility] | | | | Ranges: 0.00-0.06 = | | MEDICAL | | | | NORMAL >0.06 = | | CENTER - | | | | SUSPICIOUS FOR | | LABORATORY | | | | MYOCARDIAL DAMAGE NOTE: | | | | | | Values greater than | | | | | | 0.78 ng/mL have been | | | | | | shown to be strongly | | | | | | associated with acute | | | | | | myocardial infarction. | | | | | | The [employer] | | | | | | [employer] ([employer]) | | | | | | recommends a decision | | | | | | limit of 0.06 ng/mL for | | | | | | this assay. Results | | | | | | greater than 0.06 can | | | | | | reflect a pre-infarct | | | | | | acute coronary syndrome, | | | | | | but can also reflect | | | | | | myocardial necrosis or | | | | | | injury that is not due | | | | | | to coronary artery | | | | | | disease. Some of these | | | | | | causes are sepsis, | | | | | | hypocolemia, atrial | | | | | | fibrillation, heart | | | | | | failure, pulmonary | | | | | | embolism, myocarditis, | | | | | | myocardial contusion, | | | | | | and renal failure. The | | | | | | diagnosis of myocardial | | | | | | infarction should be | | | | | | based on a combination | | | | | | of the patient's | | | | | | clinical presentation | | | | | | and the clinical | | | | | | laboratory test results | | | | | | (especially serial | | | | | | troponin levels). | | | | + + + + + + + + | Specimen | + + | Blood | + + + + + + + | Performing | Address | City/State/Zipcode | Phone Number | | Organization | | | | + + + + + | [facility] | [address] | [place] | [phone] | | [facility] | | [address] | | | - LABORATORY | | | | + + + + + Comprehensive Metabolic Panel (07/06/2020 2:15 PM PDT) + + + + + + | Component | Value | Ref Range | Performed | Pathologist | | | | | At | Signature | + + + + + + | Na | 139 | 136 - 145 | [facility] | | | | | mmol/L | [facility] | | | | | | MEDICAL | | | | | | CENTER - | | | | | | LABORATORY | | + + + + + + | K | 3.9 | 3.4 - 5.1 | [facility] | | | | | mmol/L | [facility] | | | | | | MEDICAL | | | | | | CENTER - | | | | | | LABORATORY | | + + + + + + | Cl | 101 | 98 - 107 mmol/L | [facility] | | | | | | [facility] | | | | | | MEDICAL | | | | | | CENTER - | | | | | | LABORATORY | | + + + + + + | CO2 | 32 (H) | 20 - 31 mmol/L | [facility] | | | | | | [facility] | | | | | | MEDICAL | | | | | | CENTER - | | | | | | LABORATORY | | + + + + + + | Anion Gap | 6 | 3 - 16 mmol/L | [facility] | | | | | | [facility] | | | | | | MEDICAL | | | | | | CENTER - | | | | | | LABORATORY | | + + + + + + | Glucose | 102 | 60 - 106 mg/dL | [facility] | | | | | | [facility] | | | | | | MEDICAL | | | | | | CENTER - | | | | | | LABORATORY | | + + + + + + | BUN | 25 (H) | 9 - 23 mg/dL | [facility] | | | | | | [facility] | | | | | | MEDICAL | | | | | | CENTER - | | | | | | LABORATORY | | + + + + + + | Creatinine | 1.30 (H) | 0.55 - 1.02 | [facility] | | | | | mg/dL | [facility] | | | | | | MEDICAL | | | | | | CENTER - | | | | | | LABORATORY | | + + + + + + | eGFR, | 42 (L)Comment: | >=60 | [facility] | | | non- | GLOMERULAR FILTRATION | mL/min/1.73m2 | [facility] | | | [place] | RATE,ESTIMATED | | MEDICAL | | | | mL/min/1.50i9Fwdg than | | CENTER - | | | | 60 Chronic kidney | | LABORATORY | | | | disease,if found over a | | | | | | 3-month period.Less than | | | | | | 15 Kidney failure | | | | + + + + + + | eGFR, | 51 (L)Comment: | >=60 | [facility] | | | | GLOMERULAR FILTRATION | mL/min/1.73m2 | [facility] | | | [place] | RATE,ESTIMATED | | MEDICAL | | | | mL/min/1.93d7Zfxc than | | CENTER - | | | | 60 Chronic kidney | | LABORATORY | | | | disease,if found over a | | | | | | 3-month period.Less than | | | | | | 15 Kidney failure | | | | + + + + + + | Calcium | 9.5 | 8.7 - 10.4 | [facility] | | | | | mg/dL | [facility] | | | | | | MEDICAL | | | | | | CENTER - | | | | | | LABORATORY | | + + + + + + | Albumin | 4.3 | 3.2 - 4.8 g/dL | [facility] | | | | | | [facility] | | | | | | MEDICAL | | | | | | CENTER - | | | | | | LABORATORY | | + + + + + + | Bilirubin | 0.3 | 0.3 - 1.2 mg/dL | [facility] | | | Total | | | [facility] | | | | | | MEDICAL | | | | | | CENTER - | | | | | | LABORATORY | | + + + + + + | Total | 6.5 | 5.7 - 8.2 g/dL | [facility] | | | Protein | | | [facility] | | | | | | MEDICAL | | | | | | CENTER - | | | | | | LABORATORY | | + + + + + + | AST | 13 | 0 - 34 U/L | [facility] | | | | | | [facility] | | | | | | MEDICAL | | | | | | CENTER - | | | | | | LABORATORY | | + + + + + + | ALT | <7 (L) | 10 - 49 U/L | [facility] | | | | | | [facility] | | [facility] | | | MEDICAL | | | | | | CENTER - | | | | | | LABORATORY | | + + + + + + | Alkaline | 91 | 46 - 116 U/L | [facility] | | | Phosphatase | | | [facility] | | | | | | MEDICAL | | | | | | CENTER - | | | | | | LABORATORY | | + + + + + + | Globulin | 2.2 | 2.1 - 3.8 g/dL | [facility] | | | | | | [facility] | | | | | | MEDICAL | | | | | | CENTER - | | | | | | LABORATORY | | + + + + + + | Albumin/Lori | 2.0 (H) | 0.8 - 1.9 | [facility] | | | bulin Ratio | | | [facility] | | | | | | MEDICAL | | | | | | CENTER - | | | | | | LABORATORY | | + + + + + + | BUN/Creatin | 19.2 | | [facility] | | | ine Ratio | | | [facility] | | | | | | MEDICAL | | | | | | CENTER - | | | | | | LABORATORY | | + + + + + + + + | Specimen | + + | Blood | + + + + + + + | Performing | Address | City/State/Zipcode | Phone Number | | Organization | | | | + + + + + | [facility] | [address] | [place] | [phone] | | [facility] | | [address] | | | - LABORATORY | | | | + + + + + CBC w/ Auto Differential (07/06/2020 2:15 PM PDT) + + + + + + | Component | Value | Ref Range | Performed | Pathologist | | | | | At | Signature | + + + + + + | White Blood | 9.2 | 4.0 - 11.0 K/uL | [facility] | | | Cells | | | [facility] | | | | | | MEDICAL | | | | | | CENTER - | | | | | | LABORATORY | | + + + + + + | Red Blood | 4.26 | 3.70 - 5.20 | [facility] | | | Cells | | M/uL | [facility] | | | | | | MEDICAL | | | | | | CENTER - | | | | | | LABORATORY | | + + + + + + | Hemoglobin | 12.8 | 11.5 - 16.0 | [facility] | | | | | g/dL | [facility] | | | | | | MEDICAL | | | | | | CENTER - | | | | | | LABORATORY | | + + + + + + | Hematocrit | 39.3 | 34.0 - 47.0 % | [facility] | | | | | | [facility] | | | | | | MEDICAL | | | | | | CENTER - | | | | | | LABORATORY | | + + + + + + | MCV | 92.3 | 83.0 - 101.0 fL | [facility] | | | | | | [facility] | | | | | | MEDICAL | | | | | | CENTER - | | | | | | LABORATORY | | + + + + + + | MCH | 30.0 | 28.0 - 35.0 pg | [facility] | | | | | | [facility] | | | | | | MEDICAL | | | | | | CENTER - | | | | | | LABORATORY | | + + + + + + | MCHC | 32.6 | 32.0 - 36.0 | [facility] | | | | | g/dL | [facility] | | | | | | MEDICAL | | | | | | CENTER - | | | | | | LABORATORY | | + + + + + + | RDW-CV | 13.8 | <15.0 % | [facility] | | | | | | [facility] | | | | | | MEDICAL | | | | | | CENTER - | | | | | | LABORATORY | | + + + + + + | RDW-SD | 46.9 (H) | 35.1 - 46.3 fL | [facility] | | | | | | [facility] | | | | | | MEDICAL | | | | | | CENTER - | | | | | | LABORATORY | | + + + + + + | Platelet | 308 | 140 - 440 K/uL | [facility] | | | Count | | | [facility] | | | | | | MEDICAL | | | | | | CENTER - | | | | | | LABORATORY | | + + + + + + | MPV | 10.1 | 6.5 - 12.4 fL | [facility] | | | | | | [facility] | | | | | | MEDICAL | | | | | | CENTER - | | | | | | LABORATORY | | + + + + + + | % | 62.6 | 45.0 - 82.0 % | [facility] | | | Neutrophils | | | [facility] | | | | | | MEDICAL | | | | | | CENTER - | | | | | | LABORATORY | | + + + + + + | % | 27.8 | 20.0 - 45.0 % | [facility] | | | Lymphocytes | | | [facility] | | | | | | MEDICAL | | | | | | CENTER - | | | | | | LABORATORY | | + + + + + + | % Monocytes | 6.0 | 4.0 - 12.0 % | [facility] | | | | | | [facility] | | | | | | MEDICAL | | | | | | CENTER - | | | | | | LABORATORY | | + + + + + + | % | 2.1 | 0.0 - 5.0 % | [facility] | | | Eosinophils | | | [facility] | | | | | | MEDICAL | | | | | | CENTER - | | | | | | LABORATORY | | + + + + + + | % Basophils | 0.3 | 0.0 - 1.0 % | [facility] | | | | | | [facility] | | | | | | MEDICAL | | | | | | CENTER - | | | | | | LABORATORY | | + + + + + + | % Immature | 1.2 (H)Comment: | 0.0 - 0.4 % | [facility] | | | Granulocyte | Preliminary studies have | | [facility] | | | s | indicated the IG% | | MEDICAL | | | | and/or IG# show promise | | CENTER - | | | | as an early indicator | | LABORATORY | | | | for infection. | | | | + + + + + + | Absolute | 5.75 | 1.80 - 8.50 | [facility] | | | Neutrophils | | K/uL | [facility] | | | | | | MEDICAL | | | | | | CENTER - | | | | | | LABORATORY | | + + + + + + | Absolute | 2.55 | 0.60 - 3.20 | [facility] | | | Lymphocytes | | K/uL | [facility] | | | | | | MEDICAL | | | | | | CENTER - | | | | | | LABORATORY | | + + + + + + | Absolute | 0.55 | 0.00 - 1.00 | [facility] | | | Monocytes | | K/uL | [facility] | | | | | | MEDICAL | | | | | | CENTER - | | | | | | LABORATORY | | + + + + + + | Absolute | 0.19 | 0.00 - 0.40 | [facility] | | | Eosinophils | | K/uL | [facility] | | | | | | MEDICAL | | | | | | CENTER - | | | | | | LABORATORY | | + + + + + + | Absolute | 0.03 | 0.00 - 0.10 | [facility] | | | Basophils | | K/uL | [facility] | | | | | | MEDICAL | | | | | | CENTER - | | | | | | LABORATORY | | + + + + + + | Absolute | 0.11 (H) | 0.00 - 0.03 | [facility] | | | Immature | | K/uL | [facility] | | | Granulocyte | | | MEDICAL | | | s | | | CENTER - | | | | | | LABORATORY | | + + + + + + | % nRBC | 0 | 0 - 2 per 100 | [facility] | | | | | WBCs | [facility] | | | | | | MEDICAL | | | | | | CENTER - | | | | | | LABORATORY | | + + + + + + | Absolute | 0.00 | 0.00 - 0.01 | [facility] | | | nRBC | | K/uL | [facility] | | | | | | MEDICAL | | | | | | CENTER - | | | | | | LABORATORY | | + + + + + + + + | Specimen | + + | Blood | + + + + + + + | Performing | Address | City/State/Zipcode | Phone Number | | Organization | | | | + + + + + | [facility] | [address] | [place] | [phone] | | [facility] | | [address] | | | - LABORATORY | | | | + + + + + ECG 12 lead (07/06/2020 2:12 PM PDT) + + + + + + | Component | Value | Ref Range | Performed | Pathologist | | | | | At | Signature | + + + + + + | VENTRICULAR | 68 | BPM | [facility] | | | RATE EKG | | | | | + + + + + + | ATRIAL RATE | 68 | BPM | [facility] | | + + + + + + | P-R | 200 | ms | [facility] | | | INTERVAL | | | | | + + + + + + | QRS | 102 | ms | [facility] | | | DURATION | | | | | + + + + + + | Q-T | 404 | ms | [facility] | | | INTERVAL | | | | | + + + + + + | Q-T | 429 | ms | [facility] | | | INTERVAL | | | | | | (CORRECTED) | | | | | + + + + + + | P WAVE AXIS | 40 | degrees | [facility] | | + + + + + + | QRS AXIS | -4 | degrees | [facility] | | + + + + + + | T AXIS | 24 | degrees | [facility] | | + + + + + + | INTERPRETAT | Normal sinus | | [facility] | | | ION TEXT | rhythmNormal ECG | | | | | | Confirmed by YUE SHAW, | | | | | | JEAN ([id number]) on | | | | | | 07/07/2020 6:06:33 AM | | | | + + + + + + + + | Specimen | + + | | + + + + + | Narrative | Performed At | + + + | | | + + + + +---------+ + + | Performing | Address | City/State/Zipcode | Phone Number | | Organization | | | | + +---------+ + + | [facility] | | | | + +---------+ + + documented in this encounter Visit Diagnoses + + | Diagnosis | + + | Atypical chest pain - Primary Other chest pain | + + documented in this encounter Administered Medications + +--------+ +--------+------+------+ | Medication Order | MAR | Action | Dose | Rate | Site | | | Action | Date | | | | + +--------+ +--------+------+------+ | aspirin chewable tablet 324 mg | Given | 07/06/20 | 324 mg | | | | 324 mg, Oral, ONCE, [facility] 07/06/20 | | 20 2:28 | | | | | at 1410, For 1 dose | | PM PDT | | | | + +--------+ +--------+------+------+ +---+---+ | | | +---+---+ + +-------+ +--------+---+---+ | fentaNYL (PF) injection 25 mcg | Given | 07/06/20 | 25 mcg | | | | 25 mcg, Intravenous, ONCE, Kimberly | | 20 2:28 | | | | | 07/06/20 at 1410, For 1 dose | | PM PDT | | | | + +-------+ +--------+---+---+ +---+---+ | | | +---+---+ documented in this encounter
--- OUTSIDE RECORDS SUMMARY | ~2020-07-20 | XMS | Encounter Summary ---
Demographics + + + | Address | [address] | | | [place] [address] | + + + | Home Phone | | + + + | Preferred Language | Unknown | + + + | Marital Status | | + + + | Judaism Affiliation | 1028 | + + + | Race | White | + + + | Ethnic Group | Not or | + + + Author + + + | Author | [facility] | | | and [place] | + + + | Organization | [facility] | | | and [place] [...] Team Providers + +------+ + | Care Turfgrass Management Professor Name | Role | Phone | + +------+ + | Gage De Jesus DO | PCP | | + +------+ + Encounter Details +--------+ + + + + | Date | Type | Department | Care Team | Description | +--------+ + + + + | 03/14/ | Orders Only | [facility] | Ike Young, | | | 2014 | | [address] | MARKETING TRAFFIC MANAGER [address] | | | | [place], [place] | [place] | | | | | [address] | [place], [place] | | | | | [phone] | [address] | | | | | | [phone] | | | | | | | | +--------+ + + + + Social History + +-------+ +--------+------+ | Tobacco Use | Types | Packs/Day | Years | Date | | | | | Used | | + +-------+ +--------+------+ | Never Assessed | | | | | + +-------+ +--------+------+ + + + | Sex Assigned at | Date Recorded | | | | + + + | Not on file | | + + + documented as of this encounter Plan of Treatment Not on filedocumented as of this encounter Procedures + +--------+ + + + | Procedure Name | Priori | Date/Time | Associated Diagnosis | Comments | | | ty | | | | + +--------+ + + + | EXTERNAL LAB: CBC | Routin | 03/14/2015 | | Results for this | | | e | 8:53 AM | | procedure are in the | | | | PDT | | results section. | + +--------+ + + + | IRON AND IRON | Routin | 03/14/2015 | | Results for this | | BINDING CAPACITY | e | 8:53 AM | | procedure are in the | | | | PDT | | results section. | + +--------+ + + + | VITAMIN D, | Routin | 03/14/2015 | | Results for this | | DEFICIENCY SCREEN | e | 8:53 AM | | procedure are in the | | (25-HYDROXY) | | PDT | | results section. | + +--------+ + + + | PROTEIN/CREATININE | Routin | 03/14/2015 | | Results for this | | RATIO, URINE | e | 8:53 AM | | procedure are in the | | | | PDT | | results section. | + +--------+ + + + | PROTEIN, URINE, | Routin | 03/14/2015 | | Results for this | | RANDOM | e | 8:53 AM | | procedure are in the | | | | PDT | | results section. | + +--------+ + + + | CREATININE, URINE, | Routin | 03/14/2015 | | Results for this | | RANDOM | e | 8:53 AM | | procedure are in the | | | | PDT | | results section. | + +--------+ + + + | URIC ACID | Routin | 03/14/2015 | | Results for this | | | e | 8:53 AM | | procedure are in the | | | | PDT | | results section. | + +--------+ + + + | MAGNESIUM | Routin | 03/14/2015 | | Results for this | | | e | 8:53 AM | | procedure are in the | | | | PDT | | results section. | + +--------+ + + + | RENAL FUNCTION PANEL | Routin | 03/14/2015 | | Results for this | | | e | 8:53 AM | | procedure are in the | | | | PDT | | results section. | + +--------+ + + + | URINALYSIS, REFLEX | Routin | 03/14/2015 | | Results for this | | MICROSCOPIC AND/OR | e | 8:52 AM | | procedure are in the | | CULTURE | | PDT | | results section. | + +--------+ + + + | URINALYSIS, | Routin | 03/14/2015 | | Results for this | | MICROSCOPIC ONLY | e | 8:52 AM | | procedure are in the | | | | PDT | | results section. | + +--------+ + + + | CULTURE, URINE | Routin | 03/14/2015 | | Results for this | | | e | 8:38 AM | | procedure are in the | | | | PDT | | results section. | + +--------+ + + + documented in this encounter Results Iron and Iron Binding Capacity (03/14/2015 8:53 AM PDT) + + + + + + | Component | Value | Ref Range | Performed | Pathologist | | | | | At | Signature | + + + + + + | Iron | 46 | 30 - 180 ug/dL | EXTERNAL | | | | | | LAB | | + + + + + + | TIBC | 350 | 260 - 490 ug/dL | EXTERNAL | | | | | | LAB | | + + + + + + | Iron | 13 (L)Comment: Testing | 15 - 50 % | EXTERNAL | | | Saturation | performed at [facility];[address] | | LAB | | | | [address] | | | [address] | [address];[place] [address] | | | | + + + + + + + + | Specimen | + + | | + + + +---------+ + + | Performing | Address | City/State/Zipcode | Phone Number | | Organization | | | | + +---------+ + + | EXTERNAL LAB | | | | + +---------+ + + Protein/Creatinine Ratio, Urine (03/14/2015 8:53 AM PDT) + + + + + + | Component | Value | Ref Range | Performed | Pathologist | | | | | At | Signature | + + + + + + | Protein/Cre | 0.141Comment: Testing | | EXTERNAL | | | at Ratio | performed at [facility];[address] | | LAB | | | | [address] | | | | | | [place] [address] | | | | + + + + + + + + | Specimen | + + | | + + + +---------+ + + | Performing | Address | City/State/Zipcode | Phone Number | | Organization | | | | + +---------+ + + | EXTERNAL LAB | | | | + +---------+ + + Protein, Urine, Random (03/14/2015 8:53 AM PDT) + + + + + + | Component | Value | Ref Range | Performed | Pathologist | | | | | At | Signature | + + + + + + | Protein, | 15Comment: Testing | mg/dL | EXTERNAL | | | Urine | performed at [facility];[address] | | LAB | | | | [place] | | | | | | [address];[place] [address] | | | | + + + + + + + + | Specimen | + + | | + + + +---------+ + + | Performing | Address | City/State/Zipcode | Phone Number | | Organization | | | | + +---------+ + + | EXTERNAL LAB | | | | + +---------+ + + Creatinine, Urine, Random (03/14/2015 8:53 AM PDT) + + + + + + | Component | Value | Ref Range | Performed | Pathologist | | | | | At | Signature | + + + + + + | Creatinine, | 106.7Comment: Testing | mg/dL | EXTERNAL | | | Urine | performed at [facility];[address] | | LAB | | | | [address] | | | [address] | [address];[place] [address] | | | | + + + + + + + + | Specimen | + + | | + + + +---------+ + + | Performing | Address | City/State/Zipcode | Phone Number | | Organization | | | | + +---------+ + + | EXTERNAL LAB | | | | + +---------+ + + Vitamin D, Deficiency Screen (25-Hydroxy) (03/14/2015 8:53 AM PDT) + + + + + + | Component | Value | Ref Range | Performed | Pathologist | | | | | At | Signature | + + + + + + | Vit D, | <12 (L)Comment: <20 | 30 - 150 ng/mL | EXTERNAL | | | 25-Hydroxy | ng/mL Suggests | | LAB | | | | deficiency of 25-OH | | | | | | Vitamin D. 20-29 ng/mL | | | | | | Suggests a relative | | | | | | insufficiency of 25-OH | | | | | | Vitamin D. 30-150 ng/mL | | | | | | Suggests a sufficient | | | | | | level of 25-OH Vitamin | | | | | | D. >150 ng/mL | | | | | | Toxic level of 25-OH | | | | | | Vitamin D. Blood levels | | | | | | of 25 Hydroxy Vitamin D | | | | | | vary with the extent of | | | | | | sun exposure. Values | | | | | | tend to be highest in | | | | | | late summer and lowest | | | | | | in the spring. Values | | | | | | also tend to decrease | | | | | | with age, due to | | | | | | decreased precursor | | | | | | synthesis in the | | | | | | skin.Testing performed | | | | | | at [facility];[address] [facility] | | | | | | [facility];[place], [place] | | | | | | [address] | | | | + + + + + + + + | Specimen | + + | | + + + +---------+ + + | Performing | Address | City/State/Zipcode | Phone Number | | Organization | | | | + +---------+ + + | EXTERNAL LAB | | | | + +---------+ + + External Lab: NICOLE (03/14/2015 8:53 AM PDT) + + + + + + | Component | Value | Ref Range | Performed | Pathologist | | | | | At | Signature | + + + + + + | WBC | 10.68 | 3.80 - 11.00 | EXTERNAL | | | | | K/uL | LAB | | + + + + + + | Non- | 4.99 | 3.70 - 5.10 | EXTERNAL | | | Red Blood | | M/uL | LAB | | | Cells | | | | | | Counted | | | | | + + + + + + | Hemoglobin | 13.3 | 11.3 - 15.5 | EXTERNAL | | | | | g/dL | LAB | | + + + + + + | Hematocrit, | 41.6 | 34.0 - 46.0 % | EXTERNAL | | | POC | | | LAB | | + + + + + + | MCV | 83.3 | 80.0 - 100.0 fl | EXTERNAL | | | | | | LAB | | + + + + + + | MCH | 26.7 (L) | 27.0 - 34.0 pg | EXTERNAL | | | | | | LAB | | + + + + + + | MCHC | 32.1 | 32.0 - 35.5 | EXTERNAL | | | | | g/dL | LAB | | + + + + + + | RDW-CV | 52.5 | 37 - 53 fl | EXTERNAL | | | | | | LAB | | + + + + + + | Platelet | 378 | 150 - 400 K/uL | EXTERNAL | | | Count | | | LAB | | | Plasma | | | | | + + + + + + | MPV | 8.4 | fl | EXTERNAL | | | | | | LAB | | + + + + + + | Differentia | MANUAL | | EXTERNAL | | | l Type | | | LAB | | + + + + + + | Segmented | 70 | % | EXTERNAL | | | Neutrophils | | | LAB | | | Manual | | | | | + + + + + + | % Bands | 1 | % | EXTERNAL | | | | | | LAB | | + + + + + + | Lymphocytes | 23 | % | EXTERNAL | | | Manual | | | LAB | | + + + + + + | Monocytes | 3 | % | EXTERNAL | | | Manual | | | LAB | | + + + + + + | Eosinophils | 3 | % | EXTERNAL | | | Manual | | | LAB | | + + + + + + | Absolute | 7.47 (H) | 1.90 - 7.40 | EXTERNAL | | | Neutrophils | | K/uL | LAB | | + + + + + + | Bands | 0.11 | 0.00 - 0.20 | EXTERNAL | | | Manual | | K/uL | LAB | | + + + + + + | Absolute | 2.46 | 1.00 - 3.90 | EXTERNAL | | | Lymphocytes | | K/uL | LAB | | + + + + + + | Absolute | 0.32 | 0.00 - 0.80 | EXTERNAL | | | Monocytes | | K/uL | LAB | | + + + + + + | Absolute | 0.32 | 0.00 - 0.50 | EXTERNAL | | | Eosinophils | | K/uL | LAB | | + + + + + + | RBC | 1+ | | EXTERNAL | | | Morphology | | | LAB | | + + + + + + | RBC | ANISO | | EXTERNAL | | | Morphology | | | LAB | | + + + + + + | RBC | NORMAL PLT MORPH | | EXTERNAL | | | Morphology | | | LAB | | + + + + + + | RBC | Testing performed at | | EXTERNAL | | | Morphology | [facility];[address] | | LAB | | | | [place] [address] | | | | + + + + + + + + | Specimen | + + | | + + + +---------+ + + | Performing | Address | City/State/Zipcode | Phone Number | | Organization | | | | + +---------+ + + | EXTERNAL LAB | | | | + +---------+ + + Uric Acid (03/14/2015 8:53 AM PDT) + + + + + + | Component | Value | Ref Range | Performed | Pathologist | | | | | At | Signature | + + + + + + | Uric Acid | 7.9 (H)Comment: Testing | 2.2 - 7.1 mg/dL | EXTERNAL | | | | performed at [facility];[address] | | LAB | | | | [address] | | [address];[place] [address] | | | | + + + + + + + + | Specimen | + + | | + + + +---------+ + + | Performing | Address | City/State/Zipcode | Phone Number | | Organization | | | | + +---------+ + + | EXTERNAL LAB | | | | + +---------+ + + Magnesium (03/14/2015 8:53 AM PDT) + + + + + + | Component | Value | Ref Range | Performed | Pathologist | | | | | At | Signature | + + + + + + | Magnesium | 1.8Comment: Testing | 1.7 - 2.4 mg/dL | EXTERNAL | | | | performed at [facility];[address] | | LAB | | | | [address] | | | | | | [address];[place] [address] | | | | + + + + + + + + | Specimen | + + | | + + + +---------+ + + | Performing | Address | City/State/Zipcode | Phone Number | | Organization | | | | + +---------+ + + | EXTERNAL LAB | | | | + +---------+ + + Renal Function Panel (03/14/2015 8:53 AM PDT) + + + + + + | Component | Value | Ref Range | Performed | Pathologist | | | | | At | Signature | + + + + + + | Na | 139 | 135 - 143 | EXTERNAL | | | | | mmol/L | LAB | | + + + + + + | K | 3.8 | 3.5 - 4.9 | EXTERNAL | | | | | mmol/L | LAB | | + + + + + + | Cl | 100 | 99 - 109 mmol/L | EXTERNAL | | | | | | LAB | | + + + + + + | CO2 | 28 | 23 - 32 mmol/L | EXTERNAL | | | | | | LAB | | + + + + + + | Anion Gap | 15 | 5 - 20 mmol/L | EXTERNAL | | | | | | LAB | | + + + + + + | Glucose, | 150 (H) | 65 - 99 mg/dL | EXTERNAL | | | Fasting | | | LAB | | + + + + + + | BUN | 9 | 8 - 25 mg/dL | EXTERNAL | | | | | | LAB | | + + + + + + | Creatinine | 1.11 (H) | 0.50 - 1.00 | EXTERNAL | | | | | mg/dL | LAB | | + + + + + + | Calcium | 8.8 | 8.5 - 10.5 | EXTERNAL | | | | | mg/dL | LAB | | + + + + + + | Albumin | 3.7 | 3.6 - 5.0 g/dL | EXTERNAL | | | | | | LAB | | + + + + + + | PHOSPHORUS | 2.8 | 2.3 - 4.8 mg/dL | EXTERNAL | | | | | | LAB | | + + + + + + | Estimated | 54 (L)Comment: GFR <60: | mL/min/1.73m2 | EXTERNAL | | | GFR | CHRONIC KIDNEY DISEASE, | | LAB | | | | IF FOUND OVER A 3 MONTH | | | | | | PERIOD. GFR <15: KIDNEY | | | | | | FAILURE. FOR | | | | | | AMERICANS, MULTIPLY THE | | | | | | CALCULATED GFR BY | | | | | | 1.210.Testing performed | | | | | | at [facility];[address] [facility] | | | | | | [address];[place], [place] | | | | | | [address] | | | | + + + + + + + + | Specimen | + + | | + + + +---------+ + + | Performing | Address | City/State/Zipcode | Phone Number | | Organization | | | | + +---------+ + + | EXTERNAL LAB | | | | + +---------+ + + Urinalysis, Reflex Microscopic and/or Culture (03/14/2015 8:52 AM PDT) + + + + + + | Component | Value | Ref Range | Performed | Pathologist | | | | | At | Signature | + + + + + + | Color | DK YELLOW | | EXTERNAL | | | | | | LAB | | + + + + + + | Clarity, | TURBID | | EXTERNAL | | | Urine | | | LAB | | + + + + + + | Specific | 1.015 | 1.002 - 1.030 | EXTERNAL | | | [place], | | | LAB | | | Urine | | | | | + + + + + + | Leukocyte | SMALL (A) | | EXTERNAL | | | Esterase, | | | LAB | | | Urine | | | | | + + + + + + | Nitrite, | NEGATIVE | | EXTERNAL | | | Urine | | | LAB | | + + + + + + | Urobilinoge | 1.0 | mg/dL | EXTERNAL | | | n, Urine | | | LAB | | + + + + + + | Protein, | NEGATIVE | mg/dL | EXTERNAL | | | Urine | | | LAB | | + + + + + + | pH, Urine | 6.5 | 5.0 - 8.0 | EXTERNAL | | | | | | LAB | | + + + + + + | Blood, | MODERATE (A) | | EXTERNAL | | | Urine | | | LAB | | + + + + + + | Ketones | NEGATIVE | mg/dL | EXTERNAL | | | | | | LAB | | + + + + + + | Bilirubin, | NEGATIVE | | EXTERNAL | | | Urine | | | LAB | | + + + + + + | Glucose, | NEGATIVE | mg/dL | EXTERNAL | | | Urine | | | LAB | | + + + + + + + + | Specimen | + + | | + + + +---------+ + + | Performing | Address | City/State/Zipcode | Phone Number | | Organization | | | | + +---------+ + + | EXTERNAL LAB | | | | + +---------+ + + Urinalysis, Microscopic Only (03/14/2015 8:52 AM PDT) + + + + + + | Component | Value | Ref Range | Performed | Pathologist | | | | | At | Signature | + + + + + + | WBC, UA | 1-5 | 0 - 5 /hpf | EXTERNAL | | | | | | LAB | | + + + + + + | RBC, UA | 50-100 | 0 - 5 /hpf | EXTERNAL | | | | | | LAB | | + + + + + + | Epithelial | 50-100 | /lpf | EXTERNAL | | | Cells | | | LAB | | + + + + + + | Bacteria, | 4+ (A) | | EXTERNAL | | | UA | | | LAB | | + + + + + + | Crystals | FEW | /hpf | EXTERNAL | | | | | | LAB | | + + + + + + | Crystals | CALCIUM OXALATE | /hpf | EXTERNAL | | | | | | LAB | | + + + + + + | Urinalysis | LESS THAN 10 ML | | EXTERNAL | | | Comments | SPECIMENComment: CULTURE | | LAB | | | | TO FOLLOWTesting | | | | | | performed at [facility];[address] | | | | | | [place] | | [address] | | | [address];[place] [address] | | | | | | | | | | + + + + + + + + | Specimen | + + | | + + + +---------+ + + | Performing | Address | City/State/Zipcode | Phone Number | | Organization | | | | + +---------+ + + | EXTERNAL LAB | | | | + +---------+ + + Culture, Urine (03/14/2015 8:38 AM PDT) + + | Specimen | + + | | + + + + + | Narrative | Performed At | + + + | Specimen Description URINE, COLLECTION NOT | EXTERNAL LAB | | GIVEN CULTURE >100,000 | | | CFU/ML | | | ESCHERICHIA COLIAbnormal | | | Testing performed at [facility];[address] [facility];[place], [place] | | | [address] Suscepibility for - ESCHERICHIA COLI Ampicillin | | | SUSCEPTIBLESensitive Ampicillin + Sulbactam | | | SUSCEPTIBLESensitive Cefepime | | | SUSCEPTIBLESensitive Cefoxitin | | | SUSCEPTIBLESensitive Ceftazidime | | | SUSCEPTIBLESensitive Ceftriaxone | | | SUSCEPTIBLESensitive Ciprofloxacin | | | SUSCEPTIBLESensitive Gentamicin | | | SUSCEPTIBLESensitive Levofloxacin | | | SUSCEPTIBLESensitive Nitrofurantoin | | | SUSCEPTIBLESensitive Piperacillin + Tazobactam | | | SUSCEPTIBLESensitive Tobramycin | | | SUSCEPTIBLESensitive Trimethoprim + | | | SulfamethoxazoleSUSCEPTIBLESensitive | | + + + + +---------+ + + | Performing | Address | City/State/Zipcode | Phone Number | | Organization | | | | + +---------+ + + | EXTERNAL LAB | | | | + +---------+ + + documented in this encounter Visit Diagnoses Not on filedocumented in this encounter"
--- OUTSIDE RECORDS SUMMARY | ~2020-07-20 | XMS | Encounter Summary ---
Demographics + + + | Address | [address] | | | [place] [address] | + + + | Home Phone | | + + + | Preferred Language | Unknown | + + + | Marital Status | | + + + | Gnosticist Affiliation | 1028 | + + + | Race | White | + + + | Ethnic Group | Not or | + + + Author + + + | Author | [facility] | | | and [place] | + + + | Organization | [facility] | | | and [place] [...] Team Providers + +------+ + | Care Airborne Weapons Technical Manager Name | Role | Phone | + +------+ + | Gage De Jesus DO | PCP | | + +------+ + Encounter Details +--------+ + + + + | Date | Type | Department | Care Team | Description | +--------+ + + + + | 01/19/ | Abstract | [facility] | Jasbir Reeder, | | | 2017 | | NEUROSURGERY [address] | PA-C [address] | | | | [address] | [address] [place] | | | | | [place], [place] | [place] [address] | | | | | [address] | [phone] | | | | | [phone] | | | +--------+ + + + [...] filedocumented as of this encounter Visit Diagnoses Not on filedocumented in this encounter"
--- OUTSIDE RECORDS SUMMARY | ~2020-07-20 | XMS | Encounter Summary ---
Demographics + + + | Address | [address] | | | [place] [address] | + + + | Home Phone | | + + + | Preferred Language | Unknown | + + + | Marital Status | | + + + | Sikhism Affiliation | 1028 | + + + | Race | White | + + + | Ethnic Group | Not or | + + + Author + + + | Author | [facility] | | | and [place] | + + + | Organization | [facility] | | | and [...] Team Providers + +------+ + | Care Rug Sizer Name | Role | Phone | + +------+ + | Gage De Jesus DO | PCP | | + +------+ + Encounter Details +--------+ + + + + | Date | Type | Department | Care Team | Description | +--------+ + + + + | 01/19/ | Hospital | [facility] | Arpit Bolden, | Back pain, | | 2018 | Encounter | MED [facility] XRAY [address] | DO [address] | unspecified back | | | | [place] | [address] [place], [place] | location, | | | | [place] [address] | [address] | unspecified back | | | | [phone] | | pain laterality, | | | | | | unspecified | | | | | | chronicity | +--------+ + + + + Social [...] + + documented as of this encounter Medications at Time of Discharge [...] +---------+ + + | ARIPiprazole | Take 20 mg by mouth | | 0 | | | | (ABILIFY) 20 MG | Daily. | | | | 9 | | tablet | | | | | | + + + +---------+ + + | bumetanide (BUMEX) | Take 1 mg by mouth 2 | | 0 | 12/24/19 | | | 1 mg tablet | times daily. | | | 18 | 9 | + + + +---------+ + + | cephalexin | | | 0 | 01/19/20 | | | (KEFLEX) 500 MG TABS | | | | 18 | 9 | + + + +---------+ + + | divalproex | Take 250 mg by mouth | | 0 | | | | (DEPAKOTE) [address] | nightly. | | | | 0 | | tablet | | | | | | + + + +---------+ + + | | Take 1 tablet by | | 0 | 01/20/20 | | | HYDROcodone-acetamin | mouth every 6 hours | | | 18 | 9 | | ophen (NORCO) 5-325 | as needed. | | | | | | mg per tablet | | | | | | + + + +---------+ + + | LORazepam (ATIVAN) | Take 0.25 mg by | | 0 | | | | 0.5 mg tablet | mouth every 6 hours | | | | 9 | | | as needed for Other. | | | | | + + + +---------+ + + | omeprazole | Take 20 mg by mouth | | 0 | 12/24/19 | | | (PRILOSEC) 20 mg | 2 times daily. | | | 18 | 0 | | capsule | | | | | | + + + +---------+ + + | ondansetron | Take 4 mg by mouth | | 0 | | | | (ZOFRAN) 4 mg tablet | every 4 hours as | | | | 0 | | | needed. | | | | | + + + +---------+ + + | potassium chloride | Take 20 mEq by mouth | | 0 | 12/24/19 | | | (K-DUR) 20 mEq ER | 3 times daily. | | | 18 | 9 | | tablet | | | | | | + + + +---------+ + + documented as of this encounter Plan of Treatment Not on filedocumented as of this encounter Procedures + +--------+ + + + | Procedure Name | Priori | Date/Time | Associated Diagnosis | Comments | | | ty | | | | + +--------+ + + + | XR LUMBAR SPINE 4 + | Routin | 01/19/2018 | Back pain, | Results for this | | VW | e | 2:29 PM | unspecified back | procedure are in the | | | | PDT | location, | results section. | | | | | unspecified back | | | | | | pain laterality, | | | | | | unspecified | | | | | | chronicity | | + +--------+ + + + documented in this encounter Results XR Lumbar Spine 4 + Vw (01/19/2018 2:29 PM PDT) + + | Specimen | + + | | + + + + + | Narrative | Performed At | + + + | EXAM:XR LUMBAR SPINE 4 + VW CLINICAL HISTORY: Back Pain | [facility] | | COMPARISON: Outside lumbar spine radiograph dated August 25, 2017 | | | FINDINGS: Frontal and lateral views of the lumbar spine. | | | Levoconvex scoliosis. 5 nonrib-bearing lumbar-type vertebral | | | bodies. In the neutral lateral position there is anterolisthesis of | | | L5 by about 7 mm and L4 by about 9 mm. Slight retrolisthesis of L1 | | | and L2. Mild/moderate disc narrowing at L1-L2 through L3-L4. | | | Diffuse facet arthrosis. There is anterior translation at L4 with | | | flexion. Slight retrolisthesis of L1, L2, and L3 with extension. | | | Moderate disc narrowing at each level. IMPRESSION - | | | Levoconvex scoliosis with associated spondylosis. Multilevel | | | spondylolisthesis. There is translation of L4 with flexion and at | | | L1-L3 with extension. Dictated and Signed by: Jhoan Plunkett MD | | | Electronically signed: 01/19/2018 2:41 PM | | + + + + + | Procedure Note | + + | Compa, Rad Results In - 01/19/2018 2:44 PM PDT EXAM:XR LUMBAR SPINE 4 + VW | | | | CLINICAL HISTORY: Back Pain | | | | COMPARISON: Outside lumbar spine radiograph dated August 25, 2017 | | | | FINDINGS: Frontal and lateral views of the lumbar spine. Levoconvex scoliosis. | | 5 nonrib-bearing lumbar-type vertebral bodies. In the neutral lateral position | | there is anterolisthesis of L5 by about 7 mm and L4 by about 9 mm. Slight | | retrolisthesis of L1 and L2. Mild/moderate disc narrowing at L1-L2 through | | L3-L4. Diffuse facet arthrosis. There is anterior translation at L4 with | | flexion. Slight retrolisthesis of L1, L2, and L3 with extension. Moderate disc | | narrowing at each level. | | | | IMPRESSION - | | | | Levoconvex scoliosis with associated spondylosis. | | | | Multilevel spondylolisthesis. | | | | There is translation of L4 with flexion and at L1-L3 with extension. | | | | Dictated and Signed by: Jhoan Plunkett MD | | Electronically signed: 01/19/2018 2:41 PM | + + + +---------+ + + | Performing | Address | City/State/Zipcode | Phone Number | | Organization | | | | + +---------+ + + | [facility] | | | | + +---------+ + + documented in this encounter Visit Diagnoses + + | Diagnosis | + + | Back pain, unspecified back location, unspecified back pain laterality, unspecified | | chronicity | + + documented in this encounter"
--- OUTSIDE RECORDS SUMMARY | ~2020-07-20 | XMS | Encounter Summary ---
Demographics + + + | Address | [address] | | | [place] [address] | + + + | Home Phone | | + + + | Preferred Language | Unknown | + + + | Marital Status | | + + + | Confucianist Affiliation | 1028 | + + + | Race | White | + + + | Ethnic Group | Not or | + + + Author + + + | Author | [facility] | | | and [place] | + + + | Organization | [facility] | | | and [place] | [...] Team Providers + +------+ + | Care Door To Door Salesman Name | Role | Phone | + +------+ + | Gage De Jesus DO | PCP | | + +------+ + Reason for Visit + +--------+ + | Reason | Onset | Comments | | | Date | | + +--------+ + | Extremity Weakness | 06/08/ | Refusing to get out of bed | | | 2018 | | + +--------+ + Encounter Details +--------+ + + + + | Date | Type | Department | Care Team | Description | +--------+ + + + + | 06/08/ | Telephone | [facility] | Jasbir Reeder, | Extremity Weakness | | 2018 | | NEUROSURGERY [address] | PA-C [address] | (Refusing to get out | | | | [address] | [address] [place] | of bed) | | | | [place] | [place] [id number] | | | | | [address] | [phone] | | | | | [phone] | | | +--------+ + + + [...] this encounter Miscellaneous Notes Telephone Encounter - Alesha Denise CMA - 06/10/2019 9:27 AM PDTPatient scheduled to see Toño Louis on 07/09/19. el ephone Encounter - Nat Murray RN - 06/09/2019 1:35 PM PDTCalled patient and discussed w ith patient and the caregiver how she is doing today. Caregiver Margareth states she is doin g better and has been getting up. After discussion of Jasbir Reeder's advice in previous no te, Lisa states she will do the nerve conduction studies. Margareth will call Dr Louis'beti of [facility] to schedule and let neurosurgery know when it is completed. Jasbir Reeder notified of status at this time. el ephone Encounter - Jasbir Reeder PA-C - 06/09/2019 9:24 AM PDTThanks for the FYI. It is possible that she knows she can walk and is afraid that the nerve conduction studies will support this. However, I cannot help her if she does not allow me to do the studies and an swer questions about why she is having the problems she is having. It is certainly her righ t to refuse these, however, there is no reason for her to come see me if I do not have the s tudies I need to review to answer questions about what is going on and help her. Patient ca n come see me once the nerve conduction studies are done. elephone Encounter - Alesha Denise CMA - 06/08/2019 4:[address] Louis's office stating the patient declined the EMG. R eferral was closed out. Telephone Encounter - Nat Murray RN - 06/08/2019 11:36 AM PDT10/26/18 (Yam) L4-5 LAIF W/P SF & LAMI DAVID 05/28/19 (Sucharda) referral for nerve conduction studies authorized but not completed Margareth from [facility] in [place] called in and states patient is refusing to get out of bed. She asked me to talk with Lisa to try to reinforce importance of getting out of bed. I talked with Lisa to advise on importance of frequent mobility to prevent increased weakne ss and pain as well as complications such as skin breakdown, constipation, lung complication s and UTI from not emptying bladder. She verbalized understanding and states she would try b ut says she is unable to get out of bed and not able to walk. She denies numbness or tinglin g, just states weakness and pain in her legs as she has been having. No emergent issues note d at this time. Denies any injury since her office visit. Margareth thinks that she is wanting to transfer to a higher level of care facility and thin ks patient might be trying to meet criteria for higher level of care by saying she can't get out of bed. She states that Lisa is able to get out of bed and has been getting out of bed if she needs something in her room and staff isn't in the room. I advised both to keep trying to mobilize as much as possible, and if she really couldn't g et out of bed or status was truly deteriorating or worsening, she would need to be seen anabel neri by a provider to evaluate. Margareth verbalized understanding. Encouraged to call back if she had any more questions or concerns. Please advise further if needed. documented in this enco unter Plan of Treatment Not on filedocumented as of this encounter Visit Diagnoses Not on filedocumented in this encounter"
--- OUTSIDE RECORDS SUMMARY | ~2020-07-20 | XMS | Encounter Summary ---
Demographics + + + | Address | [address] | | | [place] [address] | + + + | Home Phone | | + + + | Preferred Language | Unknown | + + + | Marital Status | | + + + | Lutheran Affiliation | 1028 | + + + | Race | White | + + + | Ethnic Group | Not or | + + + Author + + + | Author | [facility] | | | and [place] | + + + | Organization | [facility] | | | and [place] [...] Team Providers + +------+ + | Care Substance Abuse Rn Name | Role | Phone | + +------+ + | Gage De Jesus DO | PCP | | + +------+ + Reason for Visit + +--------+ + | Reason | Onset | Comments | | | Date | | + +--------+ + | Neurosurgery | 02/18/ | Yuan Porter from 02/24 | | Appointment | 2017 | | + +--------+ + | Neurosurgery | 02/18/ | | | Appointment | 2017 | | + +--------+ + Encounter Details +--------+ + + + + | Date | Type | Department | Care Team | Description | +--------+ + + + + | 02/18/ | Telephone | [facility] | Arpit Bolden, | Neurosurgery | | 2017 | | NEUROSURGERY [address] | DO [address] | Appointment (Yuan | | | | [address] | [address] [place], [place] | Cancel from 02/24); | | | | [place] | [phone] | Neurosurgery | | | | [address] | | Appointment | | | | [phone] | | | +--------+ + + + [...] this encounter Miscellaneous Notes Telephone Encounter - Alix Pyle - 07/30/2018 3:23 PM PDTReschedule: Outcome: Spoke with Patient If Someone Else, Who: Shannon From: 08/06 Shannon To: 08/06 @ 2:15pm Shannon Reason: New Template Shannon Number: 1 Communication: Letter Note: No imaging needed. elephone Encounter - Dilcia Crowell - 06/08/2018 9:05 AM PDTPatient has been scheduled on 08/06/18.Electronica lly signed by Dilcia Crowell at 06/08/2018 9:06 AM PDTTelephone Encounter - Alesha Denise CMA - 06/04/2018 4:11 PM PDTReferral reviewed by Dr. Owens Recommend: Appt PA/ Studies requested by Dr. Owens prior to appointment date: none Notes: L4-L5 OLIF/PSF Referral routed to: Neurosurgery dental front office assistant staff elephone Encounter - Alix Crowley - 02/18/2018 2:03 PM PDTCancel: Cancel Reason: Departmental Emergency Patient Name: Soo Briceno Outcome: Spoke with Other If Someone Else, Who: [facility] Date of Appt: 02/24 Reason for Appointment: Discuss Surgery Provider: Yuan Note: No imaging needed. Ladcachorro says that Soo is not going to be happy about this. documented in this encounter Plan of Treatment Not on filedocumented as of this encounter Visit Diagnoses Not on filedocumented in this encounter"
--- OUTSIDE RECORDS SUMMARY | ~2020-07-20 | XMS | Encounter Summary ---
Demographics + + + | Address | [address] | | | [place] [address] | + + + | Home Phone | | + + + | Preferred Language | Unknown | + + + | Marital Status | | + + + | Holiness Affiliation | 1028 | + + + | Race | White | + + + | Ethnic Group | Not or | + + + Author + + + | Author | [facility] | | | and [place] | + + + | Organization | [facility] | | | and [place] [...] Team Providers + +------+ + | Care Airline Ticket Agent Name | Role | Phone | + [...] | | | IMAGING [address] | [place] | | | | | [address] [place] | [place] [address] | | | | | [facility] [place] [address] | | | | | | [phone] | | | +--------+ + + + [...] | + +--------+ + + + | CT LUMBAR SPINE WO | Routin | 12/13/2018 | | Results for this | | CONTRAST | e | 12:55 PM | | procedure are in the | | | | PDT | | results section. | + +--------+ + + + documented in this encounter Results CT Lumbar Spine wo Contrast (12/13/2018 12:55 PM PDT) + + | Specimen | [...]
--- OUTSIDE RECORDS SUMMARY | ~2020-07-20 | XMS | Encounter Summary ---
Demographics + + + | Address | [address] | | | [place] [address] | + + + | Home Phone | | + + + | Preferred Language | Unknown | + + + | Marital Status | | + + + | Uatsdin Affiliation | 1028 | + + + | Race | White | + + + | Ethnic Group | Not or | + + + Author + + + | Author | [facility] | | | and [place] | + + + | Organization | [facility] | | | and [...] Team Providers + +------+ + | Care Employment Counselor Name | Role | Phone | + +------+ + | Melissa Moulton NP | PCP | | + +------+ + Reason for Referral Diagnostic/Screening (Routine) +--------+--------+ + + + + | Status | Reason | Specialty | Diagnoses / | Referred By | Referred To | | | | | Procedures | Contact | Contact | +--------+--------+ + + + + | Closed | | Radiology | Diagnoses | Sucharda, | [facility] | | | | | Chronic low | Jasbir E, | [address] | | | | | back pain, | PA-C [address] | [place], | | | | | unspecified | [address] | [place] | | | | | back pain | [address] | [address] | | | | | laterality, | [place], | Phone: | | | | | unspecified | [place] [address] | [phone] | | | | | whether | Phone: | Fax: | | | | | sciatica | [phone] | [phone] | | | | | present | Fax: | | | | | | Procedures | [phone] | | | | | | MRI Lumbar | | | | | | | Spine wo | | | | | | | Contrast | | | +--------+--------+ + + + + Reason for Visit Diagnostic/Screening (Routine) +--------+--------+ + + + + | Status | Reason | Specialty | Diagnoses / | Referred By | Referred To | | | | | Procedures | Contact | Contact | +--------+--------+ + + + + | Closed | | Radiology | Diagnoses | Sucharda, | [facility] | | | | | Chronic low | Jasbir E, | [address] | | | | | back pain, | PA-C [address] | [place], | | | | | unspecified | [address] | [place] | | | | | back pain | [address] | [address] | | | | | laterality, | [place], | Phone: | | | | | unspecified | [place] [address] | [phone] | | | | | whether | Phone: | Fax: | | | | | sciatica | [phone] | [phone] | | | | | present | Fax: | | | | | | Procedures | [phone] | | | | | | MRI Lumbar | | | | | | | Spine wo | | | | | | | Contrast | | | +--------+--------+ + + + + Encounter Details +--------+ + + + + | Date | Type | Department | Care Team | Description | +--------+ + + + + | 06/27/ | Hospital | [facility] | LonniecesarJasbir storey, | Chronic low back | | 2020 | Encounter | [facility] MRI [address] | PA-C [address] | pain, unspecified | | | | [address], | [address] [place] | back pain | | | | [place] [address] | [place] [address] | laterality, | | | | [phone] | [phone] | unspecified whether | | | | | | sciatica present | +--------+ + + + + Social [...] Follow package | 21 | 0 | 05/01/20 | | | (MEDROL DOSEPAK) 4 | directions.. | tablet | | 20 | | | mg tablet | | | | | | + + + +---------+ + + | potassium chloride | | | 0 | 06/12/20 | | | (JESSEOR-CON) 10 mEq | | | | 20 | | | CR tablet | | | | | | + + + +---------+ + + | potassium chloride | Take 1 tablet by | 30 | 0 | 03/20/20 | | | (KLOR-CON) 10 MEQ | [...] | + +--------+ + + + | MRI LUMBAR SPINE WO | Routin | 06/27/2020 | Chronic low back | Results for this | | CONTRAST | e | 3:59 PM | pain, unspecified | procedure are in the | | | | PDT | back pain | results section. | | | | | laterality, | | | | | | unspecified whether | | | | | | sciatica present | | + +--------+ + + + documented in this encounter Results MRI Lumbar Spine wo Contrast (06/27/2020 3:59 PM PDT) + + | Specimen | + + | | + + + + + | Impressions | Performed At | + + + | Progressive multilevel spondylosis above the L4-5 operative | [facility] | | level. Cannot confirm solid osseous fusion at L4-5. Apparent | | | neural foraminal narrowing on the left at L4-5. New Modic type I | | | endplate changes at L2-3. Electronically signed by Jhoan Zepeda | | | MD Kiarra 06/27/2020 8:01 PM | | + + + + + + | Narrative | Performed At | + + + | EXAM: MRI LUMBAR SPINE WO CONTRAST dated 06/27/2020 3:13 PM | [facility] | | HISTORY:Lumbosacral osteoarthritis; L/S-spine canal stenosis; Back | | | pain or radiculopathy, > 6 wks; Back pain, progressive neurologic | | | deficit; Back pain or radiculopathy, prior surgery, new symptoms | | | COMPARISON: Lumbar spine radiographs 05/01/2020. Lumbar spine MRI | | | 12/13/2018. TECHNIQUE: Multiplanar multisequence MR imaging of the | | | lumbar spine without contrast. This is performed on a [employer] MRI | | | scanner. FINDINGS:There are 5 lumbar-type vertebral bodies. | | | This is either assumed for counting purposes or documented on prior | | | studies. Posterior and interbody fusion changes are present at L4-5. | | | Integrity of the hardware cannot be determined on this study. Cannot | | | confirm solid osseous fusion. There is diffuse disc desiccation and | | | mild disc space narrowing. There are Modic type I endplate changes at | | | L2-3. No compression deformities. Modic type II endplate changes | | | anteriorly at T11-12, T12-L1, and L1-2. Slight retrolisthesis of L1. | | | Retrolisthesis of L2 by approximately 4 mm. Slight retrolisthesis of | | | L3. The conus terminates at the L1-2 level. The visible distal cord | | | is unremarkable. Small posterior disc protrusion is present at | | | T11-12. No significant narrowing of the central spinal canal and | | | neural foramen. This level in addition to T10-11 is unremarkable and | | | unchanged as seen on the sagittal sequence. The following levels | | | are evaluated in the axial plane: T12-L1: No significant narrowing | | | of the central spinal canal and neural foramen. No significant | | | change. L1-2: Slight retrolisthesis. Broad posterior disc | | | protrusion. Mild epidural lipomatosis. Mild narrowing of the central | | | spinal canal. Mild narrowing of the neural foramen. This level has | | | mildly progressed. L2-3: Retrolisthesis. Broad posterior disc | | | protrusion. Epidural lipomatosis. Facet arthrosis and ligamentum | | | flavum redundancy. Mild/moderate narrowing of the central spinal | | | canal. Severe right and [id number]-rd-[id number] left neural foraminal | | | narrowing. This level has progressed, in particular with regards to | | | the right neural foraminal narrowing. L3-4: Slight | | | retrolisthesis. Broad posterior disc protrusion. Small foraminal | | | components of disc. Facet arthrosis and ligamentum flavum redundancy. | | | Epidural lipomatosis. Mild to moderate narrowing of the central | | | spinal canal. Mild to moderate bilateral neural foraminal narrowing. | | | This level has mildly progressed. L4-5: Postsurgical changes. The | | | central spinal canal is patent at stable. There is neural foraminal | | | narrowing on the left with poorly visualized perineural fat. The | | | neural foramen on the right is not well studied. L5-S1: There is | | | fusion across the collapsed disc. There is slight anterolisthesis of | | | L5. The central spinal canal is patent. The right neural foramen is | | | patent. There is mild narrowing of the left. No significant interval | | | change. Multiple T2 hyperintensities in both kidneys. These are | | | not characterized on this study. Statistically they would represent | | | small cysts. | | + + + + + | Procedure Note | + + | Compa, [id number] - 06/27/2020 8:04 PM PDT EXAM: MRI LUMBAR SPINE WO CONTRAST dated | | 06/27/2020 3:13 PMHISTORY:Lumbosacral osteoarthritis; L/S-spine canal stenosis; Backpain | | or radiculopathy, > 6 wks; Back pain, progressive neurologicdeficit; Back pain or | | radiculopathy, prior surgery, new symptomsCOMPARISON: Lumbar spine radiographs | | 05/01/2020. Lumbar spine MRI12/13/2018.TECHNIQUE: Multiplanar multisequence MR imaging of | | the lumbar spinewithout contrast. This is performed on a [employer] MRI scanner. | | FINDINGS:There are 5 lumbar-type vertebral bodies. This is eitherassumed for counting | | purposes or documented on prior studies.Posterior and interbody fusion changes are | | present at L4-5. Integrityof the hardware cannot be determined on this study. Cannot | | confirmsolid osseous fusion. There is diffuse disc desiccation and mild discspace | | narrowing. There are Modic type I endplate changes at L2-3. Nocompression deformities. | | Modic type II endplate changes anteriorly [id number], T12-L1, and L1-2. Slight | | retrolisthesis of L1. Retrolisthesisof L2 by approximately 4 mm. Slight retrolisthesis | | of L3. The conusterminates at the L1-2 level. The visible distal cord is | | unremarkable.Small posterior disc protrusion is present at T11-12. No | | significantnarrowing of the central spinal canal and neural foramen. This levelin | | addition to T10-11 is unremarkable and unchanged as seen on thesagittal sequence.The | | following levels are evaluated in the axial plane:T12-L1: No significant narrowing of | | the central spinal canal andneural foramen. No significant change.L1-2: Slight | | retrolisthesis. Broad posterior disc protrusion. Mildepidural lipomatosis. Mild | | narrowing of the central spinal canal. Mildnarrowing of the neural foramen. This level | | has mildly progressed.L2-3: Retrolisthesis. Broad posterior disc protrusion. | | Epidurallipomatosis. Facet arthrosis and ligamentum flavum redundancy.Mild/moderate | | narrowing of the central spinal canal. Severe right bngpjol-pn-zmkwxhcd left neural | | foraminal narrowing. This level hasprogressed, in particular with regards to the right | | neural foraminalnarrowing.L3-4: Slight retrolisthesis. Broad posterior disc protrusion. | | Smallforaminal components of disc. Facet arthrosis and ligamentum flavumredundancy. | | Epidural lipomatosis. Mild to moderate narrowing of thecentral spinal canal. Mild to | | moderate bilateral neural foraminalnarrowing. This level has mildly progressed. L4-5: | | Postsurgical changes. The central spinal canal is patent atstable. There is neural | | foraminal narrowing on the left with poorlyvisualized perineural fat. The neural foramen | | on the right is not wellstudied. L5-S1: There is fusion across the collapsed disc. | | There is slightanterolisthesis of L5. The central spinal canal is patent. The | | rightneural foramen is patent. There is mild narrowing of the left. Nosignificant | | interval change. Multiple T2 hyperintensities in both kidneys. These are | | notcharacterized on this study. Statistically they would represent | | smallcysts.IMPRESSION: Progressive multilevel spondylosis above the L4-5 operative | | level.Cannot confirm solid osseous fusion at L4-5.Apparent neural foraminal narrowing on | | the left at L4-5.New Modic type I endplate changes at L2-3.Electronically signed by | | Jhoan Plunkett MD 06/27/2020 8:01 PM | |progressed, in particular with regards to the right neural foraminal | |narrowing. | | | |L3-4: Slight retrolisthesis. Broad posterior disc protrusion. Small | |foraminal components of disc. Facet arthrosis and ligamentum flavum | |redundancy. Epidural lipomatosis. Mild to moderate narrowing of the | |central spinal canal. Mild to moderate bilateral neural foraminal | |narrowing. This level has mildly progressed. | | | |L4-5: Postsurgical changes. The central spinal canal is patent at | |stable. There is neural foraminal narrowing on the left with poorly | |visualized perineural fat. The neural foramen on the right is not well | |studied. | | | |L5-S1: There is fusion across the collapsed disc. There is slight | |anterolisthesis of L5. The central spinal canal is patent. The right | |neural foramen is patent. There is mild narrowing of the left. No | |significant interval change. | | | |Multiple T2 hyperintensities in both kidneys. These are not | |characterized on this study. Statistically they would represent small | |cysts. | | | |IMPRESSION: | | | |Progressive multilevel spondylosis above the L4-5 operative level. | | | |Cannot confirm solid osseous fusion at L4-5. | | | |Apparent neural foraminal narrowing on the left at L4-5. | | | |New Modic type I endplate changes at L2-3. | | | |Electronically signed by Jhoan Plunkett MD 06/27/2020 8:01 PM | + + + +---------+ + + | Performing | Address | City/State/Zipcode | Phone Number | | Organization | | | | + +---------+ + + | [facility] | | | | + +---------+ + + documented in this encounter Visit Diagnoses + + | Diagnosis | + + | Chronic low back pain, unspecified back pain laterality, unspecified whether sciatica | | present | + + documented in this encounter"
--- OUTSIDE RECORDS SUMMARY | ~2020-07-20 | XMS | Encounter Summary ---
Demographics + + + | Address | [address] | | | [place] [address] | + + + | Home Phone | | + + + | Preferred Language | Unknown | + + + | Marital Status | | + + + | Rastafarian Affiliation | [id number] | + + + | Race | White | + + + | Ethnic Group | Not or | + + + Author + + + | Author | [facility] | | | and [place] | + + + | Organization | [facility] | | | and [place] [...] Team Providers + +------+ + | Care Salon Stylist Name | Role | Phone | + [...] + + + + + + | Authorized | Specialty | Neurosurgery | Diagnoses | Pepe, | Jeri, | | | Services | | Acute | Syed Zepeda MD | [place] | | | Required | | right-sided | [address] | MD Jack | | | | | low back | [address] | [address] | | | | | pain with | [place], | [address] | | | | | right-sided | [place] [address] | [place], | | | | | sciatica | Phone: | [place] [address] | | | | | | [phone] | Phone: | | | | | | Fax: | [phone] | | | | | | [phone] | Fax: | | | | | | | [phone] | + + + + + + + Reason for Visit + + + | Reason | Comments | + + + | Hip Pain | | | (Non-traumatic) | | + + + Encounter Details +--------+ + + + + | Date | Type | Department | Care Team | Description | +--------+ + + + + | 04/30/ | Emergency | [facility] | Syed Cantu, | Acute right-sided | | 2019 - | | [facility] | MD [address] | low back pain with | | | | CENTER [address] | [place] | right-sided sciatica | | 05/01/ | | [place] | [id number] | (Primary Dx) | | 2019 | | [address] | | | | | | [phone] | | | +--------+ + + + [...] + + + | Blood Pressure | 106/61 | 04/30/2020 11:55 PM | | | | | PDT | | + + + + + | Pulse | 69 | 04/30/2020 11:55 PM | | | | | PDT | | + + + + + | Temperature | 36.4 C (97.6 F) | 04/30/2020 11:55 PM | | | | | PDT | | + + + + + | Respiratory Rate | 16 | 04/30/2020 11:55 PM | | | | | PDT | | + + + + + | Oxygen Saturation | 97% | 04/30/2020 11:55 PM | | | | | PDT | | + + + + + | Inhaled Oxygen | - | - | | | Concentration | | | | + + + + + | Weight | - | - | | + + + + + | Height | - | - | | + + + + + | Body Mass Index | - | - | | + [...] documented as of this encounter Discharge Instructions AttachmentsThe following attachments cannot be sent through Care Everywhere.Sciatica (Engli sh)documented in this encounter Medications at Time of [...] +---------+ + + | bumetanide (BUMEX) | | | 0 | 03/02/20 | | | 1 mg tablet | | | | 19 | 0 | + + + +---------+ + + | cyclobenzaprine | Take 1 tablet by | 90 | 0 | 10/31/19 | | | (FLEXERIL) 10 mg | mouth every 8 hours | tablet | | 19 | 0 | | tablet | as needed for Muscle | | | | | | | spasms. | | | | | + + + +---------+ + + | diazePAM (VALIUM) | Take 1 tablet by | 9 | 0 | 05/01/20 | | | 5 mg tablet | mouth once as needed | tablet | | 20 | 0 | | | for Muscle spasms | | | | | | | for up to 3 days. | | | | | + + + +---------+ + + | divalproex | Take 250 mg by mouth | | 0 | | | | (DEPAKOTE) [address] | nightly. | | | | 0 | | tablet | | | | | | + + + +---------+ + + | LORazepam (ATIVAN) | Take 0.5 tablets by | 60 | 0 | 10/31/19 | | | 0.5 mg tablet | mouth every 6 hours | tablet | | 19 | 0 | | | as needed for Other. | | | | | + + + +---------+ + + | naloxone (NARCAN) | 1 spray by Nasal | 1 each | 0 | 10/31/19 | | | 4 mg/nasal spray | route as needed for | | | 19 | 0 | | | Decreased | | | | | | | Responsiveness. Fill | | | | | | | as needed to | | | | | | | reverse opiates | | | | | + + + +---------+ + + | | | | 0 | 05/20/20 | | | yehzsayc-kuqahwydu-a | | | | 18 | 0 | | ydrocortisone | | | | | | | (CORTISPORIN) | | | | | | | 3.5-57587-2 otic | | | | | | | suspension | | | | | | + + + +---------+ + + | nystatin | Apply to fungal | | 0 | 10/31/19 | | | (MYCOSTATIN) powder | areas on the abdomen | | | 19 | 0 | | | and chest bid as | | | | | | | needed | | | | | + + + +---------+ + + | omeprazole | Take 20 mg by mouth | | 0 | 12/24/19 | | | (PRILOSEC) 20 mg | 2 times daily. | | | 18 | 0 | | capsule | | | | | | + + + +---------+ + + | ondansetron | Take 4 mg by mouth. | | 0 | 01/05/20 | | | (ZOFRAN ODT) 4 mg | | | | 19 | 0 | | disintegrating | | | | | | | tablet [...] + + + +---------+ + + | pantoprazole | | | 0 | 04/27/20 | | | (PROTONIX) 40 mg | | | | 20 | 0 | | tablet | | | | | | + + + +---------+ + + | | | | 0 | 05/07/20 | | | sulfamethoxazole-tri | | | | 18 | 0 | | methoprim (BACTRIM | | | | | | | DS) 800-160 mg per | | | | | | | tablet | | | | | | + + + +---------+ + + documented as of this encounter ED Notes Soo Rodríguez RN - 05/01/2020 12:00 AM PDTPt has chronic right hip pain that has gotte n worse over the last week and moved into the left. She is still able to ambulate with her F WW, but it is more painful. CMS intact. Recently had steroid injections for this pain. Elect ronically signed by Soo Rodríguez RN at 05/01/2020 12:01 AM PDTMaxSyed crandall MD - 11:44 PM PDT Chief Complaint: "hip and back pain" HPI: This 60 y.o. patient presents to the Emergency Department with hip pain. History of sp inal fusion about 1.5 years ago. Now having lumbar back pain and spasming. No sensory change s and no other neurologic changes. The pain is muscular and aching and spasming. Worsens wi th movement. Better with rest Past Medical and Surgical History I did review the patient's past medical and surgical history. The patient has a past medica l history of Anxiety, Arthritis, Back pain, Bipolar disorder ([facility]), Chronic pain, CKD (chron ic kidney disease), stage III ([facility]) (08/30/2011), Closed head injury (05/15/1988), Depression , Fibromyalgia, GERD (gastroesophageal reflux disease) (08/30/2011), H/O [facility] Cosed head injur y (05/15/1988), Headache, Heart beat abnormality, Hiatal hernia, High cholesterol, Hypertensi on (10/25/2018), Kidney stone, Left lumbar radiculopathy, Lumbar radiculopathy, Migraine head ache, Neuropathy, PONV (postoperative nausea and vomiting), Poor circulation, Rheumatoid art hritis ([facility]), and Seizure ([facility]). The patient has a past surgical history that includes Tonsi llectomy (1989); Cholecystectomy (1995); Hysterectomy (1999); Toe Surgery (Left); and Lumbar spine surgery (Left, 10/26/2018). Family and Social History I did review the patient's family and social history. The patient's family history includes Breast cancer in her paternal grandmother; Cancer in her mother; Clotting disorder in her f ather; Dementia in her father; Emphysema in her paternal grandfather; Heart disease in her m aternal grandmother and paternal grandmother; Other (see comment) in her brother and materna l grandfather. The patient reports that she has never smoked. She has never used smokeless t obacco. She reports previous alcohol use. She reports that she does not use drugs. Medications and Allergies [employer] Home Medications Medication Sig acetaminophen (TYLENOL) 500 mg tablet Take 1,000 mg by mouth every 8 hours as needed fo r Pain. ARIPiprazole (ABILIFY) 10 mg tablet Take 1 tablet by mouth Daily. bumetanide (BUMEX) 1 mg tablet cephalexin (KEFLEX) 500 mg capsule cyclobenzaprine (FLEXERIL) 10 mg tablet Take 1 tablet by mouth every 8 hours as needed for Muscle spasms. divalproex (DEPAKOTE) [address] tablet Take 250 mg by mouth nightly. divalproex (DEPAKOTE) [address] tablet Take 1,000 mg by mouth nightly. escitalopram (LEXAPRO) 5 MG tablet Take 5 mg by mouth Daily. furosemide (LASIX) 20 mg tablet Take 2 tablets by mouth Daily. gabapentin (NEURONTIN) 300 mg capsule Take 2 capsules by mouth 2 times daily. loperamide (IMODIUM) 2 mg capsule Take 2-4 mg by mouth 4 times daily as needed for Diar clari. LORazepam (ATIVAN) 0.5 mg tablet Take 0.5 tablets by mouth every 6 hours as needed for Other. magnesium hydroxide (MILK OF MAGNESIA) 400 mg/5 mL suspension Take by mouth Daily as n eeded for Constipation. meclizine (ANTIVERT) 25 mg tablet Take 25 mg by mouth 3 times daily as needed. naloxone (NARCAN) 4 mg/nasal spray 1 spray by Nasal route as needed for Decreased Respo nsiveness. Fill as needed to reverse opiates pxoigtra-qabxmylid-paijmmnmmogmui (CORTISPORIN) 3.5-92520-0 otic suspension nystatin (MYCOSTATIN) powder Apply to fungal areas [...] 50 mg by mouth 2 times daily. sulfamethoxazole-trimethoprim (BACTRIM DS) 800-160 mg per tablet traZODone (DESYREL) 50 mg tablet Take 100 mg by mouth Daily. Allergies Allergen Reactions Oxycodone Other (See Comments) Hallucinations Tramadol Other (See Comments) Cold sweats and fever Methicillin Nausea And Vomiting Simvastatin Other (See Comments) Confusion Sumatriptan Other (See Comments) Confused, agitated, and bowel incontinence Review of Systems [place]illo in history of present illness. A 10 system review was otherwise negative. Physical Examination VITAL SIGNS: Temp: 36.4 C (97.6 F) Pulse: 69 Resp: 16 SpO2: 97 % BP: 106/61 There is n o height or weight on file to calculate BMI. Constitutional: female patient, pleasant, alert and appropriate, conversant with nurse and staff. HEENT: Atraumatic, patient follows me around the room with their eyes, PERRL, Oropharynx sh ows no redness, moist mucus membranes. Neck: Supple with full range of motion. No JVD, lymphadenopathy, or meningismus. Respiratory: Good air movement bilaterally. No wheezes, no rales. Patient's work of breathi ng is normal. Cardiovascular: Normal S1 S2. No rubs or murmurs Back: No CVA tenderness. No midline thoracic or lumbar spinal tenderness. There is muscle s oreness over the right lower back and there is a straight leg test on the right Extremities: Nontender. No edema, no calf asymmetry. Present distal pulses. Normal reflexes at the knees and ankles Skin: Warm, Dry, No obvious rashes. Capillary refill is brisk <3 seconds and shows good per fusion on areas of visible skin. Neurologic: Alert & oriented. Cranial nerves II-XII intact. No focal deficits. Gait is not tested. Speech is normal. Psychiatric: Normal mood, affect and judgement. No evidence of suicidal or homicidal ideat ion at this time. Medical Decision Making EMS notes and long term records if applicable/available. Pertinent labs and imaging stud ies were reviewed (see above). Medication and allergy lists reviewed in [facility]. Nursing notes and old records were reviewed if available within [facility]. ER course: 11:44 PM PDT - Patient care initiated. After introducing myself to the patient, I performed a careful history and physical examination. We will check for any signs of disruption of the prior surgical site. X-rays are indicated . If these are negative, symptomatic management of what seems like sciatica with pain medic isa, muscle relaxers, and steroids is indicated with referral to neurosurgery. 00:35. X-rays are normal. We will discharge home Procedures Last Set of Vital Signs: Temp: 36.4 C (97.6 F) Pulse: 69 Resp: 16 SpO2: 97 % BP: 106/61 Impression 1. Acute right-sided low back pain with right-sided sciatica Disposition: Discharge home Condition: Stable Follow-up Information Schedule an appointment as soon as possible for a visit with Cedrick Wilcox MD. Specialty: Neurosurgery Contact information: [address] [id number] Patient's Medications New Prescriptions DIAZEPAM (VALIUM) 5 MG TABLET Take 1 tablet by mouth once as needed for Muscle spasms f or up to 3 days. HYDROCODONE-ACETAMINOPHEN (NORCO) 5-325 MG PER TABLET Take 1 tablet by mouth every 6 ho urs as needed for Pain for up to 12 doses. METHYLPREDNISOLONE (MEDROL DOSEPAK) 4 MG TABLET Follow package directions.. Modified Medications No medications on file Discontinued Medications HYDROCODONE-ACETAMINOPHEN (NORCO) 10-325 MG PER TABLET Take 1-2 tablets by mouth every 4 hours as needed for Pain. Indication: Recent Major Surgery Discharge References/Attachments Sciatica ([place]) Administrations This Visit diazePAM (VALIUM) injection 5 mg Admin Date 05/01/2020 Action Given Dose 5 mg Route Intravenous Administered By Nav Correia RN HYDROcodone-acetaminophen (NORCO) 5-325 mg per tablet 1 tablet Admin Date 05/01/2020 Action Given Dose 1 tablet Route Oral Administered By MAIKEL Rivera MD 05/01/20 0036 documented in this e ncounter Plan of Treatment + +------+--------+ + + | Name | Type | Priori | Associated Diagnoses | Date/Time | | | | ty | | | + +------+--------+ + + | ED INFORMATION | JUAN | Routin | | 04/30/2020 11:44 PM | | EXCHANGE | | e | | PDT | + +------+--------+ + + + + +--------+ + + | Name | Type | Priori | Associated Diagnoses | Order Schedule | | | | ty | | | + + +--------+ + + | * [facility] [place] | Outpatient | Routin | Acute right-sided | Ordered: 05/01/2020 | | Neurosurgery - AMB | Referral | e | low back pain with | | | Referral | | | right-sided sciatica | | + + +--------+ + + documented as of this encounter Procedures + +--------+ + + + | Procedure Name | Priori | Date/Time | Associated Diagnosis | Comments | | | ty | | | | + +--------+ + + + | XR LUMBAR SPINE 2 OR | STAT | 05/01/2020 | | Results for this | | 3 VW | | 12:25 AM | | procedure are in the | | | | PDT | | results section. | + +--------+ + + + | ED INFORMATION | Routin | 04/30/2020 | | | | EXCHANGE | e | 11:44 PM | | | | | | PDT | | | + +--------+ + + + +---+--------+ | | | | | Proced | | | ure | | | Note - | | | Compa, | | | Lab In | | | | | | Hlseve | | | n - | | | 04/30/ | | | 2019 | | | 11:45 | | | PM PDT | | [...] | | | FICATI | | | ON?08/ | | | | | | 0 | | | 23:43? | | | AASRUD | | | , REBECCA | | | | | | J?MRN: | | | | | | [id number] | | | [id number] | | | riteri | | | [...] | | | d: | | | 12/02/19 | | | 11:23 | | | [...] | | | ter, | | | [place] | | | | | | ([phone] [...] | | | h | | | [place] | | | [phone] | | | [...] | | | gical1 | | | 1/30/1 | | | 6 | | | [...] | | | lags | | | [place] | | | ED | | | Dispar | | | ity | | | Measur | | | e - | | | [place] | | | has | | | [...] | | | s. | | | [place] | | | | | | Health [...] | | | By: | | | [place] | | | | | | Health [...] | | | Center | | | 1 0 | | | [facility] | | | [facility] | | | al 1 0 | | | Total | | | 2 0 | | | Note: | | [...] | | | int | | | Aug 2, | | | 2020 | | | Provid | | | ence | | | [facility] [place] | | | [place] | | | [facility] | | | ncy | | | Dec | | | 30, | | | 2019 | | | [facility] | | | y H. | | [...] | | | St. | | | [facility] | | | y H. | | [...] | | | otify/ | | | [id number] | | | [phone] | | | [id number] | | | [phone] | | | [email or web address] | | | [id number] | | | | | | PLEASE [...] | | | ed.? | | | 2019 | | | [employer] | | | tive | | | [employer] | | | l | | | [employer] | | | logies | | | , Inc[employer] | | | - | | | [email or web address] | | | llecti | | | vemedi | | | [email or web address] | | | m | +---+--------+ documented in this encounter Results XR Lumbar Spine 2 or 3 Vw (05/01/2020 12:25 AM PDT) + + | Specimen | + + | | + + + + + | Impressions | Performed At | + + + | Stable hardware for posterior fusion from L4 through L5. | [facility] | | Electronically signed by El Fleming MD 05/01/2020 10:26 AM | | + + + + + + | Narrative | Performed At | + + + | XR LUMBAR SPINE 2 OR 3 VW 05/01/2020 12:05 AM HISTORY: HIP PAIN | [facility] | | (NON-TRAUMATIC). COMPARISON: Multiple priors. FINDINGS: Mild | | | to moderate left curvature of the lumbar spine is present. There is | | | stable hardware for posterior fusion from L4 through L5 with spacer | | | hardware at L4-5. The hardware are intact. Moderate spondylosis is | | | present. Minimal retrolistheses are noted of L1 over L2 and L2 over | | | L3. There is minimal anterolisthesis of L5 over S1. Bone | | | mineralization is decreased. Vertebral body height are preserved with | | | no evidence for compression fractures. Disc height are maintained. | | | Facet joints are intact. Visualized ribs and pelvic osseous | | | structures show no acute findings. There are cholecystectomy clips. | | | Mild degenerative changes are noted of the hips. | | + + + + + | Procedure Note | + + | Compa, [id number] - 05/01/2020 10:29 AM PDT XR LUMBAR SPINE 2 OR 3 VW 05/01/2020 12:05 AM | | | | HISTORY: HIP PAIN (NON-TRAUMATIC). | | | | COMPARISON: Multiple priors. | | | | FINDINGS: | | Mild to moderate left curvature of the lumbar spine is present. There | | is stable hardware for | | posterior fusion from L4 through L5 with spacer hardware at L4-5. The | | hardware | | are intact. Moderate spondylosis is present. Minimal retrolistheses | | are noted of | | L1 over L2 and L2 over L3. There is minimal anterolisthesis of L5 over | | S1. Bone | | mineralization is decreased. Vertebral body height are preserved with | | no | | evidence for compression fractures. Disc height are maintained. Facet | | joints are | | intact. Visualized ribs and pelvic osseous structures show no acute | | findings. | | There are cholecystectomy clips. Mild degenerative changes are noted | | of the | | hips. | | | | IMPRESSION: | | Stable hardware for posterior fusion from L4 through L5. | | | | Electronically signed by El Fleming MD 05/01/2020 10:26 AM | + + + +---------+ + + | Performing | Address | City/State/Zipcode | Phone Number | | Organization | | | | + +---------+ + + | [facility] | | | | + +---------+ + + documented in this encounter Visit Diagnoses + + | Diagnosis | + + | Acute right-sided low back pain with right-sided sciatica - Primary | + + documented in this encounter Administered Medications + +--------+ +------+------+------+ | Medication Order | MAR | Action | Dose | Rate | Site | | | Action | Date | | | | + +--------+ +------+------+------+ | diazePAM (VALIUM) injection 5 | Given | 05/01/20 | 5 mg | | | | mg 5 mg, Intravenous, ONCE, Mon | | 20 12:25 | | | | | 05/01/20 at 0005, For 1 dose | | AM PDT | | | | + +--------+ +------+------+------+ +---+---+ | | | +---+---+ + +-------+ + +---+---+ | HYDROcodone-acetaminophen | Given | 05/01/20 | 1 tablet | | | | (NORCO) 5-325 mg per tablet 1 | | 20 12:24 | | | | | tablet 1 tablet, Oral, ONCE, Mon | | AM PDT | | | | | 05/01/20 at 0005, For 1 dose | | | | | | + +-------+ + +---+---+ +---+---+ | | | +---+---+ documented in this encounter
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
--- OUTSIDE RECORDS SUMMARY | ~2020-07-20 | XMS | Encounter Summary ---
Demographics + + + | Address | [address] | | | [place] [address] | + + + | Home Phone | | + + + | Preferred Language | Unknown | + + + | Marital Status | | + + + | Jew Affiliation | [id number] | + + + | Race | White | + + + | Ethnic Group | Not or | + + + Author + + + | Author | [facility] | | | and [place] | + + + | Organization | [facility] | | | and [place] [...] Team Providers + +------+ + | Care Health Teacher Name | Role | Phone | + +------+ + | Gage De Jesus DO | PCP | | + +------+ + Reason for Referral Evaluate & Treat (Routine) +--------+ + + + + + | Status | Reason | Specialty | Diagnoses / | Referred By | Referred To | | | | | Procedures | Contact | Contact | +--------+ + + + + + | Closed | Specialty | Home Health | Diagnoses | Syed Owens | ANTHONY | | | Services | Services | | MD [address] | | | Required | | Spondylolist | [address] | HEALTH CARE | | | | | hesis of | [place], | [address] | | | | | lumbar | [place] [address] | NW | | | | | region S/P | Phone: | [place], [place] | | | | | lumbar | [phone] | [address] | | | | | fusion | Fax: | Phone: | | | | | Spinal | [phone] | [phone] | | | | | stenosis of | | Fax: | | | | | lumbar | | [phone] | | | | | region with | | | | | | | neurogenic | | | | | | | claudication | | | +--------+ + + + + + Encounter Details +--------+ + + + + | Date | Type | Department | Care Team | Description | +--------+ + + + + | 02/25/ | Orders Only | [facility] | Syed Owens MD | Spondylolisthesis of | | 2019 | | NEUROSURGERY [address] | lumbar region | | | | [address] | [place] [address] | (Primary Dx); S/P | | | | [place], [place] | [phone] | lumbar fusion; | | | | [id number] | | Spinal stenosis of | | | | [phone] | | lumbar region with | | [...] as of this encounter Plan of Treatment + + +--------+ + + | Name | Type | Priori | Associated Diagnoses | Order Schedule | | | | ty | | | + + +--------+ + + | Home Health, | Outpatient | Routin | Spondylolisthesis | Ordered: 02/25/2019 | | External - AMB | Referral | e | of lumbar region | | | Referral | | | S/P lumbar fusion | | | | | | Spinal stenosis of | | | | | | lumbar region with | | | | | | neurogenic | | | | | | claudication | | + + +--------+ + + documented as of this encounter Visit Diagnoses + + | Diagnosis | + + | Spondylolisthesis of lumbar region - Primary Acquired spondylolisthesis | + + | S/P lumbar fusion Arthrodesis status | + + | Spinal stenosis of lumbar region with neurogenic claudication Spinal stenosis, lumbar | | region, with neurogenic claudication | + + documented in this encounter"
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
--- OUTSIDE RECORDS SUMMARY | ~2020-07-20 | XMS | Encounter Summary ---
Demographics + + + | Address | [address] | | | [place] [address] | + + + | Home Phone | | + + + | Preferred Language | Unknown | + + + | Marital Status | | + + + | Pentecostal Affiliation | 1028 | + + + | Race | White | + + + | Ethnic Group | Not or | + + + Author + + + | Author | [facility] | | | and [place] | + + + | Organization | [facility] | | | and [place] | + + + | Address | Unknown | + + + | Phone | Unavailable | + + + Support + + +---------+ + | Name | Relationship | Address | Phone | + + +---------+ + | Garcia Rdokartik | ECON | Unknown | | + + +---------+ + | Mazin Shaffer | ECON | Unknown | | + + +---------+ + Care Team Providers + +------+ + | Care Business Enterprise Officer Name | Role | Phone | + +------+ + | Gage De Jesus DO | PCP | | + +------+ + Encounter Details +--------+ + + + + | Date | Type | Department | Care Team | Description | +--------+ + + + + | 10/19/ | Orders Only | [facility] | Syed Owens MD | Spondylolisthesis of | | 2019 | | NEUROSURGERY [address] | lumbar region | | | | [address] | [place] [address] | (Primary Dx); Status | | | | [place], [place] | [phone] | post lumbar spinal | | | | [address] | | fusion | | | | [phone] | | | +--------+ + + + [...] XR Lumbar Spine 2 or 3 Vw (11/23/2018 11:55 AM PST) + + | Specimen | + + | | + + + + + | Narrative | Performed At | + + + | EXAM:XR LUMBAR SPINE 2 OR 3 VW CLINICAL HISTORY: S/P Lumbar | [facility] | | fusion COMPARISON: Lumbar spine radiographs dating to 01/19/2018 | | | FINDINGS: Frontal and lateral views of the Lumbar spine. Posterior | | | and interbody fusion changes at L4-L5. The hardware is intact. | | | There is no change in position of the interbody graft markers. | | | There is no change in spinal alignment. There are no interval | | | compression deformities. IMPRESSION - No radiographic evidence | | | for an interval complication. Dictated and Signed by: Jhoan Zepeda | | | MD Kiarra Electronically signed: 11/23/2018 1:02 PM | | + + + + + | Procedure Note | + + | Compa, Hipolito Results In - 11/23/2018 1:05 PM PST EXAM:XR LUMBAR SPINE 2 OR 3 VW | | | | CLINICAL HISTORY: S/P Lumbar fusion | | | | COMPARISON: Lumbar spine radiographs dating to 01/19/2018 | | | | FINDINGS: Frontal and lateral views of the Lumbar spine. Posterior and interbody | | fusion changes at L4-L5. The hardware is intact. There is no change in position | | of the interbody graft markers. There is no change in spinal alignment. There | | are no interval compression deformities. | | | | IMPRESSION - | | | | No radiographic evidence for an interval complication. | | | | Dictated and Signed by: Jhoan Plunkett MD | | Electronically signed: 11/23/2018 1:02 PM | + + + +---------+ + [...] Primary Acquired spondylolisthesis | + + | Status post lumbar spinal fusion Arthrodesis status | + + documented in this encounter"
--- OUTSIDE RECORDS SUMMARY | ~2020-07-20 | XMS | Encounter Summary ---
Demographics + + + | Address | [address] | | | [place] [address] | + + + | Home Phone | | + + + | Preferred Language | Unknown | + + + | Marital Status | | + + + | Latter-Day Affiliation | 1028 | + + + | Race | White | + + + | Ethnic Group | Not or | + + + Author + + + | Author | [facility] | | | and [place] | + + + | Organization | [facility] | | | and [place] [...] Team Providers + +------+ + | Care First Responder Name | Role | Phone | + +------+ + PCP | Unavailable | + +------+ + Encounter Details +--------+ + + + + | Date | Type | Department | Care Team | Description | +--------+ + + + + | 02/05/ | Hospital | [facility] | Conversion | Pain | | 2017 | Encounter | CONVERSION [address] | Transaction, | | | | | [address] | Provider Unknown | | | | | [place] | [phone] | | | | | [phone] | | | | | | [phone] | | | +--------+ + + + [...] + + documented in this encounter Results [facility] Digital Screening Bilateral (12/31/2016 4:14 AM PDT) [...]
--- OUTSIDE RECORDS SUMMARY | ~2020-07-20 | XMS | Encounter Summary ---
Demographics + + + | Address | [address] | | | [place] [address] | + + + | Home Phone | | + + + | Preferred Language | Unknown | + + + | Marital Status | | + + + | Worship Affiliation | 1028 | + + + | Race | White | + + + | Ethnic Group | Not or | + + + Author + + + | Author | [facility] | | | and [place] | + + + | Organization | [facility] | | | and [place] [...] Team Providers + +------+ + | Care Thread Checker Name | Role | Phone | + +------+ + | Gage De Jesus DO | PCP | | + +------+ + Encounter Details +--------+ + + + + | Date | Type | Department | Care Team | Description | +--------+ + + + + | 11/23/ | Hospital | [facility] | Syed Owens MD | Status post lumbar | | 2019 | Encounter | MED CTR XRAY [address] | spinal fusion; | | | | [place] | [place] [address] | Spondylolisthesis of | | | | [place] [address] | [phone] | lumbar region | | | | [phone] | | | +--------+ + + + [...] | cephalexin | | | 0 | 10/25/20 | | | (KEFLEX) 500 mg | [...] + + + +---------+ + + | enoxaparin | Inject 0.4 mLs under | | 0 | 10/31/19 | | | (LOVENOX) 40 mg/0.4 | the skin every 24 | | | 19 | 9 | | mL injection | hours. | | | | | + + + +---------+ + + | gabapentin | Take 1 tablet by | 90 | 0 | 10/31/19 | | | (NEURONTIN) 600 MG | mouth 3 times daily. | tablet | | 19 | 9 | | tablet | | | | | | + + + +---------+ + + | | Take 1-2 tablets by | 90 | 0 | 10/31/19 | | | HYDROcodone-acetamin | mouth every 4 hours | tablet | | 19 | 0 | | ophen (NORCO) 10-325 | as needed for Pain. | | | | | | mg per tablet | Indication: Recent | | | | | | | Major Surgery | | | | | + + [...] | 0 | 05/20/20 | | | uiicpnxw-pijkvxlfr-k | | | | 18 | 0 | | ydrocortisone | | | | | | | (CORTISPORIN) | | | | | | | 3.5-75959-7 otic | | | | | | [...] | XR LUMBAR SPINE 2 OR | Routin | 11/23/2018 | Status post lumbar | Results for this | | 3 VW | e | 11:55 AM | spinal fusion | procedure are in the | | | | PST | Spondylolisthesis of | results section. | | | | | lumbar region | | + +--------+ + + + [...] interval complication. Dictated and Signed by: Jhoan Romero | | MD Kiarra Electronically signed: 11/23/2018 [...] spinal fusion Arthrodesis status | + + | Spondylolisthesis of lumbar region Acquired spondylolisthesis | + + documented in this encounter"
--- OUTSIDE RECORDS SUMMARY | ~2020-07-20 | XMS | Encounter Summary ---
Demographics + + + | Address | [address] | | | [place] [address] | + + + | Home Phone [...] | [facility] | | | and [...] Team Providers + +------+ + | Care Outpatient Admitting Clerk Name | Role | Phone | + +------+ + | Gage De Jesus DO | PCP | | + +------+ + Encounter Details +--------+ + + + + | Date | Type | Department | Care Team | Description | +--------+ + + + + | 09/12/ | Orders Only | [facility] | Gage De Jesus, | | | 2014 | | NEPHROLOGY JASON | DO [address] | | | | [address] [place] | [address] [place], | | | | | [address] [place], [place] | [place] [address] | | | | | [address] | [phone] | | | | | [phone] | | | +--------+ + + + [...] | EXTERNAL LAB: CBC | Routin | 09/12/2015 | | Results for this | | | e | 12:00 AM | | procedure are in the | | | | PST | | results section. | + +--------+ + + + | URINALYSIS WITH | Routin | 09/12/2015 | | Results for this | | MICROSCOPIC WITH | e | 12:00 AM | | procedure are in the | | CULTURE IF INDICATED | | PST | | results section. | + +--------+ + + + | CULTURE, URINE | Routin | 09/12/2015 | | Results for this | | | e | 12:00 AM | | procedure are in the | | | | PST | | results section. | + +--------+ + + + | MAGNESIUM | Routin | 09/12/2015 | | Results for this | | | e | 12:00 AM | | procedure are in the | | | | PST | | results section. | + +--------+ + + + | BASIC METABOLIC | Routin | 09/12/2015 | | Results for this | | PANEL | e | 12:00 AM | | procedure are in the | | | | PST | | results section. | + +--------+ + + + documented in this encounter Results Culture, Urine (09/12/2015 12:00 AM PST) + + | Specimen | + + | Urine specimen | | (specimen) | + + + + + | Narrative | Performed At | + + + | Specimen Description Urine CULTURE | EXTERNAL LAB | | No Growth at 18-24 hrs. REPORT | | | STATUS Final | | + + + + +---------+ + + | Performing | Address | City/State/Zipcode | Phone Number | | Organization | | | | + +---------+ + + | EXTERNAL LAB | | | | + +---------+ + + Urinalysis with Microscopic with Culture if Indicated (09/12/2015 12:00 AM PST) + + + + + + [...] + + + | Spec Grav, | 1.009 | 1.005 - 1.030 | EXTERNAL | | | Fluid | | | LAB | | + + + + + + | Leukocyte | 1+Comment: 25 | | EXTERNAL | | | Esterase, [...] + + + | pH, Urine | 5 | 5 - 9 | EXTERNAL | | | | | [...] + + + | WBC, UA | | | EXTERNAL | | | | | | LAB | | + + + + + + | RBC, UA | | | EXTERNAL | | | | | | LAB | | + + + + + + | Epithelial | | | EXTERNAL | | | Cells | | | LAB | | + + + + + + | Bacteria, | | | EXTERNAL | | | UA | | | LAB | | + + + + + + | HYALINE | | | EXTERNAL | | | CASTS UA | | | LAB | | + + + + + + + + | Specimen | + + | | + + + +---------+ + + | Performing | Address | City/State/Zipcode | Phone Number | | Organization | | | | + +---------+ + + | EXTERNAL LAB | | | | + +---------+ + + External Lab: CBC (09/12/2015 12:00 AM PST) + + + + + + | Component | Value | Ref Range | Performed | Pathologist | | | | | At | Signature | + + + + + + | WBC | 9.5 | 4.5 - 11.0 10 | EXTERNAL | | | | | | LAB | | + + + + + + | Non- | 5.96 (A) | 3.8 - 5.1 10 | EXTERNAL | | | Red Blood | | | LAB | | | Cells | | | | | | Counted | | | | | + + + + + + | Hemoglobin | 16.0 | 12.0 - 16.0 | EXTERNAL | | | | | g/dL | LAB | | + + + + + + | Hematocrit, | 49.4 (A) | 35 - 45 % | EXTERNAL | | | POC | | | LAB | | + + + + + + | MCV | 82.9 | 81 - 99 fL | EXTERNAL | | | | | | LAB | | + + + + + + | MCH | 27 | 27 - 33 pg | EXTERNAL | | | | | | LAB | | + + + + + + | MCHC | 32 | 30 - 36 g/dL | EXTERNAL | | | | | | LAB | | + + + + + + | Platelet | 350 | 140 - 440 K/ L | EXTERNAL | | | Count | | | LAB | | | Plasma | | | | | + + + + + + | RDW-CV | 16.6 (A) | 10.5 - 15.0 % | EXTERNAL | | | | | | LAB | | + + + + + + | MPV | | fL | EXTERNAL | | | | | | LAB | | + + + + + + | Differentia | Auto | | EXTERNAL | | | l Type | | | LAB | | + + + + + + | % Segmented | 73.7 | 39 - 80 % | EXTERNAL | | | | | | LAB | | | Neutrophils | | | | | + + + + + + | % | 20.2 (A) | 24 - 44 % | EXTERNAL | | | Lymphocytes | | | LAB | | + + + + + + | % Monocytes | 4.8 | 0 - 12 % | EXTERNAL | | | | | | LAB | | + + + + + + | % | 0.8 | 0 - 6 % | EXTERNAL | | | Eosinophils | | | LAB | | + + + + + + | % Basophils | 0.5 | 0 - 2 % | EXTERNAL | | | | | | LAB | | + + + + + + | Absolute | | / L | EXTERNAL | | | Segmented | | | LAB | | | Neutrophils | | | | | + + + + + + | Absolute | | / L | EXTERNAL | | | Lymphocytes | | | LAB | | + + + + + + | Absolute | | / L | EXTERNAL | | | Monocytes | | | LAB | | + + + + + + | Absolute | | / L | EXTERNAL | | | Eosinophils | | | LAB | | + + + + + + | Absolute | | / L | EXTERNAL | | | Basophils | | | LAB | | + + + + + + + + | Specimen | + + | Blood specimen | | (specimen) | + + + +---------+ + + | Performing | Address | City/State/Zipcode | Phone Number | | Organization | | | | + +---------+ + + | EXTERNAL LAB | | | | + +---------+ + + Magnesium (09/12/2015 12:00 AM PST) + +-------+ + + + | Component | Value | Ref Range | Performed | Pathologist | | | | | At | Signature | + +-------+ + + + | Magnesium | 1.7 | 1.7 - 2.5 mg/dL | EXTERNAL | | | | | | LAB | | + +-------+ + + + + + | Specimen | + + | Blood specimen | | (specimen) | + + + +---------+ + + | Performing | Address | City/State/Zipcode | Phone Number | | Organization | | | | + +---------+ + + | EXTERNAL LAB | | | | + +---------+ + + Basic Metabolic Panel (09/12/2015 12:00 AM PST) + + + + + + | Component | Value | Ref Range | Performed | Pathologist | | | | | At | Signature | + + + + + + | Glucose, | 135 (A) | 70 - 100 mg/dL | EXTERNAL | | | Fasting | | | LAB | | + + + + + + | BUN | 23 | 6 - 23 mg/dL | EXTERNAL | | | | | | LAB | | + + + + + + | Creatinine | 1.84 (A) | 0.70 - 1.33 | EXTERNAL | | | | | mg/dL | LAB | | + + + + + + | BUN/Creatin | 12.5 | 6.0 - 28.6 | EXTERNAL | | | ine Ratio | | | LAB | | + + + + + + | Calcium | 9.7 | 8.4 - 10.2 | EXTERNAL | | | | | mg/dL | LAB | | + + + + + + | Na | 132 | 132 - 143 | EXTERNAL | | | | | mmol/L | LAB | | + + + + + + | K | 3.7 | 3.6 - 5.1 | EXTERNAL | | | | | mmol/L | LAB | | + + + + + + | Cl | 95 | 95 - 112 mmol/L | EXTERNAL | | | | | | LAB | | + + + + + + | CO2 | 20 | 19 - 31 mmol/L | EXTERNAL | | | | | | LAB | | + + + + + + | Anion Gap | 20.7 | 7 - 21 mmol/L | EXTERNAL | | | | | | LAB | | + + + + + + | Estimated | 28 (A) | 60 - 140 mg/dL | EXTERNAL | | | GFR | | | LAB | | + + + + + + + + | Specimen | + + | Blood specimen | | (specimen) | + + + +---------+ + + | Performing | Address | City/State/Zipcode | Phone Number | | Organization | | | | + +---------+ + + | EXTERNAL LAB | | | | + +---------+ + + documented in this encounter Visit Diagnoses Not on filedocumented in this encounter"
--- OUTSIDE RECORDS SUMMARY | ~2020-07-20 | XMS | Encounter Summary ---
Demographics + + + | Address | [address] | | | [place] [address] | + + + | Home Phone | | + + + | Preferred Language | Unknown | + + + | Marital Status | | + + + | Buddhism Affiliation | 1028 | + + + | Race | White | + + + | Ethnic Group | Not or | + + + Author + + + | Author | [facility] | | | and [place] | + + + | Organization | [facility] | | | and [place] [...] Team Providers + +------+ + | Care Biostatistician Name | Role | Phone | + +------+ + | Gage De Jesus DO | PCP | | + +------+ + Reason for Visit Diagnostic/Screening (Routine) +--------+--------+ + + + + | Status | Reason | Specialty | Diagnoses / | Referred By | Referred To | | | | | Procedures | Contact | Contact | +--------+--------+ + + + + | Closed | | Radiology | Procedures | Provider, | | | | | | MRI Lumbar | Historical, | | | | | | Spine wo | MD Brush | | | | | | Contrast | [address] | | | | | | | [place] | | | | | | | [address] | | +--------+--------+ + + + + Encounter Details +--------+ + + + + | Date | Type | Department | Care Team | Description | +--------+ + + + + | 12/11/ | Imaging | [facility] | Provider, | | | 2018 | Exam | MED CTR EXTERNAL | MD Gonsalo Moe | | | | | IMAGING [address] | [address] | | | | | [address] [place] | [place] [address] | | | | | [place] [address] | | | | | | [phone] | | | +--------+ + + + [...] MRI LUMBAR SPINE WO | Routin | 10/17/2017 | | Results for this | | CONTRAST | e | 4:00 PM | | procedure are in the | | | | PST | | results section. | + +--------+ + + + documented in this encounter Results MRI Lumbar Spine wo Contrast (10/17/2017 4:00 PM PST) + + | Specimen | + + | | + + + + + | Narrative | Performed At | + + + | External films for comparison only - no result from [facility]. | [facility] | + + + + +---------+ + + | Performing | Address | City/State/Zipcode | Phone Number | | Organization | | | | + +---------+ + + | [facility] | | | | + +---------+ + + documented in this encounter Visit Diagnoses Not on filedocumented in this encounter"
--- OUTSIDE RECORDS SUMMARY | ~2020-07-20 | XMS | Encounter Summary ---
Demographics + + + | Address | [address] | | | [place] [address] | + + + | Home Phone | | + + + | Preferred Language | Unknown | + + + | Marital Status | | + + + | Synagogue Affiliation | 1028 | + + + | Race | White | + + + | Ethnic Group | Not or | + + + Author + + + | Author | [facility] | | | and [place] | + + + | Organization | [facility] | | | and [place] [...] Team Providers + +------+ + | Care Store Clerk Cashier Name | Role | Phone | + [...] | | | | hesis of | [place], | [address] | | | | | lumbar | [place] [address] | NW | | | | | region S/P | Phone: | [place], [place] | | | | | lumbar | [phone] | [address] | | | | | fusion | Fax: | Phone: | | | | | Spinal | [phone] | [phone] | | | | | stenosis of | | Fax: | | | | | lumbar | | [phone] | | | | | region with [...] | | [address] | [place] [address] | (Primary Dx); S/P | | | | [place], [place] | [phone] | lumbar fusion; | | | | [address] | | Spinal stenosis of | | | | [phone] | | lumbar region with | | [...]
--- OUTSIDE RECORDS SUMMARY | ~2020-07-20 | XMS | Encounter Summary ---
Demographics + + + | Address | [address] | | | [place] [address] | + + + | Home Phone | | + + + | Preferred Language | Unknown | + + + | Marital Status | | + + + | Restorationism Affiliation | 1028 | + + + | Race | White | + + + | Ethnic Group | Not or | + + + Author + + + | Author | [facility] | | | and [place] | + + + | Organization | [facility] | | | and [place] [...] Team Providers + +------+ + | Care Senior Mechanical Design Engineer Name | Role | Phone | + +------+ + PCP | Unavailable | + +------+ + Encounter Details +--------+ + + + + | Date | Type | Department | Care Team | Description | +--------+ + + + + | 03/18/ | Hospital | [facility] | Conversion | Abnormal findings on | | 2017 | Encounter | IMAGING SERVICES | Transaction, | diagnostic imaging | | | | [address] | Provider Unknown | of breast | | | | [address] [place], [place] | | | | | | [address] | (Fax) | | | | | [phone] | | | +--------+ + + + [...] | + +--------+ + + + | MAMMO STEREOTACTIC | Routin | 03/18/2017 | | Results for this | | BREAST BIOPSY | e | 10:13 AM | | procedure are in the | | | | PDT | | results section. | + +--------+ + + + | TISSUE REQUEST FOR | Routin | 03/18/2017 | | Results for this | | PATHOLOGY (NON-ORD) | e | 12:00 AM | | procedure are in the | | | | PDT | | results section. | + +--------+ + + + documented in this encounter Results LIYA Stereotactic Breast Biopsy (03/18/2017 10:13 AM PDT) + + | Specimen | + + | | + + + + | Addenda | + + | Addendum by Suresh Gilliland MD on 03/21/2017 9:11 AM Pathology results reveal | | benign fibroadipose tissue with dense stromal calcifications. Findings are benign | | and concordant with the imaging findings. Recommend six month follow up mammogram. | | These pathology findings and recommendations were discussed with the patient by | | Christine Curtis RN, on 03/20/17 at 14:50. | + + + + + | Impressions | Performed At | + + + | Successful stereotactic-guided left breast core needle biopsy | | | completed. Electronically signed by Suresh Gilliland MD on | | | 03/18/2017 2:08 PM | | + + + + + + | Narrative | Performed At | + + + | MAMMO STEREOTACTIC BREAST BIOPSY, MAMMO POST PROCEDURE SOO Romo | | | AASRUD 1960 INDICATION: Left breast calcifications. | | | PROCEDURE: The procedure was explained to the patient including | | | benefits and alternatives. The risks, including but not limited to | | | infection and bleeding, were reviewed and the patient agreed to | | | undergo the procedure, signing a consent form. The appropriate | | | side and site was labeled and initialed as an independent process | | | prior to the imaging and intervention, as per protocol at this | | | institution. A timeout was performed. The patient's left breast | | | was imaged and images of the calcifications in the upper outer | | | quadrant were obtained. The breast was prepped and draped in usual | | | sterile fashion. The area was anesthetized with a local anesthetic. | | | Using stereotactic guidance, a vacuum assisted core needle biopsy | | | device was placed in the target using a lateral approach. 6 specimens | | | were obtained. A micromarker clip was placed at the site of core | | | biopsy. The patient experienced no complications during the procedure. | | | Post-procedural unilateral CC and MLO digital mammogram obtained | | | to confirm clip location demonstrates the clip is at the expected site | | | of biopsy. At this time, pathology is pending. The report will be | | | addended when the final pathology report of the biopsy specimen is | | | received. | | + + + + + | Procedure Note | + + | Compa, Rad Conversion - 05/12/2019 9:10 PM PDT MAMMO STEREOTACTIC BREAST BIOPSY, MAMMO | | POST PROCEDURESOO Romo [id number] INDICATION: Left breast calcifications. PROCEDURE: | | The procedure was explained to the patient including benefits and alternatives. The | | risks, including but not limited to infection and bleeding, were reviewed and the | | patient agreed to undergo the procedure, signing a consent form. The appropriate side | | and site was labeled and initialed as an independent process prior to the imaging and | | intervention, as per protocol at this institution. A timeout was performed. The | | patient's left breast was imaged and images of the calcifications in the upper outer | | quadrant were obtained. The breast was prepped and draped in usual sterile fashion. The | | area was anesthetized with a local anesthetic. Using stereotactic guidance, a vacuum | | assisted core needle biopsy device was placed in the target using a lateral approach. 6 | | specimens were obtained. A micromarker clip was placed at the site of core biopsy. The | | patient experienced no complications during the procedure. Post-procedural unilateral CC | | and MLO digital mammogram obtained to confirm clip location demonstrates the clip is at | | the expected site of biopsy. At this time, pathology is pending. The report will be | | addended when the final pathology report of the biopsy specimen is received. IMPRESSION: | | Successful stereotactic-guided left breast core needle biopsy completed. | | | |At this time, pathology is pending. The report will be addended when the final pathology re port of the biopsy specimen is received. | | | |IMPRESSION: | | | |Successful stereotactic-guided left breast core needle biopsy completed. | | | | | + + Tissue Request For Pathology (03/18/2017 12:00 AM PDT) + + | Specimen | + + | Soft tissue sample | | (specimen) | + + + + + | Narrative | Performed At | + + + | SPECIMEN(S): A LT BREAST NEEDLE CORE BX FOR CALCS SPECIMEN | EXTERNAL LAB | | SOURCE: A. LT BREAST NEEDLE CORE BX FOR CALCS CLINICAL HISTORY: | | | 03/18/2017. Calcifications. FINAL PATHOLOGIC DIAGNOSIS: Left | | | breast for calcifications, needle core biopsies: - Benign | | | fibroadipose tissue with dense stromal calcifications. - Negative for | | | malignancy. As part of the [facility], this case | | | was reviewed by another member of [facility]. (BES) | | | AMB:rrc:[id number] GROSS DESCRIPTION: One specimen is received in one | | | container, labeled with the patient's name: A. Received in | | | formalin designated "left breast needle core biopsy for calcs ", | | | consists of multiple yellow-white needle core tissue fragments that | | | range in length from 0.4 cm up to 3.2 cm and have an average diameter | | | of 0.4 cm. The specimen is entirely submitted in cassette A1. | | | Approximate formalin time: 10 hours. FM The gross description | | | section of this report has been prepared using a voice recognition | | | system. The report was reviewed for accuracy, however, sound-alike | | | word errors, addition and/or deletions may occur. If there is any | | | question about this report please contact the originating pathologist. | | | MICROSCOPIC EXAMINATION: Histologic sections of all submitted | | | blocks are examined by light microscopy. These findings, together | | | with the gross examination, support the pathologic diagnosis. | | | PERFORMING LABORATORY: Professional interpretation and technical | | | preparation was performed by [employer] [facility] | | | [address] [address] (Taxicab Dispatcher: | | | Jack Mckeon M.D.; IA#: [id number]). Diagnostician: Rand Rebolledo | | | Franko SHAW Pathologist Diagnostician: Mike Lancaster MD Pathologist | | | Electronically Signed 03/19/2017 | | + + + + +---------+ + + | Performing | Address | City/State/Zipcode | Phone Number | | Organization | | | | + +---------+ + + | EXTERNAL LAB | | | | + +---------+ + + documented in this encounter Visit Diagnoses + + | Diagnosis | + + | Abnormal findings on diagnostic imaging of breast Other (abnormal) findings on | | radiological examination of breast | + + documented in this encounter
--- OUTSIDE RECORDS SUMMARY | ~2020-07-20 | XMS | Encounter Summary ---
Demographics + + + | Address | [address] | | | [place] [address] | + + + | Home Phone | | + + + | Preferred Language | Unknown | + + + | Marital Status | | + + + | Muslim Affiliation | 1028 | + + + | Race | White | + + + | Ethnic Group | Not or | + + + Author + + + | Author | [facility] | | | and [place] | + + + | Organization | [facility] | | | and [...] Team Providers + +------+ + | Care Coach Mechanic Name | Role | Phone | + +------+ + | Gage De Jesus DO | PCP | | + +------+ + Reason for Visit + +--------+ + | Reason | Onset | Comments | | | Date | | + +--------+ + | Patient Education | 10/14/ | Spine Class | | | 2019 | | + +--------+ + | Case Management | 10/14/ | | | | 2018 | | + +--------+ + Encounter Details +--------+ + + + + | Date | Type | Department | Care Team | Description | +--------+ + + + + | 10/14/ | Telephone | [facility] [place] | Syed Owens MD | Patient Education | | 2018 | | NEUROSURGERY [address] | [address] | (Spine Class); Case | | | | [address] | [place] [address] | Management | | | | [place] | [phone] | | | | | [address] | | | | | | [phone] | | | +--------+ + + + [...] this encounter Miscellaneous Notes Telephone Encounter - Jasbir Reeder PA-C - 10/15/2018 3:05 PM PSTI have her name and date of surgery written down and will try and pass it on to DC office workforce planner on date of surgery in preparation for her DC. elephone Encounter - Wanda Jose RN - 10/14/2018 4:16 PM PSTRouting to Outpat ient Innovation Analyst to pre-plan options for discharge. Patient is a resident of [facility], an adult [facility], in [place], [place] It is uncertain the level of care that is available at this facility for postoperative reha b and assistance with ADL's, wound care, frequent walking if standby assistance is needed. Home Environment form indicates that patient would need to navigate 15 steps for access. S he currently uses a 4 wheel walker or wheelchair. Discussion during Spine Class was notable for potential challenges in providing pain medica tion refills ([place] of [place] and no access to a retail pharmacy) Would we be able to fax pres criptions to [facility] as is done with residential facilities? Please advise what options may be considered if patient requires residential rehab upon discharge. Scheduled 10/26/18 for L4-5 LAIF W/PSF & LAMINECTOMY elephone Encounter - Wanda Jose RN - 10/14/2018 2:27 PM PSTPatient attended Spine Class today. Her registered nurse hh case manager, Jennifer assisted her in w/c and a ttended most of class. Patient had questions about her walker and medications refills. She lives in an assisted living facility that uses an internal pharmacy or service that del angelito medications to the facility. They may need special arrangements for pain medication p rescriptions. Ave OT, discussed the walker concerns and advised patient that she will not likely need t o bring her 4 wheel walker to surgery since this will not be recommended until she regains s trength, stability and some activity tolerance after surgery. We discussed that any assisti ve devices the patient needs will be requested/ authorized before discharge after surgery. Encouraged patient to call with questions or concerns. documented in this encounter Plan of Treatment Not on filedocumented as of this encounter Visit Diagnoses Not on filedocumented in this encounter"
--- OUTSIDE RECORDS SUMMARY | ~2020-07-20 | XMS | Encounter Summary ---
Demographics + + + | Address | [address] | | | [place] [address] | + + + | Home Phone | | + + + | Preferred Language | Unknown | + + + | Marital Status | | + + + | Zoroastrian Affiliation | 1028 | + + + | Race | White | + + + | Ethnic Group | Not or | + + + Author + + + | Author | [facility] | | | and [place] | + + + | Organization | [facility] | | | and [place] [...] Team Providers + +------+ + | Care Vice Provost Name | Role | Phone | + [...] | | | IMAGING [address] | [place] | | | | | [address] [place] | [place] [address] | | | | | [place] [address] | | | | | | [phone] | | | +--------+ + + + [...] +--------+ + + + | XR FEMUR RIGHT 2+VW | Routin | 12/13/2018 | | Results for this | | | e | 1:05 PM | | procedure are in the | | | | PDT | | results section. | + +--------+ + + + documented in this encounter Results XR Femur Right 2+Vw (12/13/2018 1:05 PM PDT) + + | Specimen | [...]
--- OUTSIDE RECORDS SUMMARY | ~2020-07-20 | XMS | Encounter Summary ---
Demographics + + + | Address | [address] | | | [place] [address] | + + + | Home Phone | | + + + | Preferred Language | Unknown | + + + | Marital Status | | + + + | Islam Affiliation | 1028 | + + + | Race | White | + + + | Ethnic Group | Not or | + + + Author + + + | Author | [facility] | | | and [place] | + + + | Organization | [facility] | | | and [place] | [...] Team Providers + +------+ + | Care Checker Loader Name | Role | Phone | + [...] 2014 | | [address] | [address] | | | | | [place], [place] | [place] | | | | | [address] | [place], [place] | | | | | [phone] | [address] | | | | | | [phone] | | | | | | | [...] | | | | | Blvd;[place] [address] | | | | + + + [...] | | at Ratio | performed at [facility];[address] | | LAB | | | | [address] | | | | | | [address];[place] [address] | | | | + + + [...] | | | Urine | performed at [facility];[address] | | LAB | | | | [place] | | | | | | [address];[place] [address] | | | | + + + [...] | | | Urine | performed at [facility];[address] | | LAB | | | | [place] | | | | | | Blvd;[place] [address] | | | | + + + [...] | | | | | | at [facility];[address] [facility] | | | | | | [facility];[place], [place] | | | | | | [address] | | | | + + + [...] LAB | | | | [address];[place] [address] | | | | + + + [...] EXTERNAL | | | | performed at [facility];[address] | | LAB | | | | [address] | | | | | | Blvd;[place] [address] | | | | + + + [...] EXTERNAL | | | | performed at [facility];[address] | | LAB | | | | [address] | | | | | | Blvd;[place] [address] | | | | + + + [...] | | | | | | at [facility];[address] [facility] | | | | | | vd;[place], [place] | | | | | | [address] | | | | + + + [...] - 1.030 | EXTERNAL | | | [place], | | | LAB | | | [...] | | | | | performed at [facility];[address] | | | | | | [place] | | | | | | [address];[place] [address] | | | | | | | [...] COLIAbnormal | | | Testing performed at [facility];[address] [facility];[place], [place] | | | [address] Suscepibility for - ESCHERICHIA COLI Ampicillin | [...]
--- OUTSIDE RECORDS SUMMARY | ~2020-07-20 | XMS | Encounter Summary ---
Demographics + + + | Address | [address] | | | [place] [address] | + + + | Home Phone | | + + + | Preferred Language | Unknown | + + + | Marital Status | | + + + | Methodist Affiliation | 1028 | + + + | Race | White | + + + | Ethnic Group | Not or | + + + Author + + + | Author | [facility] | | | and [place] | + + + | Organization | [facility] | | | and [place] [...] Team Providers + +------+ + | Care Hard Metals Engraver Hand Name | Role | Phone | + +------+ + | Gage De Jesus DO | PCP | | + +------+ + Encounter Details +--------+ + + + + | Date | Type | Department | Care Team | Description | +--------+ + + + + | 04/08/ | Orders Only | [facility] | Conversion | | | 2016 | | NEPRHOLOGY [place] | Transaction, | | | | | [address] | Provider Unknown | | | | | [address] [place], [place] | [phone] | | | | | [address] | | | | | | [phone] | | | +--------+ + + + [...] | EXTERNAL LAB: CBC | Routin | 04/08/2016 | | Results for this | | | e | 12:00 AM | | procedure are in the | | | | PDT | | results section. | + +--------+ + + + | URINALYSIS, REFLEX | Routin | 04/08/2016 | | Results for this | | MICROSCOPIC AND/OR | e | 12:00 AM | | procedure are in the | | CULTURE | | PDT | | results section. | + +--------+ + + + | VITAMIN D, | Routin | 04/08/2016 | | Results for this | | DEFICIENCY SCREEN | e | 12:00 AM | | procedure are in the | | (25-HYDROXY) | | PDT | | results section. | + +--------+ + + + | PARATHYROID HORMONE, | Routin | 04/08/2016 | | Results for this | | INTACT AND CALCIUM | e | 12:00 AM | | procedure are in the | | | | PDT | | results section. | + +--------+ + + + | PROTEIN/CREATININE | Routin | 04/08/2016 | | Results for this | | RATIO, URINE | e | 12:00 AM | | procedure are in the | | | | PDT | | results section. | + +--------+ + + + | URIC ACID | Routin | 04/08/2016 | | Results for this | | | e | 12:00 AM | | procedure are in the | | | | PDT | | results section. | + +--------+ + + + | MAGNESIUM | Routin | 04/08/2016 | | Results for this | | | e | 12:00 AM | | procedure are in the | | | | PDT | | results section. | + +--------+ + + + | RENAL FUNCTION PANEL | Routin | 04/08/2016 | | Results for this | | | e | 12:00 AM | | procedure are in the | | | | PDT | | results section. | + +--------+ + + + documented in this encounter Results Urinalysis, Reflex Microscopic and/or Culture (04/08/2016 12:00 AM PDT) + + + + + + | Component | Value | Ref Range | Performed | Pathologist | | | | | At | Signature | + + + + + + | Color | Light Yellow | | EXTERNAL | | | [...] | | | + +---------+ + + Parathyroid Hormone, Intact and Calcium (04/08/2016 12:00 AM PDT) + + + + + + | Component | Value | Ref Range | Performed | Pathologist | | | | | At | Signature | + + + + + + | PTH Intact | 101.0 (A) | 15 - 65 | EXTERNAL | | | | | | LAB | | + + + + + + | Calcium | 9.9 | 8.4 - 10.2 | EXTERNAL | [...] +---------+ + + Protein/Creatinine Ratio, Urine (04/08/2016 12:00 AM PDT) + +-------+ + + + [...] Performed At | + + + | Protein 8 Creatinine 167 | EXTERNAL LAB | + + + + +---------+ + + | Performing | Address | City/State/Zipcode | Phone Number | | Organization | | | | + +---------+ + + | EXTERNAL LAB | | | | + +---------+ + + Vitamin D, Deficiency Screen (25-Hydroxy) (04/08/2016 12:00 AM PDT) + +--------+ + + + | Component | Value | Ref Range | Performed | Pathologist | | | | | At | Signature | + +--------+ + + + | Vit D, | 20 (A) | 30 - 100 | EXTERNAL | | | 25-Hydroxy | | | LAB | | + +--------+ + + + + + | Specimen | + + | Blood specimen | | (specimen) | + + + +---------+ + + | Performing | Address | City/State/Zipcode | Phone Number | | Organization | | | | + +---------+ + + | EXTERNAL LAB | | | | + +---------+ + + External Lab: CBC (04/08/2016 12:00 AM PDT) + + + + + + | Component | Value | Ref Range | Performed | Pathologist | | | | | At | Signature | + + + + + + | WBC | 11.0 | 4.5 - 11.0 10 | EXTERNAL | | | | | | LAB | | + + + + + + | Non- | 5.12 (A) | 3.8 - 5.1 10 | EXTERNAL | | | Red Blood | | | LAB | | | Cells | | | | | | Counted | | | | | + + + + + + | Hemoglobin | 14.7 | 12.0 - 16.0 | EXTERNAL | | | | | g/dL | LAB | | + + + + + + | Hematocrit, | 44.9 | 35 - 45 % | EXTERNAL | | | POC | | | LAB | | + + + + + + | MCV | 87.6 | 81 - 99 fL | EXTERNAL | | | | | | LAB | | + + + + + + | MCH | 29 | 27 - 33 pg | EXTERNAL | | | | | | LAB | | + + + + + + | MCHC | 33 | 30 - 36 g/dL | EXTERNAL | | | | | | LAB | | + + + + + + | Platelet | 302 | 140 - 440 K/ L | EXTERNAL | | | Count | | | LAB | | | Plasma | | | | | + + + + + + | RDW-CV | 14.9 | 10.5 - 15.0 % | EXTERNAL | | | | | | LAB | | + + + + + + | MPV | | fL | EXTERNAL | | | | | | LAB | | + + + + + + | Differentia | Manual | | EXTERNAL | | | l Type | | | LAB | | + + + + + + | % Segmented | 80.4 (A) | 39 - 80 % | EXTERNAL | | | | | | LAB | | | Neutrophils | | | | | + + + + + + | % | 13.9 (A) | 24 - 44 % | EXTERNAL | | | Lymphocytes | | | LAB | | + + + + + + | % Monocytes | 4.9 | 0 - 12 % | EXTERNAL | | | | | | LAB | | + + + + + + | % | 0.3 | 0 - 6 % | EXTERNAL [...] | + +---------+ + + Uric Acid (04/08/2016 12:00 AM PDT) + + + + + + | Component | Value | Ref Range | Performed | Pathologist | | | | | At | Signature | + + + + + + | Uric Acid | 10.1 (A) | 2.3 - 6.6 | EXTERNAL | | | | | [...] | | + +---------+ + + Magnesium (04/08/2016 12:00 AM PDT) + +-------+ + + + | Component | Value | Ref Range | Performed | Pathologist | | | | | At | Signature | + +-------+ + + + | Magnesium | 2.0 | 1.7 - 2.5 mg/dL | EXTERNAL [...] + +---------+ + + Renal Function Panel (04/08/2016 12:00 AM PDT) + + + + + + | Component | Value | Ref Range | Performed | Pathologist | | | | | At | Signature | + + + + + + | Glucose, | 130 (A) | 70 - 100 mg/dL | EXTERNAL | | | Fasting | | | LAB | | + + + + + + | BUN | 24 (A) | 6 - 23 mg/dL | EXTERNAL | | | | | | LAB | | + + + + + + | Creatinine | 1.49 (A) | 0.70 - 1.33 | EXTERNAL | | | | | mg/dL | LAB | | + + + + + + | PHOSPHORUS | | mg/dL | EXTERNAL | | | | | | LAB | | + + + + + + | Albumin | 4.5 | 3.5 - 5.0 | EXTERNAL | | | | | | LAB | | + + + + + + | Na | 136 | 132 - 143 | EXTERNAL | | | | | mmol/L | LAB | | + + + + + + | K | 4.3 | 3.6 - 5.1 | EXTERNAL | | | | | mmol/L | LAB | | + + + + + + | Cl | 97 | 95 - 112 mmol/L | EXTERNAL | | | | | | LAB | | + + + + + + | CO2 | 24 | 19 - 31 mmol/L | EXTERNAL | | | | | | LAB | | + + + + + + | Anion Gap | 19.3 | 7 - 21 mmol/L | EXTERNAL | | | | | | LAB | | + + + + + + | eGFR, | | | EXTERNAL | | | non- | | | LAB | | | Finnish | | | | | + + + + + + | Phosphorus, | 3.5 | 2.5 - 5.0 | EXTERNAL | | | Inorganic | | | LAB | | + + + + + + | BUN/Creatin | 16.1 | 6.0 - 28.6 | EXTERNAL | | | ine Ratio | | | LAB | | + + + + + + | Calcium | 9.9 | 8.4 - 10.2 | EXTERNAL | | | | | mg/dL | LAB | | + + + + + + | Estimated | 36 (A) | 60 mg/dL | EXTERNAL | | | GFR [...]
--- OUTSIDE RECORDS SUMMARY | ~2020-07-20 | XMS | Encounter Summary ---
Demographics + + + | Address | [address] | | | [place] [address] | + + + | Home Phone | | + + + | Preferred Language | Unknown | + + + | Marital Status | | + + + | Episcopalian Affiliation | 1028 | + + + | Race | White | + + + | Ethnic Group | Not or | + + + Author + + + | Author | [facility] | | | and [place] | + + + | Organization | [facility] | | | and [...] Team Providers + +------+ + | Care Erp Manager Name | Role | Phone | [...] | | | region | [place], | [place], [place] | | | | | | [place] | [address] Phone: | | | | | | [address] | [phone] | | | | | | Phone: | Fax: | | | | | | [phone] | [phone] | | | | | | Fax: | | | | | | | [phone] | | +--------+--------+ + + + + Encounter Details +--------+---------+ + + + | Date | Type | Department | Care Team | Description | +--------+---------+ + + + | 01/19/ | Office | [facility] | Jasbir Reeder, | Lumbar radiculopathy | | 2017 | Visit | NEUROSURGERY [address] | PA-C [address] | (Primary Dx); | | | | [address] | [address] [place] | Lumbar herniated | | | | [place], [place] | [place] [address] | disc; Spinal | | | | [address] | [phone] | stenosis of lumbar | | | | [phone] | | region with | | | [...] encounter Patient Instructions Patient Instructions Ti Charlton, Restaurant Front Manager - 01/19/2018 2:30 PM PDTWe will sche [...] f rom the original. TASHI Balbuena [address] [facility], [address] [place], [place] [address] FAX: [phone] NEUROSURGERY HISTORY AND PHYSICAL EXAMINATION CHIEF COMPLAINT: [...] Surgical History: Procedure Laterality Date CHOLECYSTECTOMY 1995 [facility] HYSTERECTOMY [address] [place] TONSILLECTOMY 1989 [facility] CURRENT MEDICATIONS: Current Outpatient Prescriptions Medication [...] has no apparent deficits with short or outsole leveler memory. CRANIAL NERVES: II: Acuity is intact. [...] Intrinsics 5 5 Ulnar Intrinsics 5 5 Project Asst Strength 5 5 Hip Flexion 5 5 [...] vomiting) Poor circulation Rheumatoid arthritis (HCC) Seizure ([facility]) PLAN: Soo Aisha Velascovincentflip presented today, and [...]
--- OUTSIDE RECORDS SUMMARY | ~2020-07-20 | XMS | Encounter Summary ---
Demographics + + + | Address | [address] | | | [place] [address] | + + + | Home Phone | | + + + | Preferred Language | Unknown | + + + | Marital Status | | + + + | Cheondoism Affiliation | 1028 | + + + | Race | White | + + + | Ethnic Group | Not or | + + + Author + + + | Author | [facility] | | | and [place] | + + + | Organization | [facility] | | [...] Team Providers + +------+ + | Care Mid Level Business Analyst Name | Role | Phone | [...] | | | IMAGING [address] | [place] | | | | | [address] [place] | [place] [address] | | | | | [place] [address] | | | | | | [phone] | | | +--------+ + + + [...]
--- OUTSIDE RECORDS SUMMARY | ~2020-07-20 | XMS | Encounter Summary ---
Demographics + + + | Address | [address] | | | [place] [address] | + + + | Home Phone | | + + + | Preferred Language | Unknown | + + + | Marital Status | | + + + | Mosque Affiliation | 1028 | + + + | Race | White | + + + | Ethnic Group | Not or | + + + Author + + + | Author | [facility] | | | and [place] | + + + | Organization | [facility] [...] Team Providers + +------+ + | Care Day Treatment Clinician/Art Therapist Name | Role | Phone | + +------+ + | Gage De Jesus DO | PCP | | + +------+ + Reason for Visit + +--------+ + | Reason | Onset | Comments | | | Date | | + +--------+ + | Procedure | 10/05/ | Changes | | | 2019 | | + +--------+ + Encounter Details +--------+ + + + + | Date | Type | Department | Care Team | Description | +--------+ + + + + | 10/05/ | Telephone | [facility] | Syed Owens MD | Procedure (Changes ) | | 2019 | | NEUROSURGERY [address] | [address] | | | | | [address] | [place] [address] | | | | | [place] | [phone] | | | | | [address] | | | | | | [phone] | | | +--------+ + + + [...] this encounter Miscellaneous Notes Telephone Encounter - Lesia Garcia Cert MA - 10/05/2018 9:49 AM PSTI called and spoke wi katina Calderon' caregiver again and let her know that I was able to find time for her surgery on . She was much happier with this date. All other visits will remain as scheduled. LESIA GARCIA elephone Encounte r - Lesia Garcia Cert MA - 10/05/2018 8:48 AM PSTI called and spoke with Soo's caregiver today explaining that due to some schedule changes we have to re-schedule her surgery. She became very frustrated by this as we already called them and moved her surgery up from to 10/22/18 and now they have to either take time on 10/12 (which is hard for them) or move farther out into November. I apologized to her explaining that while u understand her frustra tions, I do not have control over the schedule changes that take place. She asked me to rose l back in about 1 hour so that I can discuss this with Soo herself. LESIA GARCIA documented in this encounter Plan of Treatment Not on filedocumented as of this encounter Visit Diagnoses Not on filedocumented in this encounter"
--- OUTSIDE RECORDS SUMMARY | ~2020-07-20 | XMS | Encounter Summary ---
Demographics + + + | Address | [address] | | | [place] [address] | + + + | Home Phone | | + + + | Preferred Language | Unknown | + + + | Marital Status | | + + + | Christianity Affiliation | 1028 | + + + | Race | White | + + + | Ethnic Group | Not or | + + + Author + + + | Author | [facility] | | | and [place] | + + + | Organization | [facility] | | | and [place] [...] Team Providers + +------+ + | Care Rubber Off Name | Role | Phone | + [...] | Changes | NEUROSURGERY [address] | Typewriter Assembly And Parts Inspector | | | | | [address] | | | | | | [place] | | | | | | [address] | | | | | | [phone] | | | +--------+ + + + [...]
--- OUTSIDE RECORDS SUMMARY | ~2020-07-20 | XMS | Encounter Summary ---
Demographics + + + | Address | [address] | | | [place] [address] | + + + | Home Phone | | + + + | Preferred Language | Unknown | + + + | Marital Status | | + + + | Taoist Affiliation | 1028 | + + + | Race | White | + + + | Ethnic Group | Not or | + + + Author + + + | Author | [facility] | | | and [place] | + + + | Organization | [facility] | | | and [place] | [...] Team Providers + +------+ + | Care Small Parts Assembler Name | Role | Phone | + +------+ + | Gage De Jesus DO | PCP | | + +------+ + Encounter Details +--------+ + + + + | Date | Type | Department | Care Team | Description | +--------+ + + + + | 12/11/ | Imaging | [facility] | Provider, | | | 2018 | Exam | [facility] | MD [address] | | | | | IMAGING [address] | [address] | | | | | [address] [place] | [place] [address] | | | | | [place] [address] | | | | | | [phone] | | | +--------+ + + + [...] LUMBAR SPINE 2 [place] | Routin | 08/25/2017 | | Results for this | | 3 VW | e | 1:40 PM | | procedure are in the | | | | PST | | results section. | + +--------+ + + + documented in this encounter Results XR Lumbar Spine 2 or 3 Vw (08/25/2017 1:40 PM PST) + + | Specimen | + + | | + + + + + | Narrative | Performed At | + + + | External films for comparison only - no result from [facility]. | [facility] | + + + + +---------+ + + | Performing | Address | City/State/Zipcode | Phone Number | | Organization | | | | + +---------+ + + | [facility] | | | | + +---------+ + + documented in this encounter Visit Diagnoses Not on filedocumented in this encounter"
--- OUTSIDE RECORDS SUMMARY | ~2020-07-20 | XMS | Encounter Summary ---
Demographics + + + | Address | [address] | | | [place] [address] | + + + | Home Phone | | + + + | Preferred Language | Unknown | + + + | Marital Status | | + + + | Church Affiliation | 1028 | + + + | Race | White | + + + | Ethnic Group | Not or | + + + Author + + + | Author | [facility] | | | and [place] | + + + | Organization | [facility] | | | and [place] [...] Team Providers + +------+ + | Care Complex Care Nurse Name | Role | Phone | + +------+ + | Gage De Jesus DO | PCP | | + +------+ + Reason for Visit + + + | Reason | Comments | + + + | Follow-up | Discuss surgery | + + + Follow Up (Routine) +--------+--------+ + + + + | Status | Reason | Specialty | Diagnoses / | Referred By | Referred To | | | | | Procedures | Contact | Contact | +--------+--------+ + + + + | Closed | | Neurosurgery | Diagnoses | Yuna, | Syed Owens | | | | | Lumbar | Arpit Mejia DO | MD [address] | | | | | radiculopath | [address] | | | | | y Lumbar | [address] | [place], [place] | | | | | herniated | [place], [place] | [address] | | | | | disc | [id number] | Phone: | | | | | discuss | Phone: | [phone] | | | | | surgery | [phone] | Fax: | | | | | (prev Yuan | Fax: | [phone] | | | | | Patient) | [phone] | | | | | | Procedures | | | | | | | [place] OFFICE | | | | | | | CONSULTATION | | | | | | | NEW/ESTAB | | | | | | | PATIENT 60 | | | | | | | MIN OFFICE | | | | | | | VISIT | | | | | | | EXTENDED | | | +--------+--------+ + + + + Encounter Details +--------+---------+ + + + | Date | Type | Department | Care Team | Description | +--------+---------+ + + + | 08/06/ | Office | [facility] | Syed Owens MD | Spondylolisthesis of | | 2018 | Visit | NEUROSURGERY [address] | [address] | lumbar region; HNP | | | | [address] | [place] [address] | (herniated nucleus | | | | [place] | [phone] | pulposus), lumbar; | | | | [address] | | Foraminal stenosis | | | | [phone] | Nav Ruvalcaba | of lumbar region; | | | | | [address] | Spinal stenosis of | | | | | [address] [place] | lumbar region with | | | | | [address] | neurogenic | | | | | | claudication | +--------+---------+ + + + Social History [...] + + + | Blood Pressure | 112/71 | 08/06/2018 2:28 PM | | | | | PST | | + + + + + | Pulse | 66 | 08/06/2018 2:28 PM | | | | | PST [...] Weight | 108.9 kg (240 lb) | 08/06/2018 2:28 PM | | | | | PST | | + + + + + | Height | 172.7 cm (5' 8") | 08/06/2018 2:28 PM | | | | | PST | | + + + + + | Body Mass Index | 36.49 | 08/06/2018 2:28 PM | | | | | PST | | + + + + + documented in this encounter Patient Instructions Patient Instructions Rain Johnson, Product Safety Officer - 08/06/2018 2:15 PM PSTIt was a pleasure to see you today. Here is what we discussed. - Let pain be your guide. If you are doing an activity that starts causing you pain back o ff and ease back into it slowly. We don't want you taking any risks that do not need to be taken. If you do choose back surgery it would look something like this: -1-3 days in the hospital, spend the first month lifting no more than 5lbs, no bending, twi sting, or turning. Do not do any lifting above your head. -We will want you to be up and walking very frequently. For the first month you will need t o get up and move every 20-45 minutes while awake. You will gradually increase your walking until you are walking about 1 mile at 1 month. -You would wear a back brace for at least the first month. You will be notified at the time of your surgery how we will ask you to use your brace. - Generally you will not be driving for the first month after a fusion surgery. -You will likely need help with getting dressed and other household activities for the firs t month. -Recovery time would be 3-6 months depending on bone fusion and healing. You will have some waxing and waning of symptoms. The pain will vary in intensity and vary from day to day. As time moves on the frequency and intensity of the pain will slowly improve. - I highly encourage you to attend Spine Class to understand the surgery and your post oper ative course. T documented in this encounter Progress Notes Nav Ruvalcaba PA-C - 08/06/2018 2:15 PM PSTFormatting of this note might be differ ent from the original. Nav Ruvalcaba PA-C and Syed Owens MD [address] [facility], [address] [place] [address] FAX: [phone] NEUROSURGERY HISTORY AND PHYSICAL EXAMINATION CHIEF COMPLAINT: Chief Complaint Patient presents with Follow-up Discuss surgery HISTORY OF PRESENT ILLNESS: The patient is a 58 y.o. female that was last seen on 8 with the complaint of back and bilateral leg pain symptoms that began over 30 years ago. She states that since December she has fallen twice do to stumbleling. She is constantly using a walker to move around She continues [...] last 2 digits on her left hand. The patient does not report any change [...] Surgical History: Procedure Laterality Date CHOLECYSTECTOMY 1995 [facility] HYSTERECTOMY [address] [facility] [place] TONSILLECTOMY 1989 [facility] CURRENT MEDICATIONS: Current Outpatient Prescriptions Medication [...] tablet Take 1,000 mg by mouth nightly. gabapentin (NEURONTIN) 600 MG tablet HYDROcodone-acetaminophen (NORCO) 5-325 mg per tablet loperamide [...] weight ch anges. EYES: No eye problems, + use of corrective lenses, no eye injury, no double vision, no bli ndness. EARS, NOSE, AND THROAT: No changes in taste or smell, + hearing difficulty, no ringing in the ears, no ear drainage, no dizziness, no voice changes, no difficulty swallowing, no sign ificant snoring, no sleep apnea, no sinus problems, no major dental work. NEUROLOGICALLY: Please see the review of systems discussed above in the history of present illness. In addition, the patient has weakness, muscle aching, and head injury. PSYCHIATRIC: + depression, no sleep disorders, + anxiety, + bipolar disorder, no psychotic episodes. CARDIOVASCULAR: No heart attacks, + heart murmur, no heart fluttering, no chest pain, + an kle swelling. LUNG DISEASE: No shortness of breath, no cough, no tuberculosis, no bloody cough, no asth ma, no emphysema/COPD. GASTROINTESTINAL: No bowel disease, no nausea or vomiting, no rectal bleeding, no constipa tion, no stool incontinence, no liver disease, no [...] istory of cancer. RHEUMATOLOGIC: + joint arthritis, no rheumatoid arthritis. PHYSICAL EXAMINATION: Blood pressure 112/71, pulse 66, height 1.727 m (5' 8"), weight 108.9 kg (240 lb). Body mas s index is 36.49 kg/m. GENERAL: Soo Briceno is in no acute distress with unlabored respirations. The pat iedeana does not appear uncomfortable throughout the exam [...] has no apparent deficits with short or m[facility]p memory. CRANIAL NERVES: II: Acuity is intact. [...] Intrinsics 5 5 Ulnar Intrinsics 5 5 Bracelet And Brooch Maker Strength 5 5 Hip Flexion 5 5 [...] SMART'S NEGATIVE NEGATIVE PLANTAR DOWNGOING DOWNGOING GAIT: Slow antalgic gait. TEST AND RADIOGRAPHIC REVIEW: The patient's imaging was reviewed in detail with the patient today during the visit. The lumbar MRI from 10/17/2017 shows L4-5 spondylolisthesis with a large disc herniation and josefina re stensis. L5-S1 appears autofused. Lumbar x-rays from 01/19/2018 show spondylolisthesis at L4-5 on flexion extension views. Th is is Grade II subluxation. ASSESSMENT: NEUROSURGICAL DIAGNOSES: Encounter Diagnoses Name Primary? Spondylolisthesis of lumbar region HNP (herniated nucleus [...] Poor circulation Rheumatoid arthritis (HCC) Seizure (HCC) PLAN: Soo Briceno presented today, and it was a pleasure [...] sometimes difficult. The patient would like to be considered for surgery as discussed and would like us to seek authorization and clearance for the operation. I, Nav Ruvalcaba PA-C, personally performed the services described in this documentation , as scribed by Rain Lazcano in my presence, and it is both accurate and complete. ELECTRONICALLY SIGNED BY: Nav Ruvalcaba PA-C and Syed Owens MD, 08/06/2018 15:10 Portions of the HPI and plan were pulled forward from 01/19/3018. Information has been adde d and updated during the office visit today 08/06/18. documented in this encounter Plan of Treatment [...] claudication | + + documented in this encounter
--- OUTSIDE RECORDS SUMMARY | ~2020-07-20 | XMS | Encounter Summary ---
Demographics + + + | Address | [address] | | | [place] [address] | + + + | Home Phone | | + + + | Preferred Language | Unknown | + + + | Marital Status | | + + + | Hindu Affiliation | 1028 | + + + | Race | White | + + + | Ethnic Group | Not or | + + + Author + + + | Author | [facility] | | | and [place] | + + + | Organization | [facility] | | | and [...] Providers + +------+ + | Care Manager Farm Name | Role | Phone | + [...] [address] [place] | | | | | [place], [place] | [place] [address] | | | | | [address] | [phone] | | | | | [phone] | | | +--------+ + + + [...]
--- OUTSIDE RECORDS SUMMARY | ~2020-07-20 | XMS | Encounter Summary ---
Demographics + + + | Address | [address] | | | [place] [address] | + + + | Home Phone | | + + + | Preferred Language | Unknown | + + + | Marital Status | | + + + | Methodist Affiliation | 1028 | + + + | Race | White | + + + | Ethnic Group | Not or | + + + Author + + + | Author | [facility] | | | and [place] | + + + | Organization | [facility] | | | and [place] [...] Team Providers + +------+ + | Care Pr Specialist Name | Role | Phone | + +------+ + | Gage De Jesus DO | PCP | | + +------+ + Reason for Visit + +--------+ + | Reason | Onset | Comments | | | Date | | + +--------+ + | Procedure | 10/22/ | Reminder | | | 2019 | | + +--------+ + Encounter Details +--------+ + + + + | Date | Type | Department | Care Team | Description | +--------+ + + + + | 10/22/ | Telephone | [facility] | Syed Owens MD | Procedure (Reminder) | | 2019 | | NEUROSURGERY [address] | [address] | | | | | [address] | [place] [address] | | | | | [place] | [phone] | | | | | [address] | | | | | | [phone] | | | +--------+ + + + [...] this encounter Miscellaneous Notes Telephone Encounter - Domi Moreno Cert MA - 10/22/2018 9:11 AM PSTAll presurgical check -in instructions given Surgery date: 10/26/18 Check-in Time: 1200 ([place] Schedule states procedure start time 1410) No solids or liquids after midnight the night before surgery. Follow the cleansing instructions provided beginning the night before surgery after you marianna wer or bathe. No showering the morning of surgery. Please do not wear jewelry, contact lenses, nail prydeinig (on fingers or toes), or make-up to surgery check-in. If you have dentures, hearing aids, or glasses please bring the cases with you to check-in. Medications instructions: None Surgical Admit Anticipated Disposition reviewed and correct: "Yes Confirmation of procedure/approval: "Yes". Has patient been seen in the ED or had surgery since last seen in our office?: No Confirm local pharmacy: [facility] I spoke with Papa who cares for Lisa and relayed the check in time and reminders to her. documented in this encounter Plan of Treatment Not on filedocumented as of this encounter Visit Diagnoses Not on filedocumented in this encounter
--- OUTSIDE RECORDS SUMMARY | ~2020-07-20 | XMS | Encounter Summary ---
Demographics + + + | Address | [address] | | | [place] [address] | + + + | Home Phone | | + + + | Preferred Language | Unknown | + + + | Marital Status | | + + + | Spiritism Affiliation | 1028 | + + + | Race | White | + + + | Ethnic Group | Not or | + + + Author + + + | Author | [facility] | | | and [place] | + + + | Organization | [facility] | | | and [place] [...] Team Providers + +------+ + | Care Ball Sorter Name | Role | Phone | + [...] | Changes | NEUROSURGERY [address] | Groover Operator | | | | | [address] | | | | | | [place] | | | | | | [address] | | | | | | [phone] | | | +--------+ + + + [...]
--- OUTSIDE RECORDS SUMMARY | ~2020-07-20 | XMS | Encounter Summary ---
Demographics + + + | Address | [address] | | | [place] [address] | + + + | Home Phone | | + + + | Preferred Language | Unknown | + + + | Marital Status | | + + + | Temple Affiliation | 1028 | + + + | Race | White | + + + | Ethnic Group | Not or | + + + Author + + + | Author | [facility] | | | and [place] | + + + | Organization | [facility] | | | and [place] [...] Team Providers + +------+ + | Care Industrial Methods Consultant Name | Role | Phone | + +------+ + | Gage De Jesus DO | PCP | | + +------+ + Encounter Details +--------+ + + + + | Date | Type | Department | Care Team | Description | +--------+ + + + + | 10/14/ | Hospital | [facility] | Syed Owens MD | | | 2019 | Encounter | MED CTR XRAY [address] | [address] | | | | | [place] | [place] [address] | | | | | [place] [address] | [phone] | | | | | [phone] | | | | | | | Kali Rios MD | | | | | | [address] | | | | | | [place] | | | | | | [id number] | | | | | | | [...] +---------+ + + | gabapentin | Take 600 mg by mouth | | 0 | 07/20/20 | | | (NEURONTIN) 600 MG | 3 times daily. | | | [...] | 0 | 05/20/20 | | | rqerrhba-oitlvflxm-s | | | | 18 | 0 | | ydrocortisone | | | | | | | (CORTISPORIN) | | | | | | | 3.5-95053-2 otic | | | | | | [...]
--- OUTSIDE RECORDS SUMMARY | ~2020-07-20 | XMS | Encounter Summary ---
Demographics + + + | Address | [address] | | | [place] [address] | + + + | Home Phone | | + + + | Preferred Language | Unknown | + + + | Marital Status | | + + + | Jainism Affiliation | 1028 | + + + | Race | White | + + + | Ethnic Group | Not or | + + + Author + + + | Author | [facility] | | | and [place] | + + + | Organization | [facility] | | | and [place] | + + + | Address | Unknown | + + + | Phone | Unavailable | + + + Support + + +---------+ + | Name | Relationship | Address | Phone | + + +---------+ + | Garcia Briceno | ECON | Unknown | | + + +---------+ + | Mazni Shaffer | ECON | Unknown | | + + +---------+ + Care Team Providers + +------+ + | Care News Analyst Name | Role | Phone | + +------+ + | Gage De Jesus DO | PCP | | + +------+ + Reason for Visit +--------+--------+ + | Reason | Onset | Comments | | | Date | | +--------+--------+ + | Pain | 04/06/ | | | | 2019 | | +--------+--------+ + Encounter Details +--------+ + + + + | Date | Type | Department | Care Team | Description | +--------+ + + + + | 04/06/ | Telephone | [facility] | Nav Ruvalcaba | Pain | | 2019 | | NEUROSURGERY [address] | [address] | | | | | [facility] [address] | [address] [place], [place] | | | | | [place] | [id number] | | | | | [address] | | | | | | [phone] | | | +--------+ + + + [...] encounter Miscellaneous Notes Telephone Encounter - Lesia Moreno Cert MA - 04/07/2019 9:47 AM PDTPlease call to preston Mejía visit with 2 view lumbar xrays prior for bilateral leg pain and weakness. Thank you Lesia elephone Keon hanson - Nav Ruvalcaba PA-C - 04/07/2019 8:51 AM PDTEarlier appointment with CAL mares lumbar imaging would be fine. Thank you elephone Encounter - Lesia Moreno Cert MA - 04/06/2019 4:2 9 PM PDTS/P L4-5 Fusion on 10/26/18 DAVID: 02/11/19 Slime called today regarding Lisa. She is C/O bilateral leg numbness and pain x3 days. The pain is described as aching and pulsing. She has not had any falls or any incident ta ke place to cause the pain. She is not taking any pain medication aside from Tyelnol for pa in. She also takes Gabapentin. She has a scheduled follow-up in April with Venkata mendoza w-kimberly on symptoms and is requesting to be seen sooner. Are you okay with this visit being moved up and do you need any new images prior? Last lum bar XR was 02/11/19 Please advise. LESIA MORENO documented in thi s encounter Plan of Treatment Not on filedocumented as of this encounter Visit Diagnoses Not on filedocumented in this encounter"
--- OUTSIDE RECORDS SUMMARY | ~2020-07-20 | XMS | Encounter Summary ---
Demographics + + + | Address | [address] | | | [place] [address] | + + + | Home Phone [...] | Organization | [facility] [...] Team Providers + +------+ + | Care Lock And Dam Repairer Name | Role | Phone | + +------+ + | Gage De Jesus DO | PCP | | + +------+ + Encounter Details +--------+ + + + + | Date | Type | Department | Care Team | Description | +--------+ + + + + | 02/11/ | Hospital | [facility] | Jasbir Reeder Marcos, | Status post lumbar | | 2019 | Encounter | MED CTR XRAY [address] | PA-C [address] | spinal fusion; Back | | | | [place] | [address] [place] | pain, unspecified | | | | [place] [address] | [place] [address] | back location, | | | | [phone] | [phone] | unspecified back | | | | | | pain laterality, | | | | | | unspecified | | | | | | chronicity; Left leg | | | | | | weakness | +--------+ + + + + Social [...] tablet by | 30 | 0 | // | | | (ABILIFY) 10 mg | [...] | 0 | 05/20/20 | | | uurmtgxw-fntloduae-z | | | | 18 | 0 | | ydrocortisone | | | | | | | (CORTISPORIN) | | | | | | | 3.5-19729-9 otic | | | | | | [...] LUMBAR SPINE 2 [place] | Routin | 02/11/2019 | Status post lumbar | Results for this | | 3 VW | e | 1:47 PM | spinal fusion Back | procedure are in the | | | | PDT | pain, unspecified | results section. | | | | | back location, | | | | | | unspecified back | | | | | | pain laterality, | | | | | | unspecified | | | | | | chronicity Left leg | | | | | | weakness | | + +--------+ + + + [...] at a later time.Dictated and Signed by: lE Fleming MD | | Electronically signed: 02/11/2019 [...] fusion Arthrodesis status | + + | Back pain, unspecified back location, unspecified back pain laterality, unspecified | | chronicity | + + | Left leg weakness Other musculoskeletal symptoms referable to limbs | + + documented in this encounter"
--- OUTSIDE RECORDS SUMMARY | ~2020-07-20 | XMS | Encounter Summary ---
Demographics + + + | Address | [address] | | | [place] [address] | + + + | Home Phone [...] + + + | Organization | and [facility] | | | and [place] | [...] Team Providers + +------+ + | Care Meter Repair Shop Supervisor Name | Role | Phone | + +------+ + | Gage De Jesus DO | PCP | | + +------+ + Reason for Visit + + + | Reason | Comments | + + + | Pre-op Exam | 10/26/18 | + + + Encounter Details +--------+---------+ + + + | Date | Type | Department | Care Team | Description | +--------+---------+ + + + | 10/14/ | Office | [facility] | Lisa Arguelles | Spondylolisthesis of | | 2019 | Visit | NEUROSURGERY [address] | [address] | lumbar region | | | | [facility] [address] | [facility] [address] | (Primary Dx); Lumbar | | | | [place], [place] | [address] [place] | radiculopathy; | | | | [address] | [address] | Foraminal stenosis | | | | [phone] | | of lumbar region; | | [...] + + + | Blood Pressure | 118/66 | 10/14/2018 10:41 AM | | | | | PST | | + + + + + | Pulse | 68 | 10/14/2018 10:41 AM | | | | | PST | [...] + + + + | Weight | 111.1 kg (245 lb) | 10/14/2018 10:41 AM | | | | | PST | | + + + + + | Height | 172.7 cm (5' 8") | 10/14/2018 10:41 AM | | | | | PST | | + + + + + | Body Mass Index | 37.25 | 10/14/2018 10:41 AM | | | | | PST | | + + + + + documented in this encounter Patient Instructions Patient Instructions Ti Charlton, Grubber - 10/14/2018 10:30 AM PSTIt was a ple asure to see you today. Here is what we discussed. If you do need a refill on pain medications or muscle relaxers after you get home please ma ke sure to give us plenty of notice so that we have time to mail the prescription to you. O ur phone number is [phone]. You can also contact your primary care provider to see if they would be willing to prescribe your pain medications and muscle relaxer's. If you do wo rk this out with your primary care provider please let us know. If anything in your health status changes between now and surgery please let us know. Please remember not to take any anti-inflammatories within 7 days of surgery. This include s ibuprofen, Motrin, Advil, aspirin, naproxen, and Aleve. You may have a small glass of water on the morning of surgery to take your normal morning m edications. Otherwise, nothing to eat or drink after midnight. Make sure to bring your back brace to the hospital with you when you check in to the hospit al for surgery. Back surgery will look something like this: -1-3 days in the hospital, spend the first month lifting no more than 5 lbs, no bending, li fting above your head, or twisting. -We will want you to be up and walking very frequently. For the first 10-14 days we want y ou to be up every 45 minutes for 1-2 minutes in your house. After 10-14 days when you are f eeling comfortable you can walk outside with a walking partner. -You would wear a back brace for at least the first month. -Listen to your body and rest when you need to rest. Expect to be tired after surgery. -No intercourse for the first month. -No driving for the first few weeks to 1 month as long as you have your strength back and a re not taking pain medication then you could drive. -You would need help with things like tying your shoes, getting socks on and what not to pr event you from bending over for that first month at least. -Recovery time would be 6-12 months depending on bone fusion and healing. You will have so me waxing and waning of symptoms. The pain will vary in intensity and vary from day to day. As time moves on the frequency and intensity of the pain will slowly go away. -Lastly, if you have any questions, please feel free to give our office a call. Otherwise, we will see you on the morning of surgery. documented in this encounter Progress Notes Lisa Arguelles PA-C - 10/14/2018 10:30 AM PSTFormatting of this note might be diffe rent from the original. Pj Arguelles PA-C [address] [facility], [address] [place] [address] FAX: [phone] NEUROSURGERY HISTORY AND PHYSICAL EXAMINATION CHIEF COMPLAINT: [...] [facility] HYSTERECTOMY 1999 [facility] [place] TONSILLECTOMY [address] [facility] CURRENT MEDICATIONS: Current Outpatient Prescriptions Medication [...] has no apparent deficits with short or nursing home memory. CRANIAL NERVES: II: Acuity is intact. [...] Intrinsics 5 5 Ulnar Intrinsics 5 5 Commercial Decorator Strength 5 5 Hip Flexion 5 5 [...] vomiting) Poor circulation Rheumatoid arthritis (HCC) Seizure ([facility]) PLAN: Soo Briceno presented today, and it [...] MEDD, pain assessments, and [place] and [place] PLASTIC PRESS OPERATOR's were reviewed under the Documentation encounter created by MATT Null on 10/14/18 by Lisa broussard PA-C. 10/14/18 I, Lisa Arguelles PA-C, personally performed the services described in [...] PA-C, 10/14/2018 11:18 documented in this encounter Plan of Treatment Not on filedocumented as of this encounter Visit Diagnoses + + | Diagnosis | + + | Spondylolisthesis of lumbar region - Primary Acquired spondylolisthesis | + + | Lumbar radiculopathy Thoracic or lumbosacral neuritis or radiculitis, unspecified | + + | Foraminal stenosis of lumbar region Spinal stenosis, lumbar region, without | | neurogenic claudication | + + | Spinal stenosis of lumbar region with neurogenic claudication Spinal stenosis, lumbar | | region, with neurogenic claudication | + + documented in this encounter
--- OUTSIDE RECORDS SUMMARY | ~2020-07-20 | XMS | Encounter Summary ---
Demographics + + + | Address | [address] | | | [place] [address] | + + + | Home Phone [...] | Organization | [facility] | [...] Team Providers + +------+ + | Care Other Wood Processing Machine Operator Name | Role | Phone | + [...] | | | | CLINIC [address] | [place] [address] | Dx); | | | | [place], [place] | [phone] | Spondylolisthesis of | | | | [address] | | lumbar region; HNP | | [...] + | [facility] | [address] | [place] | [phone] | | [facility] | | [address] | | | - LABORATORY | | [...] | mL/min/1.73m2 | KATHERINE | | | [place] | RATE,ESTIMATED | | MEDICAL | | | | mL/min/1.42j6Lass than | | CENTER - | | [...] [address] | [place] | [phone] | | [facility] | | [address] | | | - LABORATORY | | [...] [address] | [place] | [phone] | | [facility] | | [address] | | | - LABORATORY | | [...] | | | | JEAN TURNER MD ([id number]) | | | | | | on [...]
--- OUTSIDE RECORDS SUMMARY | ~2020-07-20 | XMS | Encounter Summary ---
Demographics + + + | Address | [address] | | | [place] [address] | + + + | Home Phone | | + + + | Preferred Language | Unknown | + + + | Marital Status | | + + + | Methodist Affiliation | 1028 | + + + | Race | White | + + + | Ethnic Group | Not or | + + + Author + + + | Author | [facility] | | | and [place] | + + + | Organization | [facility] | | | and [place] | [...] Team Providers + +------+ + | Care Automotive Parts Person Name | Role | Phone | + +------+ + PCP | Unavailable | + +------+ + Encounter Details +--------+ + + + + | Date | Type | Department | Care Team | Description | +--------+ + + + + | 02/05/ | Hospital | [facility] | Conversion | Pain | | 2017 | Encounter | CONVERSION [address] | Transaction, | | | | | [address] | Provider Unknown | | | | | [place] | [phone] | | | | | [address] | | | | | | [phone] | | | +--------+ + + + [...] + + documented in this encounter Results [facility] Digital Screening Bilateral (12/31/2016 4:14 [...]
--- OUTSIDE RECORDS SUMMARY | ~2020-07-20 | XMS | Encounter Summary ---
Demographics + + + | Address | [address] | | | [place] [address] | + + + | Home Phone | | + + + | Preferred Language | Unknown | + + + | Marital Status | | + + + | Samaritan Affiliation | 1028 | + + + | Race | White | + + + | Ethnic Group | Not or | + + + Author + + + | Author | [facility] | | | and [place] | + + + | Organization | [facility] | | | and [place] [...] Providers + +------+ + | Care Button Maker And Installer Name | Role | Phone | + +------+ + | Gage De Jesus DO | PCP | | + +------+ + Encounter Details +--------+ + + + + | Date | Type | Department | Care Team | Description | +--------+ + + + + | 05/04/ | Orders Only | [facility] | Provider, | | | 2019 | | [facility] | [address] | | | | | [address] | [address] | | | | | [address] | [place] [address] | | | | | [place], [place] | | | | | | [address] | | | | | | [phone] | | | +--------+ + + + [...]
--- OUTSIDE RECORDS SUMMARY | ~2020-07-20 | XMS | Encounter Summary ---
Demographics + + + | Address | [address] | | | [place] [address] | + + + | Home Phone [...] + + + | Author | [facility] | | | and [place] | + + + | Organization | [facility] | | | and [...] + +------+ + | Care Automotive Parts Interpreter Name | Role | Phone | + [...] [address] [place] | Dx); History of | | | | [place] | [address] | lumbar fusion; | | | | [address] | | Bilateral leg pain | | | | [phone] | | | +--------+ + + + [...]
--- OUTSIDE RECORDS SUMMARY | ~2020-07-20 | XMS | Encounter Summary ---
Demographics + + + | Address | [address] | | | [place] [address] | + + + | Home Phone [...] + + + | Author | [facility] | | | and [place] | + + + | Organization | [facility] | | | and [...] Team Providers + +------+ + | Care Trimmer Helper Name | Role | Phone | + [...] | | [address] | [place] [address] | | | | | [place] | [phone] | | | | | [address] | | | | | | [phone] | | | +--------+ + + + [...]
--- OUTSIDE RECORDS SUMMARY | ~2020-07-20 | XMS | Encounter Summary ---
Demographics + + + | Address | [address] | | | [place] [address] | + + + | Home Phone | | + + + | Preferred Language | Unknown | + + + | Marital Status | | + + + | Restorationist Affiliation | 1028 | + + + | Race | White | + + + | Ethnic Group | Not or | + + + Author + + + | Author | [facility] | | | and [place] | + + + | Organization | [facility] | | | and [...] Team Providers + +------+ + | Care Barrel Polisher Name | Role | Phone | + [...] | | | | | | | [place] LUMBAR | | | | | | | SPINE | | | | | | | FUSION,ANTER | | | | | | | APPRCH [place] | | | | | | | [...] | | | | | | [place] | | | | | | | ARTHRODESIS | | | | | | | POSTERIOR/PO | | | | | | | STEROLATERAL | | | | | | | LUMBAR [place] | | | | | | | [...] | | | | | | SEG [place] | | | | | | | LAMINEC/FACE | | | | | | | TECT/FORAMIN | | | | | | | ,EACH ADDNL | | | | | | | [place] | | | | | | | [...] | | | | | [address] | [address] | | | | | [place] | [place] | | | | | [address] | [address] | | | | | [phone] | | | | | | | Cl Jose MD | | | | | | [address] | | | | | | [place] | | | | | | [address] | | | | | | | [...] +----+---+ + + | | 1 | [place] | | | | 4 | 43-degrees | | | | 5 | | | | | 0 | | | +----+---+ + + | | 1 | First | | | | 4 | [address] St | | | | 5 | | | | | 0 | | | +----+---+ + + | | 1 | [place] off | | | | 7 | [...] 10/29/18 09 by | | eral | bumc-sac-pwyzer catheter system; | Kevin Downey RN | [...] EVALUATION Soo Briceno 58 y.o. female 1960 [id number] Procedure(s) L4-5 LAIF W/PSF & LAMI (Left [...] signed by Jael Riggins MD 10/26/2018 18:33 [facility] nesthesia Procedure Notes - Jael Riggins MD [...] EVALUATION Soo Briceno 58 y.o. female 1960 [id number] Procedure(s): L4-5 LAIF W/PSF & LAMI (Left [...] Procedure Note | + + | Jael Rgigins MD - 10/26/2018 2:55 PM PST Anesthesia [...] PST | | | | | Starting [facility] 10/26/18 at 1536, | | | | | | | Anesthesia Intra-op | | | | | | + +-------+ + +---+---+ +---+---+ | | | +---+---+ documented in this encounter"
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
--- OUTSIDE RECORDS SUMMARY | ~2020-07-20 | XMS | Encounter Summary ---
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 Status new at 10/27/2018 1455 STG Balfour Level modified independent at 10/27/2018 1455 STG Position standing at 10/27/2018 1455 STG Adaptive Equipment none at 10/27/2018 1455 UB Dressing Goal Most Recent Value STG Status progressing at 10/29/2018 1538 STG Balfour Level modified independent at 10/27/2018 1455 STG Comments including LSO don/doff at 10/27/2018 1455 LB Dressing Goal Most Recent Value STG Status progressing at 10/29/2018 1538 STG Balfour Level modified independent at 10/27/2018 1455 STG Adaptive Equipment freight tallier, sock-aid at 10/27/2018 1455 Toilet Transfer Goal Most Recent Value STG Status new at 10/27/2018 1455 STG Balfour Level modified independent at 10/27/2018 1455 STG Assistive Device bariatric, 2 wheeled walker (FWW), seat riser, grab bars at 9 1455 Electronically signed by: Mo Mares, OT, 10/29/2018 18:41 lan of Care - Yanick Espino, BRIM MOLDER - 10/29/2018 10:45 AM PST Problem: Patient [...] is now a resident in an adult retirement in [facility]. Has a supportive brother that lives nearby. [...] chronic issue present before surgery Level of Balfour: contact guard assist, verbal cues required Assistive Device: 2 wheeled walker (FWW), bariatric Distance (feet): 25, 50 Gait Pattern Analysis: (Shuffling gait) Gait Deviations: nora decreased, double stance time increased, limb motion velocity decr eased, step length decreased, stride length decreased, stride width increased, fuqtd-gj-ycot ce ratio decreased, wgv-iu-rqcex clearance decreased, weight-shifting ability decreased Safety Issues: [...] 4 Handrail Location: both sides Level of Balfour: contact guard assist, verbal cues required Assistive Device: 2 rails Technique Used: step to step (ascending), step to step (descending) Safety Issues: sequencing ability decreased, weight-shifting ability decreased Impairments: pain, strength decreased, impaired balance Transfers v/c to push up from surface and reach back for surface during sit<>stand; pt with about 25% carryover Sit-Stand, Level of Balfour: verbal cues required, stand by assist Stand-Sit, Level of Balfour: verbal cues required, stand by assist Wau-Jwamo-Xfk, Assistive Device: 2 wheeled walker (FWW), bariatric [...] STG Review Date 11/03/18 at 10/27/2018 1024 Smbrku-Lwt-Lhpmlr Goal Most Recent Value STG Status progressing at 10/28/2018 1020 STG Balfour Level supervised at 10/27/2018 1024 STG Assistive Device bed rails, leg dynamite reclaimer at 10/27/2018 1024 Bpi-Wmwke-Lwv Goal Most Recent Value STG Status new at 10/27/2018 1024 STG Balfour Level supervised at 10/27/2018 1024 STG Assistive Device 2 wheeled walker (FWW), bariatric at 10/27/2018 1024 Gait Goal Most Recent Value STG Status progressing at 10/29/2018 1045 STG Balfour Level supervised at 10/27/2018 1024 STG Assistive Device 2 wheeled walker (FWW), bariatric at 10/27/2018 1024 STG Distance (feet) 50 feet at 10/27/2018 1024 Stair Goal Most Recent Value STG Status progressing at 10/29/2018 1045 STG Balfour Level supervised at 10/27/2018 1024 STG Assistive [...] - 10/29/2018 9:38 AM PSTTalked with Ruth at [facility] regarding the ref erral which was faxed yesterday. Ruth let this CM know that her provider recommended a SNF. This CM spoke with Aimee at [facility] this morning regarding the referral that was f axed two day ago. Aimee let this CM know that she is waiting on prior authorization from [facility] . Aimee will let this CM know Once she has authorization. Electronically signed by: Ashly Obando 10/29/2018 9:47 This CM met with Lisa this afternoon and let her know that our inpatient rehab is full and that [facility] declined. This CM let Lisa know that [facility] is working on authorization. Lisa has sad but understood. Lisa let this CM know that she worked on stairs today with PT and felt that she did ready good. Lisa is hoping to discharge to her adult foster home. This CM will continue to follow Lisa. DISP: home vs SNF Electronically signed by: Ashly Obando 10/29/2018 14:56 lan of Berna - Valentín Huang RN - 10/29/2018 4:41 [...] begging of shift. Zofran given with relief. Prague for pain given. Pt up to bathroom with FWW and x1 assist. KATRINA draining sanguinous fluid. Edema to legs, ankles and fee t present. Moderate river captain strengths. Seizure precautions in place. Pt calls appropriately. lan of Care - K Dameon manley V, GRAB HOOKER - 10/29/2018 4:15 AM PSTProblem: Patient Care [...] to mon itor lan of Care - [facility], Heidi Romo RN - 10/28/2018 6:50 PM PSTPt has had a good day today. Pt has been pleasan t and cooperative with care. She has been saying that she is not in pain but then she will t urn right around and tell you that she is in pain. So I have given her Prague twice today and robaxin once. She has [...] monitor and treat as prescribed. lan of [facility] gerald, Mo Higuera, OT - 10/28/2018 12:10 PM [...] Therapy Discharge Recommendations are: Recommended discharge disposition: long-term facility Post discharge occupational therapy recommendation: will benefit from structured setting, pt is motivated participant Equipment Recommendations: freight tallier, sock aide (flexible sock aid) Planned Interventions:ADL retraining, bed mobility training, functional endurance training, orthotic fitting/training, patient/family education, transfer training Recommended Frequency: 5 times/wk Patient Status/Goals: Reflects last filed data and may be from multiple contributors. ADLs pt c/o fatigue and pain, states had a sponge bath and completed grooming with SCHEME TECHNICIAN, and that she did not sleep well. [...] habitus. Pt may benefit from LSO strap hydraulic spinner to give her more purchase in order to don it independently. UB Dressing, Level of Balfour: moderate assist (50% patient effort) Assistive Device: [...] only marginallly so. Roll Left, Level of Balfour: verbal cues required, stand by assist Roll Right, Level of Balfour: stand by assist, verbal cues required Sidelying to Sit, Level of Balfour: minimal assist (75% patient effort), verbal cues [...] with SBA and FWW. Sit-Stand, Level of Balfour: verbal cues required, stand by assist Stand-Sit, Level of Balfour: verbal cues required, stand by assist Lnq-Lwyqe-Ffy, Assistive Device: 2 wheeled walker (FWW), bariatric [...] STG Status new at 10/27/2018 1455 STG Balfour Level modified independent at 10/27/2018 1455 STG Position standing at 10/27/2018 1455 STG Adaptive Equipment none at 10/27/2018 1455 UB Dressing Goal Most Recent Value STG Status progressing at 10/28/2018 1210 STG Balfour Level modified independent at 10/27/2018 1455 STG Comments including LSO don/doff at 10/27/2018 1455 LB Dressing Goal Most Recent Value STG Status new at 10/27/2018 1455 STG Balfour Level modified independent at 10/27/2018 1455 STG Adaptive Equipment freight tallier, sock-aid at 10/27/2018 1455 Toilet Transfer Goal Most Recent Value STG Status new at 10/27/2018 1455 STG Balfour Level modified independent at 10/27/2018 1455 STG Assistive Device bariatric, 2 wheeled walker (FWW), seat riser, grab bars at 9 1455 Electronically signed by: oM Mares OT, 10/28/2018 17:05 lan of Care - Rory toriejuan c Dolly Maria Dolores, BRIM MOLDER - 10/28/2018 10:20 AM PSTFormatting of this [...] is now a resident in an adult retirement in [facility]. Has a supportive brother that lives nearby.. [...] complete ambulation and directional changes. Level of Balfour: minimal assist (75% patient effort) Assistive Device: 2 wheeled walker (FWW), bariatric Distance (feet): 40 ft x 2 Gait Pattern Analysis: (Shuffling gait) Gait Deviations: nora decreased, double stance time increased, limb motion velocity decr eased, step length decreased, stride length decreased, stride width increased, jullb-cy-jkko ce ratio decreased, qwl-xb-fkarj clearance decreased, weight-shifting ability decreased Safety Issues: [...] from bed. denied dizziness. Sit-Stand, Level of Balfour: verbal cues required, contact guard assist Stand-Sit, Level of Balfour: verbal cues required, contact guard assist Bxp-Fdxva-Wls, Assistive Device: 2 wheeled walker (FWW), bariatric [...] instruction on log roll technique. denied dizziness. nickie wallis able to verbally teach back precautions, cues throughout to maintain. Assistive Device: HOB elevated, bed rails Roll Left, Level of Balfour: verbal cues required, stand by assist Roll Right, Level of Balfour: stand by assist, verbal cues required Sidelying to Sit, Level of Balfour: minimal assist (75% patient effort), verbal cues r equired Sit to Sidelying, Level of Balfour: verbal cues required, minimal assist (75% patient [...] STG Review Date 11/03/18 at 10/27/2018 1024 Pwbatl-Nqk-Dxbfup Goal Most Recent Value STG Status progressing at 10/28/2018 1020 STG Balfour Level supervised at 10/27/2018 1024 STG Assistive Device bed rails, leg dynamite reclaimer at 10/27/2018 1024 Eru-Qtfia-Mqn Goal Most Recent Value STG Status new at 10/27/2018 1024 STG Balfour Level supervised at 10/27/2018 1024 STG Assistive Device 2 wheeled walker (FWW), bariatric at 10/27/2018 1024 Gait Goal Most Recent Value STG Status progressing at 10/28/2018 1020 STG Balfour Level supervised at 10/27/2018 1024 STG Assistive Device 2 wheeled walker (FWW), bariatric at 10/27/2018 1024 STG Distance (feet) 50 feet at 10/27/2018 1024 Stair Goal Most Recent Value STG Status new at 10/27/2018 1024 STG Balfour Level supervised at 10/27/2018 1024 STG Assistive Device 2 rails at 10/27/2018 1024 STG Number of Stairs 12 at 10/27/2018 1024 Additional Goal #1 PT Most Recent Value STG Status progressing at 10/28/2018 1020 STG Pt will be ind with brace management and grade B precautions at 10/27/2018 1024 Electronically signed by: Dolly Can PTA, 10/28/2018 11:29 lan of Care - Ashly Obando - 10/28/2018 9:51 AM PSTOur inpatient rehab is currently full. This CM left a message with the inpatient admissions, Ruth Tello) at [facility]. This CM left a messa ge with Ruth at [facility] asking for a call back. This CM faxed a referral to [facility]. PH: [phone] FX: [phone] not a fax number This CM let Jasbir MAKI know that our inpatient rehab is full and let him know about the ref erral that was faxed to Inpatient rehab at [facility]. Waiting for a call back from Ruth. Electronically signed by: Ashly Obando 10/28/2018 9:58 Fax did not go through. This CM re-faxed the referral x2 to fax number: [phone] Electronically signed by: Ashly Obando 10/28/2018 11:16 This CM left a message with [facility] inpatient rehab asking for a call back. This CM received the fax communication result report; result ok. Electronically signed by: Ashly Obando 10/28/2018 12:11 This CM called [facility] once again. The person that answered the phone let th is CM know that Ruth Tello has left for the day. This CM let another message on the voice mail asking Ruth to call this CM know in the morning also let her know that Lisa has a managed insurance. This CM will call ruth at [facility] tomorrow tatyana alvarez in hopes [...] intact pt denies the presence of numbness/tingling, sprinkler helper strong, BUE strengths 5/5, RLE strengths 5/5 [...] to her bilateral lower back; medicated w/1 Prague (10's) PRN. lan of Care - Dameon Green RRT - 10/27/2018 9:17 PM PSTProblem: Patient Care [...] RT will continue to monitor lan of [facility] - Shara Manzanares RN - 10/27/2018 5:23 PM PSTProblem: Patient [...] mobilize at level safe for home discharge, [facility] indicating significant impairme nt with daily activities [...] with ADLS. She lives in an adult retirement, was in a [facility] 988 with long rehab. She reports that her room is on the second floor requiring 15 steps to get to it. She's had falls and weakness recently Potential available assistance at discharge: Significant Relationships: brother Provides Primary Care For: no one, unable/limited ability to care for self Living Environment/Accessibility: Lives With: other (see comments) Living Arrangements: retirement Home Accessibility: stairs (2 railings present) Number of Stairs to Enter Home: 1 Number of Stairs Within Home: 15 (7+8) Financial Concerns: none Transportation Available: family or friend will provide Patient/Family s Goals: return to retirement Rehabilitation potential: good, to achieve stated therapy goals Occupational Therapy Discharge Recommendations are: Recommended discharge disposition: long-term facility Post discharge occupational therapy recommendation: will benefit from structured setting, pt is motivated participant Equipment Recommendations: freight tallier, sock aide (flexible sock aid) Planned Interventions:ADL [...] re a flexible one such as a [place] sock aid. LB Dressing, Level of Balfour: maximal assist (25% patient effort) Assistive Device: none LB Dressing Assess/Train, Position: sitting LB Dressing Impairments: decreased flexibility, ROM decreased, pain issued toilet tongs as up initially unable to perform toileting hygiene without AE. Trained pt on use of AE and she returned demo with CGA and VCs Toileting, Level of Balfour: maximal assist (25% patient effort) Assistive Device: none Toileting Impairments: decreased flexibility, strength decreased, pain Functional Endurance impaired Cognitive pt attentive, asks appropriate questions and demosntrates good followthrough. Occasionaly m isunderstands/mishears statements and requires corrections. Very pleasant and motivated. Mood/Behavior: calm, cooperative Orientation: oriented x 4 Bed Mobility Roll Left, Level of Balfour: verbal cues required, stand by assist Roll Right, Level of Balfour: stand by assist, verbal cues required Sidelying to Sit, Level of Balfour: minimal assist (75% patient effort), verbal cues r equired Sit to Sidelying, Level of Balfour: moderate assist (50% patient effort), verbal cues required Safety Issues: decreased use of arms for pushing/pulling, decreased use of legs for bridgin g/pushing, impaired trunk control for bed mobility Impairments: decreased flexibility, ROM decreased, strength decreased, coordination impaire d, motor control impaired, postural control impaired, pain Transfers Sit-Stand, Level of Balfour: verbal cues required, contact guard assist Stand-Sit, Level of Balfour: verbal cues required, contact guard assist Nvi-Gqhyz-Yrf, Assistive Device: 2 wheeled walker (FWW), bariatric Toilet, Level of Balfour: contact guard assist, verbal cues required, tactile [...] STG Status new at 10/27/2018 1455 STG Balfour Level modified independent at 10/27/2018 1455 STG Position standing at 10/27/2018 1455 STG Adaptive Equipment none at 10/27/2018 1455 UB Dressing Goal Most Recent Value STG Status new at 10/27/2018 1455 STG Balfour Level modified independent at 10/27/2018 1455 STG Comments including LSO don/doff at 10/27/2018 1455 LB Dressing Goal Most Recent Value STG Status new at 10/27/2018 1455 STG Balfour Level modified independent at 10/27/2018 1455 STG Adaptive Equipment freight tallier, sock-aid at 10/27/2018 1455 Toilet Transfer Goal Most Recent Value STG Status new at 10/27/2018 1455 STG Balfour Level modified independent at 10/27/2018 1455 STG Assistive Device bariatric, 2 wheeled walker (FWW), seat riser, grab bars at 9 1455 Electronically signed by: Mo Mares OT, 10/27/2018 18:33 lan of Care - Jero Solis GRAB HOOKER - 10/27/2018 2:08 PM PSTProblem: Patient Care [...] supplemental O2 prior to discharge. lan of Care - Hodan hernandez, Padilla Romo, PT - 10/27/2018 10:42 AM PST Problem: [...] is now a resident in an adult retirement in [place]. Has a supportive bro ther that lives [...] able to navigate stairs, demonstrating need for 24/ supervision, not yet able to mobili ze at level safe for home discharge and spinal precautions. Soo will benefit from therapeutic intervention to address impairments and increase safety and independence with activities necessary for safe discharge. Refer below for specific det ails regarding functional levels. [facility] BASIC MOBILITY [facility] BASIC MOBILITY Turning over in bed: a [...] steps with a railing: dependent/unable TOTAL - [facility] BASIC MOBILITY : 15 Completed the [facility] Activity Measure for Post Acute Care (AM-PAC) "6 Clicks" [facility] Mobility Inpatient Short Form. This version of the AM-PAC is an assessment tool used to measure a person's level of disability in performing basic mobility tasks. This patient's score indicates a performance of 57.70% impairment in the functioning of basic mobility. Raw Score - Functional Limitation % (for [facility]) - "Severity Modifier" CN 6 - [...] with ADLS. She lives in an adult retirement, was in a [facility] 1 8 with long rehab. She reports that her room is on the second floor requiring 15 steps to get to it. She's had falls and weakness recently Potential available assistance at discharge: Significant Relationships: brother Provides Primary Care For: no one, unable/limited ability to care for self Living Environment/Accessibility: Lives With: other (see comments) Living Arrangements: retirement Home Accessibility: stairs (2 railings present) Number [...] prefers to minimize backing up. Level of Balfour: minimal assist (75% patient effort) Assistive Device: 2 wheeled walker (FWW), bariatric Distance (feet): 15 feet x 2 Gait Pattern Analysis: (Shuffling gait) Gait Deviations: nora decreased, double stance time increased, limb motion velocity decr eased, step length decreased, stride length decreased, stride width increased, ufvoe-nf-zwdu ce ratio decreased, lbs-zu-znyqx clearance decreased, weight-shifting ability decreased Safety Issues: [...] sitting until it resolved. Sit-Stand, Level of Balfour: minimal assist (75% patient effort), verbal cues required , tactile cues required, 1 person + 1 person to manage equipment Stand-Sit, Level of Balfour: minimal assist (75% patient effort), verbal cues required , tactile cues required, 1 person + 1 person to manage equipment Ytq-Dsowx-Qyt, Assistive Device: 2 wheeled walker (FWW), bariatric [...] rails, HOB elevated Roll Left, Level of Balfour: minimal assist (75% patient effort), tactile cues require d, verbal cues required Roll Right, Level of Balfour: stand by assist, verbal cues required Sidelying to Sit, Level of Balfour: minimal assist (75% patient effort), tactile cues required, verbal cues required Sit to Sidelying, Level of Balfour: moderate assist (50% patient effort), verbal cues [...] STG Review Date 11/03/18 at 10/27/2018 1024 Ofsnay-Iit-Holezj Goal Most Recent Value STG Status new at 10/27/2018 1024 STG Balfour Level supervised at 10/27/2018 1024 STG Assistive Device bed rails, leg dynamite reclaimer at 10/27/2018 1024 Tnl-Jwhuo-Bsu Goal Most Recent Value STG Status new at 10/27/2018 1024 STG Balfour Level supervised at 10/27/2018 1024 STG Assistive Device 2 wheeled walker (FWW), bariatric at 10/27/2018 1024 Gait Goal Most Recent Value STG Status new at 10/27/2018 1024 STG Balfour Level supervised at 10/27/2018 1024 STG Assistive Device 2 wheeled walker (FWW), bariatric at 10/27/2018 1024 STG Distance (feet) 50 feet at 10/27/2018 1024 Stair Goal Most Recent Value STG Status new at 10/27/2018 1024 STG Balfour Level supervised at 10/27/2018 1024 STG Assistive Device 2 rails at 10/27/2018 1024 STG Number of Stairs 12 at 10/27/2018 1024 Additional Goal #1 PT Most Recent Value STG Status new at 10/27/2018 1024 STG Pt will be ind with brace management and grade B precautions at 10/27/2018 1024 Electronically signed by: Padilla Corrales, PT, 10/27/2018 10:39 lan of Care - Ashly Salas - 10/27/2018 10:33 AM PSTDischarge Planning: Met with Lisa this morning to discuss her current living situation and tentative discharge plan. Lisa was in bed seemed alert and ANDREAFSKI. Lisa let this CM know that she is in an adult foster home in [place] called [facility]. PH: [phone] to the adult foster home. PH:[phone] brother Garcia Gonzalez let this CM know [...] with this CM faxing a referral to [facility] in [place] for a back up plan. Lisa will have her brother or Rain transport her home once she is discharged from the hosp [place]. Referral faxed to [facility] in [place]. Sticky note placed on the chart for the attending marcus alejandra to place a referral to [facility]. DISP: TBD Electronically signed by: Ashly Obando [...] intact pt denies the presence of numbness/tingling, sprinkler helper strong, BUE strengths 5/5, RLE strengths 5/5 and LLE strengths 4/5, R dosi/plantar strong, L plantar strong, L do rsi moderate, VSS however pt is running tachy (HR reg), drsg's CDI, bowel tones active (last BM was 10-25-18), not passing flatus yet, tolerating diet well, denies n/v, up to the BSC vi a the use of a 4WW (BLE are weak upon standing especially the LLE), voiding c/y urine w/o di fficult, SCD's in place, B brace maintained, calls appropriately and is able to make needs k nown. Lisa c/o 4-7/10 pain to her bilateral lower back; medicated w/1 Prague (10's) PRN. p Note - Karri Owens MD - 10/26/2018 5:27 PM PSTFormatting of this note might be different from the origina l. Operative Note Soo Briceno 58 y.o. female 1960 [id number] Proc. Date 10/26/2018 Preop Dx Spondylolisthesis of [...] in log * Drains Drain/Device Site 10/26/18 1575 #1 lumbar spine (Active) Operative details: After [...] bone autograft obtained from the laminectomy and [place] with bone marrow asp irate were packed [...] signed by: Syed Owens MD 10/26/2018 17:23 [facility] rief Op Note - Romulo Owens MD - 10/26/2018 5:23 PM PSTFormatting of this note might be different from the origin al. Brief Operative Note Soo Leonard Aaskartik 58 y.o. female 1960 [id number] Proc. 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 | | [...] ST. | [address] | [place], [place] | [phone] | | [facility] | | [id number] | | | - LABORATORY | | | | + + + + + documented in this encounter Visit Diagnoses + + | Diagnosis | + + | Spinal stenosis of lumbar region with neurogenic claudication - Primary Spinal | | stenosis, lumbar region, with neurogenic claudication | + + | Gait abnormality Abnormality of gait | + + | Class 3 severe obesity with body mass index (BMI) of 40.0 to 44.9 in adult, | | unspecified obesity type, unspecified whether serious comorbidity present (HCC) | + + | CKD (chronic kidney disease), stage III Chronic kidney disease, Stage III (moderate) | + + | Bipolar disorder (HCC) Bipolar disorder, unspecified | + + | GERD (gastroesophageal reflux disease) Esophageal reflux | + + | Seizure disorder (HCC) Unspecified epilepsy without mention of intractable epilepsy | + + | Hypertension Unspecified essential hypertension | + + documented in this encounter Administered Medications + +--------+ + +------+------+ | Medication Order | MAR | Action | Dose | Rate | Site | | | Action | Date | | | | + +--------+ + +------+------+ | acetaminophen (TYLENOL) tablet | Given | 10/26/19 | 1,000 mg | | | | 1,000 mg 1,000 mg, Oral, ONCE, | | 19 1:33 | | | | | 10/26/18 at 1300, For 1 dose, | | PM PST | | | | | Pre-op | | | | | | + +--------+ + +------+------+ +---+---+ | | | +---+---+ + +-------+ +-------+---+---+ | albuterol-ipratropium 2.5-0.5 | Given | 10/26/19 | 3 mLs | | | | mg/3 mL nebulizer solution 3 mL | | 19 5:30 | | | | | 3 mL, Nebulization, ONCE PRN, | | PM PST | | | | | Wheezing, Shortness of Breath, | | | | | | | Starting 10/26/18 at 1703, For | | | | | | | 1 dose, Recovery/Phase I | | | | | | + +-------+ +-------+---+---+ +---+---+ | | | +---+---+ + +---------+ +-----+-------+---+ | ceFAZolin (ANCEF, KEFZOL) 1 g | New Bag | 10/27/19 | 1 g | 100 | | | in sodium chloride 0.9% 50 mL | | 19 5:37 | | mL/hr | | | IVPB 1 g, Intravenous, | | AM PST | | | | | Administer over 30 Minutes, EVERY | | | | | | | 8 HOURS INTERVAL, First dose on | | | | | | | 10/26/18 at 2230, For 2 doses, | | | | | | | Start 8 hours after previous | | | | | | | dose. Last dose to be given | | | | | | | within 24 hours of surgery end | | | | | | | time. Activate system and mix | | | | | | | before use., Post-op/Phase II, | | | | | | | Indications: Surgical Prophylaxis | | | | | | + +---------+ +-----+-------+---+ +---------+ +-----+-------+---+ | New Bag | 10/26/19 | 1 g | 100 | | | | 19 10:10 | | mL/hr | | | | PM PST | | | | +---------+ +-----+-------+---+ + +---+ | | | + +---+ [...] + +-------+ +--------+---+---+ | fentaNYL (PF) injection 25-50 | Given | 10/26/19 | 25 mcg | | | | mcg 25-50 mcg, Intravenous, | | 19 6:04 | | | | | EVERY 5 MIN PRN, Pain, Starting | | PM PST | | | | | 10/26/18 at 1703, Maximum | | | | | | | total dose 250 mcg. PACU IV | | | | | | | Narcotic Priority: Only use | | | | | | | fentanyl for immediate post-op | | | | | | | pain (one dose) or breakthrough | | | | | | | pain when any other IV narcotics | | | | | | | ordered have been ineffective (if | | | | | | | ordered). If both morphine and | | | | | | | hydromorphone are ordered, use | | | | | | | morphine first, and use | | | | | | | hydromorphone if morphine | | | | | | | ineffective., Recovery/Phase I | | | | | | + +-------+ +--------+---+---+ +-------+ +--------+---+---+ | Given | 10/26/19 | 25 mcg | | | | | 19 5:55 | | | | | | PM PST | | | | +-------+ +--------+---+---+ | Given | 10/26/19 | 25 mcg | | | | | 19 5:40 | | | | | | PM [...] +---+---+ + +-------+ +--------+---+---+ | HYDROmorphone (DILAUDID) | Given | 10/26/19 | 0.5 mg | | | | injection 0.2-0.5 mg 0.2-0.5 mg, | | 19 6:10 | | | | | Intravenous, EVERY 5 MIN PRN, | | PM PST | | | | | Pain, Starting 10/26/18 at | | | | | | | 1703, Maximum total dose 4 mg. | | | | | | | PACU IV Narcotic Priority: Only | | | | | | | use fentanyl for immediate | | | | | | | post-op pain (one dose) or | | | | | | | breakthrough pain when any other | | | | | | | IV narcotics ordered have been | | | | | | | ineffective (if ordered). If | | | | | | | both morphine and hydromorphone | | | | | | | are ordered, use morphine first, | | | | | | | and use hydromorphone if morphine | | | | | | | ineffective., Recovery/Phase I | | | | | | + +-------+ +--------+---+---+ +-------+ +--------+---+---+ | Given | 10/26/19 | 0.5 mg | | | | | 19 5:47 | | | | | | PM PST | | | | +-------+ +--------+---+---+ | Given | 10/26/19 | 0.5 mg | | | | | 19 5:34 | | | | | | PM PST | | | | +-------+ +--------+---+---+ +---+---+ | | | +---+---+ + +---------+ +--------+-------+---+ | lactated ringers (LR) infusion | New Bag | 10/26/19 | 1,000 | 100 | | | at 10-100 mL/hr, Intravenous, | | 19 1:16 | mLs | mL/hr | | | CONTINUOUS, Starting 10/26/18 | | PM PST | | | | | at 1300, TKO., Pre-op | | | | | | + +---------+ +--------+-------+---+ +---+---+ | | | +---+---+ + +-------+ +---------+---+---+ | menthol (HALLS COUGH DROP) | Given | 10/28/19 | 1 | | | | lozenge 1 lozenge 1 lozenge, | | 19 12:44 | lozenge | | | | Buccal, EVERY 2 HOURS PRNPayton | | AM PST | | | | | Throat, Starting 10/26/18 at | | | | | | | 1847, Post-op/Phase II | | | | | | + +-------+ +---------+---+---+ +---+---+ | | | +---+---+ + +---------+ + +--------+---+ | methocarbamol (ROBAXIN) 1,000 | New Bag | 10/26/19 | 1,000 mg | 146.7 | | | mg in sodium chloride 0.9% 100 mL | | 19 6:20 | | mL/hr | | | IVPB 1,000 mg, Intravenous, | | PM PST | | | | | Administer over 45 Minutes, ONCE, | | | | | | | 10/26/18 at 1800, For 1 dose, | | | | | | | Post-op/Phase II | | | | | | + +---------+ + +--------+---+ +---+---+ | | | +---+---+ + +-------+ [...] +------+---+---+ +---+---+ | | | +---+---+ + +---------+ +---------+---+ + | scopolamine (TRANSDERM-SCOP) 1 | Patch | 10/26/19 | 1 patch | | Ear-Behi | | mg/3 days 1 patch 1 patch, | Applied | 19 1:31 | | | nd Left | | Transdermal, ONCE, Fri10/26/18 at | | PM PST | | | | | 1345, For 1 dose, If prophylaxis | | | | | | | fails, do not repeat dose. Use | | | | | | | drug from a different class. Each | | | | | | | patch is designed to deliver 1 | | | | | | | mg over 3 days. DO NOT CUT | | | | | | | patch., Pre-op | | | | | | + +---------+ +---------+---+ + +---+---+ | | | +---+---+ + + [...]
--- OUTSIDE RECORDS SUMMARY | ~2020-07-20 | XMS | Encounter Summary ---
Demographics + + + | Address | [address] | | | [place] [address] | + + + | Home Phone | | + + + | Preferred Language | Unknown | + + + | Marital Status | | + + + | Confucianist Affiliation | 1028 | + + + | Race | White | + + + | Ethnic Group | Not or | + + + Author + + + | Author | [facility] | | | and [place] | + + + | Organization | [facility] | | | and [place] [...] Team Providers + +------+ + | Care Delphi Programmer Name | Role | Phone | + [...] | | | | | | | [place] LUMBAR | | | | | | | SPINE | | | | | | | FUSION,ANTER | | | | | | | APPRCH [place] | | | | | | | [...] | | | | | | ION [place] | | | | | | | ARTHRODESIS | | | | | | | POSTERIOR/PO | | | | | | | STEROLATERAL | | | | | | | LUMBAR [place] | | | | | | | [...] | | | | | | SEG [place] | | | | | | | LAMINEC/FACE | | | | | | | TECT/FORAMIN | | | | | | | ,EACH ADDNL | | | | | | | [place] | | | | | | | [...] + + + + | 10/26/ | [facility] | [facility] | Syed Owens MD | | | 2019 | Encounter | MED CTR XRAY [address] | [address] | | | | | [place] | [place] [address] | | | | | [place] [address] | [phone] | | | | | [phone] | | | +--------+ + + + [...] | 0 | 05/20/20 | | | dgodktsq-eizohskaw-a | | | | 18 | 0 | | ydrocortisone | | | | | | | (CORTISPORIN) | | | | | | | 3.5-35552-7 otic | | | | | | [...]
--- OUTSIDE RECORDS SUMMARY | ~2020-07-20 | XMS | Encounter Summary ---
Demographics + + + | Address | [address] | | | [place] [address] | + + + | Home Phone | | + + + | Preferred Language | Unknown | + + + | Marital Status | | + + + | Hindu Affiliation | 1028 | + + + | Race | White | + + + | Ethnic Group | Not or | + + + Author + + + | Author | [facility] | | | and [place] | + + + | Organization | [facility] | | [...] Team Providers + +------+ + | Care Clay Caster Name | Role | Phone | + +------+ + PCP | Unavailable | + +------+ + Encounter Details +--------+ + + + + | Date | Type | Department | Care Team | Description | +--------+ + + + + | 03/18/ | Hospital | [facility] | Conversion | Abnormal findings on | | 2017 | Encounter | IMAGING SERVICES | Transaction, | diagnostic imaging | | | | [address] | Provider Unknown | of breast | | | | [address] [place], [place] | | | | | | [address] | (Fax) | | | | | [phone] | | | +--------+ + + + [...] + +--------+ + + + | LIYA UNLISTED | Routin | 03/18/2017 | | Results for this | | PROCEDURE | e | 10:15 AM | | procedure are in the | | | | PDT | | results section. | + +--------+ + + + documented in this encounter Results LIYA Unlisted Procedure (03/18/2017 10:15 AM PDT) + + | Specimen | [...] POST PROCEDURE SOO Romo | | | JOLENE 1960 INDICATION: Left breast calcifications. | | [...] + + | Compa, Rad Conversion - 09/20/2019 9:05 AM PST MAMMO STEREOTACTIC BREAST BIOPSY, MAMMO | | POST PROCEDURESOO LAST1960 INDICATION: Left breast calcifications. PROCEDURE: | | [...] | | | | | + + documented in this encounter Visit Diagnoses + + | Diagnosis | + + | Abnormal findings on diagnostic imaging of breast Other (abnormal) findings on | | radiological examination of breast | + + documented in this encounter"
--- OUTSIDE RECORDS SUMMARY | ~2020-07-20 | XMS | Encounter Summary ---
Demographics + + + | Address | [address] | | | [place] [address] | + + + | Home Phone | | + + + | Preferred Language | Unknown | + + + | Marital Status | | + + + | Adventist Affiliation | 1028 | + + + | Race | White | + + + | Ethnic Group | Not or | + + + Author + + + | Author | [facility] | | | and [place] | + + + | Organization | [facility] | | | and [...] Team Providers + +------+ + | Care Ccie Name | Role | Phone | + +------+ + | Gage De Jesus DO | PCP | | + +------+ + Encounter Details +--------+ + + + + | Date | Type | Department | Care Team | Description | +--------+ + + + + | 05/28/ | Hospital | [facility] | Jasbir Reeder Marcos, | History of lumbar | | 2019 | Encounter | MED CTR XRAY [address] | PA-C [address] | fusion; Bilateral | | | | [place] | [address] [place] | leg weakness; | | | | [place] [address] | [place] [address] | Bilateral leg pain | | | | [phone] | [phone] | | | | | | | [...] | 0 | // | | | (KLOR-CON) 10 MEQ | [...] | 90 | 0 | 10/31/19 | 08/03/202 | | HYDROcodone-acetamin | mouth every 4 [...] | 0 | 05/20/20 | | | iqyvcgkz-xamqsfjxw-l | | | | 18 | 0 | | ydrocortisone | | | | | | | (CORTISPORIN) | | | | | | | 3.5-20417-0 otic | | | | | | [...] LUMBAR SPINE 2 [place] | Routin | 05/28/2019 | History of lumbar | Results for this | | 3 VW | e | 10:25 AM | fusion Bilateral | procedure are in the | | | | PDT | leg weakness | results section. | | | | | Bilateral leg pain | | + +--------+ + + + [...] + | Diagnosis | + + | History of lumbar fusion | + + | Bilateral leg weakness Other musculoskeletal symptoms referable to limbs | + + | Bilateral leg pain Pain in limb | + + documented in this encounter"
--- OUTSIDE RECORDS SUMMARY | ~2020-07-20 | XMS | Encounter Summary ---
Demographics + + + | Address | [address] | | | [place] [address] | + + + | Home Phone | | + + + | Preferred Language | Unknown | + + + | Marital Status | | + + + | Oriental Orthodox Affiliation | 1028 | + + + | Race | White | + + + | Ethnic Group | Not or | + + + Author + + + | Author | [facility] | | | and [place] | + + + | Organization | [facility] | | | and [...] Team Providers + +------+ + | Care Meal Cook Name | Role | Phone | + [...] | | [address] | [place] [address] | | | | | [place] | [phone] | | | | | [address] | | | | | | [phone] | | | +--------+ + + + [...] do not wear jewelry, contact lenses, nail kosovan (on fingers or toes), or make-up to [...]
--- OUTSIDE RECORDS SUMMARY | ~2020-07-20 | XMS | Encounter Summary ---
Demographics + + + | Address | [address] | | | [place] [address] | + + + | Home Phone [...] + + + | Author | [facility] | | | and [place] | + + + | Organization | [facility] | | | and [place] | [...] Team Providers + +------+ + | Care Process Machine Operator Name | Role | Phone | + +------+ + | Gage De Jesus DO | PCP | | + +------+ + Encounter Details +--------+ + + + + | Date | Type | Department | Care Team | Description | +--------+ + + + + | 05/28/ | Hospital | [facility] | Jasbir Reeder Marcos, | History of lumbar | | 2019 | Encounter | MED CTR XRAY [address] | PA-C [address] | fusion; Bilateral | | | | [place] | [address] [place] | leg weakness; | | | | [place] [address] | [place] [address] | Bilateral leg pain | | | | [phone] | [phone] | | | | | | | [...] | 0 | 05/20/20 | | | szgogefb-romjbcuyx-k | | | | 18 | 0 | | ydrocortisone | | | | | | | (CORTISPORIN) | | | | | | | 3.5-99381-8 otic | | | | | | [...]
--- OUTSIDE RECORDS SUMMARY | ~2020-07-20 | XMS | Encounter Summary ---
Demographics + + + | Address | [address] | | | [place] [address] | + + + | Home Phone | | + + + | Preferred Language | Unknown | + + + | Marital Status | | + + + | Gnosticism Affiliation | 1028 | + + + | Race | White | + + + | Ethnic Group | Not or | + + + Author + + + | Author | [facility] | | | and [place] | + + + | Organization | [facility] | | | and [...] Team Providers + +------+ + | Care Chemist Internship Name | Role | Phone | + +------+ + | Melissa Moulton NP | PCP | | + +------+ + Reason for Visit + +--------+ + | Reason | Onset | Comments | | | Date | | + +--------+ + | Referral (Follow up) | 05/02/ | | | | 2020 | | + +--------+ + Encounter Details +--------+ + + + + | Date | Type | Department | Care Team | Description | +--------+ + + + + | 05/02/ | Telephone | [facility] | Jabsir Reeder, | Referral (Follow up) | | 2020 | | NEUROSURGERY [address] | PA-C [address] | | | | | [address] | [address] [facility] | | | | | [place], [place] | [place] [address] | | | | | [address] | [phone] | | | | | [phone] | | | +--------+ + + + [...] Notes Telephone Encounter - Aure Castillo - 05/30/2020 1:45 PM PDTDaisy's home care watters d and patient is scheduled for 06/14 with TASHI. Updated phone number to the staff number. Elec tronically signed by Aure Castillo at 05/30/2020 1:47 PM PDTTelephone Encounter - Dilcia Obrien - 05/24/2020 12:51 PM PDTLetter has been sent elephone Encounter - Dilcia Crowell - 05/24/2020 10: 58 AM PDTCalled patient to schedule. More than 3 attempts have been made. Routing back to inical staff for follow up. elephone Karla - Lenka Crowell - 05/23/2020 12:53 PM PDTRouted to PSR to call and schedule elephone Encount er - Kiesha Méndez - 05/11/2020 10:49 AM PDTFirst attempt to contact Soo Briceno to schedule. LVM to call back. elephone Encounter - Jasbir Bonilla PA-C - 05/10/2020 8:54 AM PDTThank you for the update. We will just have to see her without the nerve conduction studies. Please go ahead and get her on my schedule an d I will see her and make a determination as to whether or not to order a new MRI. Thank connie adame. elephone [address] - Nat Murray RN - 05/09/2020 2:37 PM PDTReceived a report from Dr Louis from [facility] 2018 stating she had profound edema from knees to foot and he was unable to complete electodiagnostic study. She was suppose to follow up with Jasbir Reeder at that time. Place d in Jasbir's inbox for review. Copy sent to HIM. elephone Encounter - Nat Murray RN - 05/09/2020 12:52 PM PDTCal led [facility] but no answer. Left message to call back. elephone Keono Jasbir Baker PA-C - 05/09/2020 9:42 AM PDTPlease schedule her an appointment with me. I will get an updated history and see if we need to order a new MRI. Back in 2018 I had stated that I wanted nerve conduction studies. Please find out if she got the se done. If she did, when she comes to see me, please have a PRINTED DICTATION on my desk f or me to review when she is roomed to see me. Thank you! Electronically signed by: Jasbir Reeder PA-C 05/09/2020 9:44 AM PDT [facility]phone [facility] Garcia Jose Pattern Changer - 05/02/2020 10:50 AM PDTDerek, Patient is being referred back for right sided low back pain. DAVID with you on 05/28/2019. Previous L4-L5 LAIF w/ PSF & Laminectomy with Dr. Owens on 10/26/2018. Please advise on preston gerber. el ephone Encounter - Lenka Crowell - 05/02/2020 10:44 [address] PDTDr. Cantu referring Soo Briceno back to Neurosurgery Established patient in Neurosurgery. Last OV 05/28/19 with TASHI Mattson. Lumbar XR wit h Dr. Owens on 09/2018. New XR Lumbar 05/01/20 @ [facility]. Please advise documented in this encoun ter Plan of Treatment Not on filedocumented as of this encounter Visit Diagnoses Not on filedocumented in this encounter"
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
--- OUTSIDE RECORDS SUMMARY | ~2020-07-20 | XMS | Encounter Summary ---
Demographics + + + | Address | [address] | | | [place] [address] | + + + | Home Phone | | + + + | Preferred Language | Unknown | + + + | Marital Status | | + + + | Scientology Affiliation | [id number] | + + + | Race | White | + + + | Ethnic Group | Not or | + + + Author + + + | Author | [facility] | | | and [place] | + + + | Organization | [facility] | | | and [place] | [...] Team Providers + +------+ + | Care Glass Technician Name | Role | Phone | [...] | | | IMAGING [address] | [place] | | | | | [address] | [place] [address] | | | | | [place] [address] | | | | | | [phone] | | | +--------+ + + + [...]
--- OUTSIDE RECORDS SUMMARY | ~2020-07-20 | XMS | Encounter Summary ---
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 Aimee will let this CM know Once she has authorization. Electronically signed by: Ashly Obando 10/29/2018 9:47 This CM met with Lisa this afternoon and let her know that our inpatient rehab is full and that [facility] declined. This CM let Lisa know that Caitlin in [place] is working on authorization. Lisa has sad [...] begging of shift. Zofran given with relief. Brooklyn for pain given. Pt up to bathroom with FWW and x1 assist. KATRINA draining sanguinous fluid. Edema to legs, ankles and fee t present. Moderate food safety specialist strengths. Seizure precautions in place. Pt calls [...] assess MS - assess VS - assess dressings/KATIRNA - medicate with bowel regimen - educate [...] in pain. So I have given her Brooklyn twice today and robaxin once. She has [...] treat as prescribed. lan of Care - [facility] sis, Mo Higuera, OT - 10/28/2018 [...] Therapy Discharge Recommendations are: Recommended discharge disposition: half-way facility Post discharge occupational therapy recommendation: will benefit from structured setting, pt is motivated participant Equipment Recommendations: foundation drill operator helper, sock aide (flexible sock aid) Planned Interventions:ADL retraining, bed mobility training, functional endurance training, orthotic fitting/training, patient/family education, transfer training Recommended Frequency: 5 times/wk Patient Status/Goals: Reflects last filed data and may be from multiple contributors. ADLs pt c/o fatigue and pain, states had a sponge bath and completed grooming with EVP CHIEF EXPLORATION OFFICER, and that she did not sleep well. [...] habitus. Pt may benefit from LSO strap restaurant team member to give her more purchase in order to don it independently. UB Dressing, Level of Bandera: moderate assist (50% patient effort) Assistive Device: [...] only marginallly so. Roll Left, Level of Bandera: verbal cues required, stand by assist Roll Right, Level of Bandera: stand by assist, verbal cues required Sidelying to Sit, Level of Bandera: minimal assist (75% patient effort), verbal cues [...] with SBA and FWW. Sit-Stand, Level of Bandera: verbal cues required, stand by assist Stand-Sit, Level of Bandera: verbal cues required, stand by assist Rxk-Uffji-Bfq, Assistive Device: 2 wheeled walker (FWW), bariatric [...] STG Status new at 10/27/2018 1455 STG Bandera Level modified independent at 10/27/2018 1455 STG Position standing at 10/27/2018 1455 STG Adaptive Equipment none at 10/27/2018 1455 UB Dressing Goal Most Recent Value STG Status progressing at 10/28/2018 1210 STG Bandera Level modified independent at 10/27/2018 1455 STG Comments including LSO don/doff at 10/27/2018 1455 LB Dressing Goal Most Recent Value STG Status new at 10/27/2018 1455 STG Bandera Level modified independent at 10/27/2018 1455 STG Adaptive Equipment foundation drill operator helper, sock-aid at 10/27/2018 1455 Toilet Transfer Goal Most Recent Value STG Status new at 10/27/2018 1455 STG Bandera Level modified independent at 10/27/2018 1455 STG Assistive Device bariatric, 2 wheeled walker (FWW), seat riser, grab bars at 9 1455 Electronically signed by: Mo Mares OT, 10/28/2018 17:05 lan of Care - Dolly Wong, CORPORATE TRAINING MANAGER - 10/28/2018 10:20 AM PSTFormatting of this [...] assess MS - assess VS - assess dressings/KATRIAN - medicate with bowel regimen - educate [...] is now a resident in an adult long-term in [facility]. Has a supportive brother that lives [...] complete ambulation and directional changes. Level of Bandera: minimal assist (75% patient effort) Assistive Device: 2 wheeled walker (FWW), bariatric Distance (feet): 40 ft x 2 Gait Pattern Analysis: (Shuffling gait) Gait Deviations: nora decreased, double stance time increased, limb motion velocity decr eased, step length decreased, stride length decreased, stride width increased, liejw-qy-zenj ce ratio decreased, iuw-hk-snlng clearance decreased, weight-shifting ability decreased Safety Issues: [...] from bed. denied dizziness. Sit-Stand, Level of Bandera: verbal cues required, contact guard assist Stand-Sit, Level of Bandera: verbal cues required, contact guard assist Pzv-Aquej-Hed, Assistive Device: 2 wheeled walker (FWW), bariatric [...] elevated, bed rails Roll Left, Level of Bandera: verbal cues required, stand by assist Roll Right, Level of Bandera: stand by assist, verbal cues required Sidelying to Sit, Level of Bandera: minimal assist (75% patient effort), verbal cues r equired Sit to Sidelying, Level of Bandera: verbal cues required, minimal assist (75% patient [...] STG Review Date 11/03/18 at 10/27/2018 1024 Okdpjw-Vtv-Ltsmhm Goal Most Recent Value STG Status progressing at 10/28/2018 1020 STG Bandera Level supervised at 10/27/2018 1024 STG Assistive Device bed rails, leg provider relations consultant at 10/27/2018 1024 Nrb-Oqhgy-Bbj Goal Most Recent Value STG Status new at 10/27/2018 1024 STG Bandera Level supervised at 10/27/2018 1024 STG Assistive Device 2 wheeled walker (FWW), bariatric at 10/27/2018 1024 Gait Goal Most Recent Value STG Status progressing at 10/28/2018 1020 STG Bandera Level supervised at 10/27/2018 1024 STG Assistive Device 2 wheeled walker (FWW), bariatric at 10/27/2018 1024 STG Distance (feet) 50 feet at 10/27/2018 1024 Stair Goal Most Recent Value STG Status new at 10/27/2018 1024 STG Bandera Level supervised at 10/27/2018 1024 STG Assistive [...] with the inpatient admissions, Ruth Tello) at [facility]. This CM left a messa ge with Ruth at [facility] asking for a call back. This CM faxed a referral to [facility] Inpatient [facility]. PH: [phone] FX: [phone] not a fax number This CM let Jasbir MAKI know that our inpatient rehab is full and let him know about the ref erral that was faxed to Inpatient rehab at [facility]. Waiting for a call back from Ruth. Electronically signed by: Ashly Obando 10/28/2018 9:58 Fax did not go through. This CM re-faxed the referral x2 to fax number: [phone] Electronically signed by: Ashly Obando 10/28/2018 11:16 This CM left a message with [facility] inpatient rehab asking for a call back. This CM received the fax communication result report; result ok. Electronically signed by: Ashly Obando 10/28/2018 12:11 This CM called [facility] In[facility] re[facility] once again. The person that answered the phone let th is CM know that Ruth Tello has left for the day. This CM let another message on the voice mail asking Ruth to call this CM know in the morning also let her know that Lisa has a managed insurance. 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 lan of Care - Dameon Green V, BI TRI OPERATOR - 10/27/2018 9:17 PM PSTProblem: Patient Care [...] mobilize at level safe for home discharge, [facility] indicating significant impairme nt with daily activities [...] with ADLS. She lives in an adult long-term, was in a [facility]VA 1 988 with long rehab. She reports that her room is on the second floor requiring 15 steps to get to it. She's had falls and weakness recently Potential available assistance at discharge: Significant Relationships: brother Provides Primary Care For: no one, unable/limited ability to care for self Living Environment/Accessibility: Lives With: other (see comments) Living Arrangements: long-term Home Accessibility: stairs (2 railings present) Number of Stairs to Enter Home: 1 Number of Stairs Within Home: 15 (7+8) Financial Concerns: none Transportation Available: family or friend will provide Patient/Family s Goals: return to long-term Rehabilitation potential: good, to achieve stated therapy goals Occupational Therapy Discharge Recommendations are: Recommended discharge disposition: half-way facility Post discharge occupational therapy recommendation: will benefit from structured setting, pt is motivated participant Equipment Recommendations: foundation drill operator helper, sock aide (flexible sock aid) Planned Interventions:ADL [...] re a flexible one such as a Irish sock aid. LB Dressing, Level of Bandera: maximal assist (25% patient effort) Assistive Device: none LB Dressing Assess/Train, Position: sitting LB Dressing Impairments: decreased flexibility, ROM decreased, pain issued toilet tongs as up initially unable to perform toileting hygiene without AE. Trained pt on use of AE and she returned demo with CGA and VCs Toileting, Level of Bandera: maximal assist (25% patient effort) Assistive Device: none Toileting Impairments: decreased flexibility, strength decreased, pain Functional Endurance impaired Cognitive pt attentive, asks appropriate questions and demosntrates good followthrough. Occasionaly m isunderstands/mishears statements and requires corrections. Very pleasant and motivated. Mood/Behavior: calm, cooperative Orientation: oriented x 4 Bed Mobility Roll Left, Level of Bandera: verbal cues required, stand by assist Roll Right, Level of Bandera: stand by assist, verbal cues required Sidelying to Sit, Level of Bandera: minimal assist (75% patient effort), verbal cues r equired Sit to Sidelying, Level of Bandera: moderate assist (50% patient effort), verbal cues required Safety Issues: decreased use of arms for pushing/pulling, decreased use of legs for bridgin g/pushing, impaired trunk control for bed mobility Impairments: decreased flexibility, ROM decreased, strength decreased, coordination impaire d, motor control impaired, postural control impaired, pain Transfers Sit-Stand, Level of Bandera: verbal cues required, contact guard assist Stand-Sit, Level of Bandera: verbal cues required, contact guard assist Xnk-Ucshw-Tkh, Assistive Device: 2 wheeled walker (FWW), bariatric Toilet, Level of Bandera: contact guard assist, verbal cues required, tactile [...] STG Status new at 10/27/2018 1455 STG Bandera Level modified independent at 10/27/2018 1455 STG Position standing at 10/27/2018 1455 STG Adaptive Equipment none at 10/27/2018 1455 UB Dressing Goal Most Recent Value STG Status new at 10/27/2018 1455 STG Bandera Level modified independent at 10/27/2018 1455 STG Comments including LSO don/doff at 10/27/2018 1455 LB Dressing Goal Most Recent Value STG Status new at 10/27/2018 1455 STG Bandera Level modified independent at 10/27/2018 1455 STG Adaptive Equipment foundation drill operator helper, sock-aid at 10/27/2018 1455 Toilet Transfer Goal Most Recent Value STG Status new at 10/27/2018 1455 STG Bandera Level modified independent at 10/27/2018 1455 STG Assistive Device bariatric, 2 wheeled walker (FWW), seat riser, grab bars at 9 1455 Electronically signed by: Mo Mares, OT, 10/27/2018 18:33 lan of Care - Jero Solis, BI TRI OPERATOR - 10/27/2018 2:08 PM PSTProblem: Patient Care [...] supplemental O2 prior to discharge. lan of Beran - Padilla Childs, PT - 10/27/2018 10:42 [...] is now a resident in an adult long-term in [place]. Has a supportive bro ther that lives [...] for specific det ails regarding functional levels. [facility] BASIC MOBILITY [facility] BASIC MOBILITY Turning over in bed: a [...] steps with a railing: dependent/unable TOTAL - [facility] BASIC MOBILITY : 15 Completed the [facility] Activity Measure for Post Acute Care (AM-PAC) "6 Clicks" [facility] Mobility Inpatient Short Form. This version of the AM-PAC is an assessment tool used to measure a person's level of disability in performing basic mobility tasks. This patient's score indicates a performance of 57.70% impairment in the functioning of basic mobility. Raw Score - Functional Limitation % (for [facility]) - "Severity Modifier" CN 6 - 100.00 [...] with ADLS. She lives in an adult long-term, was in a [facility] 1 988 with long rehab. She reports that her room is on the second floor requiring 15 steps to get to it. She's had falls and weakness recently Potential available assistance at discharge: Significant Relationships: brother Provides Primary Care For: no one, unable/limited ability to care for self Living Environment/Accessibility: Lives With: other (see comments) Living Arrangements: long-term Home Accessibility: stairs (2 railings present) Number [...] prefers to minimize backing up. Level of Bandera: minimal assist (75% patient effort) Assistive Device: 2 wheeled walker (FWW), bariatric Distance (feet): 15 feet x 2 Gait Pattern Analysis: (Shuffling gait) Gait Deviations: nora decreased, double stance time increased, limb motion velocity decr eased, step length decreased, stride length decreased, stride width increased, puing-yq-vegx ce ratio decreased, cis-ot-fekyn clearance decreased, weight-shifting ability decreased Safety Issues: [...] sitting until it resolved. Sit-Stand, Level of Bandera: minimal assist (75% patient effort), verbal cues required , tactile cues required, 1 person + 1 person to manage equipment Stand-Sit, Level of Bandera: minimal assist (75% patient effort), verbal cues required , tactile cues required, 1 person + 1 person to manage equipment Afh-Dtxwd-Gsa, Assistive Device: 2 wheeled walker (FWW), bariatric [...] rails, HOB elevated Roll Left, Level of Bandera: minimal assist (75% patient effort), tactile cues require d, verbal cues required Roll Right, Level of Bandera: stand by assist, verbal cues required Sidelying to Sit, Level of Bandera: minimal assist (75% patient effort), tactile cues required, verbal cues required Sit to Sidelying, Level of Bandera: moderate assist (50% patient effort), verbal cues [...] STG Review Date 11/03/18 at 10/27/2018 1024 Igoajn-Bxz-Fwwgzv Goal Most Recent Value STG Status new at 10/27/2018 1024 STG Bandera Level supervised at 10/27/2018 1024 STG Assistive Device bed rails, leg provider relations consultant at 10/27/2018 1024 Zxf-Junmk-Jhd Goal Most Recent Value STG Status new at 10/27/2018 1024 STG Bandera Level supervised at 10/27/2018 1024 STG Assistive Device 2 wheeled walker (FWW), bariatric at 10/27/2018 1024 Gait Goal Most Recent Value STG Status new at 10/27/2018 1024 STG Bandera Level supervised at 10/27/2018 1024 STG Assistive Device 2 wheeled walker (FWW), bariatric at 10/27/2018 1024 STG Distance (feet) 50 feet at 10/27/2018 1024 Stair Goal Most Recent Value STG Status new at 10/27/2018 1024 STG Bandera Level supervised at 10/27/2018 1024 STG Assistive [...] Lisa was in bed seemed alert and [place]. Lisa let this CM know that she is in an adult foster home in [place] called [facility]. PH: [phone] to the adult foster home. PH:[phone] brother Garcia Gonzalez let this CM know [...] with this CM faxing a referral to [facility] in [place] for a back up plan. Lisa will have her brother or [facility] transport her home once she is discharged from the hosp ital. Referral faxed to [facility] in [place]. Sticky note placed on the chart for the attending marcus alejandra to place a referral to [facility]. 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 p Note - Karri Owens MD - 10/26/2018 5:27 PM PSTFormatting of this note might be different from the origina l. Operative Note Soo Aisha Janak 58 y.o. female 1960 [id number] Proc. Date 10/26/2018 Preop Dx Spondylolisthesis of [...] in log * Drains Drain/Device Site 10/26/18 6517 #1 lumbar spine (Active) Operative details: After [...] PEEK spacer was prepared filling it with Suah/BMP and then tamping it into the interspace [...] bone autograft obtained from the laminectomy and [place] with bone marrow asp irate were packed [...] signed by: Syed Owens MD 10/26/2018 17:23 [facility] Op Note - Romulo Owens MD - 10/26/2018 5:23 PM PSTFormatting of this note might be different from the origin al. Brief Operative Note Soo Briceno 58 y.o. female 1960 [id number] Proc. 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 | [place] | [phone] | | [facility] | | [address] | | | - LABORATORY | | [...]
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
--- OUTSIDE RECORDS SUMMARY | ~2020-07-20 | XMS | Encounter Summary ---
Demographics + + + | Address | [address] | | | [place] [address] | + + + | Home Phone [...] | Organization | [facility] | | | and [place] | [...] Team Providers + +------+ + | Care Director Of Content Marketing Name | Role | Phone | + [...] + + | 05/02/ | Telephone | [facility] | Jasbir Reeder, | Referral (Follow up) | | 2020 | | NEUROSURGERY [address] | PA-C [address] | | | | | [address] | [address] [facility] | | | | | [place], [place] | [place] [address] | | | | | [address] | [phone] | | | | | [phone] | | | +--------+ + + + [...] PDTReceived a report from Dr Louis from [facility] 2018 stating she had profound edema from knees to foot and he was unable to complete electodiagnostic study. She was suppose to follow up with Jasbir Reeder at that time. Place d in Jasbir's inbox for review. Copy sent to HIM. elephone Encounter - Nat Murray RN - 05/09/2020 12:52 PM PDTCal led [facility] [...] Reeder PA-C 05/09/2020 9:44 AM PDT [facility] Garcia Jose Transition Advisor - 05/02/2020 10:50 AM PDTDerek, Patient is [...] on 09/2018. New XR Lumbar 05/01/20 @ [facility]. Please advise documented in this encoun ter Plan of Treatment Not on filedocumented as of this encounter Visit Diagnoses Not on filedocumented in this encounter"
--- OUTSIDE RECORDS SUMMARY | ~2020-07-20 | XMS | Encounter Summary ---
Demographics + + + | Address | [address] | | | [place] [address] | + + + | Home Phone [...] | Organization | [facility] | | | and [place] [...] Team Providers + +------+ + | Care Diesel Lube Tech Name | Role | Phone | + [...] [address] | [address] [place], [place] | location, | | | | [place] | [address] | unspecified back | | | | [address] | | pain laterality, | | | | [phone] | | unspecified | | | | [...]
--- OUTSIDE RECORDS SUMMARY | ~2020-07-20 | XMS | Encounter Summary ---
Demographics + + + | Address | [address] | | | [place] [address] | + + + | Home Phone | | + + + | Preferred Language | Unknown | + + + | Marital Status | | + + + | Evangelical Affiliation | 1028 | + + + | Race | White | + + + | Ethnic Group | Not or | + + + Author + + + | Author | [facility] | | | and [place] | + + + | Organization | [facility] | | [...] Team Providers + +------+ + | Care Automobiles Salesperson Name | Role | Phone | + [...] | Changes | NEUROSURGERY [address] | [address] | | | | | [address] | | | | | | [place] | | | | | | [address] | | | | | | [phone] | | | +--------+ + + + [...]
--- OUTSIDE RECORDS SUMMARY | ~2020-07-20 | XMS | Encounter Summary ---
Demographics + + + | Address | [address] | | | [place] [address] | + + + | Home Phone | | + + + | Preferred Language | Unknown | + + + | Marital Status | | + + + | Scientologist Affiliation | 1028 | + + + | Race | White | + + + | Ethnic Group | Not or | + + + Author + + + | Author | [facility] | | | and [place] | + + + | Organization | [facility] | | | and [place] [...] Team Providers + +------+ + | Care Rn Cardiac Rehab Name | Role | Phone | + +------+ + | Gage De Jesus DO | PCP | | + +------+ + Encounter Details +--------+ + + + + | Date | Type | Department | Care Team | Description | +--------+ + + + + | 08/13/ | Orders Only | [facility] | Syed Owens MD | Spondylolisthesis of | | 2018 | | NEUROSURGERY [address] | [address] | lumbar region | | | | [address] | [place] [address] | (Primary Dx); HNP | | | | [place], [place] | [phone] | (herniated nucleus | | | | [address] | | pulposus), lumbar; | | | | [phone] | | Foraminal stenosis | | | [...] filedocumented as of this encounter Results XR Chest PA and [...] | Procedure Note | + + | [place], Rad Results In - 10/14/2018 2:35 PM [...] | | Cells | | | [facility] | | [...] | Preliminary studIes have | | [facility] | | [...] | Neutrophils | | K/uL | [facility] | | | | | | MEDICAL | | | | | | CENTER - | | | | | | LABORATORY | | + + + + + + | Absolute | 2.27 | 0.60 - 3.20 | [facility] | | | Lymphocytes | | K/uL | [facility] | | | | | | MEDICAL | | | | | | CENTER - | | | | | | LABORATORY | | + + + + + + | Absolute | 0.41 | 0.00 - 1.00 | [facility] | | | Monocytes | | K/uL | [facility] | | | | | | MEDICAL | | | | | | CENTER - | | | | | | LABORATORY | | + + + + + + | Absolute | 0.05 | 0.00 - 0.40 | [facility] | | | Eosinophils | | K/uL | [facility] | | | | [...] | Immature | | K/uL | [facility] | | | Granulocyte | | | MEDICAL | | | s | | | CENTER - | | | | | | LABORATORY | | + + + + + + | % nRBC | 0 | 0 - 2 per 100 | [facility] | | | | | WBC's | [facility] | | | | | | MEDICAL | | | | | | CENTER - | | | | | | LABORATORY | | + + + + + + | Absolute | 0.00 | 0.00 - 0.01 | [facility] | | | nRBC | | K/uL | [facility] | | | | | | [...] [address] | [place] | [phone] | | [facility] | | [address] | | | - LABORATORY | | [...] mL/min/1.73m2 | [facility] | | | Mont[place]grin | RATE,ESTIMATED | | MEDICAL | | | | mL/min/1.51s3Kpjs than | | CENTER - | | [...] | | | | | mg/dL | [facility] | | | | | | MEDICAL | | | | | | CENTER - | | | | | | LABORATORY | | + + + + + + | BUN/Creatin | 13.1 | | [facility] | | | ine Ratio | | | [facility] | | | | | | [...] [address] | [place] | [phone] | | [facility] | | [address] | | | - LABORATORY | | [...] | | | | JEAN TURNER MD ([id number]) | | | | | | on [...]
--- OUTSIDE RECORDS SUMMARY | ~2020-07-20 | XMS | Encounter Summary ---
Demographics + + + | Address | [address] | | | [place] [address] | + + + | Home Phone | | + + + | Preferred Language | Unknown | + + + | Marital Status | | + + + | Hoahaoism Affiliation | 1028 | + + + | Race | White | + + + | Ethnic Group | Not or | + + + Author + + + | Author | [facility] | | | and [place] | + + + | Organization | [facility] | | | and [...] Team Providers + +------+ + | Care Account Executive Healthcare Name | Role | Phone | + [...] Closed | | Neurosurgery | Diagnoses | Yuan, | Syed Owens | | | | | Lumbar | Arpit Mejia DO | MD [address] | | | | | radiculopath | [address] | | | | | y Lumbar | [address] | [place], [place] | | | | | herniated | [place], [place] | [address] | | | | | disc | [address] | Phone: | | | | | discuss | Phone: | [phone] | | | | | surgery | [phone] | Fax: | | | | | (prev Yuan | Fax: | [phone] | | | | | Patient) | [phone] | | | | | | Procedures | | | | | | | [place] OFFICE | | | | | | [...] + + | 08/06/ | Office | [facility] | Syed Owens MD | Spondylolisthesis of | | 2018 | Visit | NEUROSURGERY [address] | [address] | lumbar region; HNP | | | | [address] | [place] [address] | (herniated nucleus | | | | [place] | [phone] | pulposus), lumbar; | | | | [address] | | Foraminal stenosis | | | | [phone] | Nav Ruvalcaba | of lumbar region; | | | | | [address] | Spinal stenosis of | | | | | [address] [place] | lumbar region with | | | | | [address] | neurogenic | | | | | [...] encounter Patient Instructions Patient Instructions Rain Johnson, Snowboard Designer - 08/06/2018 2:15 PM PSTIt was a [...] Ruvalcaba PA-C and Syed Owens MD [address] [facility] [facility] [place] [address] FAX: [phone] NEUROSURGERY HISTORY AND PHYSICAL EXAMINATION CHIEF COMPLAINT: [...] Surgical History: Procedure Laterality Date CHOLECYSTECTOMY 1995 [facility] Isaías HYSTERECTOMY 1999 [facility] [place] TONSILLECTOMY 1989 [facility] CURRENT MEDICATIONS: Current Outpatient Prescriptions Medication [...] has no apparent deficits with short or snf memory. CRANIAL NERVES: II: Acuity is intact. [...] Intrinsics 5 5 Ulnar Intrinsics 5 5 Consumer Product Advisor Strength 5 5 Hip Flexion 5 5 [...]
--- OUTSIDE RECORDS SUMMARY | ~2020-07-20 | XMS | Encounter Summary ---
Demographics + + + | Address | [address] | | | [place] [address] | + + + | Home Phone | | + + + | Preferred Language | Unknown | + + + | Marital Status | | + + + | Church Affiliation | 1028 | + + + | Race | White | + + + | Ethnic Group | Not or | + + + Author + + + | Author | [facility] | | | and [place] | + + + | Organization | [facility] | | | and [...] Team Providers + +------+ + | Care Floral Decorator Name | Role | Phone | + +------+ + | Gage De Jesus DO | PCP | | + +------+ + Encounter Details +--------+ + + + + | Date | Type | Department | Care Team | Description | +--------+ + + + + | 10/14/ | Hospital | [facility] | Syed Owens MD | | | 2019 | Encounter | MED CTR XRAY [address] | [address] | | | | | [place] | [place] [address] | | | | | [place] [address] | [phone] | | | | | [phone] | | | | | | | Kali Rios MD | | | | | | [address] | | | | | | [place] | | | | | | [address] | | | | | | | [...] | 0 | 05/20/20 | | | kdugtoyx-bqwjzhkbd-t | | | | 18 | 0 | | ydrocortisone | | | | | | | (CORTISPORIN) | | | | | | | 3.5-83873-7 otic | | | | | | [...]
--- OUTSIDE RECORDS SUMMARY | ~2020-07-20 | XMS | Encounter Summary ---
Demographics + + + | Address | [address] | | | [place] [address] | + + + | Home Phone | | + + + | Preferred Language | Unknown | + + + | Marital Status | | + + + | Amish Affiliation | 1028 | + + + | Race | White | + + + | Ethnic Group | Not or | + + + Author + + + | Author | [facility] | | | and [place] | + + + | Organization | [facility] | | | and [place] [...] Team Providers + +------+ + | Care Third Mate Name | Role | Phone | + [...] | 04/06/ | Telephone | [facility] | Nav Ruvalcaba | Pain | | 2019 | | NEUROSURGERY [address] | [address] | | | | | [facility] | [address] [place] [place] | | | | | [place] | [id number] | | | | | [address] | | | | | | [phone] | | | +--------+ + + + [...]
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
--- OUTSIDE RECORDS SUMMARY | ~2020-07-20 | XMS | Encounter Summary ---
Demographics + + + | Address | [address] | | | [place] [address] | + + + | Home Phone | | + + + | Preferred Language | Unknown | + + + | Marital Status | | + + + | Mormon Affiliation | 1028 | + + + | Race | White | + + + | Ethnic Group | Not or | + + + Author + + + | Author | [facility] | | | and [place] | + + + | Organization | [facility] | [...] Team Providers + +------+ + | Care Case Supervisor Name | Role | Phone | [...] pain | [address] | [address] | | | | | Procedures | [address] | [place], | | | | | 07/13>PEND | [place], | [place] | | | | | PCP AUTH | [place] [address] | [address] | | | | | | Phone: | Phone: | | | | | | [phone] | [phone] | | | | | | Fax: | Fax: | | | | | | [phone] | [phone] | + + + + + + + Reason for Visit + + + | Reason | Comments | + + + | Chest Pain | | + + + Encounter Details +--------+ + + + + | Date | Type | Department | Care Team | Description | +--------+ + + + + | 07/06/ | Emergency | [facility] | Sawyer Yanez MD | Atypical chest pain | | 2020 | | MED CTR EMERGENCY | [address] | (Primary Dx) | | | | CENTER [address] | [place] | | | | | [place] | [address] | | | | | [address] | | | | | | [phone] | | | +--------+ + + + [...] that she does not use drugs. Medications: REMOTE CONTROL ASSEMBLER Home Medications Medication Sig acetaminophen (TYLENOL) 500 [...] J?MRN: | | | | | | [id number] | | | [id number] | | | riteri | | | [...] | | | ter, | | | [place] | | | | | | ([phone] [...] | | | h | | | [place] | | | 888-43 | | | [...] | | | lags | | | [place] | | | ED | | | Dispar | | | ity | | | Measur | | | e - | | | [place] | | | has | | | [...] | | | s. | | | [place] | | | | | | Health [...] | | | By: | | | [place] | | | | | | Health [...] | | | St. | | | [place] | | | y | | | [...] | | | St. | | | [place] | | | y H. | | [...] | | | St. | | | [place] | | | y H. | | [...] Procedure Note | + + | Compa, [id number] - 07/06/2020 3:09 PM PDT EXAM: XR [...] + | [address] | [address] | [place], [place] | [phone] | | [facility] | | [address] | | | - LABORATORY | | [...] [address] | [place] | [phone] | | [facility] | | [address] | | | - LABORATORY | | [...] [address] | [place] | [phone] | | [facility] | | [address] | | | - LABORATORY | | [...] use as of November 25 | | [facility] | | | | 2018. Check reference [...] ST. | [address] | [place] | [phone] | | [facility] | | [address] | | | - LABORATORY | | [...] | | | | | | [employer] | | | | | [...] [address] | [place] | [phone] | | [facility] | | [address] | | | - LABORATORY | | [...] (H) | 9 - 23 mg/dL | [facility] | | | | | | [facility] | | | | | | MEDICAL | | | | | | CENTER - | | | | | | LABORATORY | | + + + + + + | Creatinine | 1.30 (H) | 0.55 - 1.02 | [facility] | | | | | mg/dL | NAT | | | | | | MEDICAL | | | | | | CENTER - | | | | | | LABORATORY | | + + + + + + | eGFR, | 42 (L)Comment: | >=60 | [facility] | | | non- | GLOMERULAR FILTRATION | mL/min/1.73m2 | [facility] | | | [place] | RATE,ESTIMATED | | MEDICAL | | | | mL/min/1.66l4Mfpa than | | CENTER - | | [...] mL/min/1.73m2 | [facility] | | | [place] | RATE,ESTIMATED | | MEDICAL | | | | mL/min/1.94p7Ijzj than | | CENTER - | | | | 60 Chronic kidney | | LABORATORY | | | | disease,if found over a | | | | | | 3-month period.Less than | | | | | | 15 Kidney failure | | | | + + + + + + | Calcium | 9.5 | 8.7 - 10.4 | [facility] | | | | | mg/dL | [...] [address] | [place] | [phone] | | [facility] | | [address] | | | - LABORATORY | | [...] + | [address] | [address] | [place] | [phone] | | [facility] | | [address] | | | - LABORATORY | | [...] | | | | | | JEAN ([id number]) on | | | | | | [...] | | | 324 mg, Oral, ONCE, [facility] 07/06/20 | | 20 2:28 | | [...]
--- OUTSIDE RECORDS SUMMARY | ~2020-07-20 | XMS | Encounter Summary ---
Demographics + + + | Address | [address] | | | [place] [address] | + + + | Home Phone | | + + + | Preferred Language | Unknown | + + + | Marital Status | | + + + | Jain Affiliation | 1028 | + + + | Race | White | + + + | Ethnic Group | Not or | + + + Author + + + | Author | [facility] | | | and [place] | + + + | Organization | [facility] | | | and [place] [...] Team Providers + +------+ + | Care Bone Plant Supervisor Name | Role | Phone | + +------+ + PCP | Unavailable | + +------+ + Encounter Details +--------+ + + + + | Date | Type | Department | Care Team | Description | +--------+ + + + + | 02/05/ | Hospital | [facility] | Conversion | Pain | | 2017 | Encounter | CONVERSION [address] | Transaction, | | | | | [address] | Provider Unknown | | | | | [place] | [phone] | | | | | [address] | | | | | | [phone] | | | +--------+ + + + [...]
--- OUTSIDE RECORDS SUMMARY | ~2020-07-20 | XMS | Encounter Summary ---
Demographics + + + | Address | [address] | | | [place] [address] | + + + | Home Phone | | + + + | Preferred Language | Unknown | + + + | Marital Status | | + + + | Gnosticist Affiliation | 1028 | + + + | Race | White | + + + | Ethnic Group | Not or | + + + Author + + + | Author | [facility] | | | and [place] | + + + | Organization | [facility] | | | [...] Team Providers + +------+ + | Care Boring Mill Operator For Metal Name | Role | Phone | + +------+ + | Gage De Jesus DO | PCP | | + +------+ + Encounter Details +--------+ + + + + | Date | Type | Department | Care Team | Description | +--------+ + + + + | 10/31/ | Hospital | [facility] | Fidencio Padron | Physical | | 2019 | Encounter | MED CTR ACUTE | P, PT [address] | deconditioning | | | | PHYSICAL THERAPY | [address] [place] | (Primary Dx) | | | | [address] [place] | [address] | | | | | [place] [address] | [phone] | | | | | [phone] | | | +--------+ + + + [...] | 0 | 05/20/20 | | | skwzizqt-yjxswujhb-t | | | | 18 | 0 | | ydrocortisone | | | | | | | (CORTISPORIN) | | | | | | | 3.5-64573-3 otic | | | | | | [...] + documented as of this encounter Progress Fidencio Carrion, PT - 10/31/2018 6:40 PM PSTTherapy Plan of Care Inpatient Missed Visit Note Patient Information Patient Name: Soo Briceno Date of : 1960 Age: 58 y.o. The patient was unable to be seen for today's scheduled visit due to pt already DC from fac ility. Plan: DC ACUTE PT orders. Electronically signed by: Fidencio Padron PT, 10/31/2018 18:41 documented in th is encounter Plan of Treatment Not on filedocumented as of this encounter Visit Diagnoses + + | Diagnosis | + + | Physical deconditioning - Primary Debility, unspecified | + + documented in this encounter"
--- OUTSIDE RECORDS SUMMARY | ~2020-07-20 | XMS | Encounter Summary ---
Demographics + + + | Address | [address] | | | [place] [address] | + + + | Home Phone [...] [facility] | | | and [place] [...] Providers + +------+ + | Care Director Telecommunications Name | Role | Phone | + +------+ + PCP | Unavailable | + +------+ + Encounter Details +--------+ + + + + | Date | Type | Department | Care Team | Description | +--------+ + + + + | 02/05/ | Hospital | [facility] | Conversion | Mammogram abnormal | | 2017 | Encounter | IMAGING SERVICES | Transaction, | | | | | [address] | Provider Unknown | | | | | [address] [place], [place] | [phone] | | | | | [address] | | | | | | [phone] | | | +--------+ + + + [...]
--- OUTSIDE RECORDS SUMMARY | ~2020-07-20 | XMS | Encounter Summary ---
Demographics + + + | Address | [address] | | | [place] [address] | + + + | Home Phone | | + + + | Preferred Language | Unknown | + + + | Marital Status | | + + + | Roman Catholic Affiliation | 1028 | + + + | Race | White | + + + | Ethnic Group | Not or | + + + Author + + + | Author | [facility] | | | and [place] | + + + | Organization | [facility] | | | and [...] Team Providers + +------+ + | Care Water Resource Agent Name | Role | Phone | + +------+ + | Gage De Jesus DO | PCP | | + +------+ + Encounter Details +--------+ + + + + | Date | Type | Department | Care Team | Description | +--------+ + + + + | 04/08/ | Orders Only | [facility] | Ike Young, | | | 2015 | | NEPHROLOGY [place] | MACHINE II CUTTER [address] | | | | | [address] | [address] | | | | | [address] [place], [place] | [place] | | | | | [address] | [address] | | | | | [phone] | [phone] | | | | | | | [...]
--- OUTSIDE RECORDS SUMMARY | ~2020-07-20 | XMS | Encounter Summary ---
Demographics + + + | Address | [address] | | | [place] [address] | + + + | Home Phone [...] | Organization | [facility] | | | and [place] [...] Team Providers + +------+ + | Care Wood Drilling Machine Operator Name | Role | Phone | + +------+ + | Gage De Jesus DO | PCP | | + +------+ + Encounter Details +--------+ + + + + | Date | Type | Department | Care Team | Description | +--------+ + + + + | 02/11/ | Hospital | [facility] | Jasbir Reeder Marcos, | Status post lumbar | | 2019 | Encounter | MED CTR XRAY [address] | PA-C [address] | spinal fusion; Back | | | | [place] | [address] [place] | pain, unspecified | | | | [place] [address] | [place] [address] | back location, | | | | [phone] | [phone] | unspecified back | | | | [...] | 0 | 05/20/20 | | | yymrokvx-hgjrzndiy-r | | | | 18 | 0 | | ydrocortisone | | | | | | | (CORTISPORIN) | | | | | | | 3.5-26301-9 otic | | | | | | [...]
--- OUTSIDE RECORDS SUMMARY | ~2020-07-20 | XMS | Encounter Summary ---
Demographics + + + | Address | [address] | | | [place] [address] | + + + | Home Phone [...] | Organization | [facility] Man | | | and [...] Team Providers + +------+ + | Care Paper Control Clerk Name | Role | Phone | [...] | | | IMAGING [address] | [place] | | | | | [address] [place] | [place] [address] | | | | | [place] [address] | | | | | | [phone] | | | +--------+ + + + [...]
--- OUTSIDE RECORDS SUMMARY | ~2020-07-20 | XMS | Encounter Summary ---
Demographics + + + | Address | [address] | | | [place] [address] | + + + | Home Phone [...] + + + | Organization | and [facility] | | | and [...] Team Providers + +------+ + | Care Aluminizer Name | Role | Phone | + [...] | | [address] | [place] [address] | (Primary Dx); Status | | | | [place], [place] | [phone] | post lumbar spinal | | | | [address] | | fusion | | | | [phone] | | | +--------+ + + + [...]
--- OUTSIDE RECORDS SUMMARY | ~2020-07-20 | XMS | Encounter Summary ---
Demographics + + + | Address | [address] | | | [place] [address] | + + + | Home Phone | | + + + | Preferred Language | Unknown | + + + | Marital Status | | + + + | Rastafari Affiliation | 1028 | + + + | Race | White | + + + | Ethnic Group | Not or | + + + Author + + + | Author | [facility] | | | and [place] | + + + | Organization | [facility] | | | and [...] Team Providers + +------+ + | Care Bandsaw Operator Name | Role | Phone | [...] | | | | | | | LA LUMBAR | | | | | | | SPINE | | | | | | | FUSION,ANTER | | | | | | | APPRCH LA | | | | | | | [...] | | | | | | ION LA | | | | | | | ARTHRODESIS | | | | | | | POSTERIOR/PO | | | | | | | STEROLATERAL | | | | | | | LUMBAR LA | | | | | | | [...] | | | | | | SEG LA | | | | | | | LAMINEC/FACE | | | | | | | TECT/FORAMIN | | | | | | | ,EACH ADDNL | | | | | | | LA | | | | | | | [...] | | | | | [address] | [address] | | | | | [place] | [place] | | | | | [address] | [address] | | | | | [phone] | | | | | | | Cl Jose MD | | | | | | [address] | | | | | | [place] | | | | | | [address] | | | | | | | [...] +----+---+ + + | | 1 | [place] | | | | 4 | 43-degrees | | | | 5 | | | | | 0 | | | +----+---+ + + | | 1 | First | | | | 4 | Inc/Proc St | | | | 5 | | | | | 0 | | | +----+---+ + + | | 1 | [place] off | | | | 7 | [...] 10/29/18 09 by | | eral | wkdn-wof-fkpwrh catheter system; | Kevin Downey RN | [...] EVALUATION Soo Briceno 58 y.o. female 1960 [id number] Procedure(s) L4-5 LAIF W/PSF & LAMI (Left [...] signed by Jael Riggins MD 10/26/2018 18:33 [facility] nesthesia Procedure Notes - Jael Riggins MD [...] EVALUATION Soo Briceno 58 y.o. female 1960 [id number] Procedure(s): L4-5 LAIF W/PSF & LAMI (Left [...] PST | | | | | Starting [facility] 10/26/18 at 1536, | | | | | | | Anesthesia Intra-op | | | | | | + +-------+ + +---+---+ +---+---+ | | | +---+---+ documented in this encounter"
--- OUTSIDE RECORDS SUMMARY | ~2020-07-20 | XMS | Encounter Summary ---
Demographics + + + | Address | [address] | | | [place] [address] | + + + | Home Phone | | + + + | Preferred Language | Unknown | + + + | Marital Status | | + + + | Sabianism Affiliation | 1028 | + + + | Race | White | + + + | Ethnic Group | Not or | + + + Author + + + | Author | [facility] Services [facility] | | | and [place] | + + + | Organization | [facility] and [facility] Man | | | and [...] Team Providers + +------+ + | Care Coordinating Producer Name | Role | Phone | + [...] + | 02/18/ | Telephone | [facility] | Arpit Bolden, | Neurosurgery | | 2017 | | NEUROSURGERY [address] | DO [address] | Appointment (Yuan | | | | [address] | [address] [place], [place] | Cancel from 02/24); | | | | [place] | [phone] | Neurosurgery | | | | [address] | | Appointment | | | | [phone] | | | +--------+ + + + [...] L4-L5 OLIF/PSF Referral routed to: Neurosurgery front services agent staff elephone Encounter - Alix Crowley - [...]
--- OUTSIDE RECORDS SUMMARY | ~2020-07-20 | XMS | Encounter Summary ---
Demographics + + + | Address | [address] | | | [place] [address] | + + + | Home Phone | | + + + | Preferred Language | Unknown | + + + | Marital Status | | + + + | Samaritan Affiliation | 1028 | + + + | Race | White | + + + | Ethnic Group | Not or | + + + Author + + + | Author | [facility] | | | and [place] | + + + | Organization | [facility] Man | [...] Team Providers + +------+ + | Care Python Developer Name | Role | Phone | [...] | | [address] | [place] [address] | (Primary Dx); HNP | | | | [place], [place] | [phone] | (herniated nucleus | | | | [address] | | pulposus), lumbar; | | | | [phone] | | Foraminal stenosis | | | [...]
--- OUTSIDE RECORDS SUMMARY | ~2020-07-20 | XMS | Encounter Summary ---
Demographics + + + | Address | [address] | | | [place] [address] | + + + | Home Phone | | + + + | Preferred Language | Unknown | + + + | Marital Status | | + + + | Sikh Affiliation | 1028 | + + + | Race | White | + + + | Ethnic Group | Not or | + + + Author + + + | Author | [facility] and Services [facility] | | | and [place] | + + + | Organization | [facility] | | | and [place] [...] Team Providers + +------+ + | Care Mushroom Growing Supervisor Name | Role | Phone | [...] + + | 06/08/ | Telephone | [facility] | Jasbir Reeder, | Extremity Weakness | | 2018 | | NEUROSURGERY [address] | PA-C [address] | (Refusing to get out | | | | [address] | [address] [place] | of bed) | | | | [place] | [place] [address] | | | | | [address] | [phone] | | | | | [phone] | | | +--------+ + + + [...] studies. Margareth will call Dr Louis'beti of [facility] to schedule and let neurosurgery know when [...] conduction studies are done. elephone Encounter - Alseha Denise CMA - 06/08/2019 4:[address] Louis's office stating the patient declined the EMG. R eferral was closed out. Telephone Encounter - Nat Murray RN - 06/08/2019 11:36 AM PDT10/26/18 (Yam) L4-5 LAIF W/P SF & LAMI DAVID 05/28/19 (Sucharda) referral for nerve conduction studies authorized but not completed Margareth from [facility] in [place] called in and states patient is refusing [...]
--- OUTSIDE RECORDS SUMMARY | ~2020-07-20 | XMS | Encounter Summary ---
Demographics + + + | Address | [address] | | | [place] [address] | + + + | Home Phone [...] + | Organization | [facility] | | | and [...] Team Providers + +------+ + | Care Lunch Cook Name | Role | Phone | [...] | Changes | NEUROSURGERY [address] | Resource Recovery Specialist | | | | | [address] | | | | | | [place] | | | | | | [address] | | | | | | [phone] | | | +--------+ + + + [...]
--- OUTSIDE RECORDS SUMMARY | ~2020-07-20 | XMS | Encounter Summary ---
Demographics + + + | Address | [address] | | | [place] [address] | + + + | Home Phone [...] + + + | Author | [facility] and Services [facility] | | | and [place] | + + + | Organization | [facility] Man | | | and [...] Team Providers + +------+ + | Care Public Service Administrator Name | Role | Phone | + [...] | | | | | | | [address] | | +--------+--------+ + + + + [...] | [address] [place] | [place] [address] | | | | | [place] [address] | | | | | | [phone] | | | +--------+ + + + [...]
--- OUTSIDE RECORDS SUMMARY | ~2020-07-20 | XMS | Encounter Summary ---
Demographics + + + | Address | [address] | | | [place] [address] | + + + | Home Phone | | + + + | Preferred Language | Unknown | + + + | Marital Status | | + + + | Tenriism Affiliation | 1028 | + + + | Race | White | + + + | Ethnic Group | Not or | + + + Author + + + | Author | [facility] and Services [facility] | | | and [place] | + + + | Organization | [facility] Man | | [...] Team Providers + +------+ + | Care Tufting Machine Fixer Name | Role | Phone | + +------+ + | Gage De Jesus DO | PCP | | + +------+ + Encounter Details +--------+ + + + + | Date | Type | Department | Care Team | Description | +--------+ + + + + | 04/08/ | Orders Only | [facility] | Ike Young, | | | 2015 | | NEPHROLOGY [place] | HEALTH SERVICES COORDINATOR [address] | | | | | [address] | [address] | | | | | [address] [place], [place] | [place] | | | | | [address] | [address] | | | | | [phone] | [phone] | | | | | | | [...]
--- OUTSIDE RECORDS SUMMARY | ~2020-07-20 | XMS | Encounter Summary ---
Demographics + + + | Address | [address] | | | [place] [address] | + + + | Home Phone | | + + + | Preferred Language | Unknown | + + + | Marital Status | | + + + | Samaritan Affiliation | 1028 | + + + | Race | White | + + + | Ethnic Group | Not or | + + + Author + + + | Author | [facility] and Services Man | | | and [place] | + + + | Organization | [facility] Man | | | and [...] Team Providers + +------+ + | Care Dumping Machine Operator Name | Role | Phone [...] | | | IMAGING [address] | [place] | | | | | [address] | [place] [address] | | | | | [place] [address] | | | | | | [phone] | | | +--------+ + + + [...] + + + | XR TIBIA FIBULA LEFT | Routin | 12/13/2018 | | Results for this | | 2 VW | e | 1:15 PM | | procedure are in the | | | | PDT | | results section. | + +--------+ + + + documented in this encounter Results XR Tibia Fibula Left 2 Vw (12/13/2018 [...]
--- OUTSIDE RECORDS SUMMARY | ~2020-07-20 | XMS | Encounter Summary ---
Demographics + + + | Address | [address] | | | [place] [address] | + + + | Home Phone [...] | Organization | [facility] Man | [...] | + + +---------+ + | Mazin Sahffer | ECON | Unknown | | + + +---------+ + Care Team Providers + +------+ + | Care Crystalizer Tender Name | Role | Phone | + +------+ + PCP | Unavailable | + +------+ + Encounter Details +--------+ + + + + | Date | Type | Department | Care Team | Description | +--------+ + + + + | 03/18/ | Hospital | [facility] | Conversion | Abnormal findings on | | 2017 | Encounter | IMAGING SERVICES | Transaction, | diagnostic imaging | | | | [address] | Provider Unknown | of breast | | | | [address] [place], [place] | | | | | | [address] | (Fax) | | | | | [phone] | | | +--------+ + + + [...] | | malignancy. As part of the Member Of Technical Staff Program, this case | | | was reviewed by another member of [facility]. (BES) | | | AMB:rrc:C2NR GROSS [...] | | | preparation was performed by [facility], [facility] | | | [address] [address] (Card Setter: | | | Jack Mckeon M.D.; IA#: [id number]). Diagnostician: Rand Rebolledo | | | Franko [...]
--- OUTSIDE RECORDS SUMMARY | ~2020-07-20 | XMS | Encounter Summary ---
Demographics + + + | Address | [address] | | | [place] [address] | + + + | Home Phone | | + + + | Preferred Language | Unknown | + + + | Marital Status | | + + + | Alevism Affiliation | 1028 | + + + | Race | White | + + + | Ethnic Group | Not or | + + + Author + + + | Author | [facility] and Services Man | | | and [place] | + + + | Organization | [facility] Man | | | and [...] Team Providers + +------+ + | Care Cell Cleaner Name | Role | Phone | + [...] | NEUROSURGERY [address] | [address] | Appointment | | | | [address] [facility] [address] | [place] [address] | | | | | [place] | [phone] | | | | | [address] | | | | | | [phone] | | | +--------+ + + + [...] that day. Future date will be o [facility] 90 billing period if she wants to see Dr Owens. I tired calling [phone] and it was non working. I tried [phone] and they said she longer lives there. I tried the number they gave me [phone] (updated in demographics) and there was no answer and no voice kelsea moran Need to try calling her again. Electronically signed by Aure Castillo at 9 4:19 PM PDTdocumented in this encounter Plan of Treatment Not on filedocumented as of this encounter Visit Diagnoses Not on filedocumented in this encounter"
--- OUTSIDE RECORDS SUMMARY | ~2020-07-20 | XMS | Encounter Summary ---
Demographics + + + | Address | [address] | | | [place] [address] | + + + | Home Phone | | + + + | Preferred Language | Unknown | + + + | Marital Status | | + + + | Mormonism Affiliation | 1028 | + + + | Race | White | + + + | Ethnic Group | Not or | + + + Author + + + | Author | [facility] and Services [facility] | | | and [place] | + + + | Organization | [facility] | | | and [place] [...] Team Providers + +------+ + | Care Crossing Guard Name | Role | Phone [...] | | | [address] | [place] [address] | | | | | [place] [address] | | | | | | [phone] | | | +--------+ + + + [...] for comparison only - no result from [facility]. | [facility] | + + + + +---------+ + + | Performing | Address | City/State/Zipcode | Phone Number | | Organization | | | | + +---------+ + + | [facility] | | | | + +---------+ + + documented in this encounter Visit Diagnoses Not on filedocumented in this encounter"
--- OUTSIDE RECORDS SUMMARY | ~2020-07-20 | XMS | Encounter Summary ---
Demographics + + + | Address | [address] | | | [place] [address] | + + + | Home Phone [...] | Organization | [facility] and [facility] Man | | | and [...] Team Providers + +------+ + | Care Cardiology Nurse Name | Role | Phone | [...] [address]VE | | | | | [address] [facility] [address] | [place] [address] | | | | | [place] | [phone] | | | | | [address] | | | | | | [phone] | | | +--------+ + + + [...] Friday morning 12/13/18 and was taken to [facility] ER. She was then transf erred [...]
--- OUTSIDE RECORDS SUMMARY | ~2020-07-20 | XMS | Encounter Summary ---
Demographics + + + | Address | [address] | | | [place] [address] | + + + | Home Phone | | + + + | Preferred Language | Unknown | + + + | Marital Status | | + + + | Buddhist Affiliation | 1028 | + + + | Race | White | + + + | Ethnic Group | Not or | + + + Author + + + | Author | [facility] and Services [facility] | | | and [place] | + + + | Organization | [facility] Man | | | [...] Team Providers + +------+ + | Care Copyholder Name | Role | Phone | + [...] + + | 11/02/ | Telephone | [facility] | Syed Owens MD | Coordination Of Care | | 2018 | | NEUROSURGERY [address] | [address] | (Caitlin Espinal) | | | | [facility] [address] | [place] [address] | | | | | [place] | [phone] | | | | | [address] | | | | | | [phone] | | | +--------+ + + + [...] patient's B-grade lumbar precautions [facility] [place]. Called Caitlin Espinal and spoke with nurse Chen to let her know that the new orders a re being faxed and to let us know if she has any questions or concerns documented in this encounter Plan of Treatment Not on filedocumented as of this encounter Visit Diagnoses Not on filedocumented in this encounter"
--- OUTSIDE RECORDS SUMMARY | ~2020-07-20 | XMS | Encounter Summary ---
Demographics + + + | Address | [address] | | | [place] [address] | + + + | Home Phone [...] + | Organization | [facility] Man | | | and [...] Team Providers + +------+ + | Care Pressure Tank Operator Name | Role | Phone | [...] AVE | | | | | [address] [facility] | [place] [address] | | | | | [place] | [phone] | | | | | [address] | | | | | | [phone] | | | +--------+ + + + [...] Friday morning 12/13/18 and was taken to [facility] ER. She was then transf erred [...]
--- OUTSIDE RECORDS SUMMARY | ~2020-07-20 | XMS | Clinical Summary ---
Demographics + + + | Address | [address] | | | [place] [address] | + + + | Home Phone [...] + + + | Author | [facility] | | | and [place] | + + + | Organization | [facility] and [facility] Man | | [...] Team Providers + +------+ + | Care Optical Technician Name | Role | Phone | [...] + + + + + | Overview: [id number]: GFR's 20's-50's | + + + + [...] | | NUVASIVE - | | | [id number] | | [id number]: Qty: 2 | c | | NVSV | | | 5 / / | | on 10/26/2018 by Syed Owens | | | | | | | | MD Roberto at [facility] | | | | | | | | [facility] | | | | | | | + +--------+--------+ +--------+--------+--------+ | Imp Spn Cage Xl 10d | Generi | Left: | NUVASIVE - | | | [id number] | | [id number] - | c | Spine | NVSV | | | 5 / | | [id number]: Qty: 1 | | Lumbar | | | | /[id number] | | on 10/26/2018 by Syed Owens | | | | | | 1 | | MD Roberto at [facility] | | | | | | | | [facility] | | | | | | | + +--------+--------+ +--------+--------+--------+ | Putty Suha 10cc Dbm - | Graft | Left: | [employer] - | | 06/01/ | [id number] | | [id number]: Qty: 1 | | Spine | MEDT | | 2020 | | | on 10/26/2018 by Syed Owens | | Lumbar | | | | /[id number] | | MD Roberto at [facility] | | | | | | 1-042 | | [facility] | | | | | | / | + +--------+--------+ +--------+--------+--------+ | Graft Infuse Bone Kit Xxs - | Graft | Left: | [employer] - | | 07/29/ | [id number] | | [id number]: Qty: 1 | | Spine | MEDT | | 2018 | 0 / | | on 10/26/2018 by Syed Owens | | Lumbar | | | | /[id number] | | MD Roberto at [facility] | | | | | | [id number] | | [facility] | | | | | | | + +--------+--------+ +--------+--------+--------+ | Screw Set - | Screw | | NUVASIVE - | | | [id number] | | [id number]: Qty: 4 | | | NVSV | | | 0 / / | | on 10/26/2018 by Syed Owens | | | | | | | | MD Roberto at [facility] | | | | | | | | [facility] | | | | | | | + +--------+--------+ +--------+--------+--------+ | Screw Polyax Prcpt 7.5x50mm - | Screw | Left: | NUVASIVE - | | | [id number] | | [id number]: Qty: 4 | | Spine | NVSV | | | 0A / / | | on 10/26/2018 by Syed Owens | | Lumbar | | | | | | MD Roberto at [facility] | | | | | | | | [facility] | | | | | | [...] J?MRN: | | | | | | [id number] | | | [id number] | | | riteri | | | [...] | | | ter, | | | [place] | | | | | | (541-9 [...] | | | h | | | [place] | | | 888-43 | | | [...] | | | lags | | | [place] | | | ED | | | Dispar | | | ity | | | Measur | | | e - | | | [place] | | | has | | | [...] | | | s. | | | [place] | | | | | | Health [...] | | | By: | | | [place] | | | | | | Health [...] | | | St. | | | [place] | | | y | | | [...] | | | St. | | | [place] | | | y H. | | [...] | | | St. | | | [place] | | | y H. | | [...] J?MRN: | | | | | | [id number] | | | [id number] | | | riteri | | | [...] | | | ter, | | | [place] | | | | | | (541-9 [...] | | | h | | | [place] | | | [phone] | | | [...] | | | lags | | | [place] | | | ED | | | Dispar | | | ity | | | Measur | | | e - | | | [place] | | | has | | | [...] | | | s. | | | [place] | | | | | | Health [...] | | | By: | | | [place] | | | | | | Health [...] | | | St. | | | [place] | | | y | | | [...] | | | St. | | | [place] | | | y H. | | [...] | | | St. | | | [place] | | | y H. | | [...] | | | [id number] | | | [id number] | | | | | | PLEASE [...] Procedure Note | + + | Compa, [id number] - 07/06/2020 3:09 PM PDT EXAM: XR [...] [address] | [place] | [phone] | | [facility] | | [address] | | | - LABORATORY | | [...] [address] | [place] | [phone] | | [facility] | | [address] | | | - LABORATORY | | [...] [address] | [place] | [phone] | | [facility] | | [address] | | | - LABORATORY | | [...] + | [address] | [address] | [place] | [phone] | | [facility] | | [address] | | | - LABORATORY | | [...] | | | | | | [employer] | | | | | [...] [address] | [place] | [phone] | | [facility] | | [address] | | | - LABORATORY | | [...] + | [address] | [address] | [place] | [phone] | | [facility] | | [address] | | | - LABORATORY | | [...] mL/min/1.73m2 | [facility] | | | [place] | RATE,ESTIMATED | | MEDICAL | | | | mL/min/1.30y2Vhyq than | | CENTER - | | [...] | | GLOMERULAR FILTRATION | mL/min/1.73m2 | [facility] | | | [place] | RATE,ESTIMATED | | MEDICAL | | | | mL/min/1.81d3Bazs than | | CENTER - | | [...] | | | | | mg/dL | [facility] | | | | | | MEDICAL [...] [address] | [place] | [phone] | | [facility] | | [address] | | | - LABORATORY | | [...] | | | | | | JEAN ([id number]) on | | | | | | [...] | | | canal. Severe right and xqkf-ot-glojxcrj left neural foraminal | | | narrowing. [...] Procedure Note | + + | Compa, [id number] - 06/27/2020 8:04 PM PDT EXAM: MRI [...] | Modic type II endplate changes anteriorly ilW05-58, T12-L1, and L1-2. Slight | | retrolisthesis [...] of the central spinal canal. Severe right gartyzw-tw-mntawndl left neural | | foraminal narrowing. This [...] + + | Performing | Address | City/State[facility] | Phone Number | | Organization | [...] Procedure Note | + + | Compa, [id number] - 05/01/2020 10:29 AM PDT XR LUMBAR [...] + + | Performing | Address | City/State/[facility] | Phone Number | | Organization | [...] | [facility] | [facility] | [id number] | | [phone] | | [employer] | [...] al/Fam | | 1960 | [phone] | [place], [place] | | | juanita | | | [address] (Home) | [address] | + +--------+ +--------+ + + Advance Directives + + + + + | Type | Date Recorded | Patient | Explanation | | | | Digital Art Director | | + + + + + | Power of | | | | | Interventional Technologist | | | | + + + [...]
--- OUTSIDE RECORDS SUMMARY | ~2020-07-20 | XMS | Encounter Summary ---
Demographics + + + | Address | [address] | | | [place] [address] | + + + | Home Phone [...] + + + | Author | [facility] and Services Man | | | and [place] | + + + | Organization | [facility] Man [...] Team Providers + +------+ + | Care Night Worker Name | Role | Phone | + [...] | | | IMAGING [address] | [place] | | | | | [address] | [place] [address] | | | | | [place] [address] | | | | | | [phone] | | | +--------+ + + + [...]
--- OUTSIDE RECORDS SUMMARY | ~2020-07-20 | XMS | Encounter Summary ---
Demographics + + + | Address | [address] | | | [place] [address] | + + + | Home Phone [...] + | Author | [facility] and Services Man | | | and [place] | + + + | Organization | [facility] and [facility] Man | | | and [...] Team Providers + +------+ + | Care Material Handling Warehouse Supervisor Name | Role | Phone | [...] + + | 11/02/ | Telephone | [facility] | Seyd Owens MD | Coordination Of Care | | 2018 | | NEUROSURGERY [address] | [address] | (Caitlin Espinal) | | | | [facility] [address] | [place] [address] | | | | | [place] | [phone] | | | | | [address] | | | | | | [phone] | | | +--------+ + + + [...] patient's B-grade lumbar precautions [facility] [place]. Called Caitlin Espinal and spoke with nurse Chen to let her know that the new orders a re being faxed and to let us know if she has any questions or concerns documented in this encounter Plan of Treatment Not on filedocumented as of this encounter Visit Diagnoses Not on filedocumented in this encounter"
--- OUTSIDE RECORDS SUMMARY | ~2020-07-20 | XMS | Encounter Summary ---
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 recommendation: ongoing high intensity therapy, pt is motivated participant, will benefit from structured setting Equipment Recommendations: sock aide, hydrodynamicist, 2 wheeled walker (FWW) Planned Interventions:ADL retraining, balance training, functional endurance training, ROM (Range of Motion), strengthening, transfer training Recommended Frequency: (4-5xs) Patient Status/Goals: Reflects last filed data and may be from multiple contributors. ADLs LB dressing (socks only) LB dressing (socks only) with hydrodynamicist and sockaide. Min A overall due to incidental assists from OT placement of hydrodynamicist for doffing socks and help to pull up tops of socks. V/cs prov ided throughout and extra time. V/cs to remind pt not to bend too much. LB Dressing, Level of [place]: minimal assist (75% patient effort), set up required, v erbal cues required, tactile cues required Assistive Device: hydrodynamicist, sock-aid LB Dressing Assess/Train, Position: sitting LB [...] for upright po sture. Sit-Stand, Level of [place]: stand by assist, verbal cues required Stand-Sit, Level of [place]: stand by assist, verbal cues required Zov-Pbpbq-Jvt, Assistive Device: 2 wheeled walker (FWW) Impairments: strength decreased, postural control impaired ROM BUE ROM WFL Strength BUE Strength WFL. Pt with good sagger preparer strength for BUE when gripping OT's fingers. R UE Strength: Pt reporting decreased sagger preparer strength for RUE due to carpal tunnel. Coordination: Coordination Comments: Pt able to perform finger individuation (each finger to thumb) for b oth hands, no concerns for coordination otherwise. OT Goal Review Date Most Recent Value STG Review Date 12/21/18 at 12/14/2018 1633 Grooming Goal Most Recent Value STG Status new at 12/14/2018 1633 STG [place] Level supervised at 12/14/2018 1633 STG Position standing at 12/14/2018 1633 LB Dressing Goal Most Recent Value STG Status new at 12/14/2018 1633 STG [place] Level supervised at 12/14/2018 1633 STG Adaptive Equipment hydrodynamicist, sock-aid at 12/14/2018 1633 Toileting Goal Most Recent Value STG Status new at 12/14/2018 1633 STG [place] Level supervised at 12/14/2018 1633 Toilet Transfer Goal Most Recent Value STG Status new at 12/14/2018 1633 STG [place] Level supervised at 12/14/2018 1633 STG Assistive Device 2 wheeled walker (FWW) at 12/14/2018 1633 Tub/Shower Transfer Goal Most Recent Value Tub/Shower Type -- [TBD dependent upon tub/shower type where she will be d/cing. ] at 11/27 1633 STG Status new at 12/14/2018 1633 STG [place] Level supervised at 12/14/2018 1633 STG Assistive [...] back location, unspecified back pain laterality, unspecified marine chronometer assembler nicity M54.9 724.5 lan of Care - [...] RESTRAINT-RELATED GOALS: STRATEGIES TO ACHIEVE RESTRAINT GOALS: [facility] Physical Therapy OPIB Plan of Care Initial [...] mobilize at level safe for home discharge, [facility] indicating significant imp airment with basic functional mobility and medical status. Will continue to monitor Rebecca fo r evolving participation and condition for optimal discharge disposition as she will likely require placement for ongoing therapy services prior to home. Rebecca may benefit from stay in IRF then [place] or SNF then [place]. Rebecca was instructed on in-patient reha b expectations: 3 hours of therapy each day split between GYPSUM CALCINER, OT, and PT; dining group -Friday; Lisa [...] with ADLS. She lives in an adult nursing home, was in a [facility] 1 988 with long rehab. She's has had multiple falls and weakness recently Potential available assistance at discharge: Significant Relationships: brother Living Environment/Accessibility: Lives With: facility resident Living Arrangements: nursing home Patient/Family s Goals: Be able to go [...] are: Recommended discharge disposition: inpatient rehabilitation facility, alf faci lity Post discharge physical therapy recommendation: [...] Device: none Supine to Sit, Level of [place]: contact guard assist Impairments: decreased flexibility, ROM decreased, strength decreased, impaired balance, mo tor control impaired, pain Transfers 2nd person present for assistance d/t r/o pain and weakness; able to transfer without physi rose assist between bed and chair with need for assist to get to standing. She was able to a ppropriately verbalize sequencing Bed-Chair, Level of [place]: contact guard assist, set up required, 1 person + 1 perso n to manage equipment Chair-Bed, Level of [place]: contact guard assist, set up required, 1 person + 1 perso n to manage equipment Qqp-Wnwua-Zro, Assistive Device: bariatric, 2 wheeled walker (FWW) Sit-Stand, Level of [place]: minimal assist (75% patient effort), set up required, 1 p erson + 1 person to manage equipment Stand-Sit, Level of [place]: contact guard assist, set up required, 1 person + 1 perso n to manage equipment Kag-Riswh-Ewz, Assistive Device: bariatric, 2 wheeled walker (FWW) Impairments: decreased flexibility, ROM decreased, strength decreased, impaired balance, mo tor control impaired, pain Gait Level of [place]: not appropriate to assess Stairs Level of [place]: not appropriate to assess Balance Sitting Balance: [...] Mobility Six Click AM-PAC: 12 Completed the [facility] Activity Measure for Post Acute Care [...] STG Review Date 12/21/18 at 12/14/2018 1520 Yzounq-Ooi-Aqcrts Goal Most Recent Value STG Status new at 12/14/2018 1520 STG [place] Level supervised at 12/14/2018 1520 Hdn-Ynpxy-Aij Goal Most Recent Value STG Status new at 12/14/2018 1520 STG [place] Level supervised at 12/14/2018 1520 STG Assistive Device bariatric, 2 wheeled walker (FWW) at 12/14/2018 1520 Gait Goal Most Recent Value STG Status new at 12/14/2018 1520 STG [place] Level supervised at 12/14/2018 1520 STG Assistive Device bariatric, 2 wheeled walker (FWW) at 12/14/2018 1520 STG Distance (feet) 50 x2 at 12/14/2018 1520 Stair Goal Most Recent Value STG Status new at 12/14/2018 1520 STG [place] Level stand by assist at 12/14/2018 1520 [...] back location, unspecified back pain laterality, unspecified marine chronometer assembler nicity M54.9 724.5 lan of Berna - Rain Barnett RN - 12/14/2018 2:48 PM PDTProblem: Discharge Planning Goal: Patient will be discharged in a safe manner Outcome: Unchanged This CM met with patient at her bedside to discuss her d/c plan. Patient had been living at the [facility] in [place] for about 2 years and then went to [facility] after her back surgery for her rehab then returned to the [facility] after her 1 month re hab. She states that she failed the evacuation drill 3 times so could not stay in this particula r home. She was moved to another [facility] in [place], [place], at [address], [facility], but could not wal k there and her leg was very weak so was transferred here from an outside hospital ED for ne uro f/u. She is not sure whether she will need to go back to [facility] or not. She also mentioned [facility] in [place] that has a 24/7 care facility. Called [phone] at [place] and left a message with Michel, requesting a return call to dischraleigh peñae a possible discharge plan. EPIC SNF referral sent to [facility] since patient just did her rehab there. Bruno, admit coordinator, at , called this CM after seeing the SNF referral. She reported that the [facility] facility is an [place] and rehab only. Bruno stated that they had already extended her rehab days after the 20 days since this was all that was approved with her insurance. They worked thru [facility]) to get the extra 10 days since sh sudarshan was improving daily. After the month they had to [facility] to the [facility]. Patient confirms that she has Russ De Jesus DO, as her PCP and was getting her meds thru [facility]. Per patient, Garcia, her brother, who lives in [place], has a pickup, but a bad back, but t tray will need to figure out how to get her belongings out of the new [facility] since most likely s he will need to go to a snf placement for her 24/7 care needs at [...] IPR vs back to her [facility] in [place]. Patient will need a w/c if she returns to the [facility]. CM to follow. Electronically signed by: Rain Barnett RN 12/14/2018 14:48 15:48 pm This CM called, Margareth, residential glazier of the [facility], p# [phone], and she sta lay that patient had [...] Robert, PT, letting him know that the [facility] will accept her back but on ly [...] J?MRN: | | | | | | [id number] | | | [id number] | | | riteri | | | [...] | | | h | | | [place] | | | [phone] | | | [...] | | | [id number] | | | [id number] | | | ca20 | | | [...] [address] | [place] | [phone] | | [facility] | | [address] | | | - LABORATORY | | [...] + | [facility] | [address] | [place] | [phone] | | [facility] | | [address] | | | - LABORATORY | | [...] mL/min/1.73m2 | [facility] | | | [place] | | | MEDICAL | | | [...] [address] | [place] | [phone] | | [facility] | | [address] | | | - LABORATORY | | [...] + | [facility] | [address] | [place] | [phone] | | [facility] | | [address] | | | - LABORATORY | | [...] mL/min/1.73m2 | [facility] | | | [place] | | | MEDICAL | | | [...] [address] | [place] | [phone] | | [facility] | | [address] | | | - LABORATORY | | [...] | | chromogenic agar method | | [facility] | | | | | [...] ST. | [address] | [place] | [phone] | | [facility] | | [address] | | | - LABORATORY | | [...] | | | causing moderate right and rcvj-xn-hvhhfhem left neural foraminal | | | narrowing [...] | | bulges causing moderate right and oyzf-zd-eykljqpk left neural | | foraminal narrowing unchanged. [...] ST. | [address] | [place], [place] | [phone] | | [facility] | | [address] | | | - LABORATORY | | [...] mL/min/1.73m2 | [facility] | | | [place] | | | MEDICAL | | | [...] [address] | [place] | [phone] | | [facility] | | [address] | | | - LABORATORY | | [...] [address] | [place] | [phone] | | [facility] | | [address] | | | - LABORATORY | | [...]
--- OUTSIDE RECORDS SUMMARY | ~2020-07-20 | XMS | Encounter Summary ---
Demographics + + + | Address | [address] | | | [place] [address] | + + + | Home Phone [...] + + | Organization | [facility] | | | and [...] Team Providers + +------+ + | Care Lyric Writer Name | Role | Phone | + [...] + + | 10/14/ | Telephone | [facility] [place] | Syed Owens MD | Patient Education | | 2018 | | NEUROSURGERY [address] | [address] | (Spine Class); Case | | | | [address] | [place] [address] | Management | | | | [place] | [phone] | | | | | [address] | | | | | | [phone] | | | +--------+ + + + [...] try and pass it on to DC lunchroom mother on date of surgery in preparation for her DC. elephone Encounter - Wanda Jose RN - 10/14/2018 4:16 PM PSTRouting to Outpat ient Feeder Switchboard Operator to pre-plan options for discharge. Patient is a resident of [facility], an adult [facility], in [place], [place] It is uncertain the level of [...] be able to fax pres criptions to [facility] as is done with shelter facilities? Please advise what options may be considered if patient requires shelter rehab upon discharge. Scheduled 10/26/18 for L4-5 LAIF W/PSF & LAMINECTOMY elephone Encounter - Wanda Jose RN - 10/14/2018 2:27 PM PSTPatient attended Spine Class today. Her case finishing machine adjuster, Jennifer assisted her in w/c and a [...]
--- OUTSIDE RECORDS SUMMARY | ~2020-07-20 | XMS | Encounter Summary ---
Demographics + + + | Address | [address] | | | [place] [address] | + + + | Home Phone [...] | Organization | [facility] | | | and [...] Team Providers + +------+ + | Care Guitar Technician Name | Role | Phone | [...] | | [address] | [place] [address] | | | | | [place] | [phone] | | | | | [address] | | | | | | [phone] | | | +--------+ + + + [...] - 10/14/2018 10:58 AM PSTWA & [place] COAL BAGGER checked r/t 10/26/18 L4-5 LAIF W/P SF & LAMI Preop MEDD= 10 mg [place] PDMP: [place] COAL BAGGER: (no data available) Ti De Leon Medic al Splitting Machine Operator - 10/14/2018 10:58 AM PSTFormatting of this [...] severe) The following information was obtained from [email or web address] [email or web address]/login on 10/14/18. The following information was obtained from https://secureaccess.[place].gov/myAccess/saw/select .do on 10/14/18. [place] COAL BAGGER was checked on 10/14/18 and no medications have been dispensed. document ed in this encounter Plan of Treatment Not on filedocumented as of this encounter Visit Diagnoses Not on filedocumented in this encounter"
--- OUTSIDE RECORDS SUMMARY | ~2020-07-20 | XMS | Encounter Summary ---
Demographics + + + | Address | [address] | | | [place] [address] | + + + | Home Phone | | + + + | Preferred Language | Unknown | + + + | Marital Status | | + + + | Hinduism Affiliation | 1028 | + + + | Race | White | + + + | Ethnic Group | Not or | + + + Author + + + | Author | [facility] | | | and [place] | + + + | Organization | [facility] [...] Providers + +------+ + | Care Trimmer Tailer Name | Role | Phone | + +------+ + PCP | Unavailable | + +------+ + Encounter Details +--------+ + + + + | Date | Type | Department | Care Team | Description | +--------+ + + + + | 02/05/ | Hospital | [facility] | Conversion | Pain | | 2017 | Encounter | CONVERSION [address] | Transaction, | | | | | [address] | Provider Unknown | | | | | [place] | [phone] | | | | | [address] | | | | | | [phone] | | | +--------+ + + + [...]
--- OUTSIDE RECORDS SUMMARY | ~2020-07-20 | XMS | Encounter Summary ---
Demographics + + + | Address | [address] | | | [place] [address] | + + + | Home Phone [...] + + + | Author | [facility] | | | and [place] | + + + | Organization | [facility] | [...] Team Providers + +------+ + | Care Caustic Cresylate Shift Superintendent Name | Role | Phone | + [...] | | | IMAGING [address] | [place] | | | | | [address] [place] | [place] [address] | | | | | [facility] [place] [address] | | | | | | [phone] | | | +--------+ + + + [...]
--- OUTSIDE RECORDS SUMMARY | ~2020-07-20 | XMS | Encounter Summary ---
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 | [address] | [place] | [phone] | | [facility] | | [address] | | | - LABORATORY | | [...] | mL/min/1.73m2 | KATHERINE | | | Swazi | RATE,ESTIMATED | | MEDICAL | | | | mL/min/1.17o7Llff than | | CENTER - | | [...] [address] | [place] | [phone] | | [facility] | | [address] | | | - LABORATORY | | [...] [address] | [place] | [phone] | | [facility] | | [address] | | | - LABORATORY | | [...] | | | | JEAN TURNER MD ([id number]) | | | | | | on [...]
--- OUTSIDE RECORDS SUMMARY | ~2020-07-20 | XMS | Encounter Summary ---
Demographics + + + | Address | [address] | | | [place] [address] | + + + | Home Phone | | + + + | Preferred Language | Unknown | + + + | Marital Status | | + + + | Zoroastrianism Affiliation | 1028 | + + + | Race | White | + + + | Ethnic Group | Not or | + + + Author + + + | Author | [facility] | | | and [place] | + + + | Organization | [facility] | | [...] Team Providers + +------+ + | Care Lead Refiner Name | Role | Phone | + [...] | | | IMAGING [address] | [place] | | | | | [address] [place] | [place] [address] | | | | | [place] [address] | | | | | | [phone] | | | +--------+ + + + [...]
--- OUTSIDE RECORDS SUMMARY | ~2020-07-20 | XMS | Encounter Summary ---
Demographics + + + | Address | [address] | | | [place] [address] | + + + | Home Phone [...] | Organization | [facility] | | [...] Team Providers + +------+ + | Care Legal Assistant Name | Role | Phone | + +------+ + | Gage De Jesus DO | PCP | | + +------+ + Encounter Details +--------+ + + + + | Date | Type | Department | Care Team | Description | +--------+ + + + + | 12/14/ | Imaging | [facility] | Provider, | | | 2019 | Exam | [facility] | MD Abhi [address] | | | | | IMAGING [address] | [place] | | | | | [address] [place] | [place] [address] | | | | | [place] [address] | | | | | | [phone] | | | +--------+ + + + [...]
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
--- OUTSIDE RECORDS SUMMARY | ~2020-07-20 | XMS | Encounter Summary ---
Demographics + + + | Address | [address] | | | [place] [address] | + + + | Home Phone [...] Organization | [facility] | | | and [...] Team Providers + +------+ + | Care Silverware Supervisor Name | Role | Phone | + +------+ + PCP | Unavailable | + +------+ + Encounter Details +--------+ + + + + | Date | Type | Department | Care Team | Description | +--------+ + + + + | 03/18/ | Hospital | [facility] | Conversion | Abnormal findings on | | 2017 | Encounter | IMAGING SERVICES | Transaction, | diagnostic imaging | | | | [address] | Provider Unknown | of breast | | | | [address] [place], [place] | | | | | | [address] | (Fax) | | | | | [phone] | | | +--------+ + + + [...]
--- OUTSIDE RECORDS SUMMARY | ~2020-07-20 | XMS | Encounter Summary ---
Demographics + + + | Address | [address] | | | [place] [address] | + + + | Home Phone [...] Organization | [facility] | | | and [...] Team Providers + +------+ + | Care Highway Research Engineer Name | Role | Phone | + +------+ + PCP | Unavailable | + +------+ + Encounter Details +--------+ + + + + | Date | Type | Department | Care Team | Description | +--------+ + + + + | 02/05/ | Hospital | [facility] | Conversion | Mammogram abnormal | | 2017 | Encounter | IMAGING SERVICES | Transaction, | | | | | [address] | Provider Unknown | | | | | [address] [place], [place] | [phone] | | | | | [address] | | | | | | [phone] | | | +--------+ + + + [...]
--- OUTSIDE RECORDS SUMMARY | ~2020-07-20 | XMS | Encounter Summary ---
Demographics + + + | Address | [address] | | | [place] [address] | + + + | Home Phone [...] + + + | Author | [facility] | | | and [place] | + + + | Organization | [facility] | | | and [...] Team Providers + +------+ + | Care Wind Tunnel Mechanic Name | Role | Phone | + +------+ + | Gage De Jesus DO | PCP | | + +------+ + Encounter Details +--------+ + + + + | Date | Type | Department | Care Team | Description | +--------+ + + + + | 10/31/ | Hospital | [facility] | Fidencio Padron | Physical | | 2019 | Encounter | [facility] | P, PT [address] | deconditioning | | | | PHYSICAL THERAPY | [address] | (Primary Dx) | | | | [address] | [address] | | | | | [place] [address] | [phone] | | | | | [phone] | | | +--------+ + + + [...] | 0 | 05/20/20 | | | nxpjzhpb-aahouvkvo-o | | | | 18 | 0 | | ydrocortisone | | | | | | | (CORTISPORIN) | | | | | | | [id number] otic | | | | | | [...]
--- OUTSIDE RECORDS SUMMARY | ~2020-07-20 | XMS | Encounter Summary ---
Demographics + + + | Address | [address] | | | [place] [address] | + + + | Home Phone [...] | Organization | [facility] | | | and [place] [...] Team Providers + +------+ + | Care Still Worker Helper Name | Role | Phone | [...] [address] | | | | | [place], [place] | [place] [address] | | | | | [address] | [phone] | | | | | [phone] | | | +--------+ + + + [...]
--- OUTSIDE RECORDS SUMMARY | ~2020-07-20 | XMS | Encounter Summary ---
Demographics + + + | Address | [address] | | | [place] [address] | + + + | Home Phone [...] | [facility] | [...] Providers + +------+ + | Care Front End Application Developer Name | Role | Phone | + +------+ + | aGge De Jesus DO | PCP | | [...] | | [address] | [place] [address] | (Primary Dx); HNP | | | | [place], [place] | [phone] | (herniated nucleus | | | | [address] | | pulposus), lumbar; | | | | [phone] | | Foraminal stenosis | | | [...]
--- OUTSIDE RECORDS SUMMARY | ~2020-07-20 | XMS | Encounter Summary ---
Demographics + + + | Address | [address] | | | [place] [address] | + + + | Home Phone | | + + + | Preferred Language | Unknown | + + + | Marital Status | | + + + | Episcopal Affiliation | 1028 | + + + | Race | White | + + + | Ethnic Group | Not or | + + + Author + + + | Author | [facility] | | | and [place] | + + + | Organization | [facility] | | [...] Team Providers + +------+ + | Care Sales Enablement Manager Name | Role | Phone | [...] | | [address] | [place] [address] | (Primary Dx); HNP | | | | [place], [place] | [phone] | (herniated nucleus | | | | [address] | | pulposus), lumbar; | | | | [phone] | | Foraminal stenosis | | | [...] [address] | [place] | [phone] | | [facility] | | [address] | | | - LABORATORY | | [...] mL/min/1.73m2 | [facility] | | | Armenian | RATE,ESTIMATED | | MEDICAL | | | | mL/min/1.94k6Qgod than | | CENTER - | | [...] [address] | [place] | [phone] | | [facility] | | [address] | | | - LABORATORY | | [...] | | | | JEAN TURNER MD ([id number]) | | | | | | on [...]
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
--- OUTSIDE RECORDS SUMMARY | ~2020-07-20 | XMS | Encounter Summary ---
Demographics + + + | Address | [address] | | | [place] [address] | + + + | Home Phone [...] + + + | Author | [facility] | | | and [place] | + + + | Organization | [facility] | | [...] Team Providers + +------+ + | Care Metalizing Supervisor Name | Role | Phone | + +------+ + | Gage De Jesus DO | PCP | | + +------+ + Encounter Details +--------+ + + + + | Date | Type | Department | Care Team | Description | +--------+ + + + + | 09/12/ | Orders Only | [facility] | Gage De Jesus, | | | 2014 | | NEPHROLOGY JASON | DO [address] | | | | | [address] | [address] [place], | | | | | [address] [place], [place] | [place] [address] | | | | | [address] | [phone] | | | | | [phone] | | | +--------+ + + + [...]
--- OUTSIDE RECORDS SUMMARY | ~2020-07-20 | XMS | Encounter Summary ---
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 Seizure precautions in place. Pt calls appropriately. lan of Care - K Dameon manley V, TOOLROOM MACHINIST - 10/29/2018 4:15 AM PSTProblem: Patient Care [...] in pain. So I have given her Stanton twice today and robaxin once. She has [...] monitor and treat as prescribed. lan of [facility] - [facility] gerald, Mo Higuera, OT - 10/28/2018 [...] setting, pt is motivated participant Equipment Recommendations: multimedia production assistant, sock aide (flexible sock aid) Planned Interventions:ADL retraining, bed mobility training, functional endurance training, orthotic fitting/training, patient/family education, transfer training Recommended Frequency: 5 times/wk Patient Status/Goals: Reflects last filed data and may be from multiple contributors. ADLs pt c/o fatigue and pain, states had a sponge bath and completed grooming with AS400 PROGRAMMER ANALYST, and that she did not sleep well. [...] habitus. Pt may benefit from LSO strap bale tie machine operator to give her more purchase in order to don it independently. UB Dressing, Level of Towson: moderate assist (50% patient effort) Assistive Device: [...] only marginallly so. Roll Left, Level of Towson: verbal cues required, stand by assist Roll Right, Level of Tow[place]: stand by assist, verbal cues required Sidelying to Sit, Level of Tow[place]: minimal assist (75% patient effort), verbal cues [...] with SBA and FWW. Sit-Stand, Level of Towson: verbal cues required, stand by assist Stand-Sit, Level of Towson: verbal cues required, stand by assist Slt-Fqnrs-Nrn, Assistive Device: 2 wheeled walker (FWW), bariatric [...] STG Status new at 10/27/2018 1455 STG Towson Level modified independent at 10/27/2018 1455 STG Position standing at 10/27/2018 1455 STG Adaptive Equipment none at 10/27/2018 1455 UB Dressing Goal Most Recent Value STG Status progressing at 10/28/2018 1210 STG Towson Level modified independent at 10/27/2018 1455 STG Comments including LSO don/doff at 10/27/2018 1455 LB Dressing Goal Most Recent Value STG Status new at 10/27/2018 1455 STG Towson Level modified independent at 10/27/2018 1455 STG Adaptive Equipment multimedia production assistant, sock-aid at 10/27/2018 1455 Toilet Transfer Goal Most Recent Value STG Status new at 10/27/2018 1455 STG Towson Level modified independent at 10/27/2018 1455 STG Assistive Device bariatric, 2 wheeled walker (FWW), seat riser, grab bars at 9 1455 Electronically signed by: Mo Mares OT, 10/28/2018 17:05 lan of Care - Rory toriejuan c Dolly Maria Dolores, PORCELAIN FINISH SPRAYER - 10/28/2018 10:20 AM PSTFormatting of this [...] is now a resident in an adult prison in [facility]. Has a supportive brother that [...] complete ambulation and directional changes. Level of Towson: minimal assist (75% patient effort) Assistive Device: 2 wheeled walker (FWW), bariatric Distance (feet): 40 ft x 2 Gait Pattern Analysis: (Shuffling gait) Gait Deviations: nora decreased, double stance time increased, limb motion velocity decr eased, step length decreased, stride length decreased, stride width increased, sqhgv-wb-cmgw ce ratio decreased, igd-da-jnmyl clearance decreased, weight-shifting ability decreased Safety Issues: [...] from bed. denied dizziness. Sit-Stand, Level of Towson: verbal cues required, contact guard assist Stand-Sit, Level of Towson: verbal cues required, contact guard assist Ayb-Nwgfo-Hpf, Assistive Device: 2 wheeled walker (FWW), bariatric [...] elevated, bed rails Roll Left, Level of Towson: verbal cues required, stand by assist Roll Right, Level of Towson: stand by assist, verbal cues required Sidelying to Sit, Level of Towson: minimal assist (75% patient effort), verbal cues r equired Sit to Sidelying, Level of Towson: verbal cues required, minimal assist (75% patient [...] STG Review Date 11/03/18 at 10/27/2018 1024 Fesqhh-Hsl-Zcyghn Goal Most Recent Value STG Status progressing at 10/28/2018 1020 STG Towson Level supervised at 10/27/2018 1024 STG Assistive Device bed rails, leg child welfare social worker at 10/27/2018 1024 Egi-Rvctu-Mmr Goal Most Recent Value STG Status new at 10/27/2018 1024 STG Towson Level supervised at 10/27/2018 1024 STG Assistive Device 2 wheeled walker (FWW), bariatric at 10/27/2018 1024 Gait Goal Most Recent Value STG Status progressing at 10/28/2018 1020 STG Towson Level supervised at 10/27/2018 1024 STG Assistive Device 2 wheeled walker (FWW), bariatric at 10/27/2018 1024 STG Distance (feet) 50 feet at 10/27/2018 1024 Stair Goal Most Recent Value STG Status new at 10/27/2018 1024 STG Towson Level supervised at 10/27/2018 1024 STG Assistive [...] with the inpatient admissions, Ruth Tello) at [facility]. This CM left a messa ge with Ruth at [facility] asking for a call back. This CM faxed a referral to [facility] Inpatient [facility]. PH: [phone] FX: [phone] not a fax number This CM let Jasbir MAKI know that our inpatient rehab is full and let him know about the ref erral that was faxed to Inpatient rehab at [facility]. Waiting for a call back from Ruth. Electronically signed by: Ahsly Obando 10/28/2018 9:58 Fax did not go through. This CM re-faxed the referral x2 to fax number: [phone] Electronically signed by: Ashly Obando 10/28/2018 11:16 This CM left a message with [facility] inpatient rehab asking for a call back. This CM received the fax communication result report; result ok. Electronically signed by: Ashly Obando 10/28/2018 12:11 This CM called [facility] Inpatient rehab once again. The person that answered the phone let th is CM know that Ruth Tello has left for the day. This CM let another message on the voice mail asking Ruth to call this CM know in the morning also let her know that Lisa has a managed insurance. This CM will call ruth at [facility] Inpatient rehab tomorrow tatyana alvarez in [...] intact pt denies the presence of numbness/tingling, horse doctor strong, BUE strengths 5/5, RLE strengths 5/5 [...] to her bilateral lower back; medicated w/1 Stanton (10's) PRN. lan of Care - Dameon [...] RT will continue to monitor lan of [facility] - Shara Manzanares RN - 10/27/2018 5:23 [...] mobilize at level safe for home discharge, [facility] indicating significant impairme nt with daily [...] with ADLS. She lives in an adult prison, was in a [facility] 988 with long rehab. She reports that her room is on the second floor requiring 15 steps to get to it. She's had falls and weakness recently Potential available assistance at discharge: Significant Relationships: brother Provides Primary Care For: no one, unable/limited ability to care for self Living Environment/Accessibility: Lives With: other (see comments) Living Arrangements: prison Home Accessibility: stairs (2 railings present) Number of Stairs to Enter Home: 1 Number of Stairs Within Home: 15 (7+8) Financial Concerns: none Transportation Available: family or friend will provide Patient/Family s Goals: return to prison Rehabilitation potential: good, to achieve stated therapy goals Occupational Therapy Discharge Recommendations are: Recommended discharge disposition: half-way facility Post discharge occupational therapy recommendation: will benefit from structured setting, pt is motivated participant Equipment Recommendations: multimedia production assistant, sock aide (flexible sock aid) Planned Interventions:ADL [...] re a flexible one such as a [place] sock aid. LB Dressing, Level of Towson: maximal assist (25% patient effort) Assistive Device: none LB Dressing Assess/Train, Position: sitting LB Dressing Impairments: decreased flexibility, ROM decreased, pain issued toilet tongs as up initially unable to perform toileting hygiene without AE. Trained pt on use of AE and she returned demo with CGA and VCs Toileting, Level of Towson: maximal assist (25% patient effort) Assistive Device: none Toileting Impairments: decreased flexibility, strength decreased, pain Functional Endurance impaired Cognitive pt attentive, asks appropriate questions and demosntrates good followthrough. Occasionaly m isunderstands/mishears statements and requires corrections. Very pleasant and motivated. Mood/Behavior: calm, cooperative Orientation: oriented x 4 Bed Mobility Roll Left, Level of Towson: verbal cues required, stand by assist Roll Right, Level of Towson: stand by assist, verbal cues required Sidelying to Sit, Level of Towson: minimal assist (75% patient effort), verbal cues r equired Sit to Sidelying, Level of Towson: moderate assist (50% patient effort), verbal cues required Safety Issues: decreased use of arms for pushing/pulling, decreased use of legs for bridgin g/pushing, impaired trunk control for bed mobility Impairments: decreased flexibility, ROM decreased, strength decreased, coordination impaire d, motor control impaired, postural control impaired, pain Transfers Sit-Stand, Level of Towson: verbal cues required, contact guard assist Stand-Sit, Level of Towson: verbal cues required, contact guard assist Gzv-Hprhn-Fwa, Assistive Device: 2 wheeled walker (FWW), bariatric Toilet, Level of Towson: contact guard assist, verbal cues required, tactile [...] STG Status new at 10/27/2018 1455 STG Towson Level modified independent at 10/27/2018 1455 STG Position standing at 10/27/2018 1455 STG Adaptive Equipment none at 10/27/2018 1455 UB Dressing Goal Most Recent Value STG Status new at 10/27/2018 1455 STG Towson Level modified independent at 10/27/2018 1455 STG Comments including LSO don/doff at 10/27/2018 1455 LB Dressing Goal Most Recent Value STG Status new at 10/27/2018 1455 STG Towson Level modified independent at 10/27/2018 1455 STG Adaptive Equipment multimedia production assistant, sock-aid at 10/27/2018 1455 Toilet Transfer Goal Most Recent Value STG Status new at 10/27/2018 1455 STG Towson Level modified independent at 10/27/2018 1455 STG Assistive Device bariatric, 2 wheeled walker (FWW), seat riser, grab bars at 9 1455 Electronically signed by: Mo Mares OT, 10/27/2018 18:33 lan of Care - Jero Solis TOOLROOM MACHINIST - 10/27/2018 2:08 PM PSTProblem: Patient Care [...] is now a resident in an adult prison in [place]. Has a supportive bro ther that lives [...] for specific det ails regarding functional levels. [facility] BASIC MOBILITY [facility] Turning over in bed: [...] steps with a railing: dependent/unable TOTAL - [facility] BASIC MOBILITY : 15 Completed the [facility] Activity Measure for Post Acute Care (AM-PAC) "6 Clicks" [facility] Mobility Inpatient Short Form. This version of the AM-PAC is an assessment tool used to measure a person's level of disability in performing basic mobility tasks. This patient's score indicates a performance of 57.70% impairment in the functioning of basic mobility. Raw Score - Functional Limitation % (for [facility]) - "Severity Modifier" CN 6 - [...] with ADLS. She lives in an adult prison, was in a [facility] 1 8 with long rehab. She reports that her room is on the second floor requiring 15 steps to get to it. She's had falls and weakness recently Potential available assistance at discharge: Significant Relationships: brother Provides Primary Care For: no one, unable/limited ability to care for self Living Environment/Accessibility: Lives With: other (see comments) Living Arrangements: prison Home Accessibility: stairs (2 railings present) Number [...] prefers to minimize backing up. Level of Towson: minimal assist (75% patient effort) Assistive Device: 2 wheeled walker (FWW), bariatric Distance (feet): 15 feet x 2 Gait Pattern Analysis: (Shuffling gait) Gait Deviations: nora decreased, double stance time increased, limb motion velocity decr eased, step length decreased, stride length decreased, stride width increased, vzcrz-la-eohp ce ratio decreased, gpp-ub-uedoi clearance decreased, weight-shifting ability decreased Safety Issues: [...] sitting until it resolved. Sit-Stand, Level of Towson: minimal assist (75% patient effort), verbal cues required , tactile cues required, 1 person + 1 person to manage equipment Stand-Sit, Level of Towson: minimal assist (75% patient effort), verbal cues required , tactile cues required, 1 person + 1 person to manage equipment Gps-Tlmid-Yzg, Assistive Device: 2 wheeled walker (FWW), bariatric [...] rails, HOB elevated Roll Left, Level of Towson: minimal assist (75% patient effort), tactile cues require d, verbal cues required Roll Right, Level of Towson: stand by assist, verbal cues required Sidelying to Sit, Level of Towson: minimal assist (75% patient effort), tactile cues required, verbal cues required Sit to Sidelying, Level of Towson: moderate assist (50% patient effort), verbal cues [...] STG Review Date 11/03/18 at 10/27/2018 1024 Skkbbd-Whh-Rvuaxy Goal Most Recent Value STG Status new at 10/27/2018 1024 STG Towson Level supervised at 10/27/2018 1024 STG Assistive Device bed rails, leg child welfare social worker at 10/27/2018 1024 Jto-Nmdob-Tdw Goal Most Recent Value STG Status new at 10/27/2018 1024 STG Towson Level supervised at 10/27/2018 1024 STG Assistive Device 2 wheeled walker (FWW), bariatric at 10/27/2018 1024 Gait Goal Most Recent Value STG Status new at 10/27/2018 1024 STG Towson Level supervised at 10/27/2018 1024 STG Assistive Device 2 wheeled walker (FWW), bariatric at 10/27/2018 1024 STG Distance (feet) 50 feet at 10/27/2018 1024 Stair Goal Most Recent Value STG Status new at 10/27/2018 1024 STG Towson Level supervised at 10/27/2018 1024 STG Assistive [...] Lisa was in bed seemed alert and GAMBELL. Lisa let this CM know that she is in an adult foster home in [place] called [facility] adult [facility]. PH: [phone] to the adult foster home. PH:[phone] brother Garcia Gonzalez let this CM know [...] with this CM faxing a referral to [facility] in [place] for a back up plan. Lisa will have her brother or Rain transport her home once she is discharged from the hosp ital. Referral faxed to [facility] in [place]. Sticky note placed on the chart for [...] intact pt denies the presence of numbness/tingling, horse doctor strong, BUE strengths 5/5, RLE strengths 5/5 [...] to her bilateral lower back; medicated w/1 Stanton (10's) PRN. p Note - Karri Owens MD - 10/26/2018 5:27 PM PSTFormatting of this note might be different from the origina l. Operative Note Soo Briceno 58 y.o. female 1960 [id number] Proc. Date 10/26/2018 Preop Dx Spondylolisthesis of [...] in log * Drains Drain/Device Site 10/26/18 6228 #1 lumbar spine (Active) Operative details: After [...] bone autograft obtained from the laminectomy and [place] with bone marrow asp irate were packed [...] signed by: Syed Owens MD 10/26/2018 17:23 [facility] rief Op Note - Romulo Owens MD - 10/26/2018 5:23 PM PSTFormatting of this note might be different from the origin al. Brief Operative Note Soo Leonard Aaskartik 58 y.o. female 1960 [id number] Proc. Date 10/26/2018 Preop Dx Spondylolisthesis of [...] signed by: Syed Owens MD 10/26/2018 17:23 [facility] signed by Syed Owens MD [...] present | | | | | | ([facility]) | | + + +--------+ + [...] | | Jack[place] | | | n [place] | | | | | | printed circuit board panels deburrer | | | ep: | | | [...] ST. | [address] | [place], [place] | [phone] | | [facility] | | [address] | | | - LABORATORY | | [...]
--- OUTSIDE RECORDS SUMMARY | ~2020-07-20 | XMS | Encounter Summary ---
Demographics + + + | Address | [address] | | | [place] [address] | + + + | Home Phone [...] + | Organization | [facility] Man | [...] Team Providers + +------+ + | Care Rose Grading Supervisor Name | Role | Phone | [...] | | | IMAGING [address] | [place] | | | | | [address] [place] | [place] [address] | | | | | [place] [address] | | | | | | [phone] | | | +--------+ + + + [...]
--- OUTSIDE RECORDS SUMMARY | ~2020-07-20 | XMS | Encounter Summary ---
Demographics + + + | Address | [address] | | | [place] [address] | + + + | Home Phone [...] + + + | Author | [facility] | | | and [place] | + + + | Organization | [facility] Man [...] Providers + +------+ + | Care Rn Transition Name | Role | Phone | + [...] | | | | | | | CA LUMBAR | | | | | | | SPINE | | | | | | | FUSION,ANTER | | | | | | | APPRCH CA | | | | | | | [...] | | | | | | ION CA | | | | | | | ARTHRODESIS | | | | | | | POSTERIOR/PO | | | | | | | STEROLATERAL | | | | | | | LUMBAR CA | | | | | | | [...] | | | | | | SEG CA | | | | | | | LAMINEC/FACE | | | | | | | TECT/FORAMIN | | | | | | | ,EACH ADDNL | | | | | | | CA | | | | | | | [...] + + + + | 10/26/ | [facility] | [facility] | Syed Owens MD | | | 2019 | Encounter | MED CTR XRAY [address] | [address] | | | | | [place] | [place] [address] | | | | | [place] [address] | [phone] | | | | | [phone] | | | +--------+ + + + [...] | 0 | 05/20/20 | | | uxcvjmmu-zaldihqdn-l | | | | 18 | 0 | | ydrocortisone | | | | | | | (CORTISPORIN) | | | | | | | [id number] otic | | | | | | [...]
--- OUTSIDE RECORDS SUMMARY | ~2020-07-20 | XMS | Encounter Summary ---
Demographics + + + | Address | [address] | | | [place] [address] | + + + | Home Phone | | + + + | Preferred Language | Unknown | + + + | Marital Status | | + + + | Sikhism Affiliation | 1028 | + + + | Race | White | + + + | Ethnic Group | Not or | + + + Author + + + | Author | [facility] | | | and [place] | + + + | Organization | [facility] [...] Team Providers + +------+ + | Care Electronics Manufacturer Name | Role | Phone | + [...] | NEUROSURGERY [address] | [address] | Appointment | | | | [address] [facility] [address] | [place] [address] | | | | | [place] | [phone] | | | | | [address] | | | | | | [phone] | | | +--------+ + + + [...] that day. Future date will be o [facility] 90 billing period if she wants to see Dr Owens. I tired calling [phone] and it was non working. I tried [phone] and they said she longer lives there. I tried the number they gave me [phone] (updated in demographics) and there was no answer and no voice kelsea moran Need to try calling her again. Electronically signed by Aure Castillo at 9 4:19 PM PDTdocumented in this encounter Plan of Treatment Not on filedocumented as of this encounter Visit Diagnoses Not on filedocumented in this encounter"
--- OUTSIDE RECORDS SUMMARY | ~2020-07-20 | XMS | Encounter Summary ---
Demographics + + + | Address | [address] | | | [place] [address] | + + + | Home Phone [...] Organization | [facility] Man | | | and [...] Team Providers + +------+ + | Care Steam Trap Worker Name | Role | Phone | [...] | | [address] | [place] [address] | | | | | [place] | [phone] | | | | | [address] | | | | | | [phone] | | | +--------+ + + + [...] - 10/14/2018 10:58 AM PSTWA & [place] PROFESSOR OF EARLY CHILDHOOD EDUCATION checked r/t 10/26/18 L4-5 LAIF W/P SF & LAMI Preop MEDD= 10 mg [place] PDMP: [place] PROFESSOR OF EARLY CHILDHOOD EDUCATION: (no data available) Ti De Leon Medic al Banana Carrier - 10/14/2018 10:58 AM PSTFormatting of this [...] severe) The following information was obtained from [email or web address] on 10/14/18. The following information was obtained from https://secureaccess.[place].gov/myAccess/saw/select .do on 10/14/18. [place] PROFESSOR OF EARLY CHILDHOOD EDUCATION was checked on 10/14/18 and no medications have been dispensed. document ed in this encounter Plan of Treatment Not on filedocumented as of this encounter Visit Diagnoses Not on filedocumented in this encounter"
--- OUTSIDE RECORDS SUMMARY | ~2020-07-20 | XMS | Encounter Summary ---
Demographics + + + | Address | [address] | | | [place] [address] | + + + | Home Phone [...] | Organization | [facility] Man | [...] Providers + +------+ + | Care Oil And Gas Recruiter Name | Role | Phone | + [...] | | | IMAGING [address] | [place] | | | | | [address] [place] | [place] [address] | | | | | [place] [address] | | | | | | [phone] | | | +--------+ + + + [...]
--- OUTSIDE RECORDS SUMMARY | ~2020-07-20 | XMS | Encounter Summary ---
Demographics + + + | Address | [address] | | | [place] [address] | + + + | Home Phone [...] + | Organization | [facility] [...] Team Providers + +------+ + | Care Iron Pellet Tester Name | Role | Phone | [...] | | | | [address] | [place] [address] | | | | | [address] | | | | | | [phone] | | | +--------+ + + + [...]
--- OUTSIDE RECORDS SUMMARY | ~2020-07-20 | XMS | Encounter Summary ---
Demographics + + + | Address | [address] | | | [place] [address] | + + + | Home Phone [...] Organization | [facility] Man | | | and [...] Team Providers + +------+ + | Care Warp Spinner Name | Role | Phone | + [...] | | | IMAGING [address] | [place] | | | | | [address] [place] | [place] [address] | | | | | [place] [address] | | | | | | [phone] | | | +--------+ + + + [...]
--- OUTSIDE RECORDS SUMMARY | ~2020-07-20 | XMS | Encounter Summary ---
Demographics + + + | Address | [address] | | | [place] [address] | + + + | Home Phone [...] | [facility] Man | | [...] Team Providers + +------+ + | Care Transition Rn Name | Role | Phone | [...] [address] | | | | | [place], [place] | [place] [address] | | | | | [address] | [phone] | | | | | [phone] | | | +--------+ + + + [...]
--- OUTSIDE RECORDS SUMMARY | ~2020-07-20 | XMS | Encounter Summary ---
Demographics + + + | Address | [address] | | | [place] [address] | + + + | Home Phone [...] | Organization | [facility] | | | and [place] [...] Team Providers + +------+ + | Care It Generalist Name | Role | Phone | + [...] | | | IMAGING [address] | [place] | | | | | [address] [place] | [place] [address] | | | | | [facility] [place] [address] | | | | | | [phone] | | | +--------+ + + + [...]
--- OUTSIDE RECORDS SUMMARY | ~2020-07-20 | XMS | Encounter Summary ---
Demographics + + + | Address | [address] | | | [place] [address] | + + + | Home Phone | | + + + | Preferred Language | Unknown | + + + | Marital Status | | + + + | Congregational Affiliation | 1028 | + + + | Race | White | + + + | Ethnic Group | Not or | + + + Author + + + | Author | [facility] | | | and [place] | + + + | Organization | [facility] | | | [...] Team Providers + +------+ + | Care Video Control Operator Name | Role | Phone | + +------+ + | Gage De Jesus DO | PCP | | + +------+ + Encounter Details +--------+ + + + + | Date | Type | Department | Care Team | Description | +--------+ + + + + | 11/23/ | Hospital | [facility] | Syed Owens MD | Status post lumbar | | 2019 | Encounter | MED CTR XRAY [address] | spinal fusion; | | | | [place] | [place] [address] | Spondylolisthesis of | | | | [place] [address] | [phone] | lumbar region | | | | [phone] | | | +--------+ + + + [...] | 0 | 05/20/20 | | | ymumwcwa-bbjejznun-j | | | | 18 | 0 | | ydrocortisone | | | | | | | (CORTISPORIN) | | | | | | | 3.5-40260-5 otic | | | | | | [...]
--- OUTSIDE RECORDS SUMMARY | ~2020-07-20 | XMS | Encounter Summary ---
Demographics + + + | Address | [address] | | | [place] [address] | + + + | Home Phone [...] | Author | [facility] | | | and [place] | + + + | Organization | [facility] | | [...] Team Providers + +------+ + | Care Bus Driver/Monitor Name | Role | Phone | + +------+ + PCP | Unavailable | + +------+ + Encounter Details +--------+ + + + + | Date | Type | Department | Care Team | Description | +--------+ + + + + | 02/05/ | Hospital | [facility] | Conversion | Pain | | 2017 | Encounter | CONVERSION [address] | Transaction, | | | | | [address] | Provider Unknown | | | | | [place] | [phone] | | | | | [address] | | | | | | [phone] | | | +--------+ + + + [...]
--- OUTSIDE RECORDS SUMMARY | ~2020-07-20 | XMS | Clinical Summary ---
Demographics + + + | Address | [address] | | | [place] [address] | + + + | Home Phone | | + + + | Preferred Language | Unknown | + + + | Marital Status | | + + + | Pentecostalism Affiliation | 1028 | + + + | Race | White | + + + | Ethnic Group | Not or | + + + Author + + + | Author | [facility] | | | and [place] | + + + | Organization | [facility] | | [...] Team Providers + +------+ + | Care Garage Hand Name | Role | Phone | [...] + + + + + | Overview: [id number]: GFR's 20's-50's | + + + + [...] | | NUVASIVE - | | | [id number] | | [id number]: Qty: 2 | c | | NVSV | | | 5 / / | | on 10/26/2018 by Syed Owens | | | | | | | | MD Roberto at [facility] | | | | | | | | [facility] | | | | | | | + +--------+--------+ +--------+--------+--------+ | Imp Spn Cage Xl 10d | Generi | Left: | NUVASIVE - | | | [id number] | | [id number] - | c | Spine | NVSV | | | 5 / | | [id number]: Qty: 1 | | Lumbar | | | | /[id number] | | on 10/26/2018 by Syed Owens | | | | | | 1 | | MD Roberto at [facility] | | | | | | | | [facility] | | | | | | | + +--------+--------+ +--------+--------+--------+ | Putty Suha 10cc Dbm - | Graft | Left: | [employer] - | | 06/01/ | [id number] | | [id number]: Qty: 1 | | Spine | MEDT | | 2020 | | | on 10/26/2018 by Syed Owens | | Lumbar | | | | /[id number] | | MD Roberto at [facility] | | | | | | 1-042 | | [facility] | | | | | | / | + +--------+--------+ +--------+--------+--------+ | Graft Infuse Bone Kit Xxs - | Graft | Left: | [employer] - | | 07/29/ | [id number] | | [id number]: Qty: 1 | | Spine | MEDT | | 2018 | 0 / | | on 10/26/2018 by Syed Owens | | Lumbar | | | | /[id number] | | MD Roberto at [facility] | | | | | | [id number] | | [facility] | | | | | | | + +--------+--------+ +--------+--------+--------+ | Screw Set - | Screw | | NUVASIVE - | | | [id number] | | [id number]: Qty: 4 | | | NVSV | | | 0 / / | | on 10/26/2018 by Syed Owens | | | | | | | | MD Roberto at [facility] | | | | | | | | [facility] | | | | | | | + +--------+--------+ +--------+--------+--------+ | Screw Polyax Prcpt 7.5x50mm - | Screw | Left: | NUVASIVE - | | | [id number] | | [id number]: Qty: 4 | | Spine | NVSV | | | 0A / / | | on 10/26/2018 by Syed Owens | | Lumbar | | | | | | MD Roberto at [facility] | | | | | | | | [facility] | | | | | | [...] J?MRN: | | | | | | [id number] | | | [id number] | | | riteri | | | [...] | | | h | | | [place] | | | 888-43 | | | [...] | | | St. | | | [place] | | | y | | | [...] | | | St. | | | [place] | | | y H. | | [...] | | | St. | | | [place] | | | y H. | | [...] J?MRN: | | | | | | [id number] | | | [id number] | | | riteri | | | [...] | | | h | | | [place] | | | 888-43 | | | [...] | | | St. | | | [place] | | | y | | | [...] | | | St. | | | [place] | | | y H. | | [...] | | | St. | | | [place] | | | y H. | | [...] | | | [id number] | | | [id number] | | | | | | PLEASE [...] Procedure Note | + + | Compa, [id number] - 07/06/2020 3:09 PM PDT EXAM: XR [...] [address] | [place] | [phone] | | [facility] | | [address] | | | - LABORATORY | | [...] [address] | [place] | [phone] | | [facility] | | [address] | | | - LABORATORY | | [...] [address] | [place] | [phone] | | [facility] | | [address] | | | - LABORATORY | | [...] + | [address] | [address] | [place] | [phone] | | [facility] | | [address] | | | - LABORATORY | | [...] | | | | | | [employer] | | | | | [...] [address] | [place] | [phone] | | [facility] | | [address] | | | - LABORATORY | | [...] + | [facility] | [address] | [place] | [phone] | | [facility] | | [address] | | | - LABORATORY | | [...] mL/min/1.73m2 | [facility] | | | Indian | RATE,ESTIMATED | | MEDICAL | | | | mL/min/1.48j7Aetn than | | CENTER - | | [...] | | GLOMERULAR FILTRATION | mL/min/1.73m2 | [facility] | | | Indian | RATE,ESTIMATED | | MEDICAL | | | | mL/min/1.35f3Ydgm than | | CENTER - | | [...] | | | | | mg/dL | [facility] | | | | [...] [address] | [place] | [phone] | | [facility] | | [address] | | | - LABORATORY | | [...] | | | | | | JEAN ([id number]) on | | | | | | [...] | | | canal. Severe right and hhcs-ug-acnqhzis left neural foraminal | | | narrowing. [...] Procedure Note | + + | Compa, [id number] - 06/27/2020 8:04 PM PDT EXAM: MRI [...] | Modic type II endplate changes anteriorly yjM88-06, T12-L1, and L1-2. Slight | | retrolisthesis [...] of the central spinal canal. Severe right xrjbyio-sz-vomvqres left neural | | foraminal narrowing. This [...] + + | Performing | Address | City/State[facility] | Phone Number | | Organization | [...] Procedure Note | + + | Compa, [id number] - 05/01/2020 10:29 AM PDT XR LUMBAR [...] + + | Performing | Address | City/State/[facility] | Phone Number | | Organization | [...] | [facility] | [facility] | [id number] | | [phone] | | [facility] | [...] al/Fam | | 1960 | [phone] | [place], [place] | | | juanita | | | 7 (Home) | [address] | + +--------+ +--------+ + + Advance Directives + + + + + | Type | Date Recorded | Patient | Explanation | | | | [employer] | | + + + + + | Power of | | | | | Pit Hand | | | | + + + [...]
--- OUTSIDE RECORDS SUMMARY | ~2020-07-20 | XMS | Encounter Summary ---
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 lity Post discharge occupational therapy recommendation: ongoing high intensity therapy, pt is motivated participant, will benefit from structured setting Equipment Recommendations: sock aide, hadoop analyst, 2 wheeled walker (FWW) Planned Interventions:ADL retraining, balance training, functional endurance training, ROM (Range of Motion), strengthening, transfer training Recommended Frequency: (4-5xs) Patient Status/Goals: Reflects last filed data and may be from multiple contributors. ADLs LB dressing (socks only) LB dressing (socks only) with hadoop analyst and sockaide. Min A overall due to incidental assists from OT placement of hadoop analyst for doffing socks and help to pull up tops of socks. V/cs prov ided throughout and extra time. V/cs to remind pt not to bend too much. LB Dressing, Level of [place]: minimal assist (75% patient effort), set up required, v erbal cues required, tactile cues required Assistive Device: hadoop analyst, sock-aid LB Dressing Assess/Train, Position: sitting LB [...] for upright po sture. Sit-Stand, Level of [place]: stand by assist, verbal cues required Stand-Sit, Level of [place]: stand by assist, verbal cues required Npq-Txqqc-Rrf, Assistive Device: 2 wheeled walker (FWW) Impairments: strength decreased, postural control impaired ROM BUE ROM WFL Strength BUE Strength WFL. Pt with good director of professional services strength for BUE when gripping OT's fingers. R UE Strength: Pt reporting decreased director of professional services strength for RUE due to carpal tunnel. Coordination: Coordination Comments: Pt able to perform finger individuation (each finger to thumb) for b oth hands, no concerns for coordination otherwise. OT Goal Review Date Most Recent Value STG Review Date 12/21/18 at 12/14/2018 1633 Grooming Goal Most Recent Value STG Status new at 12/14/2018 1633 STG [place] Level supervised at 12/14/2018 1633 STG Position standing at 12/14/2018 1633 LB Dressing Goal Most Recent Value STG Status new at 12/14/2018 1633 STG [place] Level supervised at 12/14/2018 1633 STG Adaptive Equipment hadoop analyst, sock-aid at 12/14/2018 1633 Toileting Goal Most Recent Value STG Status new at 12/14/2018 1633 STG [place] Level supervised at 12/14/2018 1633 Toilet Transfer Goal Most Recent Value STG Status new at 12/14/2018 1633 STG [place] Level supervised at 12/14/2018 1633 STG Assistive Device 2 wheeled walker (FWW) at 12/14/2018 1633 Tub/Shower Transfer Goal Most Recent Value Tub/Shower Type -- [TBD dependent upon tub/shower type where she will be d/cing. ] at 11/27 1633 STG Status new at 12/14/2018 1633 STG [place] Level supervised at 12/14/2018 1633 STG Assistive [...] back location, unspecified back pain laterality, unspecified rn chronic nicity M54.9 724.5 lan of Care - [...] RESTRAINT-RELATED GOALS: STRATEGIES TO ACHIEVE RESTRAINT GOALS: [facility] Physical Therapy OPIB Plan of Care Initial [...] mobilize at level safe for home discharge, [facility] indicating significant imp airment with basic functional [...] hours of therapy each day split between ELECTRONIC SCIENCE TEACHER, OT, and PT; dining group -Friday; Lisa [...] with ADLS. She lives in an adult assisted, was in a [facility] 1 988 with long rehab. She's has had multiple falls and weakness recently Potential available assistance at discharge: Significant Relationships: brother Living Environment/Accessibility: Lives With: facility resident Living Arrangements: assisted Patient/Family s Goals: Be able to go [...] are: Recommended discharge disposition: inpatient rehabilitation facility, group home faci lity Post discharge physical therapy recommendation: [...] Device: none Supine to Sit, Level of [place]: contact guard assist Impairments: decreased flexibility, ROM decreased, strength decreased, impaired balance, mo tor control impaired, pain Transfers 2nd person present for assistance d/t r/o pain and weakness; able to transfer without physi rose assist between bed and chair with need for assist to get to standing. She was able to a ppropriately verbalize sequencing Bed-Chair, Level of [place]: contact guard assist, set up required, 1 person + 1 perso n to manage equipment Chair-Bed, Level of [place]: contact guard assist, set up required, 1 person + 1 perso n to manage equipment Qsf-Btnui-Jlu, Assistive Device: bariatric, 2 wheeled walker (FWW) Sit-Stand, Level of [place]: minimal assist (75% patient effort), set up required, 1 p erson + 1 person to manage equipment Stand-Sit, Level of [place]: contact guard assist, set up required, 1 person + 1 perso n to manage equipment Nym-Ffjxz-Zxq, Assistive Device: bariatric, 2 wheeled walker (FWW) Impairments: decreased flexibility, ROM decreased, strength decreased, impaired balance, mo tor control impaired, pain Gait Level of [place]: not appropriate to assess Stairs Level of [place]: not appropriate to assess Balance Sitting Balance: [...] Mobility Six Click AM-PAC: 12 Completed the [facility] Activity Measure for Post Acute [...] STG Review Date 12/21/18 at 12/14/2018 1520 Vdlwkc-Fee-Ljnmis Goal Most Recent Value STG Status new at 12/14/2018 1520 STG [place] Level supervised at 12/14/2018 1520 Xly-Ibmjk-Xjz Goal Most Recent Value STG Status new at 12/14/2018 1520 STG [place] Level supervised at 12/14/2018 1520 STG Assistive Device bariatric, 2 wheeled walker (FWW) at 12/14/2018 1520 Gait Goal Most Recent Value STG Status new at 12/14/2018 1520 STG [place] Level supervised at 12/14/2018 1520 STG Assistive Device bariatric, 2 wheeled walker (FWW) at 12/14/2018 1520 STG Distance (feet) 50 x2 at 12/14/2018 1520 Stair Goal Most Recent Value STG Status new at 12/14/2018 1520 STG [place] Level stand by assist at 12/14/2018 1520 [...] back location, unspecified back pain laterality, unspecified rn chronic nicity M54.9 724.5 lan of Berna - Rain Barnett RN - 12/14/2018 2:48 PM PDTProblem: Discharge Planning Goal: Patient will be discharged in a safe manner Outcome: Unchanged This CM met with patient at her bedside to discuss her d/c plan. Patient had been living at the [facility] in [place] for about 2 years and then went to [facility] after her back surgery for her rehab then returned to the [facility] after her 1 month re hab. She states that she failed the evacuation drill 3 times so could not stay in this particula r home. She was moved to another [facility] in [place], [place], at [address], [facility], but could not wal k there and her leg was very weak so was transferred here from an outside hospital ED for ne uro f/u. She is not sure whether she will need to go back to [facility] or not. She also mentioned [facility] in [place] that has a 24/7 care facility. Called [phone] at [place] and left a message with Michel, requesting a return call to dischraleigh peñae a possible discharge plan. EPIC SNF referral sent to [facility] since patient just did her rehab there. Bruno, admit coordinator, at , called this CM after seeing the SNF referral. She reported that the [facility] facility is an [place] and rehab only. Bruno stated that they had already extended her rehab days after the 20 days since this was all that was approved with her insurance. They worked thru [facility]) to get the extra 10 days since sh sudarshan was improving daily. After the month they had to [facility] her [facility] to the [facility]. Patient confirms that she has Russ De Jesus DO, as her PCP and was getting her meds thru [facility]. Per patient, Garcia, her brother, who lives in [place], has a pickup, but a bad back, but t tray will need to figure out how to get her belongings out of the new [facility] since most likely s he will need to go to a jail placement for her 24/7 care needs at [...] IPR vs back to her [facility] in [place]. Patient will need a w/c if she returns to the [facility]. CM to follow. Electronically signed by: Rain Barnett RN 12/14/2018 14:48 15:48 pm This CM called, Margareth, residential real estate assistant of the [facility], p# [phone], and she sta lay that patient had [...] Robert, PT, letting him know that the [facility] will accept her back but on ly [...] J?MRN: | | | | | | [id number] | | | [id number] | | | riteri | | | [...] | | | h | | | [place] | | | 888-43 | | | [...] | | | 061-32 | | | [id number] | | | ca20 | | | [...] [address] | [place] | [phone] | | [facility] | | [address] | | | - LABORATORY | | [...] + | [facility] | [address] | [place] | [phone] | | [facility] | | [address] | | | - LABORATORY | | [...] mL/min/1.73m2 | [facility] | | | [place] | | | MEDICAL | | | [...] [address] | [place] | [phone] | | [facility] | | [address] | | | - LABORATORY | | [...] + | [facility] | [address] | [place] | [phone] | | [facility] | | [address] | | | - LABORATORY | | [...] mL/min/1.73m2 | [facility] | | | [place] | | | MEDICAL | | | [...] [address] | [place] | [phone] | | [facility] | | [address] | | | - LABORATORY | | [...] | | chromogenic agar method | | [facility] | | | | | [...] ST. | [address] | [place] | [phone] | | [facility] | | [address] | | | - LABORATORY | | [...] | | | causing moderate right and xbhc-ce-rstfxvjd left neural foraminal | | | narrowing [...] | | bulges causing moderate right and gzfa-hh-biwatows left neural | | foraminal narrowing unchanged. [...] ST. | [address] | [place], [place] | [phone] | | [facility] | | [address] | | | - LABORATORY | | [...] | | | | | | [facility] | | [...] mL/min/1.73m2 | [facility] | | | [place] | | | MEDICAL | | | [...] [address] | [place] | [phone] | | [facility] | | [address] | | | - LABORATORY | | [...] [address] | [place] | [phone] | | [facility] | | [address] | | | - LABORATORY | | [...]
--- OUTSIDE RECORDS SUMMARY | ~2020-07-20 | XMS | Encounter Summary ---
Demographics + + + | Address | [address] | | | [place] [address] | + + + | Home Phone [...] Organization | [facility] Man | | [...] Team Providers + +------+ + | Care Automatic Pad Making Machine Operator Name | Role | Phone | + +------+ + | Gage De Jesus DO | PCP | | + +------+ + Encounter Details +--------+ + + + + | Date | Type | Department | Care Team | Description | +--------+ + + + + | 01/19/ | Hospital | [facility] | Arpit Bolden, | Back pain, | | 2018 | Encounter | MED CTR XRAY [address] | DO [address] | unspecified back | | | | [place] | [address] [place], [place] | location, | | | | [place] [address] | [address] | unspecified back | | | | [phone] | | pain laterality, | | | [...]
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
--- OUTSIDE RECORDS SUMMARY | ~2020-07-20 | XMS | Encounter Summary ---
Demographics + + + | Address | [address] | | | [place] [address] | + + + | Home Phone [...] Organization | [facility] Man | | | and [...] Team Providers + +------+ + | Care Accounting Methods Analyst Name | Role | Phone | [...] low | Jasbir E, | [address] | | | | | back pain, | PA-C [address] | [place], | | | | | unspecified | [address] | [place] | | | | | back pain | [address] | [address] | | | | | laterality, | [place], | Phone: | | | | | unspecified | [place] [address] | [phone] | | | | | whether | Phone: | Fax: | | | | | sciatica | [phone] | [phone] | | | | | present | Fax: | | | | | | Procedures | [phone] | | | | | | MRI [...] low | Jasbir E, | [address] | | | | | back pain, | PA-C [address] | [place], | | | | | unspecified | [address] | [place] | | | | | back pain | [address] | [address] | | | | | laterality, | [place], | Phone: | | | | | unspecified | [place] [address] | [phone] | | | | | whether | Phone: | Fax: | | | | | sciatica | [phone] | [phone] | | | | | present | Fax: | | | | | | Procedures | [phone] | | | | | | MRI Lumbar | | | | | | | Spine wo | | | | | | | Contrast | | | +--------+--------+ + + + + Encounter Details +--------+ + + + + | Date | Type | Department | Care Team | Description | +--------+ + + + + | 06/27/ | Hospital | [facility] | LonniecesarJasbir storey, | Chronic low back | | 2020 | Encounter | MED CTR MRI [address] | PA-C [address] | pain, unspecified | | | | [address] [place], | [address] [place] | back pain | | | | [place] [address] | [place] [address] | laterality, | | | | [phone] | [phone] | unspecified whether | | | | [...] | | | canal. Severe right and eeiy-ey-fyllpgbz left neural foraminal | | | narrowing. [...] Procedure Note | + + | Compa, [id number] - 06/27/2020 8:04 PM PDT EXAM: MRI [...] | Modic type II endplate changes anteriorly [id number], T12-L1, and L1-2. Slight | | retrolisthesis [...] of the central spinal canal. Severe right smxwmxy-jj-ukcvxxbq left neural | | foraminal narrowing. This [...]
--- OUTSIDE RECORDS SUMMARY | ~2020-07-20 | XMS | Encounter Summary ---
Demographics + + + | Address | [address] | | | [place] [address] | + + + | Home Phone [...] + | Organization | [facility] Man [...] Providers + +------+ + | Care Rn Admission Name | Role | Phone | + [...] TEE | | | | | [address] | [place] [address] | | | | | [place], [place] | | | | | | [address] | | | | | | [phone] | | | +--------+ + + + [...]
--- OUTSIDE RECORDS SUMMARY | ~2020-07-20 | XMS | Encounter Summary ---
Demographics + + + | Address | [address] | | | [place] [address] | + + + | Home Phone [...] Organization | [facility] Man | | | and [...] Team Providers + +------+ + | Care Milk Wagon Driver Name | Role | Phone | + [...] [address] [place] | Dx); History of | | | | [place] | [address] | lumbar fusion; | | | | [address] | | Bilateral leg pain | | | | [phone] | | | +--------+ + + + [...]
--- OUTSIDE RECORDS SUMMARY | ~2020-07-20 | XMS | Encounter Summary ---
Demographics + + + | Address | [address] | | | [place] [address] | + + + | Home Phone [...] Organization | [facility] Man [...] | + + +---------+ + | Mazin Shaffre | ECON | Unknown | | + + +---------+ + Care Team Providers + +------+ + | Care Case Management Social Worker Name | Role | Phone | [...] [address] | [address] [place], [place] | location, | | | | [place], [place] | [address] | unspecified back | | | | [address] | | pain laterality, | | | | [phone] | | unspecified | | | | [...] Procedure Note | + + | Comap, Rad Results In - 01/19/2018 2:44 PM [...]
--- OUTSIDE RECORDS SUMMARY | ~2020-07-20 | XMS | Encounter Summary ---
Demographics + + + | Address | [address] | | | [place] [address] | + + + | Home Phone [...] + | Organization | [facility] Man | [...] Team Providers + +------+ + | Care Printing Press Operator Name | Role | Phone | + +------+ + PCP | Unavailable | + +------+ + Encounter Details +--------+ + + + + | Date | Type | Department | Care Team | Description | +--------+ + + + + | 02/05/ | Hospital | [facility] | Conversion | Pain | | 2017 | Encounter | CONVERSION [address] | Transaction, | | | | | [address] | Provider Unknown | | | | | [place] | [phone] | | | | | [address] | | | | | | [phone] | | | +--------+ + + + [...]
--- OUTSIDE RECORDS SUMMARY | ~2020-07-20 | XMS | Encounter Summary ---
Demographics + + + | Address | [address] | | | [place] [address] | + + + | Home Phone [...] | Organization | [facility] Man [...] Team Providers + +------+ + | Care Pantograph Ii Engraver Name | Role | Phone | [...] + + | 10/14/ | Office | [facility] | Lisa Arguelles | Spondylolisthesis of | | 2019 | Visit | NEUROSURGERY [address] | SHANTHI Goldman [address] | lumbar region | | | | [facility] [address] | [facility] [address] | (Primary Dx); Lumbar | | | | [place], [place] | [address] [place] [address] | radiculopathy; | | | | [address] | [address] | Foraminal stenosis | | | | [phone] | | of lumbar region; | | [...] encounter Patient Instructions Patient Instructions Ti Charlton, Farm Equipment Service Technician - 10/14/2018 10:30 AM PSTIt was a ple asure to see you today. Here is what we discussed. If you do need a refill on pain medications or muscle relaxers after you get home please ma ke sure to give us plenty of notice so that we have time to mail the prescription to you. O ur phone number is [phone]. You can also contact your primary care [...] be diffe rent from the original. Pj Arguelels PA-C [address] [facility], [address] [place] [address] FAX: [phone] NEUROSURGERY HISTORY AND PHYSICAL EXAMINATION CHIEF COMPLAINT: [...] Surgical History: Procedure Laterality Date CHOLECYSTECTOMY 1995 [facility] HYSTERECTOMY 1999 [facility] [place] TONSILLECTOMY 1989 [facility] CURRENT MEDICATIONS: Current Outpatient Prescriptions [...] Intrinsics 5 5 Ulnar Intrinsics 5 5 Capsule Inspector Strength 5 5 Hip Flexion 5 5 [...] vomiting) Poor circulation Rheumatoid arthritis (HCC) Seizure ([facility]) PLAN: Soo Briceno presented today, and it [...] signs. The patient's MEDD, pain assessments, and [place] and [place] TECHNICAL SERVICES SPECIALIST's were reviewed under the Documentation encounter [...]
--- OUTSIDE RECORDS SUMMARY | ~2020-07-20 | XMS | Encounter Summary ---
Demographics + + + | Address | [address] | | | [place] [address] | + + + | Home Phone | | + + + | Preferred Language | Unknown | + + + | Marital Status | | + + + | Cheondoism Affiliation | 1028 | + + + | Race | White | + + + | Ethnic Group | Not or | + + + Author + + + | Author | [facility] | | | and [place] | + + + | Organization | [facility] Man | [...] Team Providers + +------+ + | Care Litigation Attorney Associate Name | Role | Phone | + [...] | | | | [address] | [place] [address] | | | | | [address] | | | | | | [phone] | | | +--------+ + + + [...]
--- OUTSIDE RECORDS SUMMARY | ~2020-07-20 | XMS | Encounter Summary ---
Demographics + + + | Address | [address] | | | [place] [address] | + + + | Home Phone [...] + + + | Author | [facility] | | | and [place] | + + + | Organization | [facility] and [facility] Man | | | and [...] Team Providers + +------+ + | Care Window Decorator Name | Role | Phone | + +------+ + | Gage De Jesus DO | PCP | | + +------+ + Encounter Details +--------+ + + + + | Date | Type | Department | Care Team | Description | +--------+ + + + + | 04/08/ | Orders Only | [facility] | Conversion | | | 2016 | | NEPRHOLOGY [place] | Transaction, | | | | | [address] | Provider Unknown | | | | | [address] [place], [place] | [phone] | | | | | [address] | | | | | | [phone] | | | +--------+ + + + [...] | | | LAB | | | [place]ian | | | | | + + [...]
[~2020-07-20 09:40] MED LIST changes: -LIPITOR80 MG PO; -PROTONIX40 MG PO; -SEROQUEL50 MG PO
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
--- NOTE | 2020-07-20 12:20 | NUR ---
1206 report recieved from Ezequiel in ER.
--- NOTE | 2020-07-20 13:00 | NUR ---
60YR OLD WOMAN ADMITTED FROM ER VIA STRETCHER TO ROOM 111. 4 PERSON ASSIST TO MOVE FROM STRETCHER TO BED. PT C/O PAIN WITH ANY MOVEMENT, UNABLE TO HELP TURN OR POSITION HERSELF. TIPTON CATH IN PLACE AND SECURED WITH YELLOW URINE. POSITIONED FOR COMFORT AND ORIENTED TO ROOM AND CALL LIGHT. RADIOLOGY HERE TO XRAY KNEE.
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
--- NOTE | 2020-07-20 14:26 | NUR ---
PT GIVEN BED BATH, NYSTATIN POWDER APPLIED TO RED AREAS UNDER BREAST AND SAMUEL AREA. FEET WRAPPED IN WARM WET TOWELS TO WASH.
--- NOTE | 2020-07-20 15:15 | NUR ---
PT ATE 100% OF TURKEY DINNER ORDERED, RESTING COMFORTABLY AT THIS TIME. CALL LIGHT IN EASY REACH.
--- NOTE | 2020-07-20 16:30 | NUR ---
PT SAT UP TO BEDSIDE WITH PHYSICAL THERAPY, UNABLE TO STAND DUE TO PAIN IN R KNEE, 3 PERSON ASSIST TO REPOSITION BACK INTO BED. TIPTON REMAINS PATENT WITH YELLOW URINE, PT STATES SHE IS COMFORTABLE. CALL LIGHT IN EASY REACH.
--- NOTE | 2020-07-20 17:59 | NUR ---
RECIEVED CALL FROM [employer] FOR UPDATE ON PT STATUS, TONIE Mejia BLUNGER WILL COME AROUND 11:00 TOMORROW TO ASSESS PT.
--- NOTE | 2020-07-20 19:27 | NUR ---
PT AWAKE, WATCHING TV, NO C/O PAIN, R LEG ELEVATED IN PILLOWS,
--- NOTE | 2020-07-20 19:29 | NUR ---
AWAKES EASILY, NO REQUESTS, NO C/O PAIN. IN BED
--- NOTE | 2020-07-20 19:34 | NUR ---
WARM SHOWER CAPS ON EACH FOOT AND KEPT IT ON THERE FOR A LITTLE WHILE THAN CAME BACK IN AND TOOK THEM OFF AND THEW THEM AWAY. THEN APPLIED LOTION. SHE SAID IT FELT GOOD.
--- NOTE | 2020-07-20 23:54 | NUR ---
RESTING, AWAKES EASILY, WAS REPOSITIONED, NO C/O PAIN, ON ROOM AIR,F/C PATENT, LE ELEVATED,
--- NOTE | 2020-07-21 01:30 | NUR ---
AWAKE, ANXIOUS, REASSURED, CONCERNED ABOUT NOT HAVING HAD LUNCH, PT HAD LUNCH SNACKS AND SHE ALSO ATE 50% DINNER PER RECORDS, HAS BEEN TOLERATING FLUIDS WELL, NO C/O PAIN. LIMITED MOTION R SIDE, BRUISING ARMS PRESENT AND SCABBED OVER AREAS R HAND. GENERALIZED EDEMA, F/C PRESENT, NOT CHRONIC WITH LOW UO. IVF INFUSING W/O PROBLEMS, ON ROOM AIR. BED ALARM ON PER SAFETY, REPOSITIONED IN BED TO HER COMFORT, HOB ELEVAQTED, LEGS ELEVATED, PUDING GIVEN TO HER REQUESTS. PT ALSO ORIENTED TO TIME
--- NOTE | 2020-07-21 01:34 | NUR ---
PROVIDED A PUDDING TO PT, PT STATED TO RN THAT SHE IS HUNGRY, DENIES NEEDING HELP WITH EATING AT THIS TIME
--- NOTE | 2020-07-21 02:07 | NUR ---
PROVIDED MORE PUDDING AND TWO CRACKERS, PT CALLED AND C/O HUNGER, PT DOES NOT RECALL HAVEING DINNER
--- NOTE | 2020-07-21 04:32 | NUR ---
PT WAS AWAKE OFF AND ON, VERY ANXIOUS AND FIXATING ON MULTIPLE THINGS, REASSURED AND SNACKS, AND PLACEMENT OF ITEMS DONE TO HER SATISFACTION. ON ROOM AIR, CALMER AT THIS TIME SHE GETS ANXIOUS OFF AND ON, EASILY REDIRECTABLE. REDNESS/RASH AREA BETWEEN BREAST,PANNUS,AXILLA, SAMUEL AREA W/O CHANGES, NYASTATIS POWDER APPLIED ORDERED, GENERALIZED EDEMA, PT VERY OBESE, TURNED Q2H, F/C PATENT, URINARY OUTPUT QS. LEGS ELEVATED. TOELRATING DIET AND FLUIDS WELL, REQUIERES MINIMUM OF HELP R SIDED DEFICIT OR ARMS AND LEGS PRESENT
--- NOTE | 2020-07-21 06:46 | NUR ---
AWAKEN EASILY, COOP WITH VITALS, NO C/O PAIN, GOES BACK TO SLEEP, CALL LIGHT AND LFUIDS AT BEDSIDE
--- NOTE | 2020-07-21 08:50 | NUR ---
PT SITTING UP IN BED EATING BREAKFAST AND WATCHING TV. AM ASSESSMENT COMPLETED AND AM MEDS ADMINSITERED -SEE EMAR. CALL LIGHT AND H2O IN REACH. PT DENIES PAIN, NAUSEA OR SOB. NO NEEDS OR CONCERNS VOICED.
--- NOTE | 2020-07-21 09:27 | NUR ---
ABDOUL WITH CASE MANAGEMENT IN TO SEE PATIENT.
--- NOTE | 2020-07-21 09:40 | NUR ---
STOPPED IN TO SPEAK TO PATIENT. SHE WAS WORKING WITH OT. THEY WERE DISCUSSING POSSIBLY NEEDING SNF STAY. PATIENT WAS OPEN TO THE IDEA. DISCUSSED WITH HER THAT WE WILL TALK MORE SHE IS CLOSER TO DISCHARGE.
--- NOTE | 2020-07-21 11:55 | NUR ---
PT ALERT AND ORIENTED SITTING UP IN BED EATING LUNCH. CALL LIGHT AND H2O IN REACH. NO NEEDS OR CONCERNS VOICED.
--- NOTE | 2020-07-21 12:06 | PATH ---
[facility] [address] [place], [place] [address] Signed ORDERING PHYSICIAN: Cedrick Damon MD PATIENT NAME: REBECCA FERNÁNDEZ GENDER: F : 1960 Prior History: No cases found. SPECIMEN(S): MOLECULAR PATHOLOGY RESULTS: SARS-CoV-2 Not Detected ADDITIONAL NOTES.: The [place] Fusion SARS-CoV-2 Assay is a multiplex real-time PCR (RT-PCR) in vitro diagnostic test intended for the qualitative detection of RNA from SARS-CoV-2 from individuals who meet COVID-19 clinical and/or epidemiological criteria. In general, SARS-CoV-2 RNA can be detected during the acute phase of infection. Positive results indicate the presence of SARS-CoV-2 RNA. Clinical correlation with patient history and other diagnostic information is necessary to determine patient infection status. Positive results do not rule out bacterial infection or co-infection with other viruses. Negative results do not preclude SARS-CoV-2 infection and should not be used as the sole basis for patient management decisions. Negative results must be combined with other clinical observations, patient history, and epidemiological information. The [place] Fusion SARS-CoV-2 Assay is not yet approved or cleared by the [place] FDA. When there are no FDA-approved or cleared tests available, and other criteria are met, FDA can make tests available under an emergency access mechanism called an Emergency Use Authorization (EUA). The EUA for this test is supported by the [facility] Director of Health and Human Service's (HHS's) declaration that circumstances exist to justify the emergency use of in vitro diagnostics for the detection and/or diagnosis of the virus that causes COVID-19. This EUA will remain in effect for the duration of the COVID-19 declaration justifying emergency of IVDs, unless it is terminated or revoked by FDA, after which the test may no longer be used. The [place] Fusion SARS-CoV-2 Assay is for use only under EUA PATIENT NAME: REBECCA FERNÁNDEZ PATHOLOGY DATE OF : 60 REPORT #: [id number] PHYSICIAN: JOSELIN GALVAN PCP: DEVON RHODES REPORT IS CONFIDENTIAL AND NOT TO BE RELEASED WITHOUT AUTHORIZATION [facility] [address] [place] [address] [place], [place] [address] Signed in [place] laboratories certified under the Clinical Laboratory Improvement Amendments of 1988 (CLIA) to perform high complexity tests. [facility] is certified under CLIA to perform high complexity clinical laboratory testing. PERFORMING LABORATORY.: Molecular testing was performed by [facility] [place] [address] (Loft Patternmaker: Todd Bernabe D.O.; CLIA#: [id number]) Diagnostician: System Interface Pathologist Electronically Signed 07/21/2020 Copies: ~ PATIENT NAME: REBECCA FERNÁNDEZ PATHOLOGY DATE OF : 60 REPORT #: [id number] PHYSICIAN: JOSELIN GALVAN PCP: DEVON RHODES REPORT IS CONFIDENTIAL AND NOT TO BE RELEASED WITHOUT AUTHORIZATION
[2020-07-21] MEDS ORDERED: SEROQUEL100 MG PO (12:08)
[2020-07-21] MEDS ORDERED: PROTONIX40 MG PO (12:08)
--- NOTE | 2020-07-21 12:10 | NUR ---
MED REC COMPLETE
[2020-07-21] MEDS ORDERED: LIPITOR80 MG PO (12:13)
[2020-07-21] MEDS ORDERED: SEROQUEL50 MG PO (12:28)
--- NOTE | 2020-07-21 12:36 | NUR ---
SPOKE WITH PATIENT IN ROOM. SHE JUST FINISHED LUNCH. SHE STATES SHE FEELS "LITTLE BETTER". PATIENT STATES SHE WAS ABLE TO STAND FOR 15 SECONDS TODAY. SHE FEELS THIS IS BETTER THAN LAST FEW DAYS. DISCUSSED DISCHARGE PLAN. SHE STATES SHE UNDERSTANDS FROM THERAPY THAT SHE NEEDS A "ASSISTED FOR THERAPY". WE DISCUSSED OPTIONS IN AREA. DISCUSSED THERE IS A WEBSITE THAT SHOWS THE LOCAL ONES AND THEIR RATINGS. SHE STATES "ONE IS GOOD ANOTHER". SHE STATES SHE HAS BEEN IN SOME BEFORE AFTER KNEE SURGERIES. SHE STATES SHE WOULD LIKE TO STAY IN [place]. I DISCUSSED [facility] OPTION HERE. SHE STATES "I THINK THAT WILL BE OK". WE ALSO DISCUSSED VISITING RESTRICTIONS AT ALL FACILITIES DUE TO COVID. SHE STATES SHE UNDERSTANDS "THAT IS PROBABLY SAFER, I DON'T WANT TO CATCH THAT". EXPLAINED I CAN SEND CHART NOTES TODAY AND FRIDAY WE WILL LOOK AT IF SHE IS READY FOR DISCHARGE WITH DOCTOR AND MAKE FINAL DECISIONS. SHE IS GOOD WITH THIS. PATIENT HAS HER WALKER IN THE ROOM. SHE DENIES HAVING A WHEELCHAIR. DENIES OTHER DME. WE DISCUSSED THAT [employer] IS LOOKING AT HELPING HER FIND NEW HOUSING LONG-TERM. PATIENT HAS NO OTHER QUESTIONS AT THIS TIME.
--- NOTE | 2020-07-21 13:16 | NUR ---
RECEIVED PHONE CALL FROM LORI GATES [facility]. DISCUSSED WITH HER POSSIBLE THERAPY STAY AT SNF. SHE STATES PATIENT HAS DONE THIS BEFORE AND LAST WAS [facility]. SHE STATES THEY HAD A HARD TIME WITH HER DISCHARGING FROM SNF PATIENT WOULD BE DOING WELL UNTIL TIME TO DISCHARGE AND THEN SHE WOULD SAY SHE COULDN'T WALK AGAIN SO SHE COULD STAY. I DISCUSSED PATIENT IS REQUESTING TO STAY IN [place] [facility]. SHE STATES TO KEEP THEM UPDATED NEXT WEEK AND IF STAFF NEEDS TO TALK WITH HER ON WEEKEND TO CALL. FAXED FACESHEET AND CLINICALS TO [facility] WITH CONFIRMATION AT 3425. MESSAGE LEFT ON ADMITTING NUMBER.
--- NOTE | 2020-07-21 14:09 | NUR ---
PATIENT IS SLEEPING.
--- NOTE | 2020-07-21 15:10 | NUR ---
Pt resting reclined in bed alert to voice pm med administered. Pt denies further needs or concerns. Call light and h2o in reach.
--- NOTE | 2020-07-21 18:35 | NUR ---
PT ASSISTED IN REPOSITIONING ONTO HER LEFT SIDE WITH 2PA, BARRIER CREAM APPLIED TO BOTTOM. CALL LIGHT AND H2O IN REACH. PT TOLERATED DINNER WELL. DENIES PAIN NAUSEA OR SOB.
--- NOTE | 2020-07-21 19:40 | NUR ---
In bed watching tv, no c/o pain, no requests, ivf infusing, call light at hands reach
--- NOTE | 2020-07-21 19:59 | NUR ---
PSYCH ASSISTANT ROUNDING NOTE. PT RESTING IN BED. STATES THAT SHE MISPLACED HER CALL LIGHT, HANDED TO PT. PT REPOSITIONED IN BED. SHE DENIES FURTHER NEEDS AT THIS TIME. PRIMARY RN AT BEDSIDE. WHITE BOARD UDPATED.
--- NOTE | 2020-07-21 20:23 | NUR ---
Repositioned in bed, hob elevated to her comfort. red areas under breast, pannus, anjana area, Nyastatin powder applied and fresh towels applied. Very strong smell and yellow drainge noted under R breast, scabbing over open areas. wound nurse consult done. Pt coop, alet and oriented at this time. f/c patent. legs elevated. IVF infusing RFA, on room air, call light at hands reach. tolerating diet and fluids well, no c/o pain
--- NOTE | 2020-07-22 01:55 | NUR ---
RESTING, NO C/O PAIN OR ADVERSE REACTION, ON ROOM AIR, IVF INFUSING, F/C PATENT
--- NOTE | 2020-07-22 04:38 | NUR ---
PT HAS SLEPT MOST OF THIS SHIFT, ON ROOM AIR, IVF INFUSING W/O PROBLEMS. GENERALIZED WEAKNESS, TURNED, RASH BETWEEN BREAST-ABDOMINAL AND SAMUEL AREA FOLDS HEALING. NYASTATINS POWDER APPLIED. WOUND NURSE CONSULT MADE A NURSING JUDGEMENT PT R BREAST SCABBED OVER AREA WITH SCANT AMOUNT OF SS DRAINAGE WITH VERY FOUL ODOR, AREA WAS CLEANSED WELL EARLIER IN SHIFT. PT WAS VERY COOPERATIVE. F/C PATENT. EDEMA OF LE, LEGS ELEVATED, TOLERATING DIET AND FLUIDS WELL, FALL AND ASPIRATION PRECAUTIONS IN PLACE
--- NOTE | 2020-07-22 06:48 | NUR ---
resting, eyes closed, no distress, ivf infusing, f/c patent, legs elevated. Repositioned earlier, cooperative, snacks given, tolerated well,
--- NOTE | 2020-07-22 07:00 | NUR ---
HANDOFF REPORT RECEIVED FROM OFFAL SEPARATOR RN. PT RESTING IN BED. IV LFUIDS INFUSING AT 150ML/HR.
--- NOTE | 2020-07-22 08:10 | NUR ---
PT RANI LIFTED TO [facility] FOR BREAKFAST. PT ON ROOM AIR, LUNG SOUNDS CLEAR, DENIES SOB. IV FLUIDS INFUSING AT 150ML/HR, PT WITH GOOD ORAL INTAKE, TIPTON CATH WITH CLEAR YELLOW URINE QS. PT WITH MALODOROUS RASH TO SKIN FOLDS, UNDER BREASTS AND ALONG SAMUEL AREA, PLAN FOR SHOWER THEN APPLICATION OF NYSTATIN POWDER. PT WITH WEAK LOWER EXTREMITIES, PULSES PALPABLE, 1-2+ EDEMA. PT PROVIDED WITH FRESH WATER, PT DENIES OTHER NEEDS AT THIS TIME.
--- NOTE | 2020-07-22 10:56 | NUR ---
PT SITTING IN CHAIR. PT COMPLAINT OF LOWER BACK PAIN, GIVEN 500 MG PO TYLENOL FOR PAIN. TIPTON CATH REMOVED PER ORDER. PT PROVIDED WITH WARM BLANKET. PLAN FOR PHYSICAL THERAPY AND THEN SHOWER.
--- NOTE | 2020-07-22 12:31 | NUR ---
PT ASSISTED INTO SHOWER, RANI LIFTED FROM CHAIR TO SHOWER CHAIR. TOTAL SHOWER COMPLETED, PT ASSISTED BACK TO BED WITH RANI LIFT. PT WITH YEAST/RASH TO GROIN, PANIS, BREASTS AND SKIN FOLDS, DRIED AREAS WELL, NYSTATIN POWDER APPLIED, PILLOW CASES PLACED IN SKIN FOLDS TO HELP MANAGE MOISTURE. LEFT KNEE WITH "RUG BURN" ABRASION, SITE CLEANSED WITH WOUNDS CLEANSER, COLLAGEN FOAM AND ALLEVYN DRESSING APPLIED. PT NOW RESTING IN BED, EATING LUNCH.
--- NOTE | 2020-07-22 14:25 | NUR ---
PT REQUESTING TO USE BED CHRISTOPHER. PT UNABLE TO VOID. BLADDER SCAN FOR 241 ML. WILL ALLOW PT A LITTLE MORE TIME TO TRY TO VOID.
--- NOTE | 2020-07-22 18:13 | NUR ---
PT IMPROVING TODAY. PT ABLE TO PERFORM SEVERAL SIT AND STANDS WITH PHYSICAL THERAPY. TIPTON CATH REMOVED, VOIDING WELL. PT WITH GOOD APPETITE, GOOD ORAL INTAKE, IV FLUIDS INFUSING AT 150ML/HR. PT WITH RASH IN SKIN FOLDS, CLEANSED WELL IN SHOWER AND NYSTATIN APPLIED.
--- NOTE | 2020-07-22 21:00 | NUR ---
ASSISTED PRIMARY RN ASHA CLEANED PATIENT'S LOWER ABDOMEN, GROIN AND UNDER BREAST AREA.
--- NOTE | 2020-07-22 21:02 | NUR ---
LEAD IOS DEVELOPER ROUNDING NOTE. PT RESTING IN BED WITH EYES CLOSED, APPEARS TO BE SLEEPING. CALL LIGHT IN REACH. ROOM IN VIEW OF RN STATION. WHITE BOARD UDPATED.
--- NOTE | 2020-07-22 23:15 | NUR ---
PER PT REQUEST I GAVE HER A PUDDING AND SOME CRACKERS. I OPENED ALL OF THE PACKETS PER HER REQUEST. SHE HAD A FULL GLASS OF WATER. BEDSIDE TABLE AND CALL LIGHT IN REACH.
--- NOTE | 2020-07-23 00:26 | NUR ---
RESTING, IVF INFUSING, ON ROOM AIR, NO DISTRESS, LEGS ELEVATED, CALL LIGHT AND FLUIDS AT BEDSIDE
--- NOTE | 2020-07-23 03:07 | NUR ---
Resting, eys closed, no c/o pain ivf infusing, legs elevated. call light and fluids at hands reach, repositoned to r side
--- NOTE | 2020-07-23 03:41 | NUR ---
pt incontinent of urine. changes, skin care done. Repositioned in bed.
--- NOTE | 2020-07-23 05:32 | NUR ---
Pt has been awake off and on, alert and oriented, not using call light. Turned Q2H, cooperative. Rash under breast,abd,groin periarea improving, Gets Nystatin powder. area under both breasts and L groin area excoriated areas with scant amount of yellow drainage with foul smell, wiped gently and nyastatin powder applied. pads under areas. Has been incontinent ofurine, skin cleaned. slight sob with exertion noted, lungs clear dim at bases bilat. increaed edema of LE noted. bed weight was done and pts admit weight per bed scale was 116kg, this bed weight done with regular bessing and 1 pillow, weight was 126kg. IVF infusing w/o problems, pt drinking large amounts of fluid. c/o leg discomfort alleviated with repositoning and elevating legs. Cooperative, cleansed
--- NOTE | 2020-07-23 06:46 | NUR ---
THIS RATE SUPERVISOR AND PUMP MECHANIC LAI HELPED PATIENT USE THE BED CHRISTOPHER.
--- NOTE | 2020-07-23 07:00 | NUR ---
HANDOFF REPORT RECEIVED FROM CHEMICAL BLENDER RN. PT RESTING IN BED. IV FLUIDS INFUSING LR AT 150ML/HR.
--- NOTE | 2020-07-23 08:00 | NUR ---
PT RANI LIFTED TO CHAIR FOR BREAKFAST. PT ON ROOM AIR, LUNG SOUNDS CLEAR. DENIES SOB. PT DENIES PAIN. BOWEL TONES ACTIVE, TOLERATING DIET, GOOD ORAL INTAKE. PT WITH RASH UNDER BREASTS, PANIS AND GROIN, IMPROVING. IV FLUIDS INFUSING LR AT 150ML/HR. PT WITH GENERALIZED SWELLING. PT DENIES OTHER NEEDS AT THIS TIME.
--- NOTE | 2020-07-23 11:00 | NUR ---
RADHA FROM [facility] WAS IN WITH PT FOR ASSESSMENT, REQUESTED UPDATE ON DISCHARGE PLAN. DISCUSSED THAT PT WAS AGREEABLE TO [place] AND DISCHARGE PLANNING HAS BEEN ESTABLISHING PLAN.
--- NOTE | 2020-07-23 11:15 | NUR ---
PT INCONTINENT OF URINE, PERICARE PERFORMED.
--- NOTE | 2020-07-23 15:56 | NUR ---
PT REQUESTING BEDPAN, VOIDED. PERICARE PERFORMED. PT DOING WELL, NO ACUTE CHANGES. PT DENIES OTHER NEEDS AT THIS TIME.
--- NOTE | 2020-07-23 17:29 | NUR ---
PT RANI LIFTED TO CHAIR FOR DINNER, ASSISTED WITH TRAY SET UP. PT DENIES OTHER NEEDS AT THIS TIME.
--- NOTE | 2020-07-23 18:26 | NUR ---
PT RANI LIFTED TO BEDSIDE COMMODE TO TRY TO HAVE A BM, INCONTINENT OF URINE. CALL LIGHT WITHIN REACH.
--- NOTE | 2020-07-23 18:27 | NUR ---
PT WITH GOOD URINE OUTPUT, IV SALINE LOCKED. PT WITH GOOD ORAL INTAKE. CONTINUES TO BE RANI LIFT, DID NOT STAND WITH PHYSICAL THERAPY TODAY. RASH TO BREASTS AND GROIN IMPROVING.
--- NOTE | 2020-07-23 19:14 | NUR ---
THIS MORNING THE NURSE AND I HOYERED HER FROM HER BED TO HER CHAIR SHE STAYED UP FOR BREAKFAST THAN WENT BACK TO BED.
--- NOTE | 2020-07-23 19:15 | NUR ---
REPOSITONED, INCONTINENT OF URINE, BARRIER CREAM AND SAMUEL CARE DONE, COOP
--- NOTE | 2020-07-23 19:46 | NUR ---
ANSWERED CALL LIGHT. 2 PA REPOSITIONED PATIENT.
--- NOTE | 2020-07-23 20:07 | NUR ---
COOP WITH ASSESSMENT, CALM, TOOK MEDS WELL, REPOSITIONED IN BED, FOLLWING INSTRUCTIONS . SL, ROOM AIR, MUCH IMPROVED RASH AND REDNESS UNER FOLDS. DECREAED DRAINAGE UNDER BREASTS AND L GROIN AREA. CLEANSED, NYSTATIN CREAM PPLIED. ALLEVYN L KNEE AREA, 2+ NON PITTING EDEMA BILAT. CALL LIGHT AND FLUIDS AT BEDSIDE
--- NOTE | 2020-07-23 23:29 | NUR ---
RESTING, ON ROOM AIR, EYES CLOSED, NO DISTRESS, FLUID AND CALL LIGHT AT BEDSIDE
--- NOTE | 2020-07-24 01:14 | NUR ---
WARM BLANKET GIVEN, USING CALL LIGHT APPROPRIATELY, HOB ELEVATED TO HER COMOFRT. LEGS ELEVATED. AWAKE
--- NOTE | 2020-07-24 03:04 | NUR ---
Incontinent of urine, tried to use bedban and was incontinent of urine again. Whole bed linen and gown changed. skin care done. Much improved rash under folds, scabbed over areas underneath breast folds and L groin area. Coop with turining and reposioned. warm blanket given on request. tolerated large amounts of fluids well
--- NOTE | 2020-07-24 04:52 | NUR ---
Pt to be dc'd to [place] today. Pt has been more anxious this shift, awake off and on, has requestsd and given pudin,crackers, juice, sandwich packs several times, Has been incontinent of urine several times, skin care and barrier cream. Much improved rash uner skin folds noted. Open scabbed over moist areas under both breasts and L groin area. Nyastatin powder applied as per orders. Very cooperative with assessment and helping with transferring. scabbed over R hand healing, edema of LE 2+ non pitting, elevated, works with PT?OT. On room air, drinking plenty of QS fluids, no emesis, no c./o pain. SL RFA patent. Easily redirected and efforts praised. Follows instructions well
--- NOTE | 2020-07-24 05:30 | NUR ---
Incontinent of urine, cleansed, skin care aznd barrier cream applied. helped with turning. tolerating liquids QS. R ring finger more edematous. pt denies to try to have it off. using call light
--- NOTE | 2020-07-24 06:27 | NUR ---
THIS RETAIL BRAND AMBASSADOR AND ARCHITECTURE DRAFTERMINAL HOYT HELPED PATIENT USE THE BED CHRISTOPHER. CALL LIGHT WITHIN REACH.
--- NOTE | 2020-07-24 07:10 | NUR ---
REPORT RECEIVED. PATIENT RESTING IN BED. RESPIRATIONS UNLABORED. CALL LIGHT WITHIN REACH.
--- NOTE | 2020-07-24 09:17 | NUR ---
ASSISTED PT IN REPOSITIONING IN CHAIR, INCLUDING PUTTING FEET ON GROUND AND REPOSITIONING BUTTOCKS IN CHAIR TO RELIEVE PRESSURES.
--- NOTE | 2020-07-24 10:15 | NUR ---
MORNING MEDS GIVEN. ASSESSMENT COMPLETE. PATIENT RESTING IN CHAIR. PATIENT STATES SHE "FEELS BETTER THAN I HAVE BEEN" AND FEELS ANXIOUS ABOUT WHERE SHE WILL BE DISCHARGED TO AND WHEN. RESPIRATIONS EVEN AND UNLABORED. MORE NYSTATIN ORDERED FROM PHARMACY. PATIENT GIVEN WARM BLANKET REQUESTED. PATIENT STATES PAIN IS 4/10 IN LOWER LEGS, BUT DENIES NEED FOR PAIN MED. PATIENT COMPLAINS OF PAIN ON ASSESSMENT OF CAP REFILL IN TOES. CALL LIGHT WITHIN REACH. NO FURTHER REQUESTS.
--- NOTE | 2020-07-24 10:44 | NUR ---
NYSTATIN POWDERED APPLIED UNDER BOTH BREASTS, IN ABDOMINAL FOLD, AND IN FOLDS ON BOTH SIDES OF SAMUEL AREA.
--- NOTE | 2020-07-24 10:58 | NUR ---
TEXTED [employer]ION PICTURE PROJECTIONIST CHUCK REGARDING PATIENT POSSIBLE DISCHARGE TODAY. RECEIVED A TEXT BACK FROM JOSE WHO STATES CHUCK IS OFF, HE IS DIRECTOR AND COVERING. HE STATES HE GAVE THE CHART SENT FRIDAY TO NURSING. I TEXTED THAT PATIENT MAY BE DISCHARGED TODAY AND I WILL SEND UPDATED NOTES FROM WEEKEND.
--- NOTE | 2020-07-24 11:00 | NUR ---
FAXED UPDATED NOTES FROM WEEKEND TO JOSE AT [facility]. FAX CONFIRMATION RECEIVED AT 1035AM.
--- NOTE | 2020-07-24 11:23 | NUR ---
patient assisted to bed using nghia lift. attends changed due to incontinence. allevin changed and wound cleansed on left knee. patient tolerated well. patient states she is comfortable and denies further needs at this time. call light within reach.
--- NOTE | 2020-07-24 11:46 | NUR ---
SPOKE WITH LORI GATES [facility]. SHE ASKED FOR UPDATE ON DISCHARGE PLAN. DISCUSSED THAT WE ARE TRYING TO DISCHARGE TO [facility] FOR THERAPY STAY. DISCUSSED THAT PATIENT IS MEDICALLY STABLE, BUT IS NOT AMBULATORY SAFELY FOR DISCHARGE TO HOME SETTING. SHE REQUESTS H&P TO PLACE WITH PATIENTS CHART AT [facility] SO THE TEAM HAS ACCESS TO WHAT HAS OCCURRED HERE. SHE IS GOING TO CALL [facility] AND SPEAK WITH JUSTIN WHO THEY ARE WORKING WITH ABOUT GETTING ASSESSMENT DONE FOR POSSIBLE MEDICAL/CAREGIVER NEEDS. FAX FOR HER IS [phone]. I DISCUSSED THAT NURSING HAS NOT ACCEPTED HER YET AT [facility] AND IF THEY CANNOT TAKE HER, I WILL NEED TO SPEAK WITH PATIENT REGARDING NEXT OPTIONS SUCH [facility] OR [facility]. LORI STATES THEY CANNOT PROVIDE AROUND THE CLOCK CARE AT A HOTEL FROM [facility]. WE BOTH AGREE PATIENT REALLY NEEDS SNF IF SHE CANNOT AMBULATE OR DO OWN PERSONAL CARE. WILL CONTINUE TO FOLLOW.
--- NOTE | 2020-07-24 13:05 | NUR ---
PATIENT RESTING IN BED. RESPIRATIONS UNLABORED. PATIENT STATES SHE IS DRY AND COMFORTABLE. CALL LIGHT WITHIN REACH. NO REQUESTS AT THIS TIME.
--- NOTE | 2020-07-24 13:12 | NUR ---
MAIKEL AG WAS CHARTING ON PT I ENTERED HER RM. SHE IS ALERT, ORIENTED AND SEEMS PLEASED I STOPPED BY. PT HAS NO PAIN, BUT EXPRESSED SOME CONCERN ABOUT PLACEMENT FOLLOWING DC. I INFORMED HER THAT CM STAFF ARE WORKING ON THAT AND THEY WILL INFORM HER. SHE SEEMED PLEASED, GAVE BLESSING
--- NOTE | 2020-07-24 13:25 | NUR ---
WAS UNABLE TO REACH NAEEM AT [facility] BY PHONE. MESSAGE LEFT ASKING IF THEY ARE GOING TO BE ABLE TO ACCEPT PATIENT SO I KNOW IF I NEED TO LOOK FOR AN ALTERNATE FACILITY. RETURN NUMBER LEFT.
--- NOTE | 2020-07-24 14:58 | NUR ---
PATIENT IS RESTING IN BED. DEPENDS CHANGED. VITALS AND I&O ARE DONE. RN IS IN ROOM TO ADRESS WOUNDS ON SKIN UNDER SKIN FOLDS.
--- NOTE | 2020-07-24 15:15 | NUR ---
PATIENT ATTENDS CHANGED. PATIENT REPOSITIONED. CALL LIGHT WITHIN REACH.
--- NOTE | 2020-07-24 15:22 | NUR ---
RECEIVED PHONE CALL FROM [facility] CHARGE NURSE. THEY CANNOT ACCOMODATE PATIENT AT THIS TIME. UPDATED DR HUBER/STAFF. SPOKE WITH PATIENT. SHE STATES SHE WOULD NEXT TRY [facility] IN [place]. SHE STATES SHE HAS A BROTHER THERE, AND SHE KNOWS HE CAN'T VISIT, BUT AT LEAST HE WOULD BE CLOSE. SHE STATES SHE WAS THERE BEFORE AND THEY "DID A GOOD JOB" BUT SHE WAS HOPING TO TRY SOMEONE "NEW".
--- NOTE | 2020-07-24 15:23 | NUR ---
CALLED [facility] FIXED WING AIRCRAFT FLIGHT MECHANIC, LEFT MESSAGE. FAXED CHART TO THEM [phone] WITH CONFIRMATION RECEIVED AT 318PM.
--- NOTE | 2020-07-24 16:19 | NUR ---
patient attends changed. dry pillowcases placed in groin folds. gauze placed under breast folds. patient given maalox for complaints of heartburn. no further requests.
--- NOTE | 2020-07-24 17:50 | NUR ---
PATIENT IS RESTING IN BED. I&O DONE AND VITALS DONE. CALL LIGHT IN REACH. NO OTHER NEEDS AT THIS TIME.
--- NOTE | 2020-07-24 18:36 | NUR ---
patient asleep in bed. respirations even and unlabored. call light within reach.
--- NOTE | 2020-07-24 18:53 | NUR ---
patient had a good day. up once this shift to the chair via nghia. PT in once. patient denied need for pain meds all shift. alert and oriented all shift. incontinent all shift but attends changed per patient report of being wet. VS stable. calls appropriately for assistance.
--- NOTE | 2020-07-24 19:40 | NUR ---
REPORT RECEIVED FROM DAY SHIFT RN. PT LYING IN BED RESTING WITH EYES CLOSED. NOT DISTURBED AT THIS TIME. RESPIRATIONS EVEN AND UNLABORED. PT IN VIEW OF NURSES STATION. WHITE BOARD UPDATED. CALL LIGHT IN REACH.
--- NOTE | 2020-07-24 20:15 | NUR ---
CALL LIGHT ANSWERED. PT INCONTINENT OF URINE. 2PA WITH ATTENDS CHANGE. SAMUEL CARE DONE BY STAFF. REPOSITIONED IN BED.
--- NOTE | 2020-07-24 21:30 | NUR ---
MARKETING SERVICES REP ROUNDING NOTE. PT RESTING IN BED WITH EYES CLOSED. DOES NOT WAKE WHILE GED TUTOR AT BEDSIDE. CALL LIGHT IN REACH. ROOM IN VIEW OF RN STATION. WHITE BOARD UDPATED.
--- NOTE | 2020-07-24 22:45 | NUR ---
EVENING ASSESSMENT COMPLETE. SCHEDULED MEDS ADMINISTERED PER EMAR. PT DENIES PAIN OR NAUSEA. UNDER BREASTS AND GROIN/SAMUEL AREA CLEANED. NYSTATIN APPLIED. ALLEVYN TO LEFT KNEE CDI. VS AND I&O COMPLETE. REPOSITIONED IN BED WITH 2PA. DENIES QUESTIONS, CONCERNS, OR NEEDS AT THIS TIME. CALL LIGHT IN HAND.
--- NOTE | 2020-07-24 23:09 | NUR ---
V/S AND I&O TAKEN AND CHARTED. ASSISTED PRIMARY RN MICHELA CLEANED PATIENT'S UNDERS BREAST AND LOWER ABDOMEN AND GROIN AREA. PATIENT REPOSITIONED.
--- NOTE | 2020-07-25 01:05 | NUR ---
PATIENT CALLED TO USE THE BED CHRISTOPHER. 2 PA.
--- NOTE | 2020-07-25 01:09 | NUR ---
CALL LIGHT ANSWERED. 2PA TO BED CHRISTOPHER. SAMUEL CARE DONE BY STAFF. REPOSITIONED WITH PILLOWS. NO FURTHER NEEDS AT THIS TIME.
--- NOTE | 2020-07-25 04:02 | NUR ---
SANDWICH BOX PROVIDED PER PT REQUEST.
--- NOTE | 2020-07-25 06:25 | NUR ---
VS AND I&O COMPLETE. PT DENIES FURTHER NEEDS. WOULD LIKE TO "REST A BIT LONGER".
--- NOTE | 2020-07-25 07:00 | NUR ---
Message on my phone when I arrived from [facility] from [facility]. She will review the chart and let us know later today, if they can accept this pt.
--- NOTE | 2020-07-25 07:28 | NUR ---
Pt awake sitting up in bed, alert and oriented x4. Patient denies needs at this time and would like to sleep a bit more this morning. Call light within reach.
--- NOTE | 2020-07-25 11:00 | NUR ---
Spoke with Lisa, we are awaiting auth from [facility]. Understanding stated.
--- NOTE | 2020-07-25 11:02 | NUR ---
Patient with VOICE PATHOLOGIST staff at this time having a bed bath. No needs at this time. Personal supplies and call light within reach.
--- NOTE | 2020-07-25 11:22 | NUR ---
PATIENT IS IN BED. REQUESTED [employer] NUM[employer]. NUMBER GIVEN. BED BATH WAS GIVEN. RN LOOKED AT WOUNDS AND POWDER APPLIED. DEPENDS CHANGE. GOWN CHANGE. SAMUEL CARE DONE. SHOWER CAP HAIR CLEANED. POSTIONED FOR A NAP. CALL LIGHT IN REACH. NO OTHER NEEDS AT THIS TIME.
--- NOTE | 2020-07-25 11:30 | NUR ---
Message on phone from [facility], they will accept this pt. She is sending a request to [facility] for auth.
--- NOTE | 2020-07-25 11:50 | NUR ---
Patient resting in bed at this time, respirations even and non labored. No notable distress. Close to RN station. Personal supplies and call light within reach.
--- NOTE | 2020-07-25 13:09 | NUR ---
Dimitri and spoke with Aimee. She is awaiting auth. She also is working with pts' Rn Tele from [employer] for secondary source of payment. Phone number given for Marietta Feng. Shahram will call me back when she has further information, she will also check with [facility]/[employer] for documentation on the PASRR, as this was an issue in the past. Plan is for pt to dc tommorrow if [facility] has auth.
--- NOTE | 2020-07-25 13:22 | NUR ---
PATIENT IS RESTING IN BED AND IS READY FOR A NAP SHE SAYS. RODERICK MAIRN REQUESTED AND GIVEN. CALL LIGHT IN REACH. NO OTHER NEEDS AT THIS TIME.
--- NOTE | 2020-07-25 14:41 | NUR ---
Patient resting in bed, a&ox4. Patient has no distress and denies needs. Personal supplies within reach. No needs at this time.
--- NOTE | 2020-07-25 19:27 | NUR ---
REPORT RECEIVED FROM DAY SHIFT RN. PT LYING IN BED WITH EYES CLOSED. RESPIRATIONS EVEN AND UNLABORED. RIGHT LEG ELEVATED ON PILLOW. WHITE BOARD UPDATED. CALL LIGHT IN REACH.
--- NOTE | 2020-07-25 20:49 | NUR ---
ROUNDED CHARGE. BALANCER SCALE NATE AND PRIMARY RN IN ROOM CHANGING pt AT THIS TIME. ALLERGY BAND PLACED ON pt. NO NEEDS AT THIS TIME.
--- NOTE | 2020-07-25 20:54 | NUR ---
EVENING ASSESSMENT COMPLETE. SCHEDULED MEDS ADMINISTERED PER EMAR. PRN ADMINISTERED FOR RIGHT HIP PAIN. UNDER BREASTS AND GROIN AREA CLEANED, DRIED, AND NYSTATIN POWDER APPLIED. HEEL PROTECTORS IN PLACE. PT REPOSITIONED IN BED WITH PILLOWS. FRESH LIQUIDS PROVIDED. NO FURTHER NEEDS. CALL LIGHT IN REACH.
--- NOTE | 2020-07-26 00:28 | NUR ---
PT RESTING IN BED WITH EYES CLOSED, NAD
--- NOTE | 2020-07-26 01:55 | NUR ---
CALL LIGHT ANSWERED. IN TO ASSIST PT WITH REPOSITIONING IN BED. APPLE SAUCE AND CLAUDIA CRACKERS PROVIDED PER REQUEST.
--- NOTE | 2020-07-26 02:15 | NUR ---
THIS CHEMICAL PATHOLOGIST AND PRIMARY RN MICHELA CHANGED PATIENT'S INCONTINENT ATTENDS. PATIENT REPOSITIONED. CALL LIGHT IN REACH.
--- NOTE | 2020-07-26 02:31 | NUR ---
PT INCONTINENT OF LARGE AMOUNT OF URINE. SAMUEL CARE DONE BY STAFF. CLEAN ATTENDS PLACED. REPOSITIONED IN BED.
--- NOTE | 2020-07-26 05:30 | NUR ---
PT INCONTINENT OF LARGE AMOUNT OF URINE. SAMUEL CARE DONE BY STAFF. CLEAN ATTENDS PLACED. REPOSITIONED IN BED WITH PILLOWS.
--- NOTE | 2020-07-26 06:58 | NUR ---
PRN ADMINISTERED FOR RIGHT HIP PAIN. WARM BLANKET AND CRACKERS PROVIDED.
--- NOTE | 2020-07-26 09:49 | NUR ---
Spoke with Aimee from [facility], Auth from [facility] was received. Notified she has been working with Marietta Feng from [employer] and they will assist pt on discharge for housing, which will more than likely be a motel. Updated I spoke with Soo yesterday and she continues with close to $10,000 in saving from a Settlement she received. UPdated this is why DHS is likely not putting her on alf medicaid. Updated, I left a message with Rosalba Lakhani. Plan is [facility] will transport pt. at 2 pm to [facility]. SNF orders given to Dr. Jacobs.
--- NOTE | 2020-07-26 10:13 | NUR ---
patient is resting in bed. gown change. depends change. call light in reach no other needs at this time. Doctor in room disscusing patient options. call light in reach. no other needs at this time.
[2020-07-26] MEDS ORDERED: FLUCONAZOLE150 MG PO (10:19)
[2020-07-26] MEDS ORDERED: DIVALPROEX SOD500 MG PO (10:19)
--- NOTE | 2020-07-26 10:56 | NUR ---
Patient resting in bed at this time, respirations even and non labored. Patient reports she is doing well. Brief dry at this time. No needs. Personal supplies and call light within reach.
--- NOTE | 2020-07-26 13:00 | NUR ---
Received SNF orders. Faxed orders and PASSR. Called Aimee and notified orders completed. Transport will arrive around 2 pm and they will bring a wc to transport patient.
--- NOTE | 2020-07-26 14:20 | NUR ---
PT LAYING COMFORTABLY IN BED, PREPPING FOR DC TO SNF. SHE WANTED ME TO MAKE SURE THE STAFF KNEW SHE WAS THANKFUL FOR THE CARE SHE WAS GIVEN HERE. I PASSED ON TO HER RN CLARK. PT REQUESTED PRAYER
== END 2020-07-26 14:30 | DRG 557 ==
LOC: ED 09:40 → MS 11:59
PROVIDERS: ADMIT Internal Medicine; ATTEND Internal Medicine
DX: M62.82 Rhabdomyolysis (principal); R53.2 Functional quadriplegia; N17.9 Acute kidney failure, unspecified; Z20.828 Contact with and (suspected) exposure to other viral communicable diseases; E86.0 Dehydration; F31.9 Bipolar disorder, unspecified; E78.5 Hyperlipidemia, unspecified; N18.1 Chronic kidney disease, stage 1; R60.0 Localized edema; B37.2 Candidiasis of skin and nail; R29.6 Repeated falls; Z59.0 Homelessness; Z88.8 Allergy status to other drugs, medicaments and biological substances; Z88.5 Allergy status to narcotic agent; Z79.891 Long term (current) use of opiate analgesic; Z79.899 Other long term (current) drug therapy; Z87.820 Personal history of traumatic brain injury; Z79.82 Long term (current) use of aspirin
CPT/HCPCS: 36415; 73560; 80048; 80053; 80061; 80164; 81001; 82550; 84443; 85025; 96360; 97110; 97162; 97166; 97530; 97535; 99285-25; C9803; J1650; J7030; J7121